=== PATIENT | female | born 1935 | race Caucasian/White ===

== ENCOUNTER 2017-02-17 08:33 | Inpatient (IN) ==
[2017-02-17] MEDS ORDERED: ALBUTEROL 2.5 MG/3 ML NEB RESP TX STA (08:55)
--- NOTE | 2017-02-17 09:01 | Emergency Department Note ---
Binu Roe Brooke, am scribing for, and in the presence of, Ashish Lynn MD 08:59 . Leah Roe James D, MD, personally performed the services described in this documentation, ascribed by Geetha Schmid in my presence, and it is both accurate and complete . Arrival - Arrival Chief Complaint: Shortness of Breath Stated Complaint: Shortness of Breath ED Nursing Triage Note: Pt woke up this am with severe shortness of breath. Upon ems arrival pt had O2 sat of 84% with rebound to 96% with 4L NC. Pt fractured back in the early part of January, with fracture of ribs . Mode of Arrival: Stretcher Limitations: No Limitations Source: Patient, Family, RN Notes Reviewed Time Seen by Provider: 02/17/17 08:49 - History of Present Illness HPI Narrative: Patient is a 81 year old female, brought into the ED by EMS, with c/o shortness of breath that has been ongoing for the past two weeks. She has been to five different appointments and has been told her lungs were clear. Patient says her last appointment was yesterday, at [facility], and they also said her lungs were clear. Patient says she also has a productive cough but is only able to get a "tad bit" up when she coughs. Patient says she has had a TIA, in the past, and does have problems with swallowing. Patient says she has been having a hard time eating. She has bilateral leg edema and has been constipated. Patient denies having any fever. She also has PMHx of afib, HTN and back/neck problems. Patient says she bent over to pick something up, in January, and fractured some ribs. Patient's Primary Care Provider is Dr. Graham and her Claims Adjuster Supervisor is Dr. Johnston. Patient is not currently a smoker but says she did when she was younger. Onset (ago): week(s) (2) Date of Last Menstrual Period: Hysterectomy Allergies/Adverse Reactions: Allergies Allergy/AdvReac Type Severity Reaction Status Date / Time sulfamethoxazole Allergy RASH Verified 11/02/15 10:04 [From Bactrim] trimethoprim [From Bactrim] Allergy RASH Verified 11/02/15 10:04 Home Medications: Home Medications Medication Instructions Recorded Confirmed Type Amiodarone Tab [Cordarone Tab] 200 mg PO DAILY 10/31/15 10/31/15 History Ascorbic Acid [Vitamin C] 1,000 mg PO DAILY 10/31/15 10/31/15 History Calcium Carbonate/Vitamin D2 2 each PO DAILY 10/31/15 10/31/15 History [Oyster Shell Calcium-Vit D Tab] Gabapentin Cap/Tab [Neurontin 300 mg PO DAILY 10/31/15 10/31/15 History Cap/Tab] HYDROcodone/ACETAMIN 5-325 [Ava 1 tablet PO DAILY 10/31/15 10/31/15 History 5-325] Lisinopril [Zestril] 20 mg PO DAILY 10/31/15 10/31/15 History Magnesium 250 mg PO DAILY 10/31/15 10/31/15 History Metoprolol Succinate 25 mg PO DAILY 10/31/15 10/31/15 History Multivitamin [Multivitamins] 1 each PO DAILY 10/31/15 10/31/15 History Potassium Chloride 8 meq PO DAILY 10/31/15 10/31/15 History Warfarin [Coumadin] 2.5 mg PO DAILY@1800 10/31/15 10/31/15 History Review of System - Review of System 12 point system: reviewed and no additional remarkable complaints except as stated - Review of System Constitutional: Absent: fever Respiratory: Present: cough (productive), respiratory distress (Shortness of breath) Cardiovascular: Present: edema (bilateral leg edema) Skin: Absent: rash Medical,Surgical,& Family Hx - Medical History Cardio: History of: Hypertension Endocrine: No history of: Diabetes Mellitus (NIDDM), Thyroid Disorder Respiratory: No history of: Pulmonary Embolism Musculoskeletal: History of: Back/Neck Problems - Surgical History Reproductive Surgeries: Surgical HX of;: Hysterectomy - Social History Smoking Status: Never smoker Frequency of Alcohol Use: None Type of Drug Use: None Exam Vital Signs: Vital Signs Temperature 96.8 F L 02/17/17 08:40 Pulse Rate 88 02/17/17 09:33 Respiratory Rate 24 02/17/17 09:33 Blood Pressure 193/89 02/17/17 08:57 O2 Sat by Pulse Oximetry 96 02/17/17 08:57 GENERAL: This is a chronically ill-appearing white female in no apparent distress. VITAL SIGNS: Reviewed HEENT: Head is atraumatic and normocephalic. Pupils are equal round react to light. Extraocular movements are intact. Oropharynx is benign with moist mucous membranes. NECK: Neck is soft and supple without tenderness. There are no masses. There is no lymphadenopathy. LUNGS: Lungs are clear to auscultation. There are coarse upper airway sounds. Patient has more difficulty in clearing her upper airway. Chest rises symmetrically. There is no chest wall tenderness. CV: Heart is regular rate and rhythm without murmurs rubs or gallops. ABDOMEN: Abdomen is soft, nontender to palpation. There are no abdominal abnormal masses palpated. There is no organomegaly. Bowel sounds are present and active. SKIN: Skin is warm and dry. No rash. EXTREMITIES: Patient has full range of motion without tenderness. There is 1+ pitting pedal edema. NEUROLOGIC: Awake alert and oriented 4. Cranial nerves II through XII are grossly intact. Motor is 3-4 over 5 in all extremities bilaterally. Course Course Narrative: Speech therapy evaluation is complete. Bedside swallowing evaluation shows normal swallowing. - Consultations Consultation #1: Discussed with hospitalist. Patient will be admitted to their service. Time: 10:03 Results - Labs CBC & BMP: 02/17/17 08:47 02/17/17 08:47 Lab Results: I have reviewed the patients labs Labs: Laboratory Tests 02/17/17 02/17/17 08:47 09:23 ABG pH 7.396 ABG pCO2 47.2 ABG pO2 89.1 ABG HCO3 27.2 H ABG Total CO2 25.1 ABG O2 Saturation 96.6 ABG Base Excess 3.2 H B-Natriuretic Peptide 755 H - EKG EKG results: interpreted by ERMD - Impressions EKG: Normal sinus rhythm with a rate of 71, nonspecific ST-T wave changes, normal axis, old lateral and inferior NV. - Diagnostic Findings Procedure: Chest x-ray: image reviewed by me (Left pleural effusion, increased pulmonary markings bilaterally, elevated left hemidiaphragm.) Disposition Clinical Impression: Dyspnea, Congestive heart failure, Debility, Chronic back pain Case discussed with: patient Disposition: Still a Patient Condition: Stable Time of Disposition: 10:03
[2017-02-17 09:03] LABS: Basophils # 0.1 10*3/uL (0.0-0.2); Basophils % 0.4 % (0.0-0.8); Eosinophils # 0.2 10*3/uL (0.0-0.87); Hematocrit 41.7 VOL% (35.7-47.0); Hemoglobin 13.9 GM/DL (12.0-16.0); Immature Granulocytes % 1.7 %; Immature Granulocytes Absolute 0.19 #; Lymphocytes % 8.6 % (21.3-54.2); Mean Corpuscular HGB Conc 33.3 GM/DL (32-36); Mean Corpuscular Hemoglobin 31 PG (27-34); Mean Corpuscular Volume 93.1 FL (87-102); Monocytes # 0.6 10*3/uL (0.11-0.8); Monocytes % 5.5 % (1.7-12.7); Neutrophils # 9.3 10*3/uL (1.4-7.4); Neutrophils % 81.8 % (38.7-73.9); Platelet Count 317 T/CUMM (130-400); Red Blood Count 4.48 MC/CUMM (3.8-5.5); Red Cell Distribution Width 14.7 % (9.3-17.3); White Blood Count 11.4 T/CUMM (4-12)
--- NOTE | 2017-02-17 09:29 | XRay Report ---
XR chest 2V Indication: Cough Comparison: Chest x-ray dated October 31, 2015 Technique: Frontal and lateral views of the chest. Findings: Continued cardiomegaly. Continued elevation of left hemidiaphragm. Scattered small pulmonary opacities as well as left basilar atelectasis/consolidation suspicious for infection. Recommend follow-up imaging to document resolution. There is probable small left pleural fluid. Visualized osseous and surrounding soft tissue structures appear grossly unchanged. Diffuse osteopenia as well as significant dextroconvex curvature of the spine. IMPRESSION: As above. PROCEDURE INTERPRETED AT [facility] DEPARTMENT OF RADIOLOGY Final Report Signed by: Dr Michele Zarate
[2017-02-17 09:30] LABS: ABG Base Excess 3.2 MMOL/L (-2.5-2.5); ABG HCO3 27.2 MMOL/L (20-26); ABG Oxygen Saturation 96.6 % (95-100); ABG PCO2 47.2 MM HG (35-48); ABG PH 7.396 (7.35-7.45); ABG PO2 89.1 MM HG (80-95); ABG TCO2 25.1 MMOL/L (23-27)
[2017-02-17 09:37] LABS: Albumin 3.7 G/DL (3.4-5.0); Calcium 9.3 MG/DL (8.5-10.1); Osmolality,Calculated 280.5 MOS/KG (273-304); Total Protein 6.8 G/DL (6.4-8.3)
--- NOTE | 2017-02-17 09:48 | EKG Report ---
Stationary ECG Study [facility] ER Test Date: 02/17/2017 8:50:55 AM Pat Name: MARÍA LEMUS Department: Room: Gender: F Car Wash Attendant: : 1935 Requested by: Ashish Evans Order Number: [id number] Reading MD: PAULA BOYD Intervals [place] Rate: 71 P: 39 HI: 157 QRS: 61 QRSD: 124 T: 154 QT: 492 QTc: 514 Interpretive Statements SINUS RHYTHM PROBABLE LATERAL MYOCARDIAL INFARCTION, OF INDETERMINATE AGE PROBABLE INFERIOR MYOCARDIAL INFARCTION, PROBABLY OLD Electronically Signed On 02-19-17 15:14:14 CDT by PAULA BOYD [email or web address]
[2017-02-17] MEDS ORDERED: FUROSEMIDE 40 MG/4 ML VIAL IV STA (10:04)
[2017-02-17] MEDS ORDERED: FUROSEMIDE 100 MG/10 ML VIAL ONE (10:26)
[2017-02-17 10:36] LABS: Apearance,Urine Slightly Hazy (Clear); Bacteria,Urine Occasional /HPF (Few); Bilirubin,Urine Negative (Negative); Blood, Urine Negative (Negative); Glucose,Urine (UA) Negative (Negative); Ketones,Urine Negative (Negative); Mucus,Urine Occasional /LPF (Occasional); Nitrite,Urine Negative (Negative); Protein,Urine Negative; RBC,Urine 3 /HPF (0-4); Squamous Epithelial Cell,Urine Occasional /HPF (0-10); Urine Color Yellow (Yellow); Urine Specific Gravity 1.009 (1.001-1.035); Urine Urobilinogen < 2.0 EU/DL (0.2-1.0); WBC,Urine 11 /HPF (0-6)
--- NOTE | 2017-02-17 12:07 | Hospitalist History & Physical ---
<Doc Marte - Last Filed: 02/17/17 13:33> Assessment and Plan - Time spent with patient Time spent with patient: Greater than 30 minutes (1) Pneumonia Status: Acute Assessment and plan: Admit to telemetry for further evaluation. IV antibiotics. Breathing treatments. Facilitate secretion movement with Mucinex or Mucomyst. Consult pulmonology as needed. Current Visit: Yes (2) Congestive heart failure Status: Acute Assessment and plan: Patient was given IV Lasix 80 mg injection in the ED. Will continue diuresis. BNP 755 Current Visit: Yes (3) Chronic back pain Status: Acute Assessment and plan: Per patient, she has vertebral fractures. She is currently being followed by physicians and nurse practitioners at [facility]. Current Visit: Yes (4) Hypertension Status: Acute Assessment and plan: Continue home meds Current Visit: No (5) Debility Status: Acute Current Visit: Yes (6) Headache Status: Acute Current Visit: No (7) History of atrial fibrillation Status: Chronic Assessment and plan: Rate and rhythm control. Patient is currently in sinus rhythm. Current Visit: No History of Present Illness Chief complaint: Shortness of breath History of present illness: Ms. Ernandez is a 81 year old ill-appearing white female with a past medical history significant for hypertension, atrial fibrillation, chronic back pain, total knee replacement who presents to the ED with complaints of shortness of breath 1 month. Patient reports that she has been experiencing shortness of breath for the last month with worsening symptoms within the last week. Patient states that she was at her baseline, very active social life until approximately 1 month ago when, while at her brother and drzwdd-ot-fac's house, she experienced chest pain and weakness. Patient states that she has been progressively getting worse since with cough sometimes productive of sputum. She notes that this has been keeping her up at night lately and she has been unable to eat but notes that she does have an appetite. She does have chronic back pain and is being followed by Dr. Crook and his nurse practitioners at [facility]. On exam today, the patient is short of breath and speaks in fragmented sentences as well she is unable to fully catch her breath. She is satting 96-97% on 2 L of oxygen per nasal cannula. Patient has a weak cough and is seemingly unable to move secretions adequately. She admits to headache, nausea without vomiting, shortness of breath, weakness, lower extremity pitting edema bilaterally. She denies blurry vision, change in bowel habits, known palpitations, numbness or tingling. Lab work on admission is remarkable for: WBC is 11.4, pH 7.396, PCO2 47.2, PO2 89.1, HCO3 27.2, sodium 139, potassium 4.0 , chloride 101, BUN 15, creatinine 0.80, glucose 148, BNP 755. Urinalysis shows large leukocytes 11 WBCs, occasional squamous epithelial cells, bacteria, mucus. Case has been discussed with Dr. Lynn, ER physician, and Dr. Gracia, admitting physician, the patient will be admitted to the hospital medicine service for further evaluation and treatment. Patient is this is a full code. Medications have been reviewed. Home Medications Medication Instructions Recorded Confirmed Type Amiodarone Tab [Cordarone Tab] 200 mg PO QAM 10/31/15 02/17/17 History Gabapentin Cap/Tab [Neurontin 300 mg PO 1200 10/31/15 02/17/17 History Cap/Tab] Magnesium 250 mg PO BEDTIME 10/31/15 02/17/17 History Metoprolol Succinate 12.5 mg PO 1200 10/31/15 02/17/17 History Multivitamin [Multivitamins] 1 each PO QAM 10/31/15 02/17/17 History Ascorbic Acid [Vitamin C] 500 mg PO BEDTIME 02/17/17 02/17/17 History Calcium Carbonate/Vitamin D3 1 each PO 1700 02/17/17 02/17/17 History [Calcium 600 + Vit D Tablet] Ferrous Sulfate 325 mg PO QAM 02/17/17 02/17/17 History Furosemide Inj [Lasix Inj] 20 mg IM BID DIURETIC vial 02/17/17 Rx Hydrocodone/Acetaminophen 1 tablet PO Q4-6H PRN 02/17/17 02/17/17 History [Hydrocodon-Acetaminoph 7.5-325] Potassium Chloride 8 meq PO 1200 02/17/17 02/17/17 History Warfarin [Coumadin] 2.5 mg PO DAILY 02/17/17 02/17/17 History Allergies Allergy/AdvReac Type Severity Reaction Status Date / Time sulfamethoxazole Allergy RASH Verified 11/02/15 10:04 [From Bactrim] trimethoprim [From Bactrim] Allergy RASH Verified 11/02/15 10:04 Medical,Surgical,& Family Hx - Medical History Cardio: History of: CHF, Hypertension Neurology: History of: TIA Endocrine: No history of: Diabetes Mellitus (NIDDM), Thyroid Disorder Respiratory: No history of: Pulmonary Embolism Gastrointestinal: History of: GERD Musculoskeletal: History of: Back/Neck Problems - Surgical History Reproductive Surgeries: Surgical HX of;: Hysterectomy - Family History Family History: Reports;: Family Diabetes, Family Heart Disease, Family Hypertension - Social History Smoking Status: Never smoker Frequency of Alcohol Use: None Type of Drug Use: None Marital Status: Lives With:: Alone Functional capacity: independent ambulation - Constitutional Constitutional: Present: fatigue, headache(s), weakness - EENT Eyes: Absent: blurry vision, loss of vision Ears: Absent: decreased hearing, ear pain Nose, mouth and throat: Absent: epistaxis, neck mass, neck pain, vertigo - Cardiovascular Cardiovascular: Present: dyspnea, dyspnea on exertion, edema. Absent: chest pain at rest, lightheadedness, palpitations - Respiratory Respiratory: Present: cough - Genitourinary Genitourinary: Present: urinary frequency. Absent: dysuria, flank pain - Musculoskeletal Musculoskeletal: Present: back pain - Neurological Neurological: Absent: abnormal gait, numbness, syncope - Psychiatric Psychiatric: Absent: anxiety, depression - Endocrine Endocrine: Absent: fatigue - Hematologic/Lymphatic Hematologic/Lymphatic: Present: easy bleeding, easy bruising Exam - Constitutional Vitals: Period Temp Pulse Resp BP Sys/Cox Pulse Ox Last 24 Hr 96.8 F-97.9 F 68-88 18-24 167-209/69-91 94-97 Exam: General appearance: Overweight, ill-appearing, mild distress - Head Head exam: Present: normocephalic, atraumatic - Eye Eye exam: Present: EOMI. Absent: conjunctival injection, nystagmus Pupils: Present: CHERELLE, normal accommodation - ENT ENT exam: Present: normal exam, normal external ear exam - Neck Neck exam: Present: normal inspection. Absent: lymphadenopathy, tenderness, thyromegaly - Respiratory Respiratory exam: Present: clear to auscultation bilaterally. Absent: rales, rhonchi, wheezes - Cardiovascular Cardiovascular exam: Present: regular rate and rhythm. Absent: carotid bruit, gallop, rubs - GI/Abdominal GI/Abdominal exam: Present: normal bowel sounds. Absent: ascites, distended, mass - Extremities Exam Extremities exam: Present: normal inspection, normal capillary refill, bilateral lower extremity pitting edema 1+-2+ - Back Exam Back exam: Kyphosis absent: CVA tenderness (L), CVA tenderness (R) - Neurological Exam Neurological exam: Present: alert, oriented X3 - Psychiatric Psychiatric exam: Present: normal affect, normal mood - Skin Skin exam: Present: normal color, warm, dry Results - Labs CBC & BMP: 02/17/17 08:47 02/17/17 08:47 Lab Results: I have reviewed the past 24 hour labs - EKG EKG results: interpreted by ERMD - Diagnostic Findings Procedure: Chest x-ray: image reviewed by me, report reviewed by me (Left basilar atelectasis/consolidation) <Keren Gracia - Last Filed: 02/17/17 15:53> History of Present Illness History of present illness: Ms. Ernandez is a 81 year old female who reports she fell and fractured her spine at T4 approximately 2-3 weeks ago. She was pulling up to get off the commode and pulled a muscle in her upper chest. She reports the a sharp constant pain on upper chest and around her shoulder blade. She reports movement makes the pain worse. Over the past 2 weeks, pt has had a productive cough of clear sputum but denies any any fever. Due to the pain medications she has been constipated and with nausea. She finally had a bowel movement 4 days ago after taking multiple laxatives and one small one the am of admission. She noticed lower extremity swelling that has worsened over the last 4 days. She used to take Lasix but has been off of it for months. When she was unable to breath this am, she panicked and came to the ER for further evaluation and treatment. A 10-point review of systems was reviewed and was otherwise unremarkable. PMH: TIA, chronic diastolic CHF, afib s/p electrical cardioversion, osteoporosis , T4 fracture, PNA, urinary incontinence PSH: left hip repair s/p fracture and right TKA, cataract extraction MEDS: reviewed ALL: bactrim- rash FH: Father lung cancer; Mother colon cancer; Brother DEMARCO, neuropathy and spinal stenosis; DM SH: remote former tobacco user quit 20-30 years ago. No alcohol or illicit drug use. . Lives alone though family involved in her care. Active. Full code Vitals: reviewed A and O x 3, weak appearing but nontoxic NAD HEENT: PERRL, EOMI, sclera clear, nares patent no discharge or epistaxis noted. O/P clear without oral lesions or thrush. Neck : supple, no LAD or thyromegaly noted. No JVD CV: RRR no M/R/G LUNGS: CTAB diminished at the bases left more right, nonlabored ABD: Soft, NT, ND, +BS EXT: Warm. No clubbing or cyanosis or edema BACK: No ecchymoses, erythema +kyphosis Neuro: nonfocal Labs/Investigative Studies:Reviewed A/P: 1. Acute dyspnea- possibly due to pneumonia and mild CHF exacerbation 2. Mild acute on chronic diastolic heart failure exacerbation- s/p Lasix 80mg IV x 1 in ER. Will continue Lasix 20mg IV q12h x 1 day. Resume ACEi pending RFP in am. Recheck BNP in am. 3. History of paroxysmal afib - Cont on amiodarone and Cont metoprolol. Check INR and resume coumadin if INR <3. Check TSH. 4. Acute pneumonia possibly aspiration- oxygen, bronchodilators, IV Rocephin, and mucolytics. F/U Clinically. 5. Chronic back pain due to T4 compression fracture- Pain medication. Will try fentanyl patch 12mcg q72h and start bowel regimen 6. Suspected Acute cystitis/UTI- F/U UCx and start Rocephin. 7. Chronic opioid induced constipation- start Miralax scheduled. If no improvement, may consider Linzess 8. Debility- PT/OT consult DVT prophylaxis- on Coumadin D/W pt and family and PA. All questions answered. Exam - Constitutional Vitals: Period Temp Pulse Resp BP Sys/Cox Pulse Ox Last 24 Hr 96.8 F-97.9 F 68-88 18-24 167-209/69-91 94-97 Results - Labs CBC & BMP: 02/17/17 08:47 02/17/17 08:47
[2017-02-17 12:31] LABS: Bilirubin,Total 0.4 MG/DL (0.2-1.0)
[2017-02-17] MEDS ORDERED: LEVALBUTEROL 1.25 MG/3 ML NEB RESP TX PRN (15:39)
[2017-02-17] MEDS ORDERED: cefTRIAXone 1,000 MG VIAL IM SCH (16:00)
[2017-02-17] MEDS ORDERED: SODIUM CHLORIDE 0.9% 100 ML IV ONE (16:07)
[2017-02-17] MEDS: fentaNYL 12 MCG/HR PATCH TRANSDERM SCH (16:31)
[2017-02-17] MEDS: CALCIUM (CARBONATE)/VITAMIN D 600 MG-400 UNIT TABLET PO SCH (16:31)
[2017-02-17] MEDS: FUROSEMIDE 20 MG/2 ML VIAL IM SCH (16:32)
[2017-02-17 17:28] LABS: Partial Thromboplastin Time 38.3 SECS (0-40)
[2017-02-17 17:34] LABS: INR 1.9
[2017-02-17 17:50] LABS: PT Patient Result 21.4 SECS
[2017-02-17] MEDS: MAGNESIUM GLUCONATE 500 MG TABLET PO SCH (20:40)
[2017-02-17] MEDS: ASCORBIC ACID 500 MG TABLET PO SCH (20:41)
[2017-02-17] MEDS: POLYETHYLENE GLYCOL POWDER 17 GM PACK PO SCH (20:44)
[2017-02-18] MEDS: LEVALBUTEROL 1.25 MG/3 ML NEB RESP TX SCH ×3 (01:47→15:12)
[2017-02-18 05:48] LABS: Basophils % 0.3 % (0.0-0.8); Eosinophils # 0.2 10*3/uL (0.0-0.87); Eosinophils % 2.3 % (0.00-10.9); Hematocrit 39.9 VOL% (35.7-47.0); Hemoglobin 13.2 GM/DL (12.0-16.0); Immature Granulocytes % 1.1 %; Immature Granulocytes Absolute 0.11 #; Lymphocytes # 1.3 10*3/uL (1.4-4.0); Lymphocytes % 12.7 % (21.3-54.2); Mean Corpuscular HGB Conc 33.1 GM/DL (32-36); Mean Corpuscular Hemoglobin 31 PG (27-34); Mean Corpuscular Volume 92.8 FL (87-102); Mean Platelet Volume 10.2 FL (9.6-12.0); Monocytes # 0.9 10*3/uL (0.11-0.8); Neutrophils # 7.3 10*3/uL (1.4-7.4); Neutrophils % 74.6 % (38.7-73.9); Platelet Count 273 T/CUMM (130-400); Red Cell Distribution Width 14.9 % (9.3-17.3); White Blood Count 9.8 T/CUMM (4-12)
[2017-02-18 06:00] LABS: INR 1.8; PT Patient Result 19.7 SECS; Partial Thromboplastin Time 39.8 SECS (0-40)
[2017-02-18 06:24] LABS: Albumin 2.8 G/DL (3.4-5.0); Calcium 8.8 MG/DL (8.5-10.1); Free T4 (Free Thyroxine) 1.33 NG/DL (0.76-1.46); Osmolality,Calculated 278.5 MOS/KG (273-304); Potassium 3.8 MMOL/L (3.5-5.1); Thyroid Stimulating Hormone 1.69 uIU/ml (0.358-3.74)
[2017-02-18 06:38] LABS: 25 Hydroxy Vitamin D Total 33.7 NG/ML
[2017-02-18] MEDS: FERROUS SULFATE 325 MG TABLET PO SCH (08:37)
[2017-02-18] MEDS: MULTIVITAMIN (CENTRUM) TABLET PO SCH (08:38)
[2017-02-18] MEDS: AMIODARONE 200 MG TABLET PO SCH (08:38)
[2017-02-18] MEDS: FUROSEMIDE 20 MG/2 ML VIAL IM SCH (08:38)
[2017-02-18] MEDS: POLYETHYLENE GLYCOL POWDER 17 GM PACK PO SCH ×3 (08:40→21:04)
[2017-02-18] MEDS ORDERED: WARFARIN 2.5 MG TABLET PO SCH (09:00)
[2017-02-18] MEDS ORDERED: AMIODARONE 200 MG TABLET PO SCH (09:00)
[2017-02-18] MEDS ORDERED: FUROSEMIDE 20 MG/2 ML VIAL IV SCH (09:39)
[2017-02-18] MEDS ORDERED: cefTRIAXone 1,000 MG VIAL IV SCH (09:41)
[2017-02-18] MEDS: GABAPENTIN 300 MG CAPSULE PO SCH (11:56)
[2017-02-18] MEDS: METOPROLOL SUCCINATE XL 25 MG TABLET PO SCH (11:57)
[2017-02-18] MEDS ORDERED: POTASSIUM CHLORIDE 8 MEQ CAPSULE PO SCH (12:00)
--- NOTE | 2017-02-18 13:22 | Hospitalist Progress Note ---
Hospitalist: Subjective Interval history: SOB better. Had a coughing spell this am after eating grits. No fever. Good UOP. +BM overnight. Back pain persists and requests [place] with Fentanyl patch. Exam - Constitutional Vitals: Period Temp Pulse Resp BP Sys/Cox Pulse Ox Last 24 Hr 96 F-99.2 F 66-77 16-22 115-171/58-77 93-99 Exam: A and O x 3, NAD HEENT: sclera clear, O/P clear without oral lesions or thrush. Neck : No JVD CV: RRR no M/R/G LUNGS: CTAB diminished at the bases left more right, nonlabored ABD: Soft, NT, ND, +BS EXT: Warm. No clubbing or cyanosis or edema BACK: No ecchymoses, erythema +kyphosis Neuro: nonfocal Results - Labs CBC & BMP: 02/18/17 05:11 02/18/17 05:11 - Impressions Labs/Investigative Studies:Reviewed A/P: 1. Acute dyspnea- possibly due to pneumonia and mild CHF exacerbation- improving 2. Mild acute on chronic diastolic heart failure exacerbation- s/p Lasix 80mg IV x 1 in ER. Lasix 20mg IV q12h x 1 day then start oral lasix. Would consider resuming ACEi but BP shows SBP 115 at this time. Will cont to hold for now. Recheck BNP/ RFP in am. 3. History of paroxysmal afib - Cont on amiodarone and Cont metoprolol. Daily INR. Cont coumadin. TSH normal. 4. Acute pneumonia possibly aspiration- oxygen, bronchodilators, IV Rocephin, and mucolytics. F/U Clinically. 5. Chronic back pain due to T4 compression fracture- Cont norco. On Neurontin as well. Cont fentanyl patch 12mcg q72h and cont bowel regimen 6. Suspected Acute cystitis/UTI- F/U UCx and start Rocephin. 7. Chronic opioid induced constipation-improved. Cont Miralax scheduled. 8. Debility- PT/OT consult DVT prophylaxis- on Coumadin D/W pt and family and nurse. All questions answered.
[2017-02-18] MEDS ORDERED: cefTRIAXone 1,000 MG in SODIUM CHLORIDE 0.9% 100 ML IV SCH (16:00)
[2017-02-18] MEDS: CALCIUM (CARBONATE)/VITAMIN D 600 MG-400 UNIT TABLET PO SCH (16:08)
[2017-02-18] MEDS: WARFARIN 2.5 MG TABLET PO SCH (17:19)
[2017-02-18] MEDS: MAGNESIUM GLUCONATE 500 MG TABLET PO SCH (21:06)
[2017-02-18] MEDS: ASCORBIC ACID 500 MG TABLET PO SCH (21:10)
[2017-02-19] MEDS: LEVALBUTEROL 1.25 MG/3 ML NEB RESP TX SCH ×4 (00:14→23:39)
[2017-02-19 05:04] LABS: Albumin 2.9 G/DL (3.4-5.0); Calcium 9.2 MG/DL (8.5-10.1); Osmolality,Calculated 280.7 MOS/KG (273-304); Phosphorous 5.2 MG/DL (2.5-4.9); Potassium 4.3 MMOL/L (3.5-5.1)
[2017-02-19] MEDS ORDERED: SUCCINYLCHOLINE 200 MG/10 ML VIAL ONE ×2 (08:41→19:05)
[2017-02-19] MEDS ORDERED: ETOMIDATE 20 MG/10 ML VIAL IV ONE ×3 (08:41→19:05)
[2017-02-19] MEDS ORDERED: FUROSEMIDE 20 MG TABLET PO SCH (09:00)
--- NOTE | 2017-02-19 09:03 | XRay Report ---
Portable chest. Indication: Respiratory distress. Aspiration. The heart is within normal limits for size. There is persistent elevation of the left hemidiaphragm, with gas in stomach and colon just beneath the left hemidiaphragm. There is uncoiling of the thoracic aorta. The pulmonary vasculature has increased in prominence. There are scattered parenchymal opacities, worse at the right lung base. Small pleural effusions are suspected. Severe scoliosis of the spinal column. Degenerative changes of the spinal column and shoulders. Diffuse demineralization. Impression: Development of bilateral interstitial infiltrates, more focal at the right lung base. Interval worsening. PROCEDURE INTERPRETED AT [facility] DEPARTMENT OF RADIOLOGY Final Report Signed by: Dr. Yun Bergman
[2017-02-19 09:17] LABS: ABG HCO3 26.1 MMOL/L (20-26); ABG Oxygen Saturation 96.7 % (95-100); ABG PCO2 61.5 MM HG (35-48); ABG PH 7.301 (7.35-7.45); ABG PO2 95.7 MM HG (80-95); ABG TCO2 26.8 MMOL/L (23-27); Allen Test Positive
--- NOTE | 2017-02-19 09:40 | Hospitalist Progress Note ---
Hospitalist: Subjective Interval history: Lui breaux called on patient this am. Per nurse while eating pancakes, she called out and said she could not breathe. She turned blue and code blue was called. Pt had PEA on monitor with heart rate around 48. No pulse was appreciated so ACLS protocol was started and pt received Epi 1 mg IV x 1 along with CPR. With bagging and suctioning pt sats improved and sinus tach at 103 was noted. She did not require intubation. She was placed on NRB and transferred to ICU. Exam - Constitutional Vitals: Period Temp Pulse Resp BP Sys/Cox Pulse Ox Last 24 Hr 97.0 F-99.1 F 61-81 16-20 107-145/52-65 91-99 Exam: A and O x 3 HEENT: sclera clear, O/P clear without oral lesions or thrush. Neck : No JVD CV: RRR no M/R/G LUNGS: coarse bilaterally worse on left, mild-moderate abdominal retractions ABD: Soft, NT, ND, hypoactive bowel sounds EXT: Warm. No clubbing or cyanosis or edema BACK: No ecchymoses, erythema +kyphosis Neuro: nonfocal Results - Labs CBC & BMP: 02/18/17 05:11 02/19/17 03:10 - Impressions 1. Acute hypoxic and hypercarbic respiratory failure due to recurrent aspiration - ICU. Pulm consult for possible bronch. NPO. Speech therapy consult. Cont IV antibiotics. Blood cultures. Bronchodilators. Bipap as needed. 2. Mild acute on chronic diastolic heart failure exacerbation- resolved s/p Lasix 80mg IV x 1 in ER. Lasix 20mg IV q12h x 1 day. Hold Lasix for now Would consider resuming ACEi but BP was on the lower end of normal. Will cont to hold for now. Recheck labs in am 3. History of paroxysmal afib - Amiodarone when able to tolerate po. Cont metoprolol but change to IV. Daily INR. Cont coumadin. TSH normal. 4. Acute pneumonia due to recurrent aspiration- oxygen, bronchodilators, Change IV Rocephin to Merrem, and Cont mucolytics. 5. Chronic back pain due to T4 compression fracture- Hold norco and Neurontin while NPO. Cont fentanyl patch 12mcg q72h and resume bowel regimen when taking po 6. Suspected Acute cystitis/UTI- F/U UCx and Cont Merrem now. I called micro but results still not in. 7. Chronic opioid induced constipation-improved. Cont Miralax scheduled. 8. Debility- PT/OT consult DVT prophylaxis- on Coumadin D/W pt and family and nurse. All questions answered. I will be away several days. One of my associates will follow in my absence. 56 minutes spent with this patient.
[2017-02-19] MEDS ORDERED: MIDAZOLAM 2 MG/2 ML VIAL ONE (09:44)
--- NOTE | 2017-02-19 09:45 | Pulmonology Consult Note ---
History of Present Illness Chief complaint: Shortness of breath History of present illness: Ms. Ernandez is a 81 year old female who was admitted 2 days ago with cough and congestion felt to have pneumonia. Chest x-ray showed relatively small lungs. She has been treated with respiratory therapy. Pending this morning a rapid response was called on her and she had just been eating pancakes and there was concern that she may have aspirated the pancake. She was choking trying to eat it. She had a TIA about 3 years ago but does not know of any neurologic problems however the last month or so she has been increasingly weak. She has chronic pain and takes a good bit of pain medications. She is also on Coumadin. She has had atrial fibrillation. I discussed the case with her daughter. I am concerned about a neurologic process causing her difficulty swallowing. At the present time we will bronchoscope her it is a possibility we may need to intubate if her oxygen drops with that. Unable to get in assist plan section so will list diagnosis here: 1. Bronchopneumonia suspicious for aspiration. Will plan bronchoscopy and clear her out. This is somewhat difficult with hypoxemia. Have advised patient 's daughter that we may need to intubate her to do this. #2 she is having difficulty with swallowing. I would be concerned about some formal neurologic process such as cerebrovascular disease or myasthenia. We need neurologic consultation. May need GI to see her 3. History of congestive heart failure. Her weight is up and she has edema. She had a BNP that was 755 but it has come down with diuresis since admission. 4. History of atrial fibrillation on Coumadin. She is in a sinus rhythm at present. Home Medications Medication Instructions Recorded Confirmed Type Amiodarone Tab [Cordarone Tab] 200 mg PO QAM 10/31/15 02/17/17 History Gabapentin Cap/Tab [Neurontin 300 mg PO 1200 10/31/15 02/17/17 History Cap/Tab] Magnesium 250 mg PO BEDTIME 10/31/15 02/17/17 History Metoprolol Succinate 12.5 mg PO 1200 10/31/15 02/17/17 History Multivitamin [Multivitamins] 1 each PO QAM 10/31/15 02/17/17 History Ascorbic Acid [Vitamin C] 500 mg PO BEDTIME 02/17/17 02/17/17 History Calcium Carbonate/Vitamin D3 1 each PO 1700 02/17/17 02/17/17 History [Calcium 600 + Vit D Tablet] Ferrous Sulfate 325 mg PO QAM 02/17/17 02/17/17 History Furosemide Inj [Lasix Inj] 20 mg IM BID DIURETIC vial 02/17/17 Rx Hydrocodone/Acetaminophen 1 tablet PO Q4-6H PRN 02/17/17 02/17/17 History [Hydrocodon-Acetaminoph 7.5-325] Potassium Chloride 8 meq PO 1200 02/17/17 02/17/17 History Warfarin [Coumadin] 2.5 mg PO DAILY 02/17/17 02/17/17 History Allergies Allergy/AdvReac Type Severity Reaction Status Date / Time sulfamethoxazole Allergy RASH Verified 11/02/15 10:04 [From Bactrim] trimethoprim [From Bactrim] Allergy RASH Verified 11/02/15 10:04 12 point system: reviewed and no additional remarkable complaints except as stated - EENT Nose, mouth and throat: Present: other (Difficulty swallowing) - Respiratory Respiratory: Present: cough, dyspnea, dyspnea on exertion - Gastrointestinal Gastrointestinal: Present: dysphagia - Genitourinary Genitourinary: Present: urinary frequency - Musculoskeletal Musculoskeletal: Present: back pain - Hematologic/Lymphatic Hematologic/Lymphatic: Present: easy bleeding (Patient on Coumadin) Exam (Pulmonay) H&P - Constitutional Vitals: Period Temp Pulse Resp BP Sys/Cox Pulse Ox Last 24 Hr 97.0 F-99.1 F 61-81 16-20 107-145/52-65 91-99 Exam: She is alert somewhat anxious. Vital signs normal. Pupils react to light. Throat clear. Neck is supple. Chest she has coarse rhonchi bilaterally. Heart normal rate rhythm no murmurs. Abdomen soft nontender. Bowel sounds present. Extremities no clubbing cyanosis. She has 2+ edema. Medical,Surgical,& Family Hx - Medical History Cardio: History of: CHF, Hypertension Neurology: History of: TIA Endocrine: No history of: Diabetes Mellitus (NIDDM), Thyroid Disorder Respiratory: No history of: Pulmonary Embolism Gastrointestinal: History of: GERD Musculoskeletal: History of: Back/Neck Problems - Surgical History Reproductive Surgeries: Surgical HX of;: Hysterectomy - Family History Family History: Reports;: Family Diabetes, Family Heart Disease, Family Hypertension - Social History Smoking Status: Never smoker Frequency of Alcohol Use: None Type of Drug Use: None Results - Labs CBC & BMP: 02/18/17 05:11 02/19/17 03:10 Lab Results: I have reviewed the past 24 hour labs - Diagnostic Findings Procedure: Chest x-ray: image reviewed by me (Coarse bilateral infiltrates. Relatively small lungs.)
[2017-02-19] MEDS ORDERED: DEXTROSE 5% NACL 0.45% 1,000 ML IV SCH (10:00)
--- NOTE | 2017-02-19 10:09 | Operative Note ---
Date of procedure: 02/19/17 (Fiberoptic bronchoscopy with removal of retained secretions) Pre-op diagnosis: Aspiration pneumonia, retained secretions Post-op diagnosis: same Procedure: After an appropriate timeout to be sure we were dealing with Yesy Ernandez, her left naris was topically anesthetized with Xylocaine and Cetacaine. Facemask oxygen with 100% was in place. We went through the hole in the left side of the mask with a bronchoscope in via her left naris. Vocal cords were identified and noted to function normally with phonation. Topical anesthesia was applied with Xylocaine via the bronchoscope. Trachea was entered and was free of lesions. However there were retained secretions in the lower trachea both mainstem bronchi in both lower lobes. I did not see any foreign bodies or food. Retained secretions were removed primarily from both lower lobes. Cultures were obtained. Upper lobes were cleaned out as well. The bronchoscope was removed. The patient remained in intensive care on nonrebreathing mask in stable condition. Oxygen saturation dropped from 94% down to about 87% by the end of the procedure. Patient did not have any respiratory distress. We were prepared for intubation but she did not require that. Anesthesia: conscious sedation Surgeon / Physician: Don Hernandez Estimated blood loss: none Specimens: other (Bronchial washings for cultures) Condition: stable Disposition: ICU Results - Labs CBC & BMP: 02/18/17 05:11 02/19/17 03:10 Discharge Plan - Discharge Medications New Furosemide Inj [Lasix Inj] 20 mg IM BID DIURETIC vial Continue Magnesium 250 mg PO BEDTIME Gabapentin Cap/Tab [Neurontin Cap/Tab] 300 mg PO 1200 Metoprolol Succinate 12.5 mg PO 1200 Amiodarone Tab [Cordarone Tab] 200 mg PO QAM Multivitamin [Multivitamins] 1 each PO QAM Warfarin [Coumadin] 2.5 mg PO DAILY Potassium Chloride 8 meq PO 1200 Ferrous Sulfate 325 mg PO QAM Calcium Carbonate/Vitamin D3 [Calcium 600 + Vit D Tablet] 1 each PO 1700 Ascorbic Acid [Vitamin C] 500 mg PO BEDTIME Hydrocodone/Acetaminophen [Hydrocodon-Acetaminoph 7.5-325] 1 tablet PO Q4-6H PRN PRN Reason: Pain Discontinued Lisinopril [Zestril] 20 mg PO QAM Meloxicam [Meloxicam] 7.5 mg PO QAM - Follow Up or Referral - Forms/Instructions
--- NOTE | 2017-02-19 10:14 | EKG Report ---
Stationary ECG Study [facility] Test Date: 02/19/2017 10:15:03 AM Pat Name: MARÍA LEMUS Department: Room: 109 Gender: F Photographic Machine Operator: : [id number] Requested by: Keren Gracia Order Number: [id number] Reading MD: PAULA BOYD Intervals [place] Rate: 76 P: 162 AK: 164 QRS: 62 QRSD: 110 T: 201 QT: 491 QTc: 521 Interpretive Statements ECTOPIC ATRIAL RHYTHM MARKED ST DEPRESSION, CONSIDER SUBENDOCARDIAL INJURY Electronically Signed On 02-20-17 10:36:48 CDT by PAULA BOYD [email or web address]
[2017-02-19] MEDS: POLYETHYLENE GLYCOL POWDER 17 GM PACK PO SCH (10:56)
[2017-02-19] MEDS: FERROUS SULFATE 325 MG TABLET PO SCH (10:56)
[2017-02-19] MEDS: AMIODARONE 200 MG TABLET PO SCH (10:56)
[2017-02-19] MEDS: MULTIVITAMIN (CENTRUM) TABLET PO SCH (10:56)
[2017-02-19 11:00] LABS: Troponin I Only 0.206 NG/ML (0.00-0.045)
[2017-02-19] MEDS: DORNASE ALFA 2.5 MG/2.5 ML VIAL RESP TX SCH ×2 (11:00→23:39)
[2017-02-19] MEDS: MEROPENEM 1,000 MG in SODIUM CHLORIDE 0.9% 100 ML IV SCH ×2 (11:02→22:24)
[2017-02-19] MEDS ORDERED: LIDOCAINE 2% VISCOUS 100 ML BOTTLE SWISH/SPIT ONE (13:35)
[2017-02-19] MEDS: METOPROLOL TARTRATE 5 MG/5 ML VIAL IV SCH ×2 (14:40→17:09)
[2017-02-19] MEDS ORDERED: FUROSEMIDE 40 MG/4 ML VIAL IV ONE (18:43)
[2017-02-19] MEDS ORDERED: methylPREDNISolone SOD SUC 125 MG/2 ML VIAL IV ONE (18:43)
[2017-02-19] MEDS ORDERED: methylPREDNISolone SOD SUC 125 MG/2 ML VIAL ONE (18:43)
[2017-02-19] MEDS ORDERED: FUROSEMIDE 40 MG/4 ML VIAL ONE (18:44)
[2017-02-19] MEDS ORDERED: RACEPINEPHRINE 0.5 ML NEB RESP TX ONE (18:44)
[2017-02-19] MEDS ORDERED: SUCCINYLCHOLINE 200 MG/10 ML VIAL IV ONE (19:04)
[2017-02-19] MEDS ORDERED: PROPOFOL 1,000 MG/100 ML BOTTLE IV ONE (19:05)
[2017-02-19] MEDS ORDERED: PROPOFOL 200 MG/20 ML VIAL IV ONE (19:07)
[2017-02-19] MEDS: PROPOFOL 1,000 MG/100 ML BOTTLE IV SCH ×2 (19:18→22:24)
--- NOTE | 2017-02-19 19:44 | XRay Report ---
History is ETT placement Comparison an earlier same day Chest one view 02/19/2017 at 7:20 PM The heart is enlarged. ET tube has been placed with tip at T3-4 slightly angled to the left of midline Diffuse bilateral interstitial and hazy pulmonary opacities remain. A chronic elevation of the left diaphragm again seen. Impression: 1. Interval intubation 2. Pulmonary edema PROCEDURE INTERPRETED AT [facility] DEPARTMENT OF RADIOLOGY Final Report Signed by: Dr. Nuria Bergman
--- NOTE | 2017-02-19 19:46 | Event Note ---
Responded to an PHYSICIAN COMPENSATION ANALYST called on patient in room 109 patient identified his Yesy little at the time patient's was noted to be struggling to breathe with stridor present on exam. Sats were in the upper 80s at the time. There was concern that patient's was not able to protect her airway and patient looked exhausted. Dr. Hernandez was notified of the patient's pulmonary status and requested for patient to be intubated. It was decided at that time to proceed with rapid sequence for this patient and intubate. After bag ventilation sats were up to 90% proceeded to look at the vocal cords with a kaleidoscope and noticed that was increase amounts of secretion deep suctioning was started. Sats went up to again 90%. Attempted to intubate patient however secretions were noted sats started to drop at that time we continued to do suction for the patient and maintain saturations. Once sats were stable blood pressure remained stable use the curved blade and a 7.5 diameter ET tube was used. The vocal cords were identified cricoid pressure was applied and the tube was placed without difficulty. Colorimeter was used to verify placement moreover breath sounds were auscultated on both lung carlson no breath sounds in the abdominal field. X -ray was done tube was noted to be at 18 cm and advanced approximately 2 cm and a repeat chest x-ray was done and verified the tube to be in a more stable positioning in the trachea. Sats have been 100%. Patient blood pressure is noted to be 133/50. Heart rate is 66. The family has been notified of this patient's change condition and her further support with ventilation. Pending ABG.
[2017-02-19] MEDS ORDERED: IPRATROPIUM 500 MCG/2.5 ML NEB RESP TX ONE (19:49)
[2017-02-19 20:05] LABS: ABG HCO3 28.8 MMOL/L (20-26); ABG Oxygen Saturation 99.5 % (95-100); ABG PCO2 54.3 MM HG (35-48); ABG PH 7.343 (7.35-7.45); ABG PO2 315.3 MM HG (80-95); ABG TCO2 30.5 MMOL/L (23-27); Allen Test Positive; Pt O2 Delivery Device Ventilator
[2017-02-19 21:06] LABS: ABG Base Excess 3.4 MMOL/L (-2.5-2.5); ABG HCO3 27.5 MMOL/L (20-26); ABG Oxygen Saturation 98.3 % (95-100); ABG PCO2 43.5 MM HG (35-48); ABG PH 7.422 (7.35-7.45); ABG TCO2 24.9 MMOL/L (23-27); Allen Test Positive; Pt O2 Delivery Device Ventilator
[2017-02-20] MEDS: methylPREDNISolone SOD SUC 40 MG/1 ML VIAL IV SCH ×5 (00:19→23:44)
[2017-02-20] MEDS: METOPROLOL TARTRATE 5 MG/5 ML VIAL IV SCH ×3 (00:21→14:54)
[2017-02-20] MEDS: PROPOFOL 1,000 MG/100 ML BOTTLE IV SCH ×5 (02:21→21:32)
[2017-02-20 05:06] LABS: Basophils % 0.1 % (0.0-0.8); Hematocrit 38.4 VOL% (35.7-47.0); Hemoglobin 12.9 GM/DL (12.0-16.0); Immature Granulocytes % 1.8 %; Immature Granulocytes Absolute 0.27 #; Lymphocytes # 0.6 10*3/uL (1.4-4.0); Lymphocytes % 3.7 % (21.3-54.2); Mean Corpuscular HGB Conc 33.6 GM/DL (32-36); Mean Corpuscular Hemoglobin 31 PG (27-34); Mean Corpuscular Volume 92.8 FL (87-102); Mean Platelet Volume 10.5 FL (9.6-12.0); Monocytes # 0.2 10*3/uL (0.11-0.8); Monocytes % 1.3 % (1.7-12.7); Neutrophils # 13.8 10*3/uL (1.4-7.4); Neutrophils % 93.1 % (38.7-73.9); Platelet Count 240 T/CUMM (130-400); Red Blood Count 4.14 MC/CUMM (3.8-5.5); Red Cell Distribution Width 14.8 % (9.3-17.3); White Blood Count 14.8 T/CUMM (4-12)
[2017-02-20 05:14] LABS: INR 1.3; PT Patient Result 13.9 SECS
[2017-02-20 05:48] LABS: Albumin 2.7 G/DL (3.4-5.0); Bilirubin,Total 0.8 MG/DL (0.2-1.0); Calcium 9.2 MG/DL (8.5-10.1); Magnesium 2.4 MG/DL (1.8-2.4); Osmolality,Calculated 288.4 MOS/KG (273-304); Phosphorous 2.9 MG/DL (2.5-4.9); Potassium 3.8 MMOL/L (3.5-5.1); Total Protein 5.6 G/DL (6.4-8.3)
[2017-02-20 05:58] LABS: Hypochromasia 1+; Lymphocytes 6 % (20-55); Nucleated Red Blood Cells 1 (0-5); Platelet Estimate Adequate; Segmented Neutrophils 92 % (50-85); Total Cells Counted 100
--- NOTE | 2017-02-20 06:55 | Pulmonology Progress Note ---
Pulmonary - PN: Subj Interval history: Patient had worsening respiratory distress last night and was intubated by Dr. Contreras. At present she is sedated and on the ventilator but her mental status is good when sedation is held. We had wanted to evaluate swallowing but we will have to wait until we wean her off the ventilator. Concerned that she has a neurologic process. ABGs look good this morning. Will reduce settings. She has bilateral infiltrates on x-ray. Will take several days of antibiotics before we would be able to wean. Exam (Progress Note) - Constitutional Vitals: Period Temp Pulse Resp BP Sys/Cox Pulse Ox Last 24 Hr 97.0 F-98.2 F 51-91 1-38 89-197/40-125 89-100 Exam: Patient sedated. Vital signs normal. Pupils react to light. Orotracheal tube in place. Neck is supple no bruits. Chest reveals some scattered rhonchi equal breath sounds. Heart irregular without murmurs. Abdomen soft nontender no masses. Extremities no clubbing cyanosis or edema. Results - Labs CBC & BMP: 02/20/17 03:46 02/20/17 03:46 Lab Results: I have reviewed the past 24 hour labs - Diagnostic Findings Procedure: Chest x-ray: image reviewed by me (ET tube good position. Diffuse bilateral infiltrates.) Assessment and Plan (1) History of atrial fibrillation Status: Chronic Assessment and plan: Patient on chronic anticoagulants. Watch protimes. Rate is controlled Current Visit: No (2) Congestive heart failure Status: Acute Assessment and plan: BNP has come down since admission. Watch fluid status. Current Visit: Yes (3) Pneumonia Status: Acute Assessment and plan: On broad-spectrum empiric antibiotics. Check cultures from bronchial washings. That should be out tomorrow. She is E. coli from her urine and it is covered with Merrem. Current Visit: Yes (4) Acute respiratory failure Status: Acute Assessment and plan: Patient was struggling especially with upper airway symptoms and required intubation last night. At bronchoscopy earlier in the day yesterday there were no abnormalities in the upper airway. Likely she had some thick secretions that caused this. We will keep these suctioned out. Pneumonia is the primary cause of the respiratory failure. Current Visit: Yes
--- NOTE | 2017-02-20 07:15 | EKG Report ---
Stationary ECG Study [facility] Test Date: 02/20/2017 7:16:27 AM Pat Name: MARÍA LEMUS Department: Room: 109 Gender: F Dental Laboratory Technician: RALPH : [id number] Requested by: Keren Gracia Order Number: [id number] Reading MD: PAULA BOYD Intervals [place] Rate: 54 P: 91 ID: [id number] QRS: 79 QRSD: 108 T: 247 QT: 454 QTc: 440 Interpretive Statements SINUS BRADYCARDIA INCOMPLETE RIGHT BUNDLE BRANCH BLOCK LEFT VENTRICULAR HYPERTROPHY AND ST-T CHANGE Electronically Signed On 02-20-17 10:47:58 CDT by PAULA BOYD [email or web address]
[2017-02-20] MEDS: LEVALBUTEROL 1.25 MG/3 ML NEB RESP TX SCH ×3 (07:34→23:38)
[2017-02-20] MEDS: DORNASE ALFA 2.5 MG/2.5 ML VIAL RESP TX SCH ×2 (07:45→20:35)
--- NOTE | 2017-02-20 08:07 | XRay Report ---
Referring Physician: Don Hernandez MD Exam: XR chest 1V portable Date: February 20, 2017 at 2:56 AM Reason: Post bronchoscopy Comparison: Chest one view portable February 19, 2017 Findings: An endotracheal tube is again in place. A feeding tube is also seen extending into the stomach. A catheter projects at the left lung base. This could represent the distal aspect of the feeding tube within the gastric fundus, but a chest tube at the left lung base is difficult to exclude. The cardiac silhouette is again enlarged. There are opacities within both lower lung zones and diffuse interstitial prominence. This is concerning for pulmonary edema and atelectasis, but pneumonia is not excluded. No pneumothorax is identified, but there is mild left pleural fluid and possible minimal right pleural fluid. The osseous structures appear stable. Impression: A feeding tube is now in place. A catheter projects at the left lung base and may represent the distal aspect of the feeding tube within the gastric fundus. However, a chest tube at the left lung base is difficult to exclude. The study is otherwise similar to before when considering differences in patient positioning. PROCEDURE INTERPRETED AT [facility] DEPARTMENT OF RADIOLOGY Final Report Signed by: Dr. Dejon Hatch
[2017-02-20] MEDS: FERROUS SULFATE 325 MG TABLET PO SCH (08:19)
[2017-02-20] MEDS: MULTIVITAMIN (CENTRUM) TABLET PO SCH (08:19)
[2017-02-20] MEDS: AMIODARONE 200 MG TABLET PO SCH (08:19)
[2017-02-20] MEDS: POLYETHYLENE GLYCOL POWDER 17 GM PACK PO SCH ×2 (08:20→20:52)
--- NOTE | 2017-02-20 10:12 | Hospitalist Progress Note ---
Hospitalist: Subjective Interval history: The patient required mechanical ventilation yesterday and had to be intubated. The patient is stable on the ventilator and this appears to be due to acute aspiration. Dr. Hernandez recommend several days of IV antibiotics before weaning process start. Exam - Constitutional Vitals: Period Temp Pulse Resp BP Sys/Cox Pulse Ox Last 24 Hr 96.9 F-98.0 F 51-91 12-38 89-197/40-125 89-100 Exam: Constitutional System: Mild distress. No tremulousness. The patient is orally intubated, mechanically ventilated, and sedated with Diprivan Head: Normocephalic, atraumatic. Ears, Nose and Throat System: No evidence of Otitis or Mastoiditis. No epistaxis or discharge Eyes System: Pupils equal, round, and reactive. Extraocular muscles intact. Neck: Supple, without adenopathy, No jugular venous distention. No thyromegaly , neck mass, or prior surgery apparent. Respiratory System: Chest upper airway congestion to auscultation. Cardiovascular System: Heart with regular rate and rhythm. No murmur. GI System: Abdomen soft, nontender. Normo active bowel sounds present. Musculoskeletal System: limbs with no pedal edema. Full distal pulses. Neurological System: No discernable sensory deficit. No aphasia Psychiatric System: Conversation is rational Results - Labs CBC & BMP: 02/20/17 03:46 02/20/17 03:46
[2017-02-20] MEDS: MEROPENEM 1,000 MG in SODIUM CHLORIDE 0.9% 100 ML IV SCH ×2 (10:22→21:59)
[2017-02-20] MEDS: fentaNYL 12 MCG/HR PATCH TRANSDERM SCH (10:22)
[2017-02-20] MEDS: GABAPENTIN 300 MG CAPSULE PO SCH (12:48)
[2017-02-20] MEDS: METOPROLOL SUCCINATE XL 25 MG TABLET PO SCH (14:54)
[2017-02-20] MEDS: METOPROLOL TARTRATE 50 MG TABLET PER TUBE SCH ×2 (16:10→20:52)
[2017-02-20] MEDS: CALCIUM (CARBONATE)/VITAMIN D 600 MG-400 UNIT TABLET PO SCH (16:11)
[2017-02-20] MEDS: WARFARIN 2.5 MG TABLET PO SCH (18:30)
[2017-02-20] MEDS: ASCORBIC ACID 500 MG TABLET PO SCH (20:52)
[2017-02-21] MEDS: PROPOFOL 1,000 MG/100 ML BOTTLE IV SCH ×5 (02:11→23:58)
[2017-02-21 04:41] LABS: ABG Base Excess 7.5 MMOL/L (-2.5-2.5); ABG HCO3 31.3 MMOL/L (20-26); ABG Oxygen Saturation 98.6 % (95-100); ABG PCO2 40.9 MM HG (35-48); ABG PH 7.502 (7.35-7.45); ABG PO2 122.3 MM HG (80-95); ABG TCO2 32.6 MMOL/L (23-27); Pt O2 Delivery Device Ventilator
[2017-02-21 06:06] LABS: INR 1.3; PT Patient Result 13.7 SECS
[2017-02-21] MEDS: methylPREDNISolone SOD SUC 40 MG/1 ML VIAL IV SCH ×4 (06:19→23:58)
--- NOTE | 2017-02-21 06:44 | Pulmonology Progress Note ---
Pulmonary - PN: Subj Interval history: Patient had worsening respiratory distress last night and was intubated by Dr. Contreras. At present she is sedated and on the ventilator but her mental status is good when sedation is held. We had wanted to evaluate swallowing but we will have to wait until we wean her off the ventilator. Concerned that she has a neurologic process. ABGs look good this morning. Will reduce settings. She has bilateral infiltrates on x-ray. Will take several days of antibiotics before we would be able to wean. 02/21/2017 ABGs are improved. Chest x-ray is pending. Will start weaning today. Patient with pneumonia and that is likely aspiration. Continuing broad- spectrum antibiotics. Cultures negative thus far from bronchial washings. Exam (Progress Note) - Constitutional Vitals: Period Temp Pulse Resp BP Sys/Cox Pulse Ox Last 24 Hr 96.9 F-98.5 F 49-64 12-18 90-170/42-90 97-100 Exam: Patient sedated. Vital signs normal. Pupils react to light. Orotracheal tube in place. Neck is supple no bruits. Chest reveals some scattered rhonchi equal breath sounds. Heart irregular without murmurs. Abdomen soft nontender no masses. Extremities no clubbing cyanosis or edema. Little change from yesterday. Results - Labs CBC & BMP: 02/20/17 03:46 02/20/17 03:46 Lab Results: I have reviewed the past 24 hour labs - Diagnostic Findings Procedure: Chest x-ray: pending Assessment and Plan (1) History of atrial fibrillation Status: Chronic Assessment and plan: Patient on chronic anticoagulants. Watch protimes. Rate is controlled 02/21/2017 rate is controlled. Current Visit: No (2) Congestive heart failure Status: Acute Assessment and plan: BNP has come down since admission. Watch fluid status. 02/21/2017 clinically congestive heart failure is better. Current Visit: Yes (3) Pneumonia Status: Acute Assessment and plan: On broad-spectrum empiric antibiotics. Check cultures from bronchial washings. That should be out tomorrow. She is E. coli from her urine and it is covered with Merrem. 02/21/2017 chest x-ray is pending. Bronchial wash cultures thus far are showing normal scott. Continuing empiric antibiotics. Current Visit: Yes (4) Acute respiratory failure Status: Acute Assessment and plan: Patient was struggling especially with upper airway symptoms and required intubation last night. At bronchoscopy earlier in the day yesterday there were no abnormalities in the upper airway. Likely she had some thick secretions that caused this. We will keep these suctioned out. Pneumonia is the primary cause of the respiratory failure. 02/21/17 ABGs look much better. She has a metabolic alkalosis. Will add Diamox for 3 days. Current Visit: Yes
[2017-02-21] MEDS: LEVALBUTEROL 1.25 MG/3 ML NEB RESP TX SCH ×3 (07:12→22:58)
[2017-02-21] MEDS: DORNASE ALFA 2.5 MG/2.5 ML VIAL RESP TX SCH ×2 (07:19→22:58)
--- NOTE | 2017-02-21 07:42 | XRay Report ---
Referring Physician: Don Hernandez MD Exam: XR chest 1V portable Date: February 21, 2017 at 6:37 AM Reason: Ventilation Comparison: Chest one view portable February 20, 2017 Findings: An endotracheal tube and feeding tube are again in place. A catheter also projects at the left lung base and may represent a portion of the feeding tube or possibly a chest tube. The cardiac silhouette is again enlarged. There are opacities within both lower lung zones and diffuse prominence of the interstitial markings. This is concerning for pulmonary edema and atelectasis, but superimposed pneumonia is not excluded. No pneumothorax is identified, but there is mild bilateral pleural fluid. The osseous structures appear stable. Impression: There has been no significant change. PROCEDURE INTERPRETED AT [facility] DEPARTMENT OF RADIOLOGY Final Report Signed by: Dr. Dejon Hatch
[2017-02-21] MEDS: POLYETHYLENE GLYCOL POWDER 17 GM PACK PO SCH ×2 (10:12→21:38)
[2017-02-21] MEDS: AMIODARONE 200 MG TABLET PO SCH (10:13)
[2017-02-21] MEDS: MULTIVITAMIN (CENTRUM) TABLET PO SCH (10:13)
[2017-02-21] MEDS: METOPROLOL TARTRATE 50 MG TABLET PER TUBE SCH ×2 (10:14→21:19)
[2017-02-21] MEDS: FERROUS SULFATE 325 MG TABLET PO SCH (10:15)
[2017-02-21] MEDS: MEROPENEM 1,000 MG in SODIUM CHLORIDE 0.9% 100 ML IV SCH ×2 (10:59→18:00)
[2017-02-21] MEDS: GABAPENTIN 300 MG CAPSULE PO SCH (12:35)
--- NOTE | 2017-02-21 12:40 | Hospitalist Progress Note ---
Assessment and Plan (1) Pneumonia Status: Acute Assessment and plan: The patient continues on meropenem for treatment of pneumonia. The atrial fibrillation is anticoagulated with Coumadin and amiodarone to maintain controlled response. The patient will have chest x-ray and lab work tomorrow and weaning will continue. Current Visit: Yes Qualifiers: Pneumonia type: aspiration pneumonia (2) History of atrial fibrillation Status: Chronic Current Visit: No (3) Anticoagulated on Coumadin Problem details: Hematocrit has dropped several points. Status: Chronic Current Visit: No (4) Acute respiratory failure Status: Acute Current Visit: Yes Hospitalist: Subjective Interval history: This patient was admitted to intensive care unit due to episode of aspiration with pneumonia. She has started weaning from the ventilator today. Dr. Hernandez feel she will need a couple more days of antibiotics before extubation will be possible. The patient also has UTI with E. coli sensitive to the meropenem which she is receiving now. Exam - Constitutional Vitals: Period Temp Pulse Resp BP Sys/Cox Pulse Ox Last 24 Hr 97.2 F-98.5 F 49-64 12-20 90-170/42-74 97-100 Exam: Constitutional System: Mild distress. No tremulousness. The patient is orally intubated, mechanically ventilated, and sedated with Diprivan Head: Normocephalic, atraumatic. Ears, Nose and Throat System: No evidence of Otitis or Mastoiditis. No epistaxis or discharge Eyes System: Pupils equal, round, and reactive. Extraocular muscles intact. Neck: Supple, without adenopathy, No jugular venous distention. No thyromegaly , neck mass, or prior surgery apparent. Respiratory System: Chest upper airway congestion to auscultation. Cardiovascular System: Heart with regular rate and rhythm. No murmur. GI System: Abdomen soft, nontender. Normo active bowel sounds present. Musculoskeletal System: limbs with no pedal edema. Full distal pulses. Results - Labs CBC & BMP: 02/20/17 03:46 02/20/17 03:46 Lab Results: I have reviewed the past 24 hour labs
[2017-02-21] MEDS: WARFARIN 2.5 MG TABLET PO SCH (18:00)
[2017-02-21] MEDS: CALCIUM (CARBONATE)/VITAMIN D 600 MG-400 UNIT TABLET PO SCH (18:00)
[2017-02-21] MEDS: ASCORBIC ACID 500 MG TABLET PO SCH (21:38)
[2017-02-22] MEDS: MEROPENEM 1,000 MG in SODIUM CHLORIDE 0.9% 100 ML IV SCH ×3 (02:10→18:41)
[2017-02-22 03:45] LABS: ABG Base Excess 5.9 MMOL/L (-2.5-2.5); ABG HCO3 30.2 MMOL/L (20-26); ABG Oxygen Saturation 98.4 % (95-100); ABG PCO2 42.4 MM HG (35-48); ABG PO2 122.8 MM HG (80-95); ABG TCO2 31.5 MMOL/L (23-27); Pt O2 Delivery Device Ventilator
[2017-02-22 05:43] LABS: Basophils % 0.1 % (0.0-0.8); Hematocrit 39.5 VOL% (35.7-47.0); Hemoglobin 13.1 GM/DL (12.0-16.0); Immature Granulocytes Absolute 0.14 #; Lymphocytes # 0.7 10*3/uL (1.4-4.0); Mean Corpuscular HGB Conc 33.2 GM/DL (32-36); Mean Corpuscular Hemoglobin 31 PG (27-34); Mean Corpuscular Volume 91.9 FL (87-102); Mean Platelet Volume 10.3 FL (9.6-12.0); Monocytes # 0.5 10*3/uL (0.11-0.8); Monocytes % 3.7 % (1.7-12.7); Neutrophils # 12.7 10*3/uL (1.4-7.4); Neutrophils % 90.2 % (38.7-73.9); Platelet Count 285 T/CUMM (130-400)
[2017-02-22 05:53] LABS: INR 1.3
[2017-02-22] MEDS: methylPREDNISolone SOD SUC 40 MG/1 ML VIAL IV SCH ×3 (06:20→18:27)
[2017-02-22 06:25] LABS: Calcium 9.3 MG/DL (8.5-10.1); Magnesium 2.8 MG/DL (1.8-2.4); Potassium 3.3 MMOL/L (3.5-5.1)
--- NOTE | 2017-02-22 06:29 | XRay Report ---
Portable chest Date: 02/22/2017 Clinical history: Hypoxia Comparison: 02/21/2017 Technique: Portable AP sitting chest Findings: Stable cardiomegaly and supportive devices. Reduced parenchymal findings with smaller pleural effusions. Stable mediastinum and osseous structures. Impression: Improved pulmonary edema/infiltration with reduced atelectasis and smaller pleural effusions. Supportive devices are stable in position. PROCEDURE INTERPRETED AT [facility] DEPARTMENT OF RADIOLOGY Final Report Signed by: Dr. Lucita Le
[2017-02-22] MEDS: PROPOFOL 1,000 MG/100 ML BOTTLE IV SCH ×3 (06:57→22:26)
--- NOTE | 2017-02-22 06:57 | Pulmonology Progress Note ---
Pulmonary - PN: Subj Interval history: Patient had worsening respiratory distress last night and was intubated by Dr. Contreras. At present she is sedated and on the ventilator but her mental status is good when sedation is held. We had wanted to evaluate swallowing but we will have to wait until we wean her off the ventilator. Concerned that she has a neurologic process. ABGs look good this morning. Will reduce settings. She has bilateral infiltrates on x-ray. Will take several days of antibiotics before we would be able to wean. 02/21/2017 ABGs are improved. Chest x-ray is pending. Will start weaning today. Patient with pneumonia and that is likely aspiration. Continuing broad- spectrum antibiotics. Cultures negative thus far from bronchial washings. 02/22/2017 again ABGs look better. Patient starting to do CPAP's. Seems to be responsive during those times when sedation is held. She does have some dementia and apparent aspiration. Bronchial washing cultures have been negative. Continuing empiric antibiotics. Will check mechanics and ABGs on CPAP today to see if we could possibly extubate. Exam (Progress Note) - Constitutional Vitals: Period Temp Pulse Resp BP Sys/Cox Pulse Ox Last 24 Hr 96.9 F-99.4 F 47-64 12-24 78-158/44-74 97-100 Exam: Patient sedated. Vital signs normal. Pupils react to light. Orotracheal tube in place. Neck is supple no bruits. Chest reveals few scattered rhonchi equal breath sounds. Heart irregular without murmurs. Abdomen soft nontender no masses. Extremities no clubbing cyanosis or edema. Little improvement from yesterday. Results - Labs CBC & BMP: 02/22/17 04:51 02/22/17 04:51 Lab Results: I have reviewed the past 24 hour labs - Diagnostic Findings Procedure: Chest x-ray: image reviewed by me (Lungs a little better aerated. ET tube good position.) Assessment and Plan (1) History of atrial fibrillation Status: Chronic Assessment and plan: Patient on chronic anticoagulants. Watch protimes. Rate is controlled 02/21/2017 rate is controlled. 02/22/2017 again rate is controlled. Current Visit: No (2) Congestive heart failure Status: Acute Assessment and plan: BNP has come down since admission. Watch fluid status. 02/21/2017 clinically congestive heart failure is better. 02/22/2017 heart failure seems to be better Current Visit: Yes (3) Pneumonia Status: Acute Assessment and plan: On broad-spectrum empiric antibiotics. Check cultures from bronchial washings. That should be out tomorrow. She is E. coli from her urine and it is covered with Merrem. 02/21/2017 chest x-ray is pending. Bronchial wash cultures thus far are showing normal scott. Continuing empiric antibiotics. 02/22/2017 bronchial wash cultures were negative. Continuing empiric antibiotics. X-ray showing improvement Current Visit: Yes Qualifiers: Pneumonia type: aspiration pneumonia (4) Acute respiratory failure Status: Acute Assessment and plan: Patient was struggling especially with upper airway symptoms and required intubation last night. At bronchoscopy earlier in the day yesterday there were no abnormalities in the upper airway. Likely she had some thick secretions that caused this. We will keep these suctioned out. Pneumonia is the primary cause of the respiratory failure. 02/21/17 ABGs look much better. She has a metabolic alkalosis. Will add Diamox for 3 days. 02/22/2017 ABGs improved. Still has a mild metabolic alkalosis. Will check mechanics today to see if extubation is a possibility. Current Visit: Yes
[2017-02-22] MEDS: LEVALBUTEROL 1.25 MG/3 ML NEB RESP TX SCH ×2 (07:01→14:17)
--- NOTE | 2017-02-22 08:54 | Hospitalist Progress Note ---
Assessment and Plan (1) History of atrial fibrillation Status: Chronic Current Visit: No (2) Anticoagulated on Coumadin Problem details: Hematocrit has dropped several points. Status: Chronic Current Visit: No (3) Pneumonia Status: Acute Current Visit: Yes Qualifiers: Pneumonia type: aspiration pneumonia (4) Acute respiratory failure Status: Acute Assessment and plan: Patient seems to be doing well on the ventilator. She is on antibiotics for her pneumonia. Reviewing her chart I do note that her INR is only 1.3 she has history of A. fib. We will increase her Coumadin dose. She is on her home medication of 2.5 mg p.o. daily will increase it to 5. Monitor INR daily. Patient should be extirpated in the near future. Patient has a UTI pansensitive. Bronch cultures were negative. Blood cultures are negative on day 1. Current Visit: Yes Hospitalist: Subjective Interval history: She seems to be doing good with her CPAP trials. According to nursing staff she will wake up and follow commands. Exam - Constitutional Vitals: Period Temp Pulse Resp BP Sys/Cox Pulse Ox Last 24 Hr 96.9 F-99.4 F 47-64 12-24 78-158/44-79 97-100 General appearance: normal weight - Head Head exam: Present: normal inspection - ENT ENT exam: Present: normal exam (ET tube in place) - Neck Neck exam: Present: normal inspection - Respiratory Respiratory exam: Present: rhonchi (Scattered) - Cardiovascular Cardiovascular exam: Present: regular rate and rhythm - GI/Abdominal GI/Abdominal exam: Present: normal bowel sounds - Extremities Exam Extremities exam: Present: normal inspection - Back Exam Back exam: Present: normal inspection - Skin Skin exam: Present: normal color Results - Labs CBC & BMP: 02/22/17 04:51 02/22/17 04:51
[2017-02-22] MEDS: MULTIVITAMIN (CENTRUM) TABLET PO SCH (09:34)
[2017-02-22] MEDS: FERROUS SULFATE 325 MG TABLET PO SCH (09:34)
[2017-02-22] MEDS: AMIODARONE 200 MG TABLET PO SCH (09:34)
[2017-02-22] MEDS: METOPROLOL TARTRATE 50 MG TABLET PER TUBE SCH ×2 (09:36→22:07)
[2017-02-22] MEDS: POLYETHYLENE GLYCOL POWDER 17 GM PACK PO SCH ×2 (09:36→22:07)
[2017-02-22] MEDS: POTASSIUM CHLORIDE RIDER 10 MEQ in PREMIX 1 EACH IV PRN ×4 (09:48→13:12)
[2017-02-22] MEDS: GABAPENTIN 300 MG CAPSULE PO SCH (13:09)
[2017-02-22] MEDS: WARFARIN 5 MG TABLET PO SCH (18:27)
[2017-02-22] MEDS: CALCIUM (CARBONATE)/VITAMIN D 600 MG-400 UNIT TABLET PO SCH (18:27)
[2017-02-22] MEDS: ASCORBIC ACID 500 MG TABLET PO SCH (22:07)
[2017-02-23] MEDS: LEVALBUTEROL 1.25 MG/3 ML NEB RESP TX SCH ×4 (00:12→23:37)
[2017-02-23] MEDS: MEROPENEM 1,000 MG in SODIUM CHLORIDE 0.9% 100 ML IV SCH ×3 (01:09→18:32)
[2017-02-23] MEDS: methylPREDNISolone SOD SUC 40 MG/1 ML VIAL IV SCH ×2 (01:09→05:55)
[2017-02-23 03:36] LABS: ABG Base Excess 4.1 MMOL/L (-2.5-2.5); ABG HCO3 28.4 MMOL/L (20-26); ABG Oxygen Saturation 98.5 % (95-100); ABG PCO2 41.3 MM HG (35-48); ABG PH 7.455 (7.35-7.45); ABG PO2 129.3 MM HG (80-95); ABG TCO2 29.7 MMOL/L (23-27); Allen Test Positive; Pt O2 Delivery Device Ventilator
[2017-02-23 04:43] LABS: Basophils % 0.2 % (0.0-0.8); Hematocrit 38.7 VOL% (35.7-47.0); Hemoglobin 12.7 GM/DL (12.0-16.0); Immature Granulocytes % 1.7 %; Immature Granulocytes Absolute 0.16 #; Lymphocytes # 0.6 10*3/uL (1.4-4.0); Lymphocytes % 5.9 % (21.3-54.2); Mean Corpuscular HGB Conc 32.8 GM/DL (32-36); Mean Corpuscular Hemoglobin 30 PG (27-34); Mean Corpuscular Volume 91.5 FL (87-102); Mean Platelet Volume 10.6 FL (9.6-12.0); Monocytes # 0.5 10*3/uL (0.11-0.8); Monocytes % 5.3 % (1.7-12.7); Neutrophils % 86.9 % (38.7-73.9); Platelet Count 284 T/CUMM (130-400); Red Blood Count 4.23 MC/CUMM (3.8-5.5); Red Cell Distribution Width 14.6 % (9.3-17.3); White Blood Count 9.3 T/CUMM (4-12)
[2017-02-23 04:52] LABS: INR 1.4; PT Patient Result 15.2 SECS
[2017-02-23 05:13] LABS: Calcium 9.3 MG/DL (8.5-10.1); Magnesium 2.7 MG/DL (1.8-2.4); Osmolality,Calculated 299.8 MOS/KG (273-304); Potassium 3.3 MMOL/L (3.5-5.1)
[2017-02-23] MEDS: methylPREDNISolone SOD SUC 125 MG/2 ML VIAL IV SCH ×3 (06:02→18:32)
[2017-02-23] MEDS ORDERED: LIDOCAINE 1% 20 ML VIAL MISC INJ ONE (06:49)
--- NOTE | 2017-02-23 06:49 | Pulmonology Progress Note ---
Pulmonary - PN: Subj Interval history: Patient had worsening respiratory distress last night and was intubated by Dr. Contreras. At present she is sedated and on the ventilator but her mental status is good when sedation is held. We had wanted to evaluate swallowing but we will have to wait until we wean her off the ventilator. Concerned that she has a neurologic process. ABGs look good this morning. Will reduce settings. She has bilateral infiltrates on x-ray. Will take several days of antibiotics before we would be able to wean. 02/21/2017 ABGs are improved. Chest x-ray is pending. Will start weaning today. Patient with pneumonia and that is likely aspiration. Continuing broad- spectrum antibiotics. Cultures negative thus far from bronchial washings. 02/22/2017 again ABGs look better. Patient starting to do CPAP's. Seems to be responsive during those times when sedation is held. She does have some dementia and apparent aspiration. Bronchial washing cultures have been negative. Continuing empiric antibiotics. Will check mechanics and ABGs on CPAP today to see if we could possibly extubate. 02/23/2017 patient doing well with CPAP. ABGs look good. Chest x-ray still shows some lower lobe infiltrates. Worse on the right than left. Patient is alert calm and nodding to questions. Will check mechanics and ABGs on CPAP. If she does okay which should be able to get her extubated. Exam (Progress Note) - Constitutional Vitals: Period Temp Pulse Resp BP Sys/Cox Pulse Ox Last 24 Hr 97.2 F-98.2 F 47-61 12-24 100-162/40-79 97-100 General appearance: no severe distress Exam: Patient alert and calm. Vital signs normal. Pupils react to light. Orotracheal tube in place. Neck is supple no bruits. Chest reveals few scattered rhonchi equal breath sounds. Heart irregular without murmurs. Abdomen soft nontender no masses. Extremities no clubbing cyanosis or edema. Little improvement from yesterday. NG tube is clamped, not tolerating feedings. Results - Labs CBC & BMP: 02/23/17 03:48 02/23/17 03:48 Lab Results: I have reviewed the past 24 hour labs - Diagnostic Findings Procedure: Chest x-ray: image reviewed by me (Bibasilar infiltrates. ET tube good position.) Assessment and Plan (1) History of atrial fibrillation Status: Chronic Assessment and plan: Patient on chronic anticoagulants. Watch protimes. Rate is controlled 02/21/2017 rate is controlled. 02/22/2017 again rate is controlled. 02/23/2017 rate controlled. Current Visit: No (2) Congestive heart failure Status: Acute Assessment and plan: BNP has come down since admission. Watch fluid status. 02/21/2017 clinically congestive heart failure is better. 02/22/2017 heart failure seems to be better 02/23/2017 chest x-ray may be a little wet. Will diurese further. Current Visit: Yes (3) Pneumonia Status: Acute Assessment and plan: On broad-spectrum empiric antibiotics. Check cultures from bronchial washings. That should be out tomorrow. She is E. coli from her urine and it is covered with Merrem. 02/21/2017 chest x-ray is pending. Bronchial wash cultures thus far are showing normal scott. Continuing empiric antibiotics. 02/22/2017 bronchial wash cultures were negative. Continuing empiric antibiotics. X-ray showing improvement 02/23/2017 bibasilar pneumonia. Bronchial wash cultures negative. Continuing antibiotics. Current Visit: Yes Qualifiers: Pneumonia type: aspiration pneumonia (4) Acute respiratory failure Status: Acute Assessment and plan: Patient was struggling especially with upper airway symptoms and required intubation last night. At bronchoscopy earlier in the day yesterday there were no abnormalities in the upper airway. Likely she had some thick secretions that caused this. We will keep these suctioned out. Pneumonia is the primary cause of the respiratory failure. 02/21/17 ABGs look much better. She has a metabolic alkalosis. Will add Diamox for 3 days. 02/22/2017 ABGs improved. Still has a mild metabolic alkalosis. Will check mechanics today to see if extubation is a possibility. 02/23/2017 ABGs look good. Tolerating CPAP. Only concern is far as getting her extubated is that her right lower lobe looks a little worse on x-ray today. Will bronchoscope and clean her out before we do CPAP Current Visit: Yes
[2017-02-23] MEDS ORDERED: FUROSEMIDE 40 MG/4 ML VIAL IV ONE (06:50)
--- NOTE | 2017-02-23 07:07 | XRay Report ---
Portable chest Date: 02/23/2017 Clinical history: Ventilator Comparison: 02/22/2017 Technique: Portable AP sitting chest Findings: The heart is minimally enlarged with uncoiling of the aorta. Stable supportive devices. Progressive diffuse parenchymal findings especially in the lower lobes with enlarging pleural effusions. Stable scoliosis with degenerative changes. Impression: Progressive bilateral pneumonia/CHF with increased atelectasis and enlarging moderate pleural effusions. Supportive devices remain in satisfactory position. PROCEDURE INTERPRETED AT [facility] DEPARTMENT OF RADIOLOGY Final Report Signed by: Dr. Lucita Le
--- NOTE | 2017-02-23 07:23 | Operative Note ---
Date of procedure: 02/23/17 (Fiberoptic bronchoscopy with removal of retained secretions) Pre-op diagnosis: Right lower lobe infiltrate suspect mucous plugging Post-op diagnosis: same (Mucous plugging right lower lobe) Procedure: After appropriate timeout to be sure we were dealing with Yesy Ernandez, her propofol sedation was increased. Oxygen was turned to 100% on the ventilator. Fiberoptic bronchoscope introduced via the side arm of the endotracheal tube. Lower trachea was clean. There were retained secretions primarily in the bronchus intermedius and right lower lobe. There was mild erythema. There were mucous plugs in the lower lobe. Using saline irrigation these were removed and sent for cultures. There were only slightly increased secretions on the left side and these were irrigated and removed as well. There were no endobronchial lesions. The bronchoscope was removed and the patient remained on the ventilator in the ICU in stable condition. Anesthesia: conscious sedation Surgeon / Physician: Don Hernandez Estimated blood loss: none Specimens: other (Bronchial washings for culture) Condition: stable Disposition: ICU Results - Labs CBC & BMP: 02/23/17 03:48 02/23/17 03:48 Discharge Plan - Discharge Medications New Furosemide Inj [Lasix Inj] 20 mg IM BID DIURETIC vial Continue Magnesium 250 mg PO BEDTIME Gabapentin Cap/Tab [Neurontin Cap/Tab] 300 mg PO 1200 Metoprolol Succinate 12.5 mg PO 1200 Amiodarone Tab [Cordarone Tab] 200 mg PO QAM Multivitamin [Multivitamins] 1 each PO QAM Warfarin [Coumadin] 2.5 mg PO DAILY Potassium Chloride 8 meq PO 1200 Ferrous Sulfate 325 mg PO QAM Calcium Carbonate/Vitamin D3 [Calcium 600 + Vit D Tablet] 1 each PO 1700 Ascorbic Acid [Vitamin C] 500 mg PO BEDTIME Hydrocodone/Acetaminophen [Hydrocodon-Acetaminoph 7.5-325] 1 tablet PO Q4-6H PRN PRN Reason: Pain Discontinued Lisinopril [Zestril] 20 mg PO QAM Meloxicam [Meloxicam] 7.5 mg PO QAM - Follow Up or Referral - Forms/Instructions
[2017-02-23] MEDS: POTASSIUM CHLORIDE RIDER 10 MEQ in PREMIX 1 EACH IV PRN ×6 (07:27→21:43)
[2017-02-23] MEDS: MULTIVITAMIN (CENTRUM) TABLET PO SCH (08:59)
[2017-02-23] MEDS: AMIODARONE 200 MG TABLET PO SCH (08:59)
[2017-02-23] MEDS: POLYETHYLENE GLYCOL POWDER 17 GM PACK PO SCH ×2 (08:59→21:42)
[2017-02-23] MEDS: FERROUS SULFATE 325 MG TABLET PO SCH (09:02)
[2017-02-23] MEDS: fentaNYL 12 MCG/HR PATCH TRANSDERM SCH (09:05)
[2017-02-23 09:53] LABS: Allen Test Positive; Pt O2 Delivery Device Ventilator
[2017-02-23 09:54] LABS: ABG Base Excess 2.8 MMOL/L (-2.5-2.5); ABG HCO3 26.9 MMOL/L (20-26); ABG Oxygen Saturation 96.9 % (95-100); ABG PCO2 43.1 MM HG (35-48); ABG PH 7.417 (7.35-7.45); ABG PO2 90.7 MM HG (80-95); ABG TCO2 24.2 MMOL/L (23-27)
[2017-02-23] MEDS: GABAPENTIN 50 MG/ML 30 ML/BOTTLE NG SCH (11:33)
[2017-02-23] MEDS: PROPOFOL 1,000 MG/100 ML BOTTLE IV SCH ×2 (14:43→21:44)
[2017-02-23] MEDS ORDERED: DEXTROSE 50% 25 GM/50 ML VIAL IV PRN (15:34)
[2017-02-23] MEDS ORDERED: GLUCAGON 1 MG VIAL IM PRN (15:34)
[2017-02-23] MEDS: METOPROLOL TARTRATE 50 MG TABLET PER TUBE SCH ×2 (16:00→20:39)
--- NOTE | 2017-02-23 17:19 | Hospitalist Progress Note ---
Assessment and Plan - Time spent with patient Time spent with patient: Greater than 30 minutes (35 minutes with this patient.) (1) Hypertension Status: Chronic Current Visit: No Qualifiers: Hypertension type: essential hypertension Qualified Code(s): I10 - Essential (primary) hypertension (2) Debility Status: Chronic Current Visit: Yes (3) Pneumonia Status: Acute Assessment and plan: Broad-spectrum antibiotics. Status post brought this morning. Daily x-ray. Continue with ventilation. Current Visit: Yes Qualifiers: Pneumonia type: aspiration pneumonia (4) Acute respiratory failure Status: Acute Assessment and plan: Continue with ventilation. Current Visit: Yes Hospitalist: Subjective Interval history: The patient remains ventilated. Follow-up chest x-ray this morning showed evidence of increase pulmonary markings with bilateral pneumonia. She underwent a bronchoscope this morning that showed evidence of increased secretions. No fevers or chills. Has not been able to tolerate tube feedings. Exam - Constitutional Vitals: Period Temp Pulse Resp BP Sys/Cox Pulse Ox Last 24 Hr 97.2 F-98.4 F 47-70 12-23 100-197/43-74 96-100 General appearance: no acute distress, other (Ventilated) - Head Head exam: Present: normal inspection - Neck Neck exam: Present: normal inspection - Respiratory Respiratory exam: Present: decreased breath sounds, rales, wheezes - Cardiovascular Cardiovascular exam: Present: regular rate and rhythm - GI/Abdominal GI/Abdominal exam: Present: normal bowel sounds Results - Labs CBC & BMP: 02/23/17 03:48 02/23/17 16:48
[2017-02-23] MEDS: CALCIUM (CARBONATE)/VITAMIN D 600 MG-400 UNIT TABLET PO SCH (18:27)
[2017-02-23] MEDS: WARFARIN 5 MG TABLET PO SCH (18:27)
[2017-02-23] MEDS: INSULIN REGULAR 100 UNIT/ML SUBCUT SCH (18:27)
[2017-02-23] MEDS: ASCORBIC ACID 500 MG TABLET PO SCH (21:42)
[2017-02-24] MEDS: INSULIN REGULAR 100 UNIT/ML SUBCUT SCH ×4 (01:53→18:20)
[2017-02-24] MEDS: methylPREDNISolone SOD SUC 125 MG/2 ML VIAL IV SCH ×4 (01:54→18:08)
[2017-02-24] MEDS: MEROPENEM 1,000 MG in SODIUM CHLORIDE 0.9% 100 ML IV SCH ×3 (01:54→18:12)
[2017-02-24 05:05] LABS: Basophils % 0.1 % (0.0-0.8); Hematocrit 38.7 VOL% (35.7-47.0); Hemoglobin 12.7 GM/DL (12.0-16.0); Immature Granulocytes % 1.3 %; Immature Granulocytes Absolute 0.13 #; Lymphocytes # 0.6 10*3/uL (1.4-4.0); Lymphocytes % 5.8 % (21.3-54.2); Mean Corpuscular HGB Conc 32.8 GM/DL (32-36); Mean Corpuscular Hemoglobin 30 PG (27-34); Mean Corpuscular Volume 91.7 FL (87-102); Mean Platelet Volume 10.5 FL (9.6-12.0); Monocytes # 0.5 10*3/uL (0.11-0.8); Monocytes % 4.8 % (1.7-12.7); Platelet Count 293 T/CUMM (130-400); Red Blood Count 4.22 MC/CUMM (3.8-5.5); Red Cell Distribution Width 14.7 % (9.3-17.3); White Blood Count 10.3 T/CUMM (4-12)
[2017-02-24 05:34] LABS: Calcium 9.1 MG/DL (8.5-10.1); Osmolality,Calculated 304.8 MOS/KG (273-304); Potassium 3.8 MMOL/L (3.5-5.1)
[2017-02-24 05:38] LABS: Magnesium 2.7 MG/DL (1.8-2.4); Phosphorous 2.6 MG/DL (2.5-4.9); Prealbumin 28.2 MG/DL (20-40)
--- NOTE | 2017-02-24 06:59 | XRay Report ---
Exam: XR chest 1V portable Date: 02/24/2017 4:00 AM Indication: Respiratory failure follow-up ventilator Comparison: 02/23/2017 Technical: AP portable Findings: Nasogastric tube and endotracheal tube are unchanged. Dextroscoliotic curve with bony demineralization present. Bilateral effusions and underlying atelectatic changes are present right greater than left. No pneumothorax. Bony demineralization is present. External cardiac leads are noted. ASVD is present Impression: 1. Stable appearance of life support tubing 2. Persistent effusions and atelectatic change with underlying dextroscoliosis and demineralization bony structures PROCEDURE INTERPRETED AT [facility] DEPARTMENT OF RADIOLOGY Final Report Signed by: Dr. Marcelino Young
[2017-02-24 07:31] LABS: ABG Base Excess 2.5 MMOL/L (-2.5-2.5); ABG HCO3 26.5 MMOL/L (20-26); ABG Oxygen Saturation 94.1 % (95-100); ABG PCO2 49.2 MM HG (35-48); ABG PH 7.374 (7.35-7.45); ABG PO2 72.9 MM HG (80-95); ABG TCO2 25.1 MMOL/L (23-27); Allen Test Positive
[2017-02-24] MEDS: LEVALBUTEROL 1.25 MG/3 ML NEB RESP TX SCH ×3 (07:52→23:38)
--- NOTE | 2017-02-24 08:15 | Pulmonology Progress Note ---
Pulmonary - PN: Subj Interval history: Patient had worsening respiratory distress last night and was intubated by Dr. Contreras. At present she is sedated and on the ventilator but her mental status is good when sedation is held. We had wanted to evaluate swallowing but we will have to wait until we wean her off the ventilator. Concerned that she has a neurologic process. ABGs look good this morning. Will reduce settings. She has bilateral infiltrates on x-ray. Will take several days of antibiotics before we would be able to wean. 02/21/2017 ABGs are improved. Chest x-ray is pending. Will start weaning today. Patient with pneumonia and that is likely aspiration. Continuing broad- spectrum antibiotics. Cultures negative thus far from bronchial washings. 02/22/2017 again ABGs look better. Patient starting to do CPAP's. Seems to be responsive during those times when sedation is held. She does have some dementia and apparent aspiration. Bronchial washing cultures have been negative. Continuing empiric antibiotics. Will check mechanics and ABGs on CPAP today to see if we could possibly extubate. 02/23/2017 patient doing well with CPAP. ABGs look good. Chest x-ray still shows some lower lobe infiltrates. Worse on the right than left. Patient is alert calm and nodding to questions. Will check mechanics and ABGs on CPAP. If she does okay which should be able to get her extubated. 02/24/2017 she has done well with T-tube trial this morning. ABGs acceptable. Still has some right lower lobe infiltrate. Will extubate this morning. Mental status seems pretty good hopefully can defend her airway. She does have some dementia. Exam (Progress Note) - Constitutional Vitals: Period Temp Pulse Resp BP Sys/Cox Pulse Ox Last 24 Hr 97.5 F-98.4 F 49-70 12-25 100-155/43-69 95-100 Exam: Patient alert and calm. Vital signs normal. Pupils react to light. Orotracheal tube in place, respiratory rate about 18 on T-tube. Neck is supple no bruits. Chest reveals few scattered rhonchi equal breath sounds. Heart irregular without murmurs. Abdomen soft nontender no masses. Extremities no clubbing cyanosis or edema. Results - Labs CBC & BMP: 02/24/17 04:01 02/24/17 04:01 Lab Results: I have reviewed the past 24 hour labs - Diagnostic Findings Procedure: Chest x-ray: image reviewed by me (Right lower lobe infiltrate about the same.) Assessment and Plan (1) History of atrial fibrillation Status: Chronic Assessment and plan: Patient on chronic anticoagulants. Watch protimes. Rate is controlled 02/21/2017 rate is controlled. 02/22/2017 again rate is controlled. 02/23/2017 rate controlled. Current Visit: No (2) Congestive heart failure Status: Acute Assessment and plan: BNP has come down since admission. Watch fluid status. 02/21/2017 clinically congestive heart failure is better. 02/22/2017 heart failure seems to be better 02/23/2017 chest x-ray may be a little wet. Will diurese further. 02/24/2017 chest x-ray still a little wet. Continue with diuresis. Current Visit: Yes (3) Pneumonia Status: Acute Assessment and plan: On broad-spectrum empiric antibiotics. Check cultures from bronchial washings. That should be out tomorrow. She is E. coli from her urine and it is covered with Merrem. 02/21/2017 chest x-ray is pending. Bronchial wash cultures thus far are showing normal scott. Continuing empiric antibiotics. 02/22/2017 bronchial wash cultures were negative. Continuing empiric antibiotics. X-ray showing improvement 02/23/2017 bibasilar pneumonia. Bronchial wash cultures negative. Continuing antibiotics. 02/24/2017 pneumonia about the same, primarily at the right base. Continuing antibiotics. Current Visit: Yes Qualifiers: Pneumonia type: aspiration pneumonia (4) Acute respiratory failure Status: Acute Assessment and plan: Patient was struggling especially with upper airway symptoms and required intubation last night. At bronchoscopy earlier in the day yesterday there were no abnormalities in the upper airway. Likely she had some thick secretions that caused this. We will keep these suctioned out. Pneumonia is the primary cause of the respiratory failure. 02/21/17 ABGs look much better. She has a metabolic alkalosis. Will add Diamox for 3 days. 02/22/2017 ABGs improved. Still has a mild metabolic alkalosis. Will check mechanics today to see if extubation is a possibility. 02/23/2017 ABGs look good. Tolerating CPAP. Only concern is far as getting her extubated is that her right lower lobe looks a little worse on x-ray today. Will bronchoscope and clean her out before we do CPAP 02/24/2017 patient extubated this morning. Hopefully she can defend her airway. She has some dementia but is able to respond to questions fairly well. Current Visit: Yes
[2017-02-24 08:35] LABS: ABG Base Excess 2.9 MMOL/L (-2.5-2.5); ABG HCO3 28.6 MMOL/L (20-26); ABG Oxygen Saturation 94.6 % (95-100); ABG PCO2 47.9 MM HG (35-48); ABG PH 7.394 (7.35-7.45); ABG PO2 71.8 MM HG (80-95); ABG TCO2 30.1 MMOL/L (23-27)
[2017-02-24] MEDS: POLYETHYLENE GLYCOL POWDER 17 GM PACK PO SCH (10:48)
[2017-02-24] MEDS: MULTIVITAMIN (CENTRUM) TABLET PO SCH (13:06)
[2017-02-24] MEDS: METOPROLOL TARTRATE 50 MG TABLET PER TUBE SCH (13:07)
[2017-02-24] MEDS: AMIODARONE 200 MG TABLET PO SCH (13:08)
[2017-02-24] MEDS: LORazepam 2 MG/1 ML VIAL IV PRN (13:08)
[2017-02-24] MEDS: GABAPENTIN 50 MG/ML 30 ML/BOTTLE NG SCH (13:16)
--- NOTE | 2017-02-24 13:30 | Hospitalist Progress Note ---
Assessment and Plan - Time spent with patient Time spent with patient: Greater than 30 minutes (32 minutes) (1) Hypertension Status: Chronic Current Visit: No Qualifiers: Hypertension type: essential hypertension Qualified Code(s): I10 - Essential (primary) hypertension (2) Debility Status: Chronic Current Visit: Yes (3) Pneumonia Status: Acute Assessment and plan: Broad-spectrum antibiotics. Current Visit: Yes Qualifiers: Pneumonia type: aspiration pneumonia (4) Acute respiratory failure Status: Resolved Assessment and plan: Continue with ventilation. Current Visit: Yes Hospitalist: Subjective Interval history: The patient has been extubated and now on facemask oxygen. She is also had a swallowing evaluation and is cleared for liquid diet. She complains of chronic back pain. This is being addressed with [place] as needed pain. Hemodynamics are stable. Exam - Constitutional Vitals: Period Temp Pulse Resp BP Sys/Cox Pulse Ox Last 24 Hr 97.5 F-98.4 F 49-73 12-27 100-155/43-69 94-100 General appearance: normal weight, other (Facemask oxygen) - Head Head exam: Present: normal inspection - ENT ENT exam: Present: normal exam - Respiratory Respiratory exam: Present: clear to auscultation bilaterally - Cardiovascular Cardiovascular exam: Present: regular rate and rhythm - GI/Abdominal GI/Abdominal exam: Present: normal bowel sounds - Extremities Exam Extremities exam: Present: normal inspection - Neurological Exam Neurological exam: Present: alert, oriented X3 - Psychiatric Psychiatric exam: Present: normal affect - Skin Skin exam: Present: dry Results - Labs CBC & BMP: 02/24/17 04:01 02/24/17 04:01
[2017-02-24] MEDS ORDERED: RACEPINEPHRINE 0.5 ML NEB RESP TX ONE (16:22)
[2017-02-24] MEDS: CALCIUM (CARBONATE)/VITAMIN D 600 MG-400 UNIT TABLET PO SCH (17:32)
[2017-02-24] MEDS: WARFARIN 5 MG TABLET PO SCH (18:20)
[2017-02-25] MEDS: POLYETHYLENE GLYCOL POWDER 17 GM PACK PO SCH ×3 (01:16→20:02)
[2017-02-25] MEDS: METOPROLOL TARTRATE 50 MG TABLET PER TUBE SCH ×3 (01:16→21:22)
[2017-02-25] MEDS: INSULIN REGULAR 100 UNIT/ML SUBCUT SCH ×4 (01:17→18:08)
[2017-02-25] MEDS: ASCORBIC ACID 500 MG TABLET PO SCH ×2 (01:17→21:22)
[2017-02-25] MEDS: methylPREDNISolone SOD SUC 125 MG/2 ML VIAL IV SCH ×4 (01:50→18:02)
[2017-02-25] MEDS: MEROPENEM 1,000 MG in SODIUM CHLORIDE 0.9% 100 ML IV SCH ×3 (01:50→18:10)
[2017-02-25] MEDS ORDERED: KETOROLAC 15 MG/1 ML VIAL IM ONE (02:03)
[2017-02-25 05:09] LABS: Basophils % 0.2 % (0.0-0.8); Hematocrit 39.9 VOL% (35.7-47.0); Hemoglobin 13.1 GM/DL (12.0-16.0); Immature Granulocytes % 1.6 %; Immature Granulocytes Absolute 0.29 #; Lymphocytes # 0.8 10*3/uL (1.4-4.0); Lymphocytes % 4.5 % (21.3-54.2); Mean Corpuscular HGB Conc 32.8 GM/DL (32-36); Mean Corpuscular Hemoglobin 31 PG (27-34); Mean Corpuscular Volume 93.7 FL (87-102); Mean Platelet Volume 10.4 FL (9.6-12.0); Monocytes # 0.8 10*3/uL (0.11-0.8); Monocytes % 4.5 % (1.7-12.7); Neutrophils % 89.2 % (38.7-73.9); Platelet Count 256 T/CUMM (130-400); Red Blood Count 4.26 MC/CUMM (3.8-5.5); Red Cell Distribution Width 14.7 % (9.3-17.3)
[2017-02-25 05:46] LABS: Calcium 9.1 MG/DL (8.5-10.1); Osmolality,Calculated 310.4 MOS/KG (273-304); Potassium 3.8 MMOL/L (3.5-5.1)
[2017-02-25] MEDS: LORazepam 2 MG/1 ML VIAL IV PRN (06:05)
[2017-02-25 06:12] LABS: Hypochromasia 1+; Lymphocytes 4 % (20-55); Platelet Estimate Normal; Segmented Neutrophils 93 % (50-85); Total Cells Counted 100
[2017-02-25] MEDS: LEVALBUTEROL 1.25 MG/3 ML NEB RESP TX SCH ×3 (06:35→23:18)
[2017-02-25] MEDS ORDERED: SUCCINYLCHOLINE 200 MG/10 ML VIAL ONE (06:36)
[2017-02-25] MEDS ORDERED: ETOMIDATE 20 MG/10 ML VIAL IV ONE (06:36)
[2017-02-25] MEDS ORDERED: PROPOFOL 1,000 MG/100 ML BOTTLE IV ONE (06:54)
[2017-02-25] MEDS: PROPOFOL 1,000 MG/100 ML BOTTLE IV SCH ×2 (07:00→17:02)
--- NOTE | 2017-02-25 07:04 | XRay Report ---
XR chest 1V portable Indication: Worsening shortness of breath. Chest one view: Since yesterday, patient has been extubated. NG tube has been removed. Cardiomegaly, calcified atheromatous disease of the aorta, severe coarsening of interstitial both lungs and hazy obscuration of both lung bases appears stable. No new infiltrates are shown. Impression: Aside from extubation, no change. PROCEDURE INTERPRETED AT [facility] DEPARTMENT OF RADIOLOGY Final Report Signed by: Arnulfo Rico M.D.
--- NOTE | 2017-02-25 07:20 | XRay Report ---
XR chest 1V portable Indication: Intubated. Chest one view: Patient is now intubated with endotracheal tube just above the radha. Severe scoliosis and marked pulmonary hypoinflation again noted. Significantly coarsened interstitial markings of the lungs are again noted. Overall, lung volumes are decreased when compared to previous. Cannot exclude progressive pneumonia. Stomach is distended with gas. Heart is enlarged. Impression: Intubation. Worsening pulmonary hypoinflation with progressive atelectasis and/or infiltrates. PROCEDURE INTERPRETED AT [facility] DEPARTMENT OF RADIOLOGY Final Report Signed by: Arnulfo Rico M.D.
--- NOTE | 2017-02-25 08:22 | Event Note ---
Notified by nursing of patient developing respiratory distress with hypoxia despite nonrebreather. On examination patient noted to be in respiratory distress with use of accessory muscles of respiration and saturations in the 80s. Decision was then made to pursue endotracheal intubation. Patient was preoxygenated with Ambu bag to a peak saturation of 94%. Medications were then given for induction (etomidate 20 mg, succinylcholine 200 mg). After apnea was achieved, an attempt at intubation was performed with a glide scope and 7.5 ET tube. I was unable to advance the 7.5 ET tube through the vocal cords, so the attempt was aborted and bagging was resumed. After saturations were improved to 94% again, another attempt at intubation was made with a 7.0 ET tube. With the smaller ET tube, I was able to advance the ET tube through the vocal cords without difficulty and the tube was advanced to 24 cm at the gums. Color change was noted as well as fogging of the ET tube and breath sounds bilaterally , confirming endotracheal placement. Patient tolerated the procedure well with lowest saturation noted to be 84%. Patient remained hemodynamically stable throughout the procedure. Ventilator settings will start with AC/VC tidal volume 450, respiratory rate 16, FiO2 100%, PEEP 5 and titrate down FiO2 as allowed for goal saturation greater than 90%. Will obtain ABG in 1 hour. Chest x-ray post intubation shows ET tube at the level of the radha, will retract 1-2 cm. OG tube will also be placed for stomach decompression. Family will be updated on status change.
--- NOTE | 2017-02-25 08:30 | Pulmonology Progress Note ---
Pulmonary - PN: Subj Interval history: 81-year-old female admitted for aspiration pneumonia requiring mechanical ventilation. Patient was extubated yesterday and over the course of the last 24 hours as had worsening respiratory distress. Upon my arrival this morning, patient was in acute respiratory distress with use of accessory muscles and saturations in the 80s. The decision was then made to pursue endotracheal intubation, which was performed without significant issues (see separate event note). Exam (Progress Note) - Constitutional Vitals: Period Temp Pulse Resp BP Sys/Cox Pulse Ox Last 24 Hr 97.3 F-98.0 F 54-90 16-31 117-164/48-104 85-100 General appearance: normal weight Exam: Acute respiratory distress at the time of my evaluation with use of accessory muscles of respiration and altered mental status - Head Head exam: Present: normal inspection - Eye Eye exam: Present: EOMI - Neck Neck exam: Present: normal inspection - Respiratory Respiratory exam: Present: decreased breath sounds, rales, rhonchi - Cardiovascular Cardiovascular exam: Present: regular rate and rhythm - GI/Abdominal GI/Abdominal exam: Present: normal bowel sounds, distended - Extremities Exam Extremities exam: Present: normal inspection - Neurological Exam Neurological exam: Present: altered - Skin Skin exam: Present: warm, dry Results - Labs CBC & BMP: 02/25/17 04:53 02/25/17 04:53 - Diagnostic Findings Procedure: Chest x-ray: image reviewed by me, report reviewed by me (After intubation: ET tube at the level of the radha, significant gastric distention.) Assessment and Plan (1) Acute respiratory failure Status: Resolved Assessment and plan: Hypoxic respiratory failure this morning requiring intubation and initiation of mechanical ventilation. Given patient's secretions and overall weakness, she will likely have a prolonged course of mechanical ventilation. - Vent settings: AC/VC tidal volume 450, respiratory rate 16, PEEP 5, FiO2 100% with titration as allowed to maintain sats greater than 90%. -Propofol for sedation - ABG 1 hour after intubation and every morning. - Chest x-ray every morning -Place NG for stomach decompression after intubation -Start tube feeds -GI prophylaxis and chlorhexidine mouth rinse per protocol Current Visit: Yes Qualifiers: Respiratory failure complication: hypoxia Qualified Code(s): J96.01 - Acute respiratory failure with hypoxia (2) Pneumonia Status: Acute Assessment and plan: Continued respiratory distress due to inability to manage secretions from right lower lobe pneumonia. Patient reintubated this morning and doing well on current vent settings. Continue antibiotics and will consider repeat bronchoscopy based on vent titration, chest x-ray appearance, and secretions. Current Visit: Yes Qualifiers: Pneumonia type: due to unspecified organism Laterality: right Lung location: lower lobe of lung Qualified Code(s): J18.1 - Lobar pneumonia, unspecified organism (3) Congestive heart failure Status: Acute Assessment and plan: Chest x-ray continues to have evidence of pulmonary edema. Continue as needed diuresis. Current Visit: Yes (4) History of atrial fibrillation Status: Chronic Assessment and plan: Rate controlled, anticoagulated Current Visit: No
[2017-02-25 08:33] LABS: ABG Base Excess 3.9 MMOL/L (-2.5-2.5); ABG HCO3 27.8 MMOL/L (20-26); ABG Oxygen Saturation 95.7 % (95-100); ABG PCO2 42.1 MM HG (35-48); ABG PH 7.438 (7.35-7.45); ABG PO2 73.7 MM HG (80-95); ABG TCO2 24.9 MMOL/L (23-27); Pt O2 Delivery Device Ventilator
--- NOTE | 2017-02-25 09:30 | XRay Report ---
XR chest 1V portable Indication: Endotracheal tube positioning. Chest one view: Since 0650 hours, ET tube has been withdrawn slightly now 1 cm above the radha. NG tube is now present well into the stomach. Lungs are slightly better inflated than previous although there is persistent significant opacification of the mid lungs and lung bases. Cardiomegaly persists as well. Impression: Adequate NG tube position. Satisfactory adjustment of endotracheal tube. PROCEDURE INTERPRETED AT [facility], [place] DEPARTMENT OF RADIOLOGY Final Report Signed by: Arnulfo Rico M.D.
--- NOTE | 2017-02-25 09:37 | Hospitalist Progress Note ---
Assessment and Plan (1) Pneumonia Status: Acute Assessment and plan: Continue Merrem. Continue mechanical ventilation. Pulmonary following. Current Visit: Yes Qualifiers: Pneumonia type: due to unspecified organism Laterality: right Lung location: lower lobe of lung Qualified Code(s): J18.1 - Lobar pneumonia, unspecified organism (2) Acute respiratory failure Status: Acute Assessment and plan: Requiring reintubation this morning. Secondary to pneumonia. Continue Merrem. Current Visit: Yes Qualifiers: Respiratory failure complication: hypoxia Qualified Code(s): J96.01 - Acute respiratory failure with hypoxia (3) History of atrial fibrillation Status: Chronic Current Visit: No (4) Anticoagulated on Coumadin Status: Chronic Current Visit: No (5) Hypertension Status: Chronic Current Visit: No Qualifiers: Hypertension type: essential hypertension Qualified Code(s): I10 - Essential (primary) hypertension (6) Congestive heart failure Status: Chronic Assessment and plan: Previous echo from 2016 shows an EF of 55%. A repeat echocardiogram has been ordered. Current Visit: Yes Qualifiers: Congestive heart failure chronicity: acute on chronic (7) Debility Status: Chronic Current Visit: Yes Hospitalist: Subjective Interval history: Patient seen and examined. Case discussed with nursing staff. Labs reviewed. Ms. Ernandez decompensated overnight requiring intubation and mechanical ventilation early this morning. I arrived at the bedside at [address] Mullins to find that the patient was struggling to breathe and had a low O2 sat. the decision was made to intubate patient to protect her airway as she was in acute respiratory failure. She was intubated by Dr. Mullins using the glide scope without any complications using a 7.0 endotracheal tube. Exam - Constitutional Vitals: Period Temp Pulse Resp BP Sys/Cox Pulse Ox Last 24 Hr 97.3 F-98.0 F 54-90 16-31 117-164/53-104 85-100 Exam: Constitutional System: Severe distress. No tremulousness. Head: Normocephalic, atraumatic. Ears, Nose and Throat System: No pain or tenderness. No epistaxis or discharge. ET tube in place Eyes System: Pupils equal, round, and reactive. Extraocular muscles intact. Neck: Supple, without adenopathy, No jugular venous distention. No thyromegaly, neck mass, or prior surgery apparent. Respiratory System: Chest coarse bilaterally to auscultation. Improved after intubation Cardiovascular System: Heart with regular rate and rhythm. No murmur. GI System: Abdomen soft, nontender. Normo active bowel sounds present. Musculoskeletal System: limbs without pedal edema. Full distal pulses. Neurological System: Sedated Results - Labs CBC & BMP: 02/25/17 04:53 02/25/17 04:53 Lab Results: I have reviewed the past 24 hour labs - Diagnostic Findings Procedure: Chest x-ray: image reviewed by me, report reviewed by me
[2017-02-25] MEDS: AMIODARONE 200 MG TABLET PO SCH (09:41)
[2017-02-25] MEDS: MULTIVITAMIN (CENTRUM) TABLET PO SCH (09:41)
[2017-02-25] MEDS: DESITIN 4OZ/NYSTATIN 15 GRAM MIXTURE PASTE TOP SCH ×2 (12:33→21:23)
[2017-02-25] MEDS: GABAPENTIN 50 MG/ML 30 ML/BOTTLE NG SCH (12:36)
[2017-02-25] MEDS ORDERED: DILTIAZEM 50 MG/10 ML VIAL IV ONE (14:25)
--- NOTE | 2017-02-25 15:37 | ECHO Report ---
Yesy Ernandez Exam Date: 02/25/2017 13:24 Referring Physician: Technologist: Latasha Perry RDCS Age: 81 Ht (in): 64 Wt (lb): 164 Gender: F Exam Location: [facility] Echo Indications: Pneumonia, Acute respiratory failure, unspecified whether with hypoxia or hypercapnia, Essential (primary) hypertension, Heart failure, unspecified BP: 100 / 43 HR: 57 Rhythm: Sinus Technical Quality: Fair IMPRESSIONS 1. Left ventricle is normal size with moderate concentric left ventricular hypertrophy but normal systolic function at 60% ejection fraction. 2. Right and left atrium are mild to moderately dilated. 3. Right ventricle normal size and function. 4. Aortic valve sclerotic with mild stenosis and insufficiency. 5. Mitral valve is thickened with some mild annular calcification and mild to moderate regurgitation. 6. Mild to moderate tricuspid regurgitation and mild pulmonic insufficiency. 7. Severely elevated right-sided pressures and an estimated PA P of 67 mmHg. MEASUREMENTS (Male / Female) Normal Values 2D ECHO LV Diastolic Diameter PLAX 4.1 cm 4.2 - 5.9 / 3.9 - 5.3 cm LV Systolic Diameter PLAX 2.6 cm LV Fractional Shortening PLAX 36.4 % IVS Diastolic Thickness 1.4 cm 0.6 - 1.0 / 0.6 - 0.9 cm LVPW Diastolic Thickness 1.4 cm 0.6 - 1.0 / 0.6 - 0.9 cm RV Internal Dim ED PLAX 2.9 cm Aortic Root Diameter 2.8 cm LA Systolic Diameter LX 3.3 cm 3.0 - 4.0 / 2.7 - 3.8 cm DOPPLER TR Peak Velocity 379.0 cm/s TR Peak Gradient 57.5 mmHg FINDINGS Left Ventricle Normal left ventricular cavity size. Moderate left ventricular hypertrophy. Left ventricular ejection fraction is estimated at 60 %. Right Ventricle The right ventricle is normal in size and function. Right Atrium Mild to moderately increased right atrial size Left Atrium Mild to moderately increased left atrial size. Mitral Valve Morphologically normal mitral valve. Mild mitral annular calcification. Mild-moderate mitral valve regurgitation. Aortic Valve Aortic valve sclerosis with mild stenosis at worse. Mild aortic valve regurgitation. Tricuspid Valve Morphologically normal tricuspid valve. [id number] tricuspid valve regurgitation. Tricuspid regurgitation velocities suggest a PAP of 67 mmHg. Pulmonic Valve Morphologically normal pulmonic valve. Mild pulmonary valve regurgitation. Pericardium Normal pericardium without effusion. Aorta Normal ascending aorta dimension. Arnulfo Magana MD (Electronically Signed) Final Date: 25 February 2017 15:36
[2017-02-25] MEDS: WARFARIN 5 MG TABLET PO SCH (18:12)
[2017-02-25] MEDS: CALCIUM (CARBONATE)/VITAMIN D 600 MG-400 UNIT TABLET PO SCH (18:12)
[2017-02-26] MEDS: INSULIN REGULAR 100 UNIT/ML SUBCUT SCH ×4 (00:08→17:56)
[2017-02-26] MEDS: methylPREDNISolone SOD SUC 125 MG/2 ML VIAL IV SCH ×4 (00:08→21:43)
[2017-02-26] MEDS: MEROPENEM 1,000 MG in SODIUM CHLORIDE 0.9% 100 ML IV SCH ×3 (01:43→17:48)
[2017-02-26 03:40] LABS: ABG HCO3 30.3 MMOL/L (20-26); ABG Oxygen Saturation 97.6 % (95-100); ABG PCO2 42.6 MM HG (35-48); ABG PO2 95.9 MM HG (80-95); ABG TCO2 31.6 MMOL/L (23-27); Pt O2 Delivery Device Ventilator
[2017-02-26 06:01] LABS: Basophils % 0.1 % (0.0-0.8); Hematocrit 37.6 VOL% (35.7-47.0); Hemoglobin 12.2 GM/DL (12.0-16.0); Immature Granulocytes % 1.9 %; Immature Granulocytes Absolute 0.26 #; Lymphocytes # 0.9 10*3/uL (1.4-4.0); Lymphocytes % 6.4 % (21.3-54.2); Mean Corpuscular HGB Conc 32.4 GM/DL (32-36); Mean Corpuscular Hemoglobin 30 PG (27-34); Mean Corpuscular Volume 93.3 FL (87-102); Mean Platelet Volume 10.7 FL (9.6-12.0); Monocytes # 0.6 10*3/uL (0.11-0.8); Monocytes % 4.4 % (1.7-12.7); Neutrophils % 87.2 % (38.7-73.9); Platelet Count 238 T/CUMM (130-400); Red Blood Count 4.03 MC/CUMM (3.8-5.5); Red Cell Distribution Width 14.8 % (9.3-17.3); White Blood Count 13.8 T/CUMM (4-12)
[2017-02-26 06:25] LABS: INR 3.3
[2017-02-26 06:31] LABS: PT Patient Result 37.3 SECS
[2017-02-26 06:35] LABS: Calcium 8.6 MG/DL (8.5-10.1); Magnesium 2.7 MG/DL (1.8-2.4)
--- NOTE | 2017-02-26 07:03 | Pulmonology Progress Note ---
Pulmonary - PN: Subj Interval history: 81-year-old female admitted for aspiration pneumonia requiring mechanical ventilation. Patient was extubated 02/24 and then subsequently required reintubation yesterday for difficulty handling secretions and altered mental status. Overnight patient had no acute events and did well on the ventilator. This morning she is awake alert and appears oriented and in no acute distress. Exam (Progress Note) - Constitutional Vitals: Period Temp Pulse Resp BP Sys/Cox Pulse Ox Last 24 Hr 97.5 F-98.0 F 49-66 14-24 94-132/40-61 94-100 General appearance: normal weight, no acute distress - Head Head exam: Present: normal inspection - Eye Eye exam: Present: EOMI Pupils: Present: CHERELLE - Neck Neck exam: Present: normal inspection - Respiratory Respiratory exam: Present: rhonchi (Bilaterally) - Cardiovascular Cardiovascular exam: Present: regular rate and rhythm - GI/Abdominal GI/Abdominal exam: Present: normal bowel sounds, soft - Extremities Exam Extremities exam: Present: normal inspection - Neurological Exam Neurological exam: Present: alert - Skin Skin exam: Present: normal color, warm, dry Results - Labs CBC & BMP: 02/26/17 05:52 02/26/17 05:52 - Diagnostic Findings Procedure: Chest x-ray: image reviewed by me (Evidence of volume overload bilaterally, ET and NG tubes in satisfactory position.) Assessment and Plan (1) Acute respiratory failure Status: Acute Assessment and plan: Hypoxic respiratory failure requiring re-intubation yesterday due to secretions , weakness/deconditioning and likely an element of volume overload. Recommend Lasix today for gentle diuresis and continue mechanical ventilation. She will likely have a prolonged course of mechanical ventilation. -Lasix for gentle diuresis - Vent: titration as allowed to maintain sats greater than 90%. -Propofol for sedation - ABG every morning. - Chest x-ray every morning -Start tube feeds -GI prophylaxis and chlorhexidine mouth rinse per protocol Current Visit: Yes Qualifiers: Respiratory failure complication: hypoxia Qualified Code(s): J96.01 - Acute respiratory failure with hypoxia (2) Pneumonia Status: Acute Assessment and plan: Continued respiratory distress requiring reintubation yesterday due to inability to manage secretions from right lower lobe pneumonia as well as slight volume overload. Continue antibiotics. Current Visit: Yes Qualifiers: Pneumonia type: due to unspecified organism Laterality: right Lung location: lower lobe of lung Qualified Code(s): J18.1 - Lobar pneumonia, unspecified organism (3) Congestive heart failure Status: Chronic Assessment and plan: Chest x-ray continues to have evidence of pulmonary edema and small bilateral pleural effusions. Recommend gentle diuresis today. Current Visit: Yes Qualifiers: Congestive heart failure chronicity: acute on chronic (4) History of atrial fibrillation Status: Chronic Assessment and plan: Rate controlled, anticoagulated Current Visit: No
--- NOTE | 2017-02-26 07:28 | XRay Report ---
XR chest 1V portable Indication: Intubated. Chest one view: Since yesterday, endotracheal tube and NG tube positions are stable. Cardiomegaly, coarsened interstitial markings of the lungs and hazy obscuration of both lung bases with scoliosis and obesity again shown. Impression: No change. PROCEDURE INTERPRETED AT [facility] DEPARTMENT OF RADIOLOGY Final Report Signed by: Arnulfo Rico M.D.
[2017-02-26] MEDS: LEVALBUTEROL 1.25 MG/3 ML NEB RESP TX SCH ×3 (07:39→23:55)
[2017-02-26] MEDS: PROPOFOL 1,000 MG/100 ML BOTTLE IV SCH (09:06)
[2017-02-26] MEDS: METOPROLOL TARTRATE 50 MG TABLET PER TUBE SCH (09:25)
[2017-02-26] MEDS: MULTIVITAMIN (CENTRUM) TABLET PO SCH (09:25)
[2017-02-26] MEDS: POLYETHYLENE GLYCOL POWDER 17 GM PACK PO SCH ×2 (09:25→21:31)
[2017-02-26] MEDS: AMIODARONE 200 MG TABLET PO SCH (09:25)
[2017-02-26] MEDS: DESITIN 4OZ/NYSTATIN 15 GRAM MIXTURE PASTE TOP SCH ×2 (09:26→21:44)
[2017-02-26] MEDS: PANTOPRAZOLE 40 MG VIAL IV SCH (09:26)
[2017-02-26] MEDS: GABAPENTIN 50 MG/ML 30 ML/BOTTLE NG SCH (11:48)
[2017-02-26] MEDS ORDERED: methylPREDNISolone SOD SUC 125 MG/2 ML VIAL IV SCH (12:30)
[2017-02-26] MEDS ORDERED: WARFARIN 2.5 MG TABLET PO ONE ×2 (12:31→18:00)
--- NOTE | 2017-02-26 12:36 | Hospitalist Progress Note ---
Assessment and Plan (1) Pneumonia Status: Acute Assessment and plan: Continue Merrem. Continue mechanical ventilation. Pulmonary following. Sputum with Qi. Add Diflucan. Current Visit: Yes Qualifiers: Pneumonia type: due to unspecified organism Laterality: right Lung location: lower lobe of lung Qualified Code(s): J18.1 - Lobar pneumonia, unspecified organism (2) Acute respiratory failure Status: Acute Assessment and plan: Requiring reintubation. Secondary to pneumonia. Continue Merrem. Current Visit: Yes Qualifiers: Respiratory failure complication: hypoxia Qualified Code(s): J96.01 - Acute respiratory failure with hypoxia (3) History of atrial fibrillation Status: Chronic Current Visit: No (4) Anticoagulated on Coumadin Status: Chronic Assessment and plan: Reduce Coumadin dose for elevated INR. Monitor for interaction with other medications. Current Visit: No (5) Hypertension Status: Chronic Assessment and plan: Hold Lopressor For bradycardia. Current Visit: No Qualifiers: Hypertension type: essential hypertension Qualified Code(s): I10 - Essential (primary) hypertension (6) Congestive heart failure Status: Chronic Assessment and plan: Previous echo from 2016 shows an EF of 55%. A repeat echocardiogram has been ordered. Current Visit: Yes Qualifiers: Congestive heart failure chronicity: acute on chronic (7) Debility Status: Chronic Current Visit: Yes (8) Dehydration Status: Acute Assessment and plan: Related to diuresis. Increase free water with tube feedings. Diuretics stopped Current Visit: Yes Hospitalist: Subjective Interval history: Patient seen and examined. No acute events overnight. Case discussed with nursing staff. Labs reviewed. Patient with elevated sodium and serum osmolality. We will increase free water flush. Has some bradycardic episodes and will hold Lopressor. Sputum culture with yeast, will add Diflucan. Exam - Constitutional Vitals: Period Temp Pulse Resp BP Sys/Cox Pulse Ox Last 24 Hr 97.4 F-98.2 F 49-66 14-24 94-148/40-61 94-100 Exam: Constitutional System: No distress. No tremulousness. Intubated, ventilated, sedated Head: Normocephalic, atraumatic. Ears, Nose and Throat System: No pain or tenderness. No epistaxis or discharge. ET tube in place Eyes System: Pupils equal, round, and reactive. Extraocular muscles intact. Neck: Supple, without adenopathy, No jugular venous distention. Respiratory System: Chest clear bilaterally to auscultation. Cardiovascular System: Heart with regular rate and rhythm. No murmur. GI System: Abdomen soft, nontender. Normo active bowel sounds present. Musculoskeletal System: limbs without pedal edema. Full distal pulses. Neurological System: Sedated Results - Labs CBC & BMP: 02/26/17 05:52 02/26/17 05:52 Lab Results: I have reviewed the past 24 hour labs - Diagnostic Findings Procedure: Chest x-ray: image reviewed by me, report reviewed by me
[2017-02-26] MEDS: FLUCONAZOLE 200 MG TABLET PO SCH (14:16)
[2017-02-26] MEDS: SODIUM CHLORIDE 0.45% 500 ML IV SCH (17:48)
[2017-02-26] MEDS: CALCIUM (CARBONATE)/VITAMIN D 600 MG-400 UNIT TABLET PO SCH (17:50)
[2017-02-26] MEDS: ASCORBIC ACID 500 MG TABLET PO SCH (21:43)
[2017-02-27] MEDS: INSULIN REGULAR 100 UNIT/ML SUBCUT SCH ×4 (00:48→18:42)
[2017-02-27] MEDS: methylPREDNISolone SOD SUC 125 MG/2 ML VIAL IV SCH ×3 (03:15→20:46)
[2017-02-27] MEDS: MEROPENEM 1,000 MG in SODIUM CHLORIDE 0.9% 100 ML IV SCH ×3 (03:28→17:57)
[2017-02-27 04:05] LABS: Basophils % 0.2 % (0.0-0.8); Hematocrit 35.6 VOL% (35.7-47.0); Hemoglobin 11.7 GM/DL (12.0-16.0); Immature Granulocytes % 2.8 %; Immature Granulocytes Absolute 0.31 #; Lymphocytes # 0.8 10*3/uL (1.4-4.0); Lymphocytes % 7.3 % (21.3-54.2); Mean Corpuscular HGB Conc 32.9 GM/DL (32-36); Mean Corpuscular Hemoglobin 31 PG (27-34); Mean Corpuscular Volume 93.2 FL (87-102); Monocytes # 0.6 10*3/uL (0.11-0.8); Monocytes % 5.1 % (1.7-12.7); Neutrophils # 9.3 10*3/uL (1.4-7.4); Neutrophils % 84.6 % (38.7-73.9); Platelet Count 223 T/CUMM (130-400); Red Blood Count 3.82 MC/CUMM (3.8-5.5); Red Cell Distribution Width 14.6 % (9.3-17.3)
[2017-02-27 04:18] LABS: INR 4.6
[2017-02-27 04:23] LABS: PT Patient Result 54.1 SECS
[2017-02-27 04:36] LABS: ABG Base Excess 6.1 MMOL/L (-2.5-2.5); ABG HCO3 29.8 MMOL/L (20-26); ABG Oxygen Saturation 98.1 % (95-100); ABG PCO2 39.4 MM HG (35-48); ABG PH 7.496 (7.35-7.45); ABG PO2 105.4 MM HG (80-95)
[2017-02-27 04:37] LABS: Magnesium 2.5 MG/DL (1.8-2.4); Phosphorous 1.6 MG/DL (2.5-4.9); Prealbumin 25.4 MG/DL (20-40)
[2017-02-27 04:39] LABS: Albumin 2.2 G/DL (3.4-5.0); Bilirubin,Total 0.5 MG/DL (0.2-1.0); Calcium 8.6 MG/DL (8.5-10.1); Osmolality,Calculated 314.4 MOS/KG (273-304); Potassium 4.3 MMOL/L (3.5-5.1); Total Protein 4.3 G/DL (6.4-8.3)
[2017-02-27] MEDS: PROPOFOL 1,000 MG/100 ML BOTTLE IV SCH ×2 (06:18→23:32)
[2017-02-27] MEDS: LEVALBUTEROL 1.25 MG/3 ML NEB RESP TX SCH ×3 (06:51→23:37)
--- NOTE | 2017-02-27 06:52 | Pulmonology Progress Note ---
Pulmonary - PN: Subj Interval history: Patient had worsening respiratory distress last night and was intubated by Dr. Contreras. At present she is sedated and on the ventilator but her mental status is good when sedation is held. We had wanted to evaluate swallowing but we will have to wait until we wean her off the ventilator. Concerned that she has a neurologic process. ABGs look good this morning. Will reduce settings. She has bilateral infiltrates on x-ray. Will take several days of antibiotics before we would be able to wean. 02/21/2017 ABGs are improved. Chest x-ray is pending. Will start weaning today. Patient with pneumonia and that is likely aspiration. Continuing broad- spectrum antibiotics. Cultures negative thus far from bronchial washings. 02/22/2017 again ABGs look better. Patient starting to do CPAP's. Seems to be responsive during those times when sedation is held. She does have some dementia and apparent aspiration. Bronchial washing cultures have been negative. Continuing empiric antibiotics. Will check mechanics and ABGs on CPAP today to see if we could possibly extubate. 02/23/2017 patient doing well with CPAP. ABGs look good. Chest x-ray still shows some lower lobe infiltrates. Worse on the right than left. Patient is alert calm and nodding to questions. Will check mechanics and ABGs on CPAP. If she does okay which should be able to get her extubated. 02/24/2017 she has done well with T-tube trial this morning. ABGs acceptable. Still has some right lower lobe infiltrate. Will extubate this morning. Mental status seems pretty good hopefully can defend her airway. She does have some dementia. 02/27/2017 patient was off the ventilator for a day but had to be reintubated 2 days ago because she was unable to clear her secretions. She is done well with CPAP since then. Will continue with weaning trial for now. May need to consider tracheostomy. PT/INR is hyperinflated. Holding Coumadin Exam (Progress Note) - Constitutional Vitals: Period Temp Pulse Resp BP Sys/Cox Pulse Ox Last 24 Hr 97.4 F-98.2 F 49-60 14-28 106-150/47-60 96-100 Exam: Patient alert and calm. Vital signs normal. Pupils react to light. Orotracheal tube in place. Neck is supple no bruits. Chest reveals few scattered rhonchi equal breath sounds. Heart irregular without murmurs. Abdomen soft nontender no masses. Extremities no clubbing cyanosis or edema. Results - Labs CBC & BMP: 02/27/17 03:45 02/27/17 03:45 Lab Results: I have reviewed the past 24 hour labs - Diagnostic Findings Procedure: Chest x-ray: image reviewed by me (Lower lobe infiltrates a little less dense than yesterday.) Assessment and Plan (1) History of atrial fibrillation Status: Chronic Assessment and plan: Patient on chronic anticoagulants. Watch protimes. Rate is controlled 02/21/2017 rate is controlled. 02/22/2017 again rate is controlled. 02/23/2017 rate controlled. 02/27/2017 holding Coumadin. INR 4.6. Current Visit: No (2) Congestive heart failure Status: Chronic Assessment and plan: BNP has come down since admission. Watch fluid status. 02/21/2017 clinically congestive heart failure is better. 02/22/2017 heart failure seems to be better 02/23/2017 chest x-ray may be a little wet. Will diurese further. 02/24/2017 chest x-ray still a little wet. Continue with diuresis. 02/27/2017 congestive heart failure improved. Current Visit: Yes Qualifiers: Congestive heart failure chronicity: acute on chronic (3) Pneumonia Status: Acute Assessment and plan: On broad-spectrum empiric antibiotics. Check cultures from bronchial washings. That should be out tomorrow. She is E. coli from her urine and it is covered with Merrem. 02/21/2017 chest x-ray is pending. Bronchial wash cultures thus far are showing normal scott. Continuing empiric antibiotics. 02/22/2017 bronchial wash cultures were negative. Continuing empiric antibiotics. X-ray showing improvement 02/23/2017 bibasilar pneumonia. Bronchial wash cultures negative. Continuing antibiotics. 02/24/2017 pneumonia about the same, primarily at the right base. Continuing antibiotics. 02/27/2017 continuing empiric antibiotics. Current Visit: Yes Qualifiers: Pneumonia type: due to unspecified organism Laterality: right Lung location: lower lobe of lung Qualified Code(s): J18.1 - Lobar pneumonia, unspecified organism (4) Acute respiratory failure Status: Acute Assessment and plan: Patient was struggling especially with upper airway symptoms and required intubation last night. At bronchoscopy earlier in the day yesterday there were no abnormalities in the upper airway. Likely she had some thick secretions that caused this. We will keep these suctioned out. Pneumonia is the primary cause of the respiratory failure. 02/21/17 ABGs look much better. She has a metabolic alkalosis. Will add Diamox for 3 days. 02/22/2017 ABGs improved. Still has a mild metabolic alkalosis. Will check mechanics today to see if extubation is a possibility. 02/23/2017 ABGs look good. Tolerating CPAP. Only concern is far as getting her extubated is that her right lower lobe looks a little worse on x-ray today. Will bronchoscope and clean her out before we do CPAP 02/24/2017 patient extubated this morning. Hopefully she can defend her airway. She has some dementia but is able to respond to questions fairly well. 02/27/2017 patient had to be reintubated. Not able to defend her airway. Current Visit: Yes Qualifiers: Respiratory failure complication: hypoxia Qualified Code(s): J96.01 - Acute respiratory failure with hypoxia
--- NOTE | 2017-02-27 07:26 | XRay Report ---
History: Patient on ventilator Date: 02/27/2017 Study: Chest x-ray AP portable Comparison exam: February 26, 2017 The endotracheal and nasogastric tubes are unchanged. There is continued cardiomegaly. The mediastinal contours are similar. There is some patchy and hazy edema/infiltrate throughout the left lung and also in the right mid to lower lung, grossly similar. There is continued mild pleural disease without change. There is osteopenia. There is moderate dextroscoliosis of the spine. Impression: No gross overall change from the previous study PROCEDURE INTERPRETED AT [facility] DEPARTMENT OF RADIOLOGY Final Report Signed by: Dr. Reyna Martins
[2017-02-27] MEDS: FLUCONAZOLE 200 MG TABLET PO SCH (08:11)
[2017-02-27] MEDS: MULTIVITAMIN (CENTRUM) TABLET PO SCH (08:11)
[2017-02-27] MEDS: POLYETHYLENE GLYCOL POWDER 17 GM PACK PO SCH ×2 (08:11→20:47)
[2017-02-27] MEDS: AMIODARONE 200 MG TABLET PO SCH (08:12)
[2017-02-27] MEDS: DESITIN 4OZ/NYSTATIN 15 GRAM MIXTURE PASTE TOP SCH ×2 (08:13→20:47)
[2017-02-27] MEDS: PANTOPRAZOLE 40 MG VIAL IV SCH (08:13)
--- NOTE | 2017-02-27 09:33 | Hospitalist Progress Note ---
Assessment and Plan (1) Pneumonia Status: Acute Assessment and plan: Continue Merrem. Continue mechanical ventilation. Pulmonary following. Sputum with Qi. Add Diflucan. Current Visit: Yes Qualifiers: Pneumonia type: due to unspecified organism Laterality: right Lung location: lower lobe of lung Qualified Code(s): J18.1 - Lobar pneumonia, unspecified organism (2) Acute respiratory failure Status: Acute Assessment and plan: Requiring reintubation. Secondary to pneumonia. Continue Merrem. Current Visit: Yes Qualifiers: Respiratory failure complication: hypoxia Qualified Code(s): J96.01 - Acute respiratory failure with hypoxia (3) History of atrial fibrillation Status: Chronic Assessment and plan: INR elevated. Hold Coumadin. Current Visit: No (4) Anticoagulated on Coumadin Status: Chronic Assessment and plan: Reduce Coumadin dose for elevated INR. Monitor for interaction with other medications. Current Visit: No (5) Hypertension Status: Chronic Assessment and plan: Hold Lopressor For bradycardia. Current Visit: No Qualifiers: Hypertension type: essential hypertension Qualified Code(s): I10 - Essential (primary) hypertension (6) Congestive heart failure Status: Chronic Assessment and plan: Previous echo from 2016 shows an EF of 55%. A repeat echocardiogram has been ordered. Current Visit: Yes Qualifiers: Congestive heart failure chronicity: acute on chronic (7) Debility Status: Chronic Current Visit: Yes (8) Dehydration Status: Acute Assessment and plan: Related to diuresis. Increase free water with tube feedings. Diuretics stopped Current Visit: Yes Hospitalist: Subjective Interval history: Patient seen and examined. No acute events overnight. Case discussed with nursing staff. Labs reviewed. INR elevated, hold Coumadin. Alert and responsive on the ventilator. Doing well with CPAP trials. Pulmonary notes reviewed. Exam - Constitutional Vitals: Period Temp Pulse Resp BP Sys/Cox Pulse Ox Last 24 Hr 97.6 F-98.2 F 49-58 16-28 106-150/47-80 96-99 Exam: Constitutional System: No distress. No tremulousness. Intubated, ventilated, sedated Head: Normocephalic, atraumatic. Ears, Nose and Throat System: No pain or tenderness. No epistaxis or discharge. ET tube in place Eyes System: Pupils equal, round, and reactive. Extraocular muscles intact. Neck: Supple, without adenopathy, No jugular venous distention. Respiratory System: Chest clear bilaterally to auscultation with decreased breath sounds at the bases. Cardiovascular System: Heart with regular rate and rhythm. No murmur. GI System: Abdomen soft, nontender. Normo active bowel sounds present. Musculoskeletal System: limbs without pedal edema. Full distal pulses. Neurological System: Responds to verbal stimuli. Follows commands. Results - Labs CBC & BMP: 02/27/17 03:45 02/27/17 03:45 Lab Results: I have reviewed the past 24 hour labs
[2017-02-27] MEDS ORDERED: POTASSIUM PHOSPHATE 15 MMOL in SODIUM CHLORIDE 0.9% 250 ML IV ONE (09:56)
[2017-02-27] MEDS: GABAPENTIN 50 MG/ML 30 ML/BOTTLE NG SCH (12:12)
[2017-02-27] MEDS: SODIUM CHLORIDE 0.45% 500 ML IV SCH (15:08)
[2017-02-27] MEDS: CALCIUM (CARBONATE)/VITAMIN D 600 MG-400 UNIT TABLET PO SCH (17:56)
[2017-02-27] MEDS: ASCORBIC ACID 500 MG TABLET PO SCH (20:47)
[2017-02-28] MEDS: INSULIN REGULAR 100 UNIT/ML SUBCUT SCH ×4 (02:06→18:31)
[2017-02-28] MEDS: MEROPENEM 1,000 MG in SODIUM CHLORIDE 0.9% 100 ML IV SCH ×3 (02:08→18:31)
[2017-02-28 03:08] LABS: ABG HCO3 30.5 MMOL/L (20-26); ABG Oxygen Saturation 96.9 % (95-100); ABG PCO2 43.5 MM HG (35-48); ABG PH 7.463 (7.35-7.45); ABG PO2 85.5 MM HG (80-95); ABG TCO2 31.8 MMOL/L (23-27); Allen Test Positive; Pt O2 Delivery Device Ventilator
[2017-02-28] MEDS: methylPREDNISolone SOD SUC 125 MG/2 ML VIAL IV SCH (04:15)
[2017-02-28 04:51] LABS: Basophils % 0.3 % (0.0-0.8); Hematocrit 37.2 VOL% (35.7-47.0); Immature Granulocytes % 5.8 %; Immature Granulocytes Absolute 0.73 #; Lymphocytes # 0.8 10*3/uL (1.4-4.0); Lymphocytes % 6.2 % (21.3-54.2); Mean Corpuscular HGB Conc 32.3 GM/DL (32-36); Mean Corpuscular Hemoglobin 30 PG (27-34); Mean Corpuscular Volume 93.5 FL (87-102); Mean Platelet Volume 11.6 FL (9.6-12.0); Monocytes # 0.6 10*3/uL (0.11-0.8); Monocytes % 4.7 % (1.7-12.7); Neutrophils # 10.4 10*3/uL (1.4-7.4); Platelet Count 222 T/CUMM (130-400); Red Blood Count 3.98 MC/CUMM (3.8-5.5); Red Cell Distribution Width 14.5 % (9.3-17.3); White Blood Count 12.5 T/CUMM (4-12)
[2017-02-28 05:17] LABS: Calcium 8.1 MG/DL (8.5-10.1); Magnesium 2.5 MG/DL (1.8-2.4); Potassium 5.3 MMOL/L (3.5-5.1)
[2017-02-28 05:26] LABS: Anisocytosis 1+; Band Neutrophils 3 % (0-10); Hypochromasia 2+; Lymphocytes 5 % (20-55); Macrocytosis 1+; Metamyelocytes 1 %; Ovalocytes Few; Platelet Estimate Normal; Segmented Neutrophils 84 % (50-85); Total Cells Counted 100
[2017-02-28 05:27] LABS: INR 5.2
[2017-02-28] MEDS: LEVALBUTEROL 1.25 MG/3 ML NEB RESP TX SCH ×3 (06:56→23:34)
--- NOTE | 2017-02-28 07:02 | Pulmonology Progress Note ---
Pulmonary - PN: Subj Interval history: Patient had worsening respiratory distress last night and was intubated by Dr. Contreras. At present she is sedated and on the ventilator but her mental status is good when sedation is held. We had wanted to evaluate swallowing but we will have to wait until we wean her off the ventilator. Concerned that she has a neurologic process. ABGs look good this morning. Will reduce settings. She has bilateral infiltrates on x-ray. Will take several days of antibiotics before we would be able to wean. 02/21/2017 ABGs are improved. Chest x-ray is pending. Will start weaning today. Patient with pneumonia and that is likely aspiration. Continuing broad- spectrum antibiotics. Cultures negative thus far from bronchial washings. 02/22/2017 again ABGs look better. Patient starting to do CPAP's. Seems to be responsive during those times when sedation is held. She does have some dementia and apparent aspiration. Bronchial washing cultures have been negative. Continuing empiric antibiotics. Will check mechanics and ABGs on CPAP today to see if we could possibly extubate. 02/23/2017 patient doing well with CPAP. ABGs look good. Chest x-ray still shows some lower lobe infiltrates. Worse on the right than left. Patient is alert calm and nodding to questions. Will check mechanics and ABGs on CPAP. If she does okay which should be able to get her extubated. 02/24/2017 she has done well with T-tube trial this morning. ABGs acceptable. Still has some right lower lobe infiltrate. Will extubate this morning. Mental status seems pretty good hopefully can defend her airway. She does have some dementia. 02/27/2017 patient was off the ventilator for a day but had to be reintubated 2 days ago because she was unable to clear her secretions. She is done well with CPAP since then. Will continue with weaning trial for now. May need to consider tracheostomy. PT/INR is hyperinflated. Holding Coumadin 02/28/2017 patient did prolonged CPAP trials. She is alert and answering questions squeezing fingers on command. Should be able to manage her airway extubated. Will check mechanics and ABGs on CPAP this morning. If she clearly is above excepted levels then we will extubate her. If she does not tolerate that then we would need to go ahead and plan tracheostomy. Her PT/INR is 5.2. Coumadin has been held. She is on medication that potentiated sections however. I will give her a low-dose of vitamin K. She is on that for paroxysmal atrial fibrillation. Normal sinus rhythm at present. Exam (Progress Note) - Constitutional Vitals: Period Temp Pulse Resp BP Sys/Cox Pulse Ox Last 24 Hr 97.7 F-98.9 F 52-67 16-30 112-159/47-85 95-100 Exam: Patient alert and calm. Vital signs normal. Pupils react to light. Orotracheal tube in place. Thick coating of monilia on tongue. Neck is supple no bruits. Chest reveals few scattered rhonchi equal breath sounds. Heart irregular without murmurs. Abdomen soft nontender no masses. Extremities no clubbing cyanosis or edema. Results - Labs CBC & BMP: 02/28/17 03:26 02/28/17 03:26 Lab Results: I have reviewed the past 24 hour labs - Diagnostic Findings Procedure: Chest x-ray: image reviewed by me (Better aeration at right base. ET tube good position.) Assessment and Plan (1) History of atrial fibrillation Status: Chronic Assessment and plan: Patient on chronic anticoagulants. Watch protimes. Rate is controlled 02/21/2017 rate is controlled. 02/22/2017 again rate is controlled. 02/23/2017 rate controlled. 02/27/2017 holding Coumadin. INR 4.6. 02/28/2017 sinus rhythm. INR 5.2. Holding Coumadin. Will give AquaMEPHYTON 5 mg. Current Visit: No (2) Congestive heart failure Status: Chronic Assessment and plan: BNP has come down since admission. Watch fluid status. 02/21/2017 clinically congestive heart failure is better. 02/22/2017 heart failure seems to be better 02/23/2017 chest x-ray may be a little wet. Will diurese further. 02/24/2017 chest x-ray still a little wet. Continue with diuresis. 02/27/2017 congestive heart failure improved. 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 Current Visit: Yes Qualifiers: Congestive heart failure chronicity: acute on chronic (3) Pneumonia Status: Acute Assessment and plan: On broad-spectrum empiric antibiotics. Check cultures from bronchial washings. That should be out tomorrow. She is E. coli from her urine and it is covered with Merrem. 02/21/2017 chest x-ray is pending. Bronchial wash cultures thus far are showing normal scott. Continuing empiric antibiotics. 02/22/2017 bronchial wash cultures were negative. Continuing empiric antibiotics. X-ray showing improvement 02/23/2017 bibasilar pneumonia. Bronchial wash cultures negative. Continuing antibiotics. 02/24/2017 pneumonia about the same, primarily at the right base. Continuing antibiotics. 02/27/2017 continuing empiric antibiotics. 02/28/2017 continuing empiric antibiotics. Adding Diflucan for oral monilia. Do not think she has monilia as the cause of her pneumonia. Current Visit: Yes Qualifiers: Pneumonia type: due to unspecified organism Laterality: right Lung location: lower lobe of lung Qualified Code(s): J18.1 - Lobar pneumonia, unspecified organism (4) Acute respiratory failure Status: Acute Assessment and plan: Patient was struggling especially with upper airway symptoms and required intubation last night. At bronchoscopy earlier in the day yesterday there were no abnormalities in the upper airway. Likely she had some thick secretions that caused this. We will keep these suctioned out. Pneumonia is the primary cause of the respiratory failure. 02/21/17 ABGs look much better. She has a metabolic alkalosis. Will add Diamox for 3 days. 02/22/2017 ABGs improved. Still has a mild metabolic alkalosis. Will check mechanics today to see if extubation is a possibility. 02/23/2017 ABGs look good. Tolerating CPAP. Only concern is far as getting her extubated is that her right lower lobe looks a little worse on x-ray today. Will bronchoscope and clean her out before we do CPAP 02/24/2017 patient extubated this morning. Hopefully she can defend her airway. She has some dementia but is able to respond to questions fairly well. 02/27/2017 patient had to be reintubated. Not able to defend her airway. 02/28/2017 ABGs look good. Her mental status is such that I would expect her to be able to control her airway. Will try again to get her extubated today Current Visit: Yes Qualifiers: Respiratory failure complication: hypoxia Qualified Code(s): J96.01 - Acute respiratory failure with hypoxia
--- NOTE | 2017-02-28 07:56 | XRay Report ---
History: On ventilator Date: 02/28/2017 Study: Chest x-ray AP portable Comparison exam: 02/27/2017 The endotracheal and nasogastric tubes are stable in position. There is stable cardiomegaly. The mediastinal contours are unchanged. There is patchy and hazy edema/infiltrate throughout the left lung and also in the right lower lung, as before. There is slightly improved aeration in the right perihilar region. There is probable mild bilateral pleural effusion. There is no interval worsening. Osseous structures are similar. Impression: Slightly improved aeration in the right perihilar region compared to the previous study. Otherwise unchanged PROCEDURE INTERPRETED AT [facility] DEPARTMENT OF RADIOLOGY Final Report Signed by: Dr. Reyna Martins
[2017-02-28] MEDS ORDERED: PHYTONADIONE 10 MG/1 ML AMP SUBCUT ONE (08:00)
[2017-02-28 08:05] LABS: ABG Base Excess 5.7 MMOL/L (-2.5-2.5); ABG HCO3 29.6 MMOL/L (20-26); ABG Oxygen Saturation 98.2 % (95-100); ABG PCO2 47.5 MM HG (35-48); ABG PH 7.425 (7.35-7.45); ABG TCO2 27.4 MMOL/L (23-27); Allen Test Positive; Pt O2 Delivery Device Ventilator
[2017-02-28] MEDS: PANTOPRAZOLE 40 MG VIAL IV SCH (08:37)
[2017-02-28] MEDS: FLUCONAZOLE 200 MG TABLET PO SCH (08:38)
[2017-02-28] MEDS: MULTIVITAMIN (CENTRUM) TABLET PO SCH (08:38)
[2017-02-28] MEDS: AMIODARONE 200 MG TABLET PO SCH (08:40)
[2017-02-28] MEDS: POLYETHYLENE GLYCOL POWDER 17 GM PACK PO SCH ×2 (08:41→20:22)
[2017-02-28] MEDS: methylPREDNISolone SOD SUC 40 MG/1 ML VIAL IV SCH ×2 (08:41→18:32)
[2017-02-28] MEDS: DESITIN 4OZ/NYSTATIN 15 GRAM MIXTURE PASTE TOP SCH ×2 (08:41→20:22)
[2017-02-28] MEDS: PROPOFOL 1,000 MG/100 ML BOTTLE IV SCH ×2 (08:59→18:32)
[2017-02-28] MEDS ORDERED: SODIUM PHOSPHATE INJ 30 MMOL in SODIUM CHLORIDE 0.9% 250 ML IV ONE (09:00)
[2017-02-28] MEDS ORDERED: FLUCONAZOLE 40 MG/ML 35 ML/BOTTLE PO SCH (09:00)
--- NOTE | 2017-02-28 09:36 | Hospitalist Progress Note ---
Assessment and Plan (1) Pneumonia Status: Acute Assessment and plan: Continue Merrem. Continue mechanical ventilation. Pulmonary following. Sputum with Qi. Add Diflucan. Current Visit: Yes Qualifiers: Pneumonia type: due to unspecified organism Laterality: right Lung location: lower lobe of lung Qualified Code(s): J18.1 - Lobar pneumonia, unspecified organism (2) Acute respiratory failure Status: Acute Assessment and plan: Requiring reintubation. Secondary to pneumonia. Continue Merrem. Current Visit: Yes Qualifiers: Respiratory failure complication: hypoxia Qualified Code(s): J96.01 - Acute respiratory failure with hypoxia (3) History of atrial fibrillation Status: Chronic Assessment and plan: INR elevated. Hold Coumadin. Vitamin K ordered for INR greater than 5. Current Visit: No (4) Anticoagulated on Coumadin Status: Chronic Assessment and plan: Coumadin held. Vitamin K given. Current Visit: No (5) Hypertension Status: Chronic Assessment and plan: Hold Lopressor For bradycardia. Current Visit: No Qualifiers: Hypertension type: essential hypertension Qualified Code(s): I10 - Essential (primary) hypertension (6) Congestive heart failure Status: Chronic Assessment and plan: Previous echo from 2016 shows an EF of 55%. A repeat echocardiogram has been ordered. Current Visit: Yes Qualifiers: Congestive heart failure chronicity: acute on chronic (7) Debility Status: Chronic Current Visit: Yes (8) Dehydration Status: Acute Assessment and plan: Related to diuresis. Increase free water with tube feedings. Diuretics stopped Current Visit: Yes Hospitalist: Subjective Interval history: Patient seen and examined. No acute events overnight. Case discussed with nursing staff. Labs reviewed. Patient is awake on the ventilator. She is much improved. LTAC referral placed yesterday. Exam - Constitutional Vitals: Period Temp Pulse Resp BP Sys/Cox Pulse Ox Last 24 Hr 98 F-98.9 F 55-67 12-30 112-159/47-85 95-100 Exam: Constitutional System: No distress. No tremulousness. Intubated, ventilated, sedated Head: Normocephalic, atraumatic. Ears, Nose and Throat System: No pain or tenderness. No epistaxis or discharge. ET tube in place Eyes System: Pupils equal, round, and reactive. Extraocular muscles intact. Neck: Supple, without adenopathy, No jugular venous distention. Respiratory System: Chest clear bilaterally to auscultation with decreased breath sounds at the bases. Cardiovascular System: Heart with regular rate and rhythm. No murmur. GI System: Abdomen soft, nontender. Normo active bowel sounds present. Musculoskeletal System: limbs without pedal edema. Full distal pulses. Neurological System: Responds to verbal stimuli. Follows commands. Results - Labs CBC & BMP: 02/28/17 03:26 02/28/17 03:26 Lab Results: I have reviewed the past 24 hour labs
[2017-02-28] MEDS: GABAPENTIN 50 MG/ML 30 ML/BOTTLE NG SCH (11:56)
[2017-02-28] MEDS: CALCIUM (CARBONATE)/VITAMIN D 600 MG-400 UNIT TABLET PO SCH (16:30)
[2017-02-28] MEDS: SODIUM CHLORIDE 0.45% 500 ML IV SCH (16:55)
[2017-02-28] MEDS: ASCORBIC ACID 500 MG TABLET PO SCH (20:22)
[2017-03-01] MEDS: INSULIN REGULAR 100 UNIT/ML SUBCUT SCH ×4 (00:46→18:33)
[2017-03-01] MEDS: LORazepam 2 MG/1 ML VIAL IV PRN (02:26)
[2017-03-01] MEDS: METOPROLOL TARTRATE 50 MG TABLET PER TUBE SCH ×3 (02:51→21:39)
[2017-03-01] MEDS: MEROPENEM 1,000 MG in SODIUM CHLORIDE 0.9% 100 ML IV SCH ×3 (02:54→18:34)
[2017-03-01 02:59] LABS: ABG Base Excess 6.1 MMOL/L (-2.5-2.5); ABG HCO3 29.9 MMOL/L (20-26); ABG Oxygen Saturation 96.7 % (95-100); ABG PCO2 43.4 MM HG (35-48); ABG PH 7.458 (7.35-7.45); ABG PO2 81.1 MM HG (80-95); ABG TCO2 26.4 MMOL/L (23-27); Allen Test Positive; Pt O2 Delivery Device Ventilator
[2017-03-01 04:19] LABS: Basophils # 0.1 10*3/uL (0.0-0.2); Basophils % 0.3 % (0.0-0.8); Hematocrit 40.5 VOL% (35.7-47.0); Hemoglobin 13.2 GM/DL (12.0-16.0); Immature Granulocytes % 6.7 %; Immature Granulocytes Absolute 1.15 #; Lymphocytes % 5.7 % (21.3-54.2); Mean Corpuscular HGB Conc 32.6 GM/DL (32-36); Mean Corpuscular Hemoglobin 30 PG (27-34); Mean Corpuscular Volume 93.1 FL (87-102); Mean Platelet Volume 11.1 FL (9.6-12.0); Monocytes # 1.4 10*3/uL (0.11-0.8); Monocytes % 8.4 % (1.7-12.7); Neutrophils # 13.5 10*3/uL (1.4-7.4); Neutrophils % 78.9 % (38.7-73.9); Platelet Count 233 T/CUMM (130-400); Red Blood Count 4.35 MC/CUMM (3.8-5.5); Red Cell Distribution Width 14.4 % (9.3-17.3); White Blood Count 17.2 T/CUMM (4-12)
[2017-03-01 04:33] LABS: INR 4.2
[2017-03-01 04:41] LABS: PT Patient Result 48.9 SECS
[2017-03-01 04:47] LABS: Calcium 8.5 MG/DL (8.5-10.1); Magnesium 2.4 MG/DL (1.8-2.4); Potassium 5.1 MMOL/L (3.5-5.1)
[2017-03-01 05:08] LABS: Band Neutrophils 1 % (0-10); Hypochromasia 1+; Lymphocytes 6 % (20-55); Microcytosis 1+; Myelocytes 1 %; Segmented Neutrophils 89 % (50-85); Total Cells Counted 100
[2017-03-01 05:09] LABS: Anisocytosis 1+; Ovalocytes 1+
[2017-03-01 05:10] LABS: Platelet Estimate Normal
[2017-03-01] MEDS: methylPREDNISolone SOD SUC 40 MG/1 ML VIAL IV SCH ×2 (06:11→18:34)
[2017-03-01] MEDS: PROPOFOL 1,000 MG/100 ML BOTTLE IV SCH ×2 (06:19→21:46)
[2017-03-01] MEDS: SODIUM CHLORIDE 0.45% 500 ML IV SCH ×2 (06:20→15:06)
--- NOTE | 2017-03-01 06:34 | Pulmonology Progress Note ---
Pulmonary - PN: Subj Interval history: Patient had worsening respiratory distress last night and was intubated by Dr. Contreras. At present she is sedated and on the ventilator but her mental status is good when sedation is held. We had wanted to evaluate swallowing but we will have to wait until we wean her off the ventilator. Concerned that she has a neurologic process. ABGs look good this morning. Will reduce settings. She has bilateral infiltrates on x-ray. Will take several days of antibiotics before we would be able to wean. 02/21/2017 ABGs are improved. Chest x-ray is pending. Will start weaning today. Patient with pneumonia and that is likely aspiration. Continuing broad- spectrum antibiotics. Cultures negative thus far from bronchial washings. 02/22/2017 again ABGs look better. Patient starting to do CPAP's. Seems to be responsive during those times when sedation is held. She does have some dementia and apparent aspiration. Bronchial washing cultures have been negative. Continuing empiric antibiotics. Will check mechanics and ABGs on CPAP today to see if we could possibly extubate. 02/23/2017 patient doing well with CPAP. ABGs look good. Chest x-ray still shows some lower lobe infiltrates. Worse on the right than left. Patient is alert calm and nodding to questions. Will check mechanics and ABGs on CPAP. If she does okay which should be able to get her extubated. 02/24/2017 she has done well with T-tube trial this morning. ABGs acceptable. Still has some right lower lobe infiltrate. Will extubate this morning. Mental status seems pretty good hopefully can defend her airway. She does have some dementia. 02/27/2017 patient was off the ventilator for a day but had to be reintubated 2 days ago because she was unable to clear her secretions. She is done well with CPAP since then. Will continue with weaning trial for now. May need to consider tracheostomy. PT/INR is hyperinflated. Holding Coumadin 02/28/2017 patient did prolonged CPAP trials. She is alert and answering questions squeezing fingers on command. Should be able to manage her airway extubated. Will check mechanics and ABGs on CPAP this morning. If she clearly is above excepted levels then we will extubate her. If she does not tolerate that then we would need to go ahead and plan tracheostomy. Her PT/INR is 5.2. Coumadin has been held. She is on medication that potentiated sections however. I will give her a low-dose of vitamin K. She is on that for paroxysmal atrial fibrillation. Normal sinus rhythm at present. 03/01/2017 patient again is doing well with prolonged CPAP trials. However her mechanics are quite poor. For now we will continue with CPAP trials. Will very likely need a tracheostomy if we do not see significant improvement in the next couple of days. Her PT INR remains hyper prolonged. Will repeat AquaMEPHYTON. Agree with evaluation for LTAC placement. Exam (Progress Note) - Constitutional Vitals: Period Temp Pulse Resp BP Sys/Cox Pulse Ox Last 24 Hr 97.3 F-98.3 F 53-152 12-33 97-166/46-104 96-100 Exam: Patient alert and calm. Vital signs normal. Pupils react to light. Orotracheal tube in place. Thick coating of monilia on tongue. Neck is supple no bruits. Chest reveals few scattered rhonchi equal breath sounds. Heart irregular without murmurs. Abdomen soft nontender no masses. Extremities no clubbing cyanosis or edema. Little change from yesterday. Results - Labs CBC & BMP: 03/01/17 03:48 03/01/17 03:48 Lab Results: I have reviewed the past 24 hour labs - Diagnostic Findings Procedure: Chest x-ray: pending Assessment and Plan (1) History of atrial fibrillation Status: Chronic Assessment and plan: Patient on chronic anticoagulants. Watch protimes. Rate is controlled 02/21/2017 rate is controlled. 02/22/2017 again rate is controlled. 02/23/2017 rate controlled. 02/27/2017 holding Coumadin. INR 4.6. 02/28/2017 sinus rhythm. INR 5.2. Holding Coumadin. Will give AquaMEPHYTON 5 mg. 03/01/2017 sinus rhythm. Trying to totally reverse Coumadin. This is in anticipation of tracheostomy. Likely will need one by Monday. Current Visit: No (2) Congestive heart failure Status: Chronic Assessment and plan: BNP has come down since admission. Watch fluid status. 02/21/2017 clinically congestive heart failure is better. 02/22/2017 heart failure seems to be better 02/23/2017 chest x-ray may be a little wet. Will diurese further. 02/24/2017 chest x-ray still a little wet. Continue with diuresis. 02/27/2017 congestive heart failure improved. 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 03/01/2017 congestive heart failure little better. Current Visit: Yes Qualifiers: Congestive heart failure chronicity: acute on chronic (3) Pneumonia Status: Acute Assessment and plan: On broad-spectrum empiric antibiotics. Check cultures from bronchial washings. That should be out tomorrow. She is E. coli from her urine and it is covered with Merrem. 02/21/2017 chest x-ray is pending. Bronchial wash cultures thus far are showing normal scott. Continuing empiric antibiotics. 02/22/2017 bronchial wash cultures were negative. Continuing empiric antibiotics. X-ray showing improvement 02/23/2017 bibasilar pneumonia. Bronchial wash cultures negative. Continuing antibiotics. 02/24/2017 pneumonia about the same, primarily at the right base. Continuing antibiotics. 02/27/2017 continuing empiric antibiotics. 02/28/2017 continuing empiric antibiotics. Adding Diflucan for oral monilia. Do not think she has monilia as the cause of her pneumonia. 03/01/2017 patient on antibiotics and on Diflucan. Likely these are keeping her pro time from correcting. Current Visit: Yes Qualifiers: Pneumonia type: due to unspecified organism Laterality: right Lung location: lower lobe of lung Qualified Code(s): J18.1 - Lobar pneumonia, unspecified organism (4) Acute respiratory failure Status: Acute Assessment and plan: Patient was struggling especially with upper airway symptoms and required intubation last night. At bronchoscopy earlier in the day yesterday there were no abnormalities in the upper airway. Likely she had some thick secretions that caused this. We will keep these suctioned out. Pneumonia is the primary cause of the respiratory failure. 02/21/17 ABGs look much better. She has a metabolic alkalosis. Will add Diamox for 3 days. 02/22/2017 ABGs improved. Still has a mild metabolic alkalosis. Will check mechanics today to see if extubation is a possibility. 02/23/2017 ABGs look good. Tolerating CPAP. Only concern is far as getting her extubated is that her right lower lobe looks a little worse on x-ray today. Will bronchoscope and clean her out before we do CPAP 02/24/2017 patient extubated this morning. Hopefully she can defend her airway. She has some dementia but is able to respond to questions fairly well. 02/27/2017 patient had to be reintubated. Not able to defend her airway. 02/28/2017 ABGs look good. Her mental status is such that I would expect her to be able to control her airway. Will try again to get her extubated today 03/01/2017 again ABGs look good but mechanics not up to par for extubation yet. She would not be able to defend her airway, just as we saw Monday. Current Visit: Yes Qualifiers: Respiratory failure complication: hypoxia Qualified Code(s): J96.01 - Acute respiratory failure with hypoxia
[2017-03-01] MEDS ORDERED: PHYTONADIONE 10 MG/1 ML AMP SUBCUT ONE (06:35)
[2017-03-01] MEDS: LEVALBUTEROL 1.25 MG/3 ML NEB RESP TX SCH ×2 (07:04→14:39)
--- NOTE | 2017-03-01 07:07 | XRay Report ---
History: Patient on ventilator Date: 03/01/2017 Study: Chest x-ray AP portable Comparison exam: 02/28/2017 The endotracheal and nasogastric tubes are in satisfactory position. There is stable cardiomegaly. The mediastinal contour is unchanged. The pulmonary vasculature is slightly prominent and ill-defined. There is some continued patchy and hazy edema/infiltrate in the left mid to lower lung and right lower lung, grossly similar when allowing for differences in inspiration. There is probable mild bilateral pleural effusion as before. Osseous structures are unchanged. Impression: No gross overall change PROCEDURE INTERPRETED AT [facility] DEPARTMENT OF RADIOLOGY Final Report Signed by: Dr. Reyna Martins
[2017-03-01] MEDS: AMIODARONE 200 MG TABLET PO SCH (08:22)
[2017-03-01] MEDS: FLUCONAZOLE 200 MG TABLET PO SCH (08:22)
[2017-03-01] MEDS: MULTIVITAMIN (CENTRUM) TABLET PO SCH (08:22)
[2017-03-01] MEDS: PANTOPRAZOLE 40 MG VIAL IV SCH (08:22)
[2017-03-01] MEDS: POLYETHYLENE GLYCOL POWDER 17 GM PACK PO SCH ×2 (08:22→21:39)
[2017-03-01] MEDS: DESITIN 4OZ/NYSTATIN 15 GRAM MIXTURE PASTE TOP SCH ×2 (08:32→21:40)
[2017-03-01] MEDS: GABAPENTIN 50 MG/ML 30 ML/BOTTLE NG SCH (11:40)
[2017-03-01] MEDS ORDERED: DILTIAZEM 50 MG/10 ML VIAL IV ONE (12:41)
--- NOTE | 2017-03-01 12:51 | Hospitalist Progress Note ---
Assessment and Plan (1) Pneumonia Status: Acute Assessment and plan: Continue Merrem. Continue mechanical ventilation. Pulmonary following. Sputum with Qi. Add Diflucan. Consult ENT for possible tracheostomy Current Visit: Yes Qualifiers: Pneumonia type: due to unspecified organism Laterality: right Lung location: lower lobe of lung Qualified Code(s): J18.1 - Lobar pneumonia, unspecified organism (2) Acute respiratory failure Status: Acute Assessment and plan: Requiring reintubation. Secondary to pneumonia. Continue Merrem. LTAC eval pending. ENT consult pending for tracheostomy placement. Pulmonary following. Current Visit: Yes Qualifiers: Respiratory failure complication: hypoxia Qualified Code(s): J96.01 - Acute respiratory failure with hypoxia (3) History of atrial fibrillation Status: Chronic Assessment and plan: INR elevated. Hold Coumadin. Vitamin K ordered for INR greater than 5. A. fib with RVR today. Cardizem ordered. Patient also on metoprolol and amiodarone for rate control. INR remains elevated. Current Visit: No (4) Anticoagulated on Coumadin Status: Chronic Assessment and plan: Coumadin held. Vitamin K given. Current Visit: No (5) Hypertension Status: Chronic Assessment and plan: Hold Lopressor For bradycardia. Current Visit: No Qualifiers: Hypertension type: essential hypertension Qualified Code(s): I10 - Essential (primary) hypertension (6) Congestive heart failure Status: Chronic Assessment and plan: Previous echo from 2016 shows an EF of 55%. Repeat echocardiogram from this admission shows: IMPRESSIONS 1. Left ventricle is normal size with moderate concentric left ventricular hypertrophy but normal systolic function at 60% ejection fraction. 2. Right and left atrium are mild to moderately dilated. 3. Right ventricle normal size and function. 4. Aortic valve sclerotic with mild stenosis and insufficiency. 5. Mitral valve is thickened with some mild annular calcification and mild to moderate regurgitation. 6. Mild to moderate tricuspid regurgitation and mild pulmonic insufficiency. 7. Severely elevated right-sided pressures and an estimated PA P of 67 mmHg. Current Visit: Yes Qualifiers: Congestive heart failure chronicity: acute on chronic (7) Debility Status: Chronic Current Visit: Yes (8) Dehydration Status: Acute Assessment and plan: Related to diuresis. Increase free water with tube feedings. Diuretics stopped Current Visit: Yes Hospitalist: Subjective Interval history: Patient seen and examined. No acute events overnight. Case discussed with nursing staff. Labs reviewed. Consults reviewed. Agree with the need for tracheostomy given her poor mechanics. She went into atrial fibrillation with rapid ventricular response overnight. I have ordered a dose of IV Cardizem to improve her rate. Exam - Constitutional Vitals: Period Temp Pulse Resp BP Sys/Cox Pulse Ox Last 24 Hr 97.3 F-98.3 F 53-152 12-33 97-166/46-104 96-100 Exam: Constitutional System: No distress. No tremulousness. Intubated, ventilated, sedated but arousable and responsive Head: Normocephalic, atraumatic. Ears, Nose and Throat System: No pain or tenderness. No epistaxis or discharge. ET tube in place Eyes System: Pupils equal, round, and reactive. Extraocular muscles intact. Neck: Supple, without adenopathy, No jugular venous distention. Respiratory System: Chest clear bilaterally to auscultation with decreased breath sounds at the bases. Cardiovascular System: Heart with irregular rate and rhythm. No murmur. GI System: Abdomen soft, nontender. Normo active bowel sounds present. Musculoskeletal System: limbs without pedal edema. Full distal pulses. Neurological System: Responds to verbal stimuli. Follows commands. Results - Labs CBC & BMP: 03/01/17 03:48 03/01/17 03:48 Lab Results: I have reviewed the past 24 hour labs
[2017-03-01] MEDS ORDERED: SODIUM CHLORIDE 0.9% 250 ML IV PRN (13:55)
[2017-03-01] MEDS: CALCIUM (CARBONATE)/VITAMIN D 600 MG-400 UNIT TABLET PO SCH (16:59)
[2017-03-01] MEDS: ASCORBIC ACID 500 MG TABLET PO SCH (21:39)
[2017-03-02] MEDS: INSULIN REGULAR 100 UNIT/ML SUBCUT SCH ×5 (00:07→23:44)
[2017-03-02] MEDS: MEROPENEM 1,000 MG in SODIUM CHLORIDE 0.9% 100 ML IV SCH ×3 (02:44→18:41)
[2017-03-02 04:07] LABS: Pt O2 Delivery Device Ventilator
[2017-03-02 04:08] LABS: ABG Base Excess 6.9 MMOL/L (-2.5-2.5); ABG HCO3 30.5 MMOL/L (20-26); ABG Oxygen Saturation 98.2 % (95-100); ABG PCO2 39.7 MM HG (35-48); ABG PH 7.504 (7.35-7.45); ABG PO2 105.8 MM HG (80-95); ABG TCO2 31.8 MMOL/L (23-27)
[2017-03-02 04:29] LABS: Basophils % 0.2 % (0.0-0.8); Hematocrit 37.1 VOL% (35.7-47.0); Hemoglobin 12.3 GM/DL (12.0-16.0); Immature Granulocytes % 6.8 %; Immature Granulocytes Absolute 1.24 #; Lymphocytes # 1.2 10*3/uL (1.4-4.0); Lymphocytes % 6.5 % (21.3-54.2); Mean Corpuscular HGB Conc 33.2 GM/DL (32-36); Mean Corpuscular Hemoglobin 31 PG (27-34); Mean Corpuscular Volume 92.8 FL (87-102); Mean Platelet Volume 10.9 FL (9.6-12.0); Monocytes % 5.3 % (1.7-12.7); Neutrophils # 14.8 10*3/uL (1.4-7.4); Neutrophils % 81.2 % (38.7-73.9); Platelet Count 207 T/CUMM (130-400); Red Cell Distribution Width 14.3 % (9.3-17.3); White Blood Count 18.2 T/CUMM (4-12)
[2017-03-02 04:37] LABS: INR 1.9; PT Patient Result 20.7 SECS
[2017-03-02] MEDS: PROPOFOL 1,000 MG/100 ML BOTTLE IV SCH ×2 (04:40→11:10)
[2017-03-02 05:03] LABS: Calcium 8.5 MG/DL (8.5-10.1); Magnesium 2.4 MG/DL (1.8-2.4)
[2017-03-02 05:32] LABS: Band Neutrophils 2 % (0-10); Giant Platelets Few; Lymphocytes 3 % (20-55); Myelocytes 1 %; Platelet Estimate Normal; Segmented Neutrophils 86 % (50-85); Total Cells Counted 100
[2017-03-02 05:33] LABS: Hypochromasia 1+; Microcytosis 1+
[2017-03-02] MEDS: methylPREDNISolone SOD SUC 40 MG/1 ML VIAL IV SCH ×2 (06:31→18:42)
[2017-03-02] MEDS: LEVALBUTEROL 1.25 MG/3 ML NEB RESP TX SCH ×4 (07:00→23:08)
--- NOTE | 2017-03-02 07:02 | Pulmonology Progress Note ---
Pulmonary - PN: Subj Interval history: Patient had worsening respiratory distress last night and was intubated by Dr. Contreras. At present she is sedated and on the ventilator but her mental status is good when sedation is held. We had wanted to evaluate swallowing but we will have to wait until we wean her off the ventilator. Concerned that she has a neurologic process. ABGs look good this morning. Will reduce settings. She has bilateral infiltrates on x-ray. Will take several days of antibiotics before we would be able to wean. 02/21/2017 ABGs are improved. Chest x-ray is pending. Will start weaning today. Patient with pneumonia and that is likely aspiration. Continuing broad- spectrum antibiotics. Cultures negative thus far from bronchial washings. 02/22/2017 again ABGs look better. Patient starting to do CPAP's. Seems to be responsive during those times when sedation is held. She does have some dementia and apparent aspiration. Bronchial washing cultures have been negative. Continuing empiric antibiotics. Will check mechanics and ABGs on CPAP today to see if we could possibly extubate. 02/23/2017 patient doing well with CPAP. ABGs look good. Chest x-ray still shows some lower lobe infiltrates. Worse on the right than left. Patient is alert calm and nodding to questions. Will check mechanics and ABGs on CPAP. If she does okay which should be able to get her extubated. 02/24/2017 she has done well with T-tube trial this morning. ABGs acceptable. Still has some right lower lobe infiltrate. Will extubate this morning. Mental status seems pretty good hopefully can defend her airway. She does have some dementia. 02/27/2017 patient was off the ventilator for a day but had to be reintubated 2 days ago because she was unable to clear her secretions. She is done well with CPAP since then. Will continue with weaning trial for now. May need to consider tracheostomy. PT/INR is hyperinflated. Holding Coumadin 02/28/2017 patient did prolonged CPAP trials. She is alert and answering questions squeezing fingers on command. Should be able to manage her airway extubated. Will check mechanics and ABGs on CPAP this morning. If she clearly is above excepted levels then we will extubate her. If she does not tolerate that then we would need to go ahead and plan tracheostomy. Her PT/INR is 5.2. Coumadin has been held. She is on medication that potentiated sections however. I will give her a low-dose of vitamin K. She is on that for paroxysmal atrial fibrillation. Normal sinus rhythm at present. 03/01/2017 patient again is doing well with prolonged CPAP trials. However her mechanics are quite poor. For now we will continue with CPAP trials. Will very likely need a tracheostomy if we do not see significant improvement in the next couple of days. Her PT INR remains hyper prolonged. Will repeat AquaMEPHYTON. Agree with evaluation for LTAC placement. 03/02/2017 PT/INR is down to 1.9 today. Will still need a little more fresh frozen plasma and/or vitamin K to prepare for tracheostomy. It appears likely that it will be next week that she gets the tracheostomy. We will continue weaning trials in the meantime. She is tolerating them well but her mechanics indicate that she does not have a strong enough cough to clear her airway if extubated now. Definitely think it would be safer for tracheostomy in order to get her weaned. Exam (Progress Note) - Constitutional Vitals: Period Temp Pulse Resp BP Sys/Cox Pulse Ox Last 24 Hr 98.1 F-99.1 F 85-121 13-34 90-159/62-100 93-100 Exam: Patient alert and calm. Vital signs normal. Pupils react to light. Orotracheal tube in place. Thick coating of monilia on tongue. Neck is supple no bruits. Chest reveals few scattered rhonchi equal breath sounds. Heart irregular without murmurs. Abdomen soft nontender no masses. Extremities no clubbing cyanosis or edema. Results - Labs CBC & BMP: 03/02/17 04:15 03/02/17 04:15 Lab Results: I have reviewed the past 24 hour labs - Diagnostic Findings Procedure: Chest x-ray: image reviewed by me (Bibasilar infiltrates a little worse on the left side today.) Assessment and Plan (1) History of atrial fibrillation Status: Chronic Assessment and plan: Patient on chronic anticoagulants. Watch protimes. Rate is controlled 02/21/2017 rate is controlled. 02/22/2017 again rate is controlled. 02/23/2017 rate controlled. 02/27/2017 holding Coumadin. INR 4.6. 02/28/2017 sinus rhythm. INR 5.2. Holding Coumadin. Will give AquaMEPHYTON 5 mg. 03/01/2017 sinus rhythm. Trying to totally reverse Coumadin. This is in anticipation of tracheostomy. Likely will need one by Monday. 03/02/2017 remains in sinus rhythm. She has had 2 doses of vitamin K and had fresh frozen plasma yesterday. If tracheostomy is to be done she would need another round of fresh frozen plasma the day before. Current Visit: No (2) Congestive heart failure Status: Chronic Assessment and plan: BNP has come down since admission. Watch fluid status. 02/21/2017 clinically congestive heart failure is better. 02/22/2017 heart failure seems to be better 02/23/2017 chest x-ray may be a little wet. Will diurese further. 02/24/2017 chest x-ray still a little wet. Continue with diuresis. 02/27/2017 congestive heart failure improved. 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 03/01/2017 congestive heart failure little better. 03/02/2017 congestive heart failure stable at present. Current Visit: Yes Qualifiers: Congestive heart failure chronicity: acute on chronic (3) Pneumonia Status: Acute Assessment and plan: On broad-spectrum empiric antibiotics. Check cultures from bronchial washings. That should be out tomorrow. She is E. coli from her urine and it is covered with Merrem. 02/21/2017 chest x-ray is pending. Bronchial wash cultures thus far are showing normal scott. Continuing empiric antibiotics. 02/22/2017 bronchial wash cultures were negative. Continuing empiric antibiotics. X-ray showing improvement 02/23/2017 bibasilar pneumonia. Bronchial wash cultures negative. Continuing antibiotics. 02/24/2017 pneumonia about the same, primarily at the right base. Continuing antibiotics. 02/27/2017 continuing empiric antibiotics. 02/28/2017 continuing empiric antibiotics. Adding Diflucan for oral monilia. Do not think she has monilia as the cause of her pneumonia. 03/01/2017 patient on antibiotics and on Diflucan. Likely these are keeping her pro time from correcting. 03/02/2017 continuing broad-spectrum antibiotics. Patient has very poor cough and would not be able to clear her airways if off the ventilator at present Current Visit: Yes Qualifiers: Pneumonia type: due to unspecified organism Laterality: right Lung location: lower lobe of lung Qualified Code(s): J18.1 - Lobar pneumonia, unspecified organism (4) Acute respiratory failure Status: Acute Assessment and plan: Patient was struggling especially with upper airway symptoms and required intubation last night. At bronchoscopy earlier in the day yesterday there were no abnormalities in the upper airway. Likely she had some thick secretions that caused this. We will keep these suctioned out. Pneumonia is the primary cause of the respiratory failure. 02/21/17 ABGs look much better. She has a metabolic alkalosis. Will add Diamox for 3 days. 02/22/2017 ABGs improved. Still has a mild metabolic alkalosis. Will check mechanics today to see if extubation is a possibility. 02/23/2017 ABGs look good. Tolerating CPAP. Only concern is far as getting her extubated is that her right lower lobe looks a little worse on x-ray today. Will bronchoscope and clean her out before we do CPAP 02/24/2017 patient extubated this morning. Hopefully she can defend her airway. She has some dementia but is able to respond to questions fairly well. 02/27/2017 patient had to be reintubated. Not able to defend her airway. 02/28/2017 ABGs look good. Her mental status is such that I would expect her to be able to control her airway. Will try again to get her extubated today 03/01/2017 again ABGs look good but mechanics not up to par for extubation yet. She would not be able to defend her airway, just as we saw Monday. 03/02/2017 ABGs look good. She does have a metabolic alkalosis. Will give Diamox for 3 days again. Current Visit: Yes Qualifiers: Respiratory failure complication: hypoxia Qualified Code(s): J96.01 - Acute respiratory failure with hypoxia
[2017-03-02 07:23] LABS: Magnesium 2.5 MG/DL (1.8-2.4); Prealbumin 27.7 MG/DL (20-40)
--- NOTE | 2017-03-02 08:11 | XRay Report ---
History: Shortness of breath Date: 03/02/2017 Study: Chest x-ray AP portable Comparison exam: 03/01/2017 There is continued cardiomegaly. The mediastinal contours are unchanged. The pulmonary vasculature is slightly prominent and ill-defined. There is continued patchy and hazy and strandy density over the left mid to lower lung more than the right related to bilateral pulmonary edema/infiltrate and superimposed layering pleural effusion. There is increased opacity over the left midlung compared to the previous day. There is no pneumothorax. Osseous structures are unchanged. Impression: Continued left greater than right bilateral pulmonary edema/infiltrate and pleural effusion with mildly increased opacity over the left mid lung compared to the previous study. PROCEDURE INTERPRETED AT [facility] DEPARTMENT OF RADIOLOGY Final Report Signed by: Dr. Reyna Martins
[2017-03-02] MEDS: FLUCONAZOLE 200 MG TABLET PO SCH (08:48)
[2017-03-02] MEDS: MULTIVITAMIN (CENTRUM) TABLET PO SCH (08:48)
[2017-03-02] MEDS: POLYETHYLENE GLYCOL POWDER 17 GM PACK PO SCH ×2 (08:49→21:45)
[2017-03-02] MEDS: AMIODARONE 200 MG TABLET PO SCH ×2 (08:49→21:44)
[2017-03-02] MEDS: METOPROLOL TARTRATE 50 MG TABLET PER TUBE SCH ×2 (08:49→21:44)
[2017-03-02] MEDS: PANTOPRAZOLE 40 MG VIAL IV SCH (08:49)
[2017-03-02] MEDS: DESITIN 4OZ/NYSTATIN 15 GRAM MIXTURE PASTE TOP SCH ×2 (08:55→21:45)
--- NOTE | 2017-03-02 11:12 | Hospitalist Progress Note ---
Assessment and Plan (1) Pneumonia Status: Acute Assessment and plan: Continue Merrem. Continue mechanical ventilation. Pulmonary following. Sputum with Qi. Add Diflucan. Consult ENT for possible tracheostomy Current Visit: Yes Qualifiers: Pneumonia type: due to unspecified organism Laterality: right Lung location: lower lobe of lung Qualified Code(s): J18.1 - Lobar pneumonia, unspecified organism (2) Acute respiratory failure Status: Acute Assessment and plan: Requiring reintubation. Secondary to pneumonia. Continue Merrem. LTAC eval pending. ENT consult pending for tracheostomy placement. Pulmonary following. Current Visit: Yes Qualifiers: Respiratory failure complication: hypoxia Qualified Code(s): J96.01 - Acute respiratory failure with hypoxia (3) History of atrial fibrillation Status: Chronic Assessment and plan: INR elevated. Hold Coumadin. Vitamin K ordered for INR greater than 5. A. fib with RVR today. Cardizem ordered. Patient also on metoprolol and amiodarone for rate control. INR remains elevated. Current Visit: No (4) Anticoagulated on Coumadin Status: Chronic Assessment and plan: Coumadin held. Vitamin K given. Current Visit: No (5) Hypertension Status: Chronic Assessment and plan: Hold Lopressor For bradycardia. Current Visit: No Qualifiers: Hypertension type: essential hypertension Qualified Code(s): I10 - Essential (primary) hypertension (6) Congestive heart failure Status: Chronic Assessment and plan: Previous echo from 2016 shows an EF of 55%. Repeat echocardiogram from this admission shows: IMPRESSIONS 1. Left ventricle is normal size with moderate concentric left ventricular hypertrophy but normal systolic function at 60% ejection fraction. 2. Right and left atrium are mild to moderately dilated. 3. Right ventricle normal size and function. 4. Aortic valve sclerotic with mild stenosis and insufficiency. 5. Mitral valve is thickened with some mild annular calcification and mild to moderate regurgitation. 6. Mild to moderate tricuspid regurgitation and mild pulmonic insufficiency. 7. Severely elevated right-sided pressures and an estimated PA P of 67 mmHg. Current Visit: Yes Qualifiers: Congestive heart failure chronicity: acute on chronic (7) Debility Status: Chronic Current Visit: Yes (8) Dehydration Status: Acute Assessment and plan: Related to diuresis. Increase free water with tube feedings. Diuretics stopped Current Visit: Yes Hospitalist: Subjective Interval history: Patient seen and examined. No acute events overnight. Case discussed with nursing staff. Labs reviewed. Patient continues to have periods of tachycardia. Planning for tracheostomy. Exam - Constitutional Vitals: Period Temp Pulse Resp BP Sys/Cox Pulse Ox Last 24 Hr 98.1 F-99.1 F 85-125 12-34 90-159/62-100 93-100 Exam: Constitutional System: No distress. No tremulousness. Intubated, ventilated, sedated but arousable and responsive Head: Normocephalic, atraumatic. Ears, Nose and Throat System: No pain or tenderness. No epistaxis or discharge. ET tube in place Eyes System: Pupils equal, round, and reactive. Extraocular muscles intact. Neck: Supple, without adenopathy, No jugular venous distention. Respiratory System: Chest clear bilaterally to auscultation with decreased breath sounds at the bases. Cardiovascular System: Heart with irregular rate and rhythm. No murmur. GI System: Abdomen soft, nontender. Normo active bowel sounds present. Musculoskeletal System: limbs without pedal edema. Full distal pulses. Neurological System: Responds to verbal stimuli. Follows commands. Results - Labs CBC & BMP: 03/02/17 04:15 03/02/17 04:15 Lab Results: I have reviewed the past 24 hour labs
--- NOTE | 2017-03-02 12:52 | Consultation ---
Assessment and Plan - Time spent with patient Time spent with patient: Less than 30 minutes (1) Respirator dependence Status: Acute Assessment and plan: discussed situation with family. patient would benefit from tracheotomy. They will discuss, let me know if they wish to proceed with tracheotomy. Can be performed tomorrow afternoon or Monday. Current Visit: Yes History of Present Illness - Data of Consult Consult date: 03/02/17 Requesting Physician: Don Hernandez - Consult Narrative Reason for consult: respiratory failure History of present illness: Ms. Ernandez is a 81 year old female admitted for CHF respiratory failure, intubated, reintubated during this hospitalization. Discussed findings with daughter, she will discuss with other family members, decide on whether to proceed with trachetomy tomorrow or the next day. CC: Irene Bassett MD - Home Medications and Allergies Home Medications: Home Medications Medication Instructions Recorded Confirmed Type Amiodarone Tab [Cordarone Tab] 200 mg PO QAM 10/31/15 02/17/17 History Gabapentin Cap/Tab [Neurontin 300 mg PO 1200 10/31/15 02/17/17 History Cap/Tab] Magnesium 250 mg PO BEDTIME 10/31/15 02/17/17 History Metoprolol Succinate 12.5 mg PO 1200 10/31/15 02/17/17 History Multivitamin [Multivitamins] 1 each PO QAM 10/31/15 02/17/17 History Ascorbic Acid [Vitamin C] 500 mg PO BEDTIME 02/17/17 02/17/17 History Calcium Carbonate/Vitamin D3 1 each PO 1700 02/17/17 02/17/17 History [Calcium 600 + Vit D Tablet] Ferrous Sulfate 325 mg PO QAM 02/17/17 02/17/17 History Furosemide Inj [Lasix Inj] 20 mg IM BID DIURETIC vial 02/17/17 Rx Hydrocodone/Acetaminophen 1 tablet PO Q4-6H PRN 02/17/17 02/17/17 History [Hydrocodon-Acetaminoph 7.5-325] Potassium Chloride 8 meq PO 1200 02/17/17 02/17/17 History Warfarin [Coumadin] 2.5 mg PO DAILY 02/17/17 02/17/17 History Allergies/Adverse Reactions: Allergies Allergy/AdvReac Type Severity Reaction Status Date / Time sulfamethoxazole Allergy RASH Verified 11/02/15 10:04 [From Bactrim] trimethoprim [From Bactrim] Allergy RASH Verified 11/02/15 10:04 Medical,Surgical,& Family Hx - Medical History Cardio: History of: CHF, Hypertension Neurology: History of: TIA Endocrine: No history of: Diabetes Mellitus (NIDDM), Thyroid Disorder Respiratory: No history of: Pulmonary Embolism Gastrointestinal: History of: GERD Musculoskeletal: History of: Back/Neck Problems - Surgical History Reproductive Surgeries: Surgical HX of;: Hysterectomy - Family History Family History: Reports;: Family Diabetes, Family Heart Disease, Family Hypertension - Social History Smoking Status: Never smoker Frequency of Alcohol Use: None Type of Drug Use: None Exam - Constitutional Vitals: Period Temp Pulse Resp BP Sys/Ocx Pulse Ox Last 24 Hr 97.4 F-98.8 F 85-125 12-34 90-159/58-100 92-100 General appearance: normal weight - Head Head exam: Present: normal inspection - Neck Neck exam: Present: normal inspection Results - Labs CBC & BMP: 03/02/17 04:15 03/02/17 04:15
[2017-03-02] MEDS: GABAPENTIN 50 MG/ML 30 ML/BOTTLE NG SCH (13:25)
[2017-03-02] MEDS ORDERED: MAGNESIUM HYDROXIDE SUSP 30 ML UDCUP PO ONE (14:00)
--- NOTE | 2017-03-02 15:26 | XRay Report ---
XR chest post procedure Indication: "IV access". No additional relevant history provided. Chest one view: Comparison 0304 hours. Endotracheal tube, NG tube, cardiomegaly, pulmonary vascular congestion and hazy obscuration of the mid lungs and lung bases appears relatively stable. No new infiltrates are shown. No new lines or tubes are identified. Impression: No change. PROCEDURE INTERPRETED AT [facility] DEPARTMENT OF RADIOLOGY Final Report Signed by: Arnulfo Rico M.D.
[2017-03-02] MEDS: CALCIUM (CARBONATE)/VITAMIN D 600 MG-400 UNIT TABLET PO SCH (16:03)
[2017-03-02] MEDS ORDERED: METOPROLOL TARTRATE 5 MG/5 ML VIAL IV PRN (16:17)
[2017-03-02] MEDS ORDERED: METOPROLOL TARTRATE 5 MG/5 ML VIAL IV ONE (16:17)
--- NOTE | 2017-03-02 16:20 | Cardiology Consult Note ---
Assessment and Plan - Time spent with patient Time spent with patient: Greater than 30 minutes (due to assessment, plan, and documentation) (1) Paroxysmal atrial fibrillation Status: Acute Assessment and plan: See plan of care listed below. Current Visit: Yes (2) Pneumonia Status: Acute Assessment and plan: See plan of care listed below. Current Visit: Yes Qualifiers: Pneumonia type: due to unspecified organism Laterality: right Lung location: lower lobe of lung Qualified Code(s): J18.1 - Lobar pneumonia, unspecified organism (3) Acute respiratory failure Status: Acute Assessment and plan: See plan of care listed below. Current Visit: Yes Qualifiers: Respiratory failure complication: hypoxia Qualified Code(s): J96.01 - Acute respiratory failure with hypoxia (4) Anticoagulated on Coumadin Status: Chronic Assessment and plan: See plan of care listed below. Current Visit: No (5) Hypertension Status: Chronic Assessment and plan: See plan of care listed below. Current Visit: No Qualifiers: Hypertension type: essential hypertension Qualified Code(s): I10 - Essential (primary) hypertension (6) Mitral regurgitation Status: Acute Assessment and plan: See plan of care listed below. Current Visit: Yes (7) Aortic insufficiency Status: Acute Assessment and plan: See plan of care listed below. Current Visit: Yes (8) Congestive heart failure Status: Chronic Assessment and plan: See plan of care listed below. Current Visit: Yes Qualifiers: Congestive heart failure chronicity: acute on chronic History of Present Illness - Data of Consult Patient: known to practice within the last 3 years Consult date: 03/02/17 Requesting Physician: Irene Bassett - Consult Narrative Reason for consult: AFib w/ increased ventricular response History of present illness: Shearing Shed Worker: Dr. Johnston PCP: Dr. Jesús Graham The patient is sedated and intubated in ICU #109. There is currently no family present; therefore, much of the history is taken from the medical records. Ms. Ernandez is a 81 year old female with a history of paroxysmal atrial fibrillation treated with amiodarone. She also has a history of hypertension, mitral stenosis, chronic anticoagulation. Risk factors are significant for: age, hypertension, sedentary lifestyle. She underwent LHC on 06/07 due to abnormal stress test and it revealed angiographically no evidence of significant fixed coronary obstruction. Echocardiogram on 02/25/17 revealed EF 60%, mild aortic insufficiency, mild to moderate mitral regurgitation, mild to moderate tricuspid regurgitation, and mild pulmonic insufficiency. She was also found to have severely elevated right-sided pressures with an estimated PAP of 67mmHg. Ms. Ernandez was admitted to the hospital on 02/17/17 with pneumonia and CHF. An BUSINESS ACCOUNT EXECUTIVE was called on 02/19/17 due to respiratory distress and she subsequently required intubation. She has been housed in the ICU since that time and has been difficult to wean from the ventilator. She has been in normal sinus rhythm throughout admission but went into atrial fibrillation on 03/01/17 and has had rates in the 100s-120s. We were consulted to see her and aid in management of her atrial fibrillation. This has been managed by Dr. Johnston in the past. She was last seen in clinic on 01/30/17 and complained of exertional dyspnea, fatigue , and chest discomfort. Her resting heart rate was found to be 39 per EKG and some of her beat-blockades were decreased. She has been on amiodarone 200mg PO daily and Lopressor 50mg PO BID since admission. We'll give her a one time dose of IV Lopressor 5mg and increase her amiodarone to BID. Assessment/Plan: 1. Paroxysmal atrial fibrillation - She has been on amiodarone 200mg PO daily and Lopressor 50mg PO BID since admission. We'll give her a one time dose of IV Lopressor 5mg and increase her amiodarone to BID. 2. Pneumonia - Pulmonology is following. Treatment is continued with broad- spectrum antibiotics. 3. Acute respiratory failure - Patient is able to tolerate long CPAP trials, up to 16 hours at a time but apparently doesn't have a strong enough cough to clear her airway if extubated now. 4. Chronic anticoagulation - Anticoagulated with Coumadin which is on hold pending tracheostomy placement. INR 1.9 today. 5. Hypertension - Currently well controlled. Will continue to monitor and adjust accordingly. 6. Mitral Regurgitation - Echocardiogram on 02/25/17 revealed EF 60%, mild aortic insufficiency, mild to moderate mitral regurgitation, mild to moderate tricuspid regurgitation, and mild pulmonic insufficiency. 7. Aortic Insufficiency 8. Congestive Heart Failure - BNP was mildly elevated earlier in hospitalization but she appears well compensated at this time. Dr. Sarkar to follow with further plan and addendum. CC: Irene Bassett MD - Home Medications and Allergies Home Medications: Home Medications Medication Instructions Recorded Confirmed Type Amiodarone Tab [Cordarone Tab] 200 mg PO QAM 10/31/15 02/17/17 History Gabapentin Cap/Tab [Neurontin 300 mg PO 1200 10/31/15 02/17/17 History Cap/Tab] Magnesium 250 mg PO BEDTIME 10/31/15 02/17/17 History Metoprolol Succinate 12.5 mg PO 1200 10/31/15 02/17/17 History Multivitamin [Multivitamins] 1 each PO QAM 10/31/15 02/17/17 History Ascorbic Acid [Vitamin C] 500 mg PO BEDTIME 02/17/17 02/17/17 History Calcium Carbonate/Vitamin D3 1 each PO 1700 02/17/17 02/17/17 History [Calcium 600 + Vit D Tablet] Ferrous Sulfate 325 mg PO QAM 02/17/17 02/17/17 History Furosemide Inj [Lasix Inj] 20 mg IM BID DIURETIC vial 02/17/17 Rx Hydrocodone/Acetaminophen 1 tablet PO Q4-6H PRN 02/17/17 02/17/17 History [Hydrocodon-Acetaminoph 7.5-325] Potassium Chloride 8 meq PO 1200 02/17/17 02/17/17 History Warfarin [Coumadin] 2.5 mg PO DAILY 02/17/17 02/17/17 History Allergies/Adverse Reactions: Allergies Allergy/AdvReac Type Severity Reaction Status Date / Time sulfamethoxazole Allergy RASH Verified 11/02/15 10:04 [From Bactrim] trimethoprim [From Bactrim] Allergy RASH Verified 11/02/15 10:04 ROS unobtainable: due to endotracheal tube Medical,Surgical,& Family Hx - Medical History Cardio: History of: CHF, Hypertension Neurology: History of: TIA Endocrine: No history of: Diabetes Mellitus (NIDDM), Thyroid Disorder Respiratory: No history of: Pulmonary Embolism Gastrointestinal: History of: GERD Musculoskeletal: History of: Back/Neck Problems - Surgical History Reproductive Surgeries: Surgical HX of;: Hysterectomy - Family History Family History: Reports;: Family Diabetes, Family Heart Disease, Family Hypertension - Social History Smoking Status: Never smoker Frequency of Alcohol Use: None Type of Drug Use: None Physical Examination Vital Signs Temp Pulse Resp BP Pulse Ox 96.8 F L 77 20 206/90 96 02/17/17 08:40 02/17/17 08:40 02/17/17 08:40 02/17/17 08:40 02/17/17 08:40 Other: General appearance: Orally intubated and sedated on ventilator. Normal weight, no acute distress. - Head Head exam: Present: normal inspection, normocephalic, atraumatic. Absent: hematoma, laceration - Eye Eye exam: Present: EOMI. Absent: conjunctival injection, nystagmus, periorbital swelling, scleral icterus, laceration to eyelids Pupils: Present: PERRL. Absent: constricted, dilated, fixed, irregular, unequal - ENT ENT exam: Present: Orally intubated, normal external ear exam - Neck Neck exam: Present: normal inspection. Absent: lymphadenopathy, meningismus, tenderness, thyromegaly - Respiratory Respiratory exam: Present: Mechanically ventilated breath sounds. Absent: accessory muscle use - Cardiovascular Cardiovascular exam: Present: Irregular rate and rhythm, tachycardia. Absent: carotid bruit, gallop, JVD, rubs, murmur - GI/Abdominal GI/Abdominal exam: Present: normal bowel sounds, soft. Absent: distended, firm , guarding, hernia, mass, tenderness, rebound. - Extremities Exam Extremities exam: Present: normal inspection, normal capillary refill. Upper extremity pulses 2+. Lower extremity pulses 2+. Absent: calf tenderness, edema - Back Exam Back exam: Present: Unable to examine due to habitus. Sedated on mechanical ventilator. - Neurological Exam Neurological exam: Present: Limited due to habitus (on ventilator). Arousable to verbal stimuli. Follows commands appropriately. No resting or essential tremor. - Psychiatric Psychiatric exam: Present: Unable to adequately assess due to patient being sedated and on mechanical ventilation. - Skin Skin exam: Present: normal color, warm, dry, intact. Absent: cyanosis, diaphoretic, rash, urticaria Result/EKG - Labs CBC & BMP: 03/02/17 04:15 03/02/17 04:15 Lab Results: I have reviewed the past 24 hour labs Labs: Laboratory Results - last 24 hr 03/01/17 03/01/17 03/02/17 03:46 17:42 00:05 WBC RBC Hgb Hct MCV MCH MCHC RDW Plt Count MPV Neut % (Auto) Lymph % (Auto) Rankin % (Auto) Eos % (Auto) Baso % (Auto) Neut # (Auto) Lymph # (Auto) Rankin # (Auto) Eos # (Auto) Baso # (Auto) Total Counted Immature Gran % Nucleated RBC % Immature Gran # Segmented Neutrophils Band Neutrophils Lymphocytes Monocytes Myelocytes Nucleated RBCs # Platelet Estimate Giant Platelets Hypochromasia Microcytosis INR PT Patient/Control Mix ABG pH ABG pCO2 ABG pO2 ABG HCO3 ABG Total CO2 ABG O2 Saturation ABG Base Excess FiO2 Sodium Potassium Chloride Carbon Dioxide Anion Gap BUN Creatinine GFR Calculation BUN/Creatinine Ratio Glucose POC Glucose 209 H 151 H Calculated Osmolality Calcium Phosphorus Magnesium Prealbumin Blood Type O POSITIVE 03/02/17 03/02/17 03/02/17 03:55 04:15 04:15 WBC RBC Hgb Hct MCV MCH MCHC RDW Plt Count MPV Neut % (Auto) Lymph % (Auto) Rankin % (Auto) Eos % (Auto) Baso % (Auto) Neut # (Auto) Lymph # (Auto) Rankin # (Auto) Eos # (Auto) Baso # (Auto) Total Counted Immature Gran % Nucleated RBC % Immature Gran # Segmented Neutrophils Band Neutrophils Lymphocytes Monocytes Myelocytes Nucleated RBCs # Platelet Estimate Giant Platelets Hypochromasia Microcytosis INR PT Patient/Control Mix ABG pH 7.504 H ABG pCO2 39.7 ABG pO2 105.8 H ABG HCO3 30.5 H ABG Total CO2 31.8 H ABG O2 Saturation 98.2 ABG Base Excess 6.9 H FiO2 35.00 Sodium 143 Potassium 5.0 Chloride 106 Carbon Dioxide 33 H Anion Gap 9.0 BUN 37 H Creatinine 0.40 L GFR Calculation 103 BUN/Creatinine Ratio 92.00 H Glucose 178 H POC Glucose Calculated Osmolality 297.0 Calcium 8.5 Phosphorus 2.0 L Magnesium 2.5 H 2.4 Prealbumin 27.7 Blood Type 03/02/17 03/02/17 03/02/17 04:15 04:15 06:20 WBC 18.2 H RBC 4.00 Hgb 12.3 Hct 37.1 MCV 92.8 MCH 31 MCHC 33.2 RDW 14.3 Plt Count 207 MPV 10.9 Neut % (Auto) 81.2 H Lymph % (Auto) 6.5 L Rankin % (Auto) 5.3 Eos % (Auto) 0.0 Baso % (Auto) 0.2 Neut # (Auto) 14.8 H Lymph # (Auto) 1.2 L Rankin # (Auto) 1.0 H Eos # (Auto) 0.0 Baso # (Auto) 0.0 Total Counted 100 Immature Gran % 6.8 Nucleated RBC % 0.0 Immature Gran # 1.24 Segmented Neutrophils 86 H Band Neutrophils 2 Lymphocytes 3 L Monocytes 8 Myelocytes 1 Nucleated RBCs # 0.00 Platelet Estimate Normal Giant Platelets Few Hypochromasia 1+ Microcytosis 1+ INR 1.9 PT Patient/Control Mix 20.7 ABG pH ABG pCO2 ABG pO2 ABG HCO3 ABG Total CO2 ABG O2 Saturation ABG Base Excess FiO2 Sodium Potassium Chloride Carbon Dioxide Anion Gap BUN Creatinine GFR Calculation BUN/Creatinine Ratio Glucose POC Glucose 207 H Calculated Osmolality Calcium Phosphorus Magnesium Prealbumin Blood Type 03/02/17 11:12 WBC RBC Hgb Hct MCV MCH MCHC RDW Plt Count MPV Neut % (Auto) Lymph % (Auto) Rankin % (Auto) Eos % (Auto) Baso % (Auto) Neut # (Auto) Lymph # (Auto) Rankin # (Auto) Eos # (Auto) Baso # (Auto) Total Counted Immature Gran % Nucleated RBC % Immature Gran # Segmented Neutrophils Band Neutrophils Lymphocytes Monocytes Myelocytes Nucleated RBCs # Platelet Estimate Giant Platelets Hypochromasia Microcytosis INR PT Patient/Control Mix ABG pH ABG pCO2 ABG pO2 ABG HCO3 ABG Total CO2 ABG O2 Saturation ABG Base Excess FiO2 Sodium Potassium Chloride Carbon Dioxide Anion Gap BUN Creatinine GFR Calculation BUN/Creatinine Ratio Glucose POC Glucose 89 Calculated Osmolality Calcium Phosphorus Magnesium Prealbumin Blood Type - EKG EKG results: interpreted by me EKG shows: tachycardia, atrial fibrillation (with increased ventricular response ) Specialty Discharge - Follow Up or Referrals
--- NOTE | 2017-03-02 16:51 | Post Interventional Procedure ---
Pre-op diagnosis: CHF, pneumonia, afib Post-op diagnosis: same Procedure: central venous catheter placement Contrast: none Flouroscopy: none Radiologist: Ciro Rivera Anesthesia: local Specimens: none sent Estimated blood loss: none Complications: none Condition: stable Description/Findings: right IJ triple lumen central venous catheter placement completed and ready to use Assessment and Plan - Time spent with patient Time spent with patient: Less than 30 minutes
[2017-03-02] MEDS ORDERED: DILTIAZEM 50 MG/10 ML VIAL IV ONE (18:56)
[2017-03-02] MEDS: DILTIAZEM INJ 100 MG in SODIUM CHLORIDE 0.9% 100 ML IV SCH (19:20)
[2017-03-02] MEDS: ASCORBIC ACID 500 MG TABLET PO SCH (21:44)
[2017-03-03] MEDS: PROPOFOL 1,000 MG/100 ML BOTTLE IV SCH ×2 (00:08→09:47)
[2017-03-03] MEDS: MEROPENEM 1,000 MG in SODIUM CHLORIDE 0.9% 100 ML IV SCH ×3 (02:29→17:27)
[2017-03-03 03:20] LABS: ABG Base Excess 4.6 MMOL/L (-2.5-2.5); ABG HCO3 28.5 MMOL/L (20-26); ABG Oxygen Saturation 97.3 % (95-100); ABG PCO2 43.8 MM HG (35-48); ABG PH 7.436 (7.35-7.45); ABG PO2 90.3 MM HG (80-95); ABG TCO2 25.8 MMOL/L (23-27); Allen Test Positive; Pt O2 Delivery Device Ventilator
[2017-03-03 05:03] LABS: Basophils # 0.1 10*3/uL (0.0-0.2); Basophils % 0.3 % (0.0-0.8); Hemoglobin 12.3 GM/DL (12.0-16.0); Immature Granulocytes % 7.4 %; Immature Granulocytes Absolute 1.44 #; Lymphocytes # 1.2 10*3/uL (1.4-4.0); Lymphocytes % 6.2 % (21.3-54.2); Mean Corpuscular HGB Conc 32.4 GM/DL (32-36); Mean Corpuscular Hemoglobin 31 PG (27-34); Mean Corpuscular Volume 94.5 FL (87-102); Mean Platelet Volume 11.6 FL (9.6-12.0); Monocytes # 1.2 10*3/uL (0.11-0.8); Monocytes % 6.4 % (1.7-12.7); Neutrophils # 15.5 10*3/uL (1.4-7.4); Neutrophils % 79.7 % (38.7-73.9); Platelet Count 205 T/CUMM (130-400); Red Blood Count 4.02 MC/CUMM (3.8-5.5); Red Cell Distribution Width 14.2 % (9.3-17.3); White Blood Count 19.4 T/CUMM (4-12)
[2017-03-03 05:25] LABS: INR 1.7; PT Patient Result 18.2 SECS
[2017-03-03 05:42] LABS: Band Neutrophils 1 % (0-10); Lymphocytes 8 % (20-55); Segmented Neutrophils 87 % (50-85); Total Cells Counted 100
[2017-03-03 05:43] LABS: Hypochromasia 1+; Platelet Estimate Normal
[2017-03-03] MEDS ORDERED: SODIUM CHLORIDE 0.9% 250 ML IV PRN (06:00)
[2017-03-03 06:02] LABS: Albumin 1.9 G/DL (3.4-5.0); Bilirubin,Total 0.4 MG/DL (0.2-1.0); Calcium 8.1 MG/DL (8.5-10.1); Magnesium 2.6 MG/DL (1.8-2.4); Osmolality,Calculated 300.7 MOS/KG (273-304); Potassium 4.5 MMOL/L (3.5-5.1)
--- NOTE | 2017-03-03 06:03 | Pulmonology Progress Note ---
Pulmonary - PN: Subj Interval history: Patient had worsening respiratory distress last night and was intubated by Dr. Contreras. At present she is sedated and on the ventilator but her mental status is good when sedation is held. We had wanted to evaluate swallowing but we will have to wait until we wean her off the ventilator. Concerned that she has a neurologic process. ABGs look good this morning. Will reduce settings. She has bilateral infiltrates on x-ray. Will take several days of antibiotics before we would be able to wean. 02/21/2017 ABGs are improved. Chest x-ray is pending. Will start weaning today. Patient with pneumonia and that is likely aspiration. Continuing broad- spectrum antibiotics. Cultures negative thus far from bronchial washings. 02/22/2017 again ABGs look better. Patient starting to do CPAP's. Seems to be responsive during those times when sedation is held. She does have some dementia and apparent aspiration. Bronchial washing cultures have been negative. Continuing empiric antibiotics. Will check mechanics and ABGs on CPAP today to see if we could possibly extubate. 02/23/2017 patient doing well with CPAP. ABGs look good. Chest x-ray still shows some lower lobe infiltrates. Worse on the right than left. Patient is alert calm and nodding to questions. Will check mechanics and ABGs on CPAP. If she does okay which should be able to get her extubated. 02/24/2017 she has done well with T-tube trial this morning. ABGs acceptable. Still has some right lower lobe infiltrate. Will extubate this morning. Mental status seems pretty good hopefully can defend her airway. She does have some dementia. 02/27/2017 patient was off the ventilator for a day but had to be reintubated 2 days ago because she was unable to clear her secretions. She is done well with CPAP since then. Will continue with weaning trial for now. May need to consider tracheostomy. PT/INR is hyperinflated. Holding Coumadin 02/28/2017 patient did prolonged CPAP trials. She is alert and answering questions squeezing fingers on command. Should be able to manage her airway extubated. Will check mechanics and ABGs on CPAP this morning. If she clearly is above excepted levels then we will extubate her. If she does not tolerate that then we would need to go ahead and plan tracheostomy. Her PT/INR is 5.2. Coumadin has been held. She is on medication that potentiated sections however. I will give her a low-dose of vitamin K. She is on that for paroxysmal atrial fibrillation. Normal sinus rhythm at present. 03/01/2017 patient again is doing well with prolonged CPAP trials. However her mechanics are quite poor. For now we will continue with CPAP trials. Will very likely need a tracheostomy if we do not see significant improvement in the next couple of days. Her PT INR remains hyper prolonged. Will repeat AquaMEPHYTON. Agree with evaluation for LTAC placement. 03/02/2017 PT/INR is down to 1.9 today. Will still need a little more fresh frozen plasma and/or vitamin K to prepare for tracheostomy. It appears likely that it will be next week that she gets the tracheostomy. We will continue weaning trials in the meantime. She is tolerating them well but her mechanics indicate that she does not have a strong enough cough to clear her airway if extubated now. Definitely think it would be safer for tracheostomy in order to get her weaned. 03/03/2017 INR is 1.7. Patient is scheduled for tracheostomy either later today or in the morning. We will give 2 more units of fresh frozen plasma. Would like to get INR down to 1.3 or less. She has been given a good bit of vitamin K as well. She is tolerating CPAP. However she has proven that she is not able to defend her airway and her mechanics have not been adequate for extubation. Hopefully tracheostomy will facilitate weaning. She has had problems with aspiration Exam (Progress Note) - Constitutional Vitals: Period Temp Pulse Resp BP Sys/Cox Pulse Ox Last 24 Hr 97.4 F-98.4 F 74-125 12-33 83-135/41-105 92-100 Exam: Patient sedated at present. Vital signs normal. Pupils react to light. Orotracheal tube in place. Thick coating of monilia on tongue. Neck is supple no bruits. Chest reveals few scattered rhonchi equal breath sounds. Heart irregular without murmurs. Abdomen soft nontender no masses. Extremities no clubbing cyanosis or edema. Results - Labs CBC & BMP: 03/03/17 04:57 03/02/17 04:15 Lab Results: I have reviewed the past 24 hour labs - Diagnostic Findings Procedure: Chest x-ray: image reviewed by me (Bibasilar infiltrates look a little better. ET tube good position.) Assessment and Plan (1) History of atrial fibrillation Status: Chronic Assessment and plan: Patient on chronic anticoagulants. Watch protimes. Rate is controlled 02/21/2017 rate is controlled. 02/22/2017 again rate is controlled. 02/23/2017 rate controlled. 02/27/2017 holding Coumadin. INR 4.6. 02/28/2017 sinus rhythm. INR 5.2. Holding Coumadin. Will give AquaMEPHYTON 5 mg. 03/01/2017 sinus rhythm. Trying to totally reverse Coumadin. This is in anticipation of tracheostomy. Likely will need one by Monday. 03/02/2017 remains in sinus rhythm. She has had 2 doses of vitamin K and had fresh frozen plasma yesterday. If tracheostomy is to be done she would need another round of fresh frozen plasma the day before. 03/03/2017 rate is controlled. 1.7. Getting more fresh frozen plasma today in anticipation of the tracheostomy. Current Visit: No (2) Congestive heart failure Status: Chronic Assessment and plan: BNP has come down since admission. Watch fluid status. 02/21/2017 clinically congestive heart failure is better. 02/22/2017 heart failure seems to be better 02/23/2017 chest x-ray may be a little wet. Will diurese further. 02/24/2017 chest x-ray still a little wet. Continue with diuresis. 02/27/2017 congestive heart failure improved. 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 03/01/2017 congestive heart failure little better. 03/02/2017 congestive heart failure stable at present. 03/03/2017 heart failure controlled. Current Visit: Yes Qualifiers: Congestive heart failure chronicity: acute on chronic (3) Pneumonia Status: Acute Assessment and plan: On broad-spectrum empiric antibiotics. Check cultures from bronchial washings. That should be out tomorrow. She is E. coli from her urine and it is covered with Merrem. 02/21/2017 chest x-ray is pending. Bronchial wash cultures thus far are showing normal scott. Continuing empiric antibiotics. 02/22/2017 bronchial wash cultures were negative. Continuing empiric antibiotics. X-ray showing improvement 02/23/2017 bibasilar pneumonia. Bronchial wash cultures negative. Continuing antibiotics. 02/24/2017 pneumonia about the same, primarily at the right base. Continuing antibiotics. 02/27/2017 continuing empiric antibiotics. 02/28/2017 continuing empiric antibiotics. Adding Diflucan for oral monilia. Do not think she has monilia as the cause of her pneumonia. 03/01/2017 patient on antibiotics and on Diflucan. Likely these are keeping her pro time from correcting. 03/02/2017 continuing broad-spectrum antibiotics. Patient has very poor cough and would not be able to clear her airways if off the ventilator at present 03/03/2017 has bibasilar pneumonia due to aspiration. Poor cough. Requires tracheostomy to wean. Current Visit: Yes Qualifiers: Pneumonia type: due to unspecified organism Laterality: right Lung location: lower lobe of lung Qualified Code(s): J18.1 - Lobar pneumonia, unspecified organism (4) Acute respiratory failure Status: Acute Assessment and plan: Patient was struggling especially with upper airway symptoms and required intubation last night. At bronchoscopy earlier in the day yesterday there were no abnormalities in the upper airway. Likely she had some thick secretions that caused this. We will keep these suctioned out. Pneumonia is the primary cause of the respiratory failure. 02/21/17 ABGs look much better. She has a metabolic alkalosis. Will add Diamox for 3 days. 02/22/2017 ABGs improved. Still has a mild metabolic alkalosis. Will check mechanics today to see if extubation is a possibility. 02/23/2017 ABGs look good. Tolerating CPAP. Only concern is far as getting her extubated is that her right lower lobe looks a little worse on x-ray today. Will bronchoscope and clean her out before we do CPAP 02/24/2017 patient extubated this morning. Hopefully she can defend her airway. She has some dementia but is able to respond to questions fairly well. 02/27/2017 patient had to be reintubated. Not able to defend her airway. 02/28/2017 ABGs look good. Her mental status is such that I would expect her to be able to control her airway. Will try again to get her extubated today 03/01/2017 again ABGs look good but mechanics not up to par for extubation yet. She would not be able to defend her airway, just as we saw Monday. 03/02/2017 ABGs look good. She does have a metabolic alkalosis. Will give Diamox for 3 days again. 03/03/2017 ABGs good. Tolerating CPAP. Report cough and inadequate negative inspiratory force. Tracheostomy is planned. Will be long-term weaning, and plans are to go to LTAC next week. Current Visit: Yes Qualifiers: Respiratory failure complication: hypoxia Qualified Code(s): J96.01 - Acute respiratory failure with hypoxia Specialty Discharge - Follow Up or Referrals
[2017-03-03] MEDS: INSULIN REGULAR 100 UNIT/ML SUBCUT SCH ×3 (06:32→18:09)
[2017-03-03] MEDS: methylPREDNISolone SOD SUC 40 MG/1 ML VIAL IV SCH ×2 (06:32→20:02)
--- NOTE | 2017-03-03 07:01 | XRay Report ---
XR chest 1V portable Indication: Shortness of breath Comparison: 02 March 2017 Findings: The heart and mediastinum are stable in size and configuration. Lines and tubes are unchanged in position. The pulmonary vascularity is decreased with decreasing lung density. No other lung infiltrates, effusions, pneumothorax or other abnormality is demonstrated. Impression: Findings suggest improving cardiac decompensation. PROCEDURE INTERPRETED AT [facility] DEPARTMENT OF RADIOLOGY Final Report Signed by: Dr. Frank Gould
[2017-03-03] MEDS: LEVALBUTEROL 1.25 MG/3 ML NEB RESP TX SCH ×2 (07:30→15:39)
--- NOTE | 2017-03-03 08:55 | Hospitalist Progress Note ---
Assessment and Plan (1) History of atrial fibrillation Status: Chronic Assessment and plan: This apparently has been paroxysmal in nature. Her echocardiogram (see below) does show left ventricular hypertrophy with EKG on this admission showing abnormal P-wave configuration with augmented QRS voltage and substantial repolarization abnormality particularly noted in the right precordial leads. She has been holding sinus rhythm with atrial premature depolarization subsequent to admission Current Visit: No (2) Acute respiratory failure Status: Acute Assessment and plan: Apparent recurrent mucous plugging associated with potential aspiration syndrome. Echocardiogram in October 2015 shows normal left ventricular ejection fraction and normal right ventricular systolic pressure. By report had negative cardiac catheterization performed in 2009 Current Visit: Yes Qualifiers: Respiratory failure complication: hypoxia Qualified Code(s): J96.01 - Acute respiratory failure with hypoxia Hospitalist: Subjective Interval history: 81-year-old female with chronic obstructive pulmonary disease and atrial fibrillation who presented with increasing shortness of breath. The patient had an initial bronchoscopy performed for clearing of secretions for possible aspiration. Initial chest x-ray showed marked elevation left hemidiaphragm with consolidative changes on the left side. She subsequently required intubation. She was re-bronched for deterioration in her chest x-ray appearance and recurrent hypoxemia with clearing of mucous plugs however has continued to be difficult to extubate. She is anticipated for tracheostomy today. There is some history of possible swallowing dysfunction recurrent aspiration it is a possible mechanism for her respiratory condition. Her vital signs overnight have been stable. She is awake responding. Exam - Constitutional Vitals: Period Temp Pulse Resp BP Sys/Cox Pulse Ox Last 24 Hr 97.8 F-98.5 F 69-123 12-33 81-135/41-105 94-99 General appearance: normal weight - Respiratory Respiratory exam: Absent: rales, rhonchi, wheezes - Cardiovascular Cardiovascular exam: Present: irregular rhythm (Chronic atrial fibrillation) - GI/Abdominal GI/Abdominal exam: Present: normal bowel sounds. Absent: organomegaly - Extremities Exam Extremities exam: Absent: edema - Neurological Exam Neurological exam: Present: alert Results - Labs CBC & BMP: 03/03/17 04:57 03/03/17 04:57 Labs: Albumin 1.7 INR 1.7 PH 7.43 PCO2 44 PO2 90 PO2/FiO2 253 - Diagnostic Findings Procedure: Chest x-ray: image reviewed by me (Small effusions with associated atelectasis bilaterally.) Specialty Discharge - Follow Up or Referrals
--- NOTE | 2017-03-03 09:38 | Ultrasound Report ---
US guide vascular access, IR cvc insert nt >5 Central Line placement using ultrasound guidance Ultrasound of the right neck Clinical Information: 81-year-old female with congestive heart failure. Central venous access is requested. Physician[s]: Dr. Rivera Procedure: The patient was advised of the benefits, risks, and alternatives of the procedure and informed consent was obtained. A time out was performed with verification of the patient's name, MRN, site of procedure, and type of procedure to be performed. The patient was positioned in the supine position on the angiographic table. The site was prepped and draped in the usual sterile fashion. Local anesthesia only was used for the procedure. A project landscape architect radiograph reveals no relevant abnormality. The neck and anterior chest wall were anesthetized with lidocaine. The right internal jugular vein was accessed using a microintroducer needle via a lateral approach with ultrasound guidance. Ultrasound image capture of vascular access was obtained for the patient's permanent record. A 0.018" cope wire was advanced into the superior vena cava, the needle was removed and a microintroducer sheath was placed. An Amplatz wire was then passed into the inferior vena cava. An incision was made at the puncture site using a scalpel. The tract was serially dilated over the wire. A 7 Ivorian triple lumen 20 cm Arrow central venous catheter was placed with its tip at the cavoatrial junction. Catheter tip position was confirmed with postprocedural chest radiograph. The ports aspirate and flush freely. The catheter was sutured in place using 3-0 silk and covered with a sterile dressing. The patient tolerated the procedure well and was returned to the PRU in stable condition. EBL: < 5 mL. Complications: None. Total Fluoroscopy Time: 0 minutes. Total number of images for the procedure: 1 Conclusion: Successful placement of a triple lumen central venous catheter via the right internal jugular vein. The catheter is ready for immediate use. PROCEDURE INTERPRETED AT [facility] DEPARTMENT OF RADIOLOGY Final Report Signed by: Ciro Rivera
[2017-03-03] MEDS: SODIUM CHLORIDE 0.45% 500 ML IV SCH (09:43)
[2017-03-03] MEDS: MULTIVITAMIN (CENTRUM) TABLET PO SCH (09:44)
[2017-03-03] MEDS: POLYETHYLENE GLYCOL POWDER 17 GM PACK PO SCH ×2 (09:44→20:02)
[2017-03-03] MEDS: FLUCONAZOLE 200 MG TABLET PO SCH (09:44)
[2017-03-03] MEDS: PANTOPRAZOLE 40 MG VIAL IV SCH (09:44)
[2017-03-03] MEDS: AMIODARONE 200 MG TABLET PO SCH ×2 (09:46→20:02)
[2017-03-03] MEDS: METOPROLOL TARTRATE 50 MG TABLET PER TUBE SCH ×2 (09:46→20:02)
[2017-03-03] MEDS: ASCORBIC ACID 500 MG TABLET PO SCH ×2 (09:46→20:02)
[2017-03-03] MEDS: DESITIN 4OZ/NYSTATIN 15 GRAM MIXTURE PASTE TOP SCH ×2 (09:47→20:02)
--- NOTE | 2017-03-03 10:53 | Cardiology Progress Note ---
Assessment and Plan - Time spent with patient Time spent with patient: Less than 30 minutes (1) Paroxysmal atrial fibrillation Status: Acute Assessment and plan: See plan of care listed below. Current Visit: Yes (2) Pneumonia Status: Acute Assessment and plan: See plan of care listed below. Current Visit: Yes Qualifiers: Pneumonia type: due to unspecified organism Laterality: right Lung location: lower lobe of lung Qualified Code(s): J18.1 - Lobar pneumonia, unspecified organism (3) Acute respiratory failure Status: Acute Assessment and plan: See plan of care listed below. Current Visit: Yes Qualifiers: Respiratory failure complication: hypoxia Qualified Code(s): J96.01 - Acute respiratory failure with hypoxia (4) Anticoagulated on Coumadin Status: Chronic Assessment and plan: See plan of care listed below. Current Visit: No (5) Hypertension Status: Chronic Assessment and plan: See plan of care listed below. Current Visit: No Qualifiers: Hypertension type: essential hypertension Qualified Code(s): I10 - Essential (primary) hypertension (6) Mitral regurgitation Status: Acute Assessment and plan: See plan of care listed below. Current Visit: Yes (7) Aortic insufficiency Status: Acute Assessment and plan: See plan of care listed below. Current Visit: Yes (8) Congestive heart failure Status: Chronic Assessment and plan: See plan of care listed below. Current Visit: Yes Qualifiers: Congestive heart failure chronicity: acute on chronic Cardiology - PN: Subj Interval history: Nursery Hand: Dr. Johnston PCP: Dr. Jesús Graham Summary: Ms. Ernandez is a 81 year old female with a history of paroxysmal atrial fibrillation treated with amiodarone. She also has a history of hypertension, mitral stenosis, chronic anticoagulation. Ms. Ernandez was admitted to the hospital on 02/17/17 with pneumonia and CHF. An MEDART OPERATOR was called on 02/19/17 due to respiratory distress and she subsequently required intubation. She has been in normal sinus rhythm throughout admission but went into atrial fibrillation on 03/01/17 and has had rates in the 100s-120s. We were consulted to see her and aid in management of her atrial fibrillation. She has been on amiodarone 200mg PO daily and Lopressor 50mg PO BID since admission. MARCH 03, 2017 UPDATE: We have started her on IV cardizem infusion, increased her amiodarone to 200mg PO BID, and starte her on vitamin C. She remains in atrial fibrillation, but now with controlled rates in the 80s-90s. She is currently NPO pending possible tracheostomy. Assessment/Plan: 1. Paroxysmal atrial fibrillation - We've adjusted her medications and her heart rates are better controlled, although she remains in sinus rhythm. Will continue with IV Cardizem and await further recommendations from Dr. Sarkar. 2. Pneumonia - Pulmonology is following. Treatment is continued with broad- spectrum antibiotics. 3. Acute respiratory failure - Patient is able to tolerate long CPAP trials, up to 16 hours at a time but apparently doesn't have a strong enough cough to clear her airway if extubated now. She is NPO pending possible tracheostomy today. 4. Chronic anticoagulation - Anticoagulated with Coumadin which is on hold pending tracheostomy placement. INR 1.7 today. 5. Hypertension - Currently well controlled. Will continue to monitor and adjust accordingly. 6. Mitral Regurgitation - Echocardiogram on 02/25/17 revealed EF 60%, mild aortic insufficiency, mild to moderate mitral regurgitation, mild to moderate tricuspid regurgitation, and mild pulmonic insufficiency. 7. Aortic Insufficiency 8. Congestive Heart Failure - BNP was mildly elevated earlier in hospitalization but she appears well compensated at this time. Dr. Sarkar to follow with further plan and addendum. Exam (Progress Note) - Constitutional Vitals: Period Temp Pulse Resp BP Sys/Cox Pulse Ox Last 24 Hr 97 F-98.5 F 69-123 12-33 81-135/41-105 93-99 Exam: General appearance: Orally intubated and sedated on ventilator. Normal weight, no acute distress. - Head Head exam: Present: normal inspection, normocephalic, atraumatic. Absent: hematoma, laceration - Eye Eye exam: Present: EOMI. Absent: conjunctival injection, nystagmus, periorbital swelling, scleral icterus, laceration to eyelids Pupils: Present: PERRL. Absent: constricted, dilated, fixed, irregular, unequal - ENT ENT exam: Present: Orally intubated, normal external ear exam - Neck Neck exam: Present: normal inspection. Absent: lymphadenopathy, meningismus, tenderness, thyromegaly - Respiratory Respiratory exam: Present: Mechanically ventilated breath sounds. Absent: accessory muscle use - Cardiovascular Cardiovascular exam: Present: Irregular rate and rhythm. Absent: carotid bruit , gallop, JVD, rubs, murmur - GI/Abdominal GI/Abdominal exam: Present: normal bowel sounds, soft. Absent: distended, firm , guarding, hernia, mass, tenderness, rebound. - Extremities Exam Extremities exam: Present: normal inspection, normal capillary refill. Upper extremity pulses 2+. Lower extremity pulses 2+. Absent: calf tenderness, edema - Back Exam Back exam: Present: Unable to examine due to habitus. Sedated on mechanical ventilator. - Neurological Exam Neurological exam: Present: Limited due to habitus (on ventilator). Arousable to verbal stimuli. Follows commands appropriately. No resting or essential tremor. - Psychiatric Psychiatric exam: Present: Unable to adequately assess due to patient being sedated and on mechanical ventilation. - Skin Skin exam: Present: normal color, warm, dry, intact. Absent: cyanosis, diaphoretic, rash, urticaria Result/EKG - Labs CBC & BMP: 03/03/17 04:57 03/03/17 04:57 Lab Results: I have reviewed the past 24 hour labs Labs: Laboratory Results - last 24 hr 03/02/17 03/02/17 03/02/17 11:12 17:43 23:32 WBC RBC Hgb Hct MCV MCH MCHC RDW Plt Count MPV Neut % (Auto) Lymph % (Auto) [place] % (Auto) Eos % (Auto) Baso % (Auto) Neut # (Auto) Lymph # (Auto) [place] # (Auto) Eos # (Auto) Baso # (Auto) Total Counted Immature Gran % Nucleated RBC % Immature Gran # Segmented Neutrophils Band Neutrophils Lymphocytes Monocytes Nucleated RBCs # Platelet Estimate Hypochromasia INR PT Patient/Control Mix ABG pH ABG pCO2 ABG pO2 ABG HCO3 ABG Total CO2 ABG O2 Saturation ABG Base Excess FiO2 Sodium Potassium Chloride Carbon Dioxide Anion Gap BUN Creatinine GFR Calculation BUN/Creatinine Ratio Glucose POC Glucose 89 153 H 180 H Calculated Osmolality Calcium Magnesium Total Bilirubin AST ALT Alkaline Phosphatase Total Protein Albumin Globulin Albumin/Globulin Ratio 03/03/17 03/03/17 03/03/17 02:56 04:57 04:57 WBC 19.4 H RBC 4.02 Hgb 12.3 Hct 38.0 MCV 94.5 MCH 31 MCHC 32.4 RDW 14.2 Plt Count 205 MPV 11.6 Neut % (Auto) 79.7 H Lymph % (Auto) 6.2 L [place] % (Auto) 6.4 Eos % (Auto) 0.0 Baso % (Auto) 0.3 Neut # (Auto) 15.5 H Lymph # (Auto) 1.2 L [place] # (Auto) 1.2 H Eos # (Auto) 0.0 Baso # (Auto) 0.1 Total Counted 100 Immature Gran % 7.4 Nucleated RBC % 0.0 Immature Gran # 1.44 Segmented Neutrophils 87 H Band Neutrophils 1 Lymphocytes 8 L Monocytes 4 Nucleated RBCs # 0.00 Platelet Estimate Normal Hypochromasia 1+ INR PT Patient/Control Mix ABG pH 7.436 ABG pCO2 43.8 ABG pO2 90.3 ABG HCO3 28.5 H ABG Total CO2 25.8 ABG O2 Saturation 97.3 ABG Base Excess 4.6 H FiO2 35.00 Sodium 145 Potassium 4.5 Chloride 107 Carbon Dioxide 32 Anion Gap 10.5 BUN 41 H Creatinine 0.40 L GFR Calculation 106 BUN/Creatinine Ratio 102.00 H Glucose 161 H POC Glucose Calculated Osmolality 300.7 Calcium 8.1 L Magnesium 2.6 H Total Bilirubin 0.40 AST 19 ALT 44 Alkaline Phosphatase 85 Total Protein 4.0 L Albumin 1.9 L Globulin 2.1 L Albumin/Globulin Ratio 0.9 L 03/03/17 03/03/17 04:57 05:36 WBC RBC Hgb Hct MCV MCH MCHC RDW Plt Count MPV Neut % (Auto) Lymph % (Auto) [place] % (Auto) Eos % (Auto) Baso % (Auto) Neut # (Auto) Lymph # (Auto) [place] # (Auto) Eos # (Auto) Baso # (Auto) Total Counted Immature Gran % Nucleated RBC % Immature Gran # Segmented Neutrophils Band Neutrophils Lymphocytes Monocytes Nucleated RBCs # Platelet Estimate Hypochromasia INR 1.7 PT Patient/Control Mix 18.2 ABG pH ABG pCO2 ABG pO2 ABG HCO3 ABG Total CO2 ABG O2 Saturation ABG Base Excess FiO2 Sodium Potassium Chloride Carbon Dioxide Anion Gap BUN Creatinine GFR Calculation BUN/Creatinine Ratio Glucose POC Glucose 165 H Calculated Osmolality Calcium Magnesium Total Bilirubin AST ALT Alkaline Phosphatase Total Protein Albumin Globulin Albumin/Globulin Ratio - EKG EKG results: interpreted by me EKG shows: atrial fibrillation Specialty Discharge - Follow Up or Referrals
[2017-03-03] MEDS: GABAPENTIN 50 MG/ML 30 ML/BOTTLE NG SCH (13:18)
[2017-03-03 13:40] LABS: INR 1.4; PT Patient Result 15.1 SECS
[2017-03-03] MEDS ORDERED: LIDOCAINE 1%/EPI INJ 20 ML VIAL ONE (14:04)
[2017-03-03] MEDS ORDERED: PHENYLEPHRINE 1 MG/10 ML SYRINGE IV ONE (14:35)
[2017-03-03] MEDS ORDERED: ONDANSETRON 4 MG/2 ML VIAL ONE (14:35)
[2017-03-03] MEDS ORDERED: PROPOFOL 200 MG/20 ML VIAL IV ONE (14:35)
[2017-03-03] MEDS ORDERED: ROCURONIUM 100 MG/10 ML VIAL IV ONE (14:35)
--- NOTE | 2017-03-03 15:42 | Operative Note ---
Date of procedure: 03/03/17 Pre-op diagnosis: respiratory failure Post-op diagnosis: same Procedure: tracheotomy Implants: After appropriate written consent was obtained, the patient was taken to the operating room and general anesthesia was admiinstered via previously placed endotracheal tube. The proposed incision was injected with several cc's of lidocaine with epinephrine. A surgical timeout was performed. A transverse incision, about 4 cm in length, was made slightly below the cricoid prominence. Sharp dissection and electrosurgical cautery were used to dissect down to the strap muscles. The strap muscles were divided along the median raphe. The thyroid isthmus was identified and divided with electrocautery. A cricoid hook was placed and anterior tracheal was visualized from the cricoid to the 3rd tracheal ring. About 3 cc's of 2% plain lidocaine was placed in the trachea, and an incision was made between the 1st and 2nd tracheal rings with an #11 blade, followed by down cuts through the 2nd tracheal ring, creating an inferiorly based tracheal window. A 2-0 silk suture was placed through the 2nd tracheal ring, the endotracheal tube withdrawn superiorly, and a #6 Shiley INSTALLER MET[employer]LOORING tube placed without difficulty. The tracheal suture was tied into a loop, secured to the anterior chest wall. Pieces of cut up Surgicel were packed in the wound along the cut edges of the trachea. The tracheotomy flange was secured to the skin with 4 2-0 silk sutures and the umbilical tape around the neck. A 4"x4" sponge was damped with Betadine and placed under the tracheotomy tube flange. Blood loss was minimal. She was returned to the ICU in stable condition. Anesthesia: GETA Surgeon / Physician: Arie Garcia Estimated blood loss: minimal Specimens: none sent Condition: stable Disposition: ICU Results - Labs CBC & BMP: 03/03/17 04:57 03/03/17 04:57 Discharge Plan - Discharge Medications New Furosemide Inj [Lasix Inj] 20 mg IM BID DIURETIC vial Continue Magnesium 250 mg PO BEDTIME Gabapentin Cap/Tab [Neurontin Cap/Tab] 300 mg PO 1200 Metoprolol Succinate 12.5 mg PO 1200 Amiodarone Tab [Cordarone Tab] 200 mg PO QAM Multivitamin [Multivitamins] 1 each PO QAM Warfarin [Coumadin] 2.5 mg PO DAILY Potassium Chloride 8 meq PO 1200 Ferrous Sulfate 325 mg PO QAM Calcium Carbonate/Vitamin D3 [Calcium 600 + Vit D Tablet] 1 each PO 1700 Ascorbic Acid [Vitamin C] 500 mg PO BEDTIME Hydrocodone/Acetaminophen [Hydrocodon-Acetaminoph 7.5-325] 1 tablet PO Q4-6H PRN PRN Reason: Pain Discontinued Lisinopril [Zestril] 20 mg PO QAM Meloxicam [Meloxicam] 7.5 mg PO QAM - Follow Up or Referral - Forms/Instructions Instructions: Tracheostomy Care (DC), Tracheotomy (DC)
--- NOTE | 2017-03-03 15:45 | Anesthesia Post-Op ---
Anesthesia Post OP - Post Ansesthetic Evaluation Patient seen in post op: Yes Resp: within normal limits CV: within normal limits Mental: within normal limits Temp: within normal limits [id number]-[id number]: within normal limits Nausea and Vomiting: within normal limits Pain: within normal limits
[2017-03-03] MEDS ORDERED: fentaNYL 100 MCG/2 ML VIAL ONE (15:54)
[2017-03-03] MEDS ORDERED: MIDAZOLAM 2 MG/2 ML VIAL ONE (15:54)
[2017-03-03] MEDS ORDERED: SEVOFLURANE 1 UNIT/15 MINUTE INH ONE (15:54)
[2017-03-03] MEDS: CALCIUM (CARBONATE)/VITAMIN D 600 MG-400 UNIT TABLET PO SCH (16:38)
[2017-03-03] MEDS: DILTIAZEM INJ 100 MG in SODIUM CHLORIDE 0.9% 100 ML IV SCH (23:18)
[2017-03-04] MEDS: LEVALBUTEROL 1.25 MG/3 ML NEB RESP TX SCH ×3 (00:12→14:40)
[2017-03-04] MEDS: INSULIN REGULAR 100 UNIT/ML SUBCUT SCH ×4 (01:18→18:05)
[2017-03-04] MEDS: MEROPENEM 1,000 MG in SODIUM CHLORIDE 0.9% 100 ML IV SCH ×3 (03:32→18:05)
[2017-03-04] MEDS: LORazepam 2 MG/1 ML VIAL IV PRN (03:39)
[2017-03-04 04:11] LABS: ABG Base Excess 4.2 MMOL/L (-2.5-2.5); ABG HCO3 28.4 MMOL/L (20-26); ABG Oxygen Saturation 96.3 % (95-100); ABG PCO2 40.7 MM HG (35-48); ABG PH 7.461 (7.35-7.45); ABG PO2 80.4 MM HG (80-95); ABG TCO2 29.6 MMOL/L (23-27); Allen Test Positive; Pt O2 Delivery Device Ventilator
[2017-03-04 04:48] LABS: INR 1.3; PT Patient Result 13.8 SECS
[2017-03-04 05:03] LABS: Calcium 8.9 MG/DL (8.5-10.1); Magnesium 2.5 MG/DL (1.8-2.4); Osmolality,Calculated 300.6 MOS/KG (273-304); Potassium 3.9 MMOL/L (3.5-5.1)
[2017-03-04] MEDS: methylPREDNISolone SOD SUC 40 MG/1 ML VIAL IV SCH ×2 (06:34→18:05)
--- NOTE | 2017-03-04 06:56 | Pulmonology Progress Note ---
Pulmonary - PN: Subj Interval history: Patient is a 81-year-old white lady that has a history of dementia and came in with aspiration pneumonia has been on the ventilator for quite a while. She does have chronic atrial fibrillation. She is felt to have some heart failure also. Yesterday she had a tracheostomy tube placed. She is comfortable on the ventilator but still has extensive x-ray changes. She was not able to do much CPAP after the trach. She is stable at present on the ventilator. Exam (Progress Note) - Constitutional Vitals: Period Temp Pulse Resp BP Sys/Cox Pulse Ox Last 24 Hr 97 F-98.1 F 64-106 12-29 81-139/48-119 93-100 General appearance: normal weight, no acute distress (She is sedated on the ventilator.) - Head Head exam: Present: normal inspection, normocephalic - Eye Eye exam: Present: EOMI. Absent: scleral icterus Pupils: Present: CHERELLE - ENT ENT exam: Present: other (She has had yeast in her mouth) - Neck Neck exam: Present: other (She has a tracheostomy tube in place now for). Absent: thyromegaly - Respiratory Respiratory exam: Present: rales, rhonchi (She does have coarse breath sounds bilaterally.) - Cardiovascular Cardiovascular exam: Present: irregular rhythm. Absent: gallop, systolic murmur - GI/Abdominal GI/Abdominal exam: Present: normal bowel sounds, soft. Absent: organomegaly, tenderness - Extremities Exam Extremities exam: Absent: calf tenderness, edema - Neurological Exam Neurological exam: Present: other (Patient is sedated on the ventilator at present. She does move her extremities.) - Skin Skin exam: Present: warm, dry Results - Labs CBC & BMP: 03/03/17 04:57 03/04/17 04:25 Labs: Her PO2 is 80 with a PCO2 of 40 and a pH of 7.46 - Diagnostic Findings Procedure: Chest x-ray: image reviewed by me, report reviewed by me (Chest x- ray still shows bilateral infiltrates consistent with CHF.) Assessment and Plan (1) Hypertension Status: Chronic Assessment and plan: The patient's blood pressure has been reasonably stable at present. Current Visit: No Qualifiers: Hypertension type: essential hypertension Qualified Code(s): I10 - Essential (primary) hypertension (2) Congestive heart failure Status: Chronic Assessment and plan: The patient's x-ray does look like congestive heart failure. We will try to continue with diuresis. Current Visit: Yes Qualifiers: Congestive heart failure chronicity: acute on chronic (3) Pneumonia Status: Acute Assessment and plan: The patient is getting treatment for pneumonia and has yeast on bronchial washings. Current Visit: Yes Qualifiers: Pneumonia type: due to unspecified organism Laterality: right Lung location: lower lobe of lung Qualified Code(s): J18.1 - Lobar pneumonia, unspecified organism (4) Acute respiratory failure Status: Acute Assessment and plan: The patient continues to have respiratory insufficiency and now has a tracheostomy tube. Current Visit: Yes Qualifiers: Respiratory failure complication: hypoxia Qualified Code(s): J96.01 - Acute respiratory failure with hypoxia (5) Respirator dependence Status: Acute Assessment and plan: The patient has been able to wean so far and got a tracheostomy tube yesterday. Current Visit: Yes (6) Paroxysmal atrial fibrillation Status: Acute Assessment and plan: Patient is in atrial fibrillation and is on amiodarone therapy. Current Visit: Yes Specialty Discharge - Follow Up or Referrals
--- NOTE | 2017-03-04 07:23 | Hospitalist Progress Note ---
Assessment and Plan - Time spent with patient Time spent discussing smoking cessation with patient: 3 to 10 minutes (1) Acute respiratory failure Status: Acute Assessment and plan: Patient has acute respiratory failure and has had prolonged mechanical ventilation now requiring tracheostomy yesterday. Pulmonary continues to follow with will assist with weaning. Current Visit: Yes Qualifiers: Respiratory failure complication: hypoxia Qualified Code(s): J96.01 - Acute respiratory failure with hypoxia (2) Pneumonia Status: Acute Assessment and plan: Patient is being treated for pneumonia felt possibly secondary to aspiration. Current Visit: Yes Qualifiers: Pneumonia type: due to unspecified organism Laterality: right Lung location: lower lobe of lung Qualified Code(s): J18.1 - Lobar pneumonia, unspecified organism (3) Respirator dependence Status: Acute Assessment and plan: She has required prolonged vent support and is now status post tracheostomy tube. Current Visit: Yes (4) Congestive heart failure Status: Chronic Assessment and plan: She has been treated for some congestive heart failure. Record reveals an echocardiogram in October 2015 revealed normal left ventricular ejection fraction. Cardiology continues to follow. Current Visit: Yes Qualifiers: Congestive heart failure chronicity: acute on chronic (5) Paroxysmal atrial fibrillation Status: Acute Assessment and plan: Patient has a history of paroxysmal atrial fibrillation and has been placed on IV Cardizem for rate control. Cardiology continues to follow and assist. Current Visit: Yes (6) Hypertension Status: Chronic Assessment and plan: Blood pressures well controlled at this time. Continue current medical regimen. Current Visit: No Qualifiers: Hypertension type: essential hypertension Qualified Code(s): I10 - Essential (primary) hypertension Hospitalist: Subjective Interval history: Chart reviewed and patient examined. 81-year-old female with a history of COPD , dementia, paroxysmal atrial fibrillation who presented with increasing shortness of breath. She has been on the ventilator and had tracheostomy tube placed yesterday. She has not been tolerating CPAP since that time. She is awake and responsive and will obey simple commands at this time. She denies any pain. Exam - Constitutional Vitals: Period Temp Pulse Resp BP Sys/Cox Pulse Ox Last 24 Hr 97 F-98.1 F 64-106 12-29 81-139/48-119 93-100 General appearance: no acute distress - Head Head exam: Present: normocephalic, atraumatic - Eye Eye exam: Present: EOMI Pupils: Present: CHERELLE - ENT ENT exam: Present: other (Tracheostomy in place) - Neck Neck exam: Absent: meningismus, thyromegaly - Respiratory Respiratory exam: Present: other (Coarse breath sounds bilaterally) - Cardiovascular Cardiovascular exam: Present: irregular rhythm - GI/Abdominal GI/Abdominal exam: Present: soft. Absent: mass, tenderness, rebound - Extremities Exam Extremities exam: Absent: calf tenderness, edema - Neurological Exam Neurological exam: Present: alert, CN II-XII intact. Absent: motor sensory deficit - Psychiatric Psychiatric exam: Absent: agitated, anxious - Skin Skin exam: Present: warm, dry. Absent: rash Results - Labs CBC & BMP: 03/03/17 04:57 03/04/17 04:25 Lab Results: I have reviewed the past 24 hour labs - Diagnostic Findings Procedure: Chest x-ray: image reviewed by me Specialty Discharge - Follow Up or Referrals
[2017-03-04] MEDS: POLYETHYLENE GLYCOL POWDER 17 GM PACK PO SCH ×2 (08:45→21:26)
[2017-03-04] MEDS: FUROSEMIDE 40 MG/4 ML VIAL IV SCH (08:45)
[2017-03-04] MEDS: MULTIVITAMIN (CENTRUM) TABLET PO SCH (08:46)
[2017-03-04] MEDS: FLUCONAZOLE 200 MG TABLET PO SCH (08:46)
[2017-03-04] MEDS: METOPROLOL TARTRATE 50 MG TABLET PER TUBE SCH ×2 (08:46→21:22)
[2017-03-04] MEDS: ASCORBIC ACID 500 MG TABLET PO SCH ×2 (08:46→21:26)
[2017-03-04] MEDS: AMIODARONE 200 MG TABLET PO SCH ×2 (08:46→21:21)
[2017-03-04] MEDS: PANTOPRAZOLE 40 MG VIAL IV SCH (08:46)
[2017-03-04] MEDS: PROPOFOL 1,000 MG/100 ML BOTTLE IV SCH (08:56)
[2017-03-04] MEDS: DESITIN 4OZ/NYSTATIN 15 GRAM MIXTURE PASTE TOP SCH ×2 (09:11→21:21)
--- NOTE | 2017-03-04 10:09 | XRay Report ---
Portable chest Date: 03/04/2017 Clinical history: Ventilator management Comparison: 03/03/2017 Technique: Portable AP sitting chest Findings: The heart is larger in size with progressive diffuse parenchymal findings and enlarging pleural effusions. Tracheostomy tube in satisfactory position. Stable right venous catheter and nasogastric tube. Osteopenia with degenerative changes and stable scoliosis. Impression: Tracheostomy tube in satisfactory position. Progressive significant pulmonary edema/bilateral pneumonia with moderate right and small left pleural effusions. Follow-up chest x-ray recommended. PROCEDURE INTERPRETED AT [facility] DEPARTMENT OF RADIOLOGY Final Report Signed by: Dr. Lucita Le
--- NOTE | 2017-03-04 10:12 | Progress Note ---
Assessment and Plan - Time spent with patient Time spent with patient: Less than 30 minutes (1) Respirator dependence Status: Acute Assessment and plan: discussed situation with family. patient would benefit from tracheotomy. They will discuss, let me know if they wish to proceed with tracheotomy. Can be performed tomorrow afternoon or Monday. Current Visit: Yes (2) Acute respiratory failure Status: Acute Assessment and plan: s/p tracheotomy doing well. will follow tomorrow. continue routine trach care. Current Visit: Yes Qualifiers: Respiratory failure complication: hypoxia Qualified Code(s): J96.01 - Acute respiratory failure with hypoxia Family Medicine PN Sub Interval history: POD#1 s/p tracheotomy no reported problems overnight. mild pain. no active bleeding. Exam (Progress Note) - Constitutional Vitals: Period Temp Pulse Resp BP Sys/Cox Pulse Ox Last 24 Hr 97 F-98.0 F 64-106 12-30 81-145/48-119 93-100 - Neck Neck exam: Present: other (trach site clean, dry, intact. no bleeding.) Results - Labs CBC & BMP: 03/03/17 04:57 03/04/17 04:25 Specialty Discharge - Follow Up or Referrals
[2017-03-04] MEDS: GABAPENTIN 50 MG/ML 30 ML/BOTTLE NG SCH (11:01)
[2017-03-04] MEDS: DILTIAZEM INJ 100 MG in SODIUM CHLORIDE 0.9% 100 ML IV SCH (11:39)
--- NOTE | 2017-03-04 12:20 | Cardiology Progress Note ---
Assessment and Plan (1) Respiratory failure Status: Acute Assessment and plan: Status post trach. Weaning per pulmonary. Current Visit: Yes (2) Paroxysmal atrial fibrillation Status: Acute Assessment and plan: She remains in atrial fibrillation with controlled rate. Continue current management for now. Current Visit: Yes (3) Pneumonia Status: Acute Assessment and plan: Management per hospitalist and pulmonary medicine Current Visit: Yes Qualifiers: Pneumonia type: due to unspecified organism Laterality: right Lung location: lower lobe of lung Qualified Code(s): J18.1 - Lobar pneumonia, unspecified organism (4) Respirator dependence Status: Acute Current Visit: Yes (5) Debility Status: Chronic Current Visit: Yes (6) Hypertension Status: Chronic Current Visit: No Qualifiers: Hypertension type: essential hypertension Qualified Code(s): I10 - Essential (primary) hypertension Cardiology - PN: Subj Interval history: The patient is status post trach placement yesterday. She is intubated and sedated on the ventilator. She remains in atrial fibrillation but her rate is well controlled on the IV diltiazem at 5 mg/h. There have been no new cardiac issues overnight. Current Medications Amiodarone HCl (Cordarone Tab) 200 mg PO BID [facility] Last Admin: 03/04/17 08:46 Dose: 200 mg Ascorbic Acid (Vitamin C Tab) 1,000 mg PO BID [facility] Last Admin: 03/04/17 08:46 Dose: 1,000 mg Calcium/Vitamin D (Caltrate 600 + D) 1 tablet PO 1700 [facility] Last Admin: 03/03/17 16:38 Dose: Not Given Dextrose/Water (D50) 25 gm IV PRN PRN PRN Reason: Hypoglycemia with IV access Fluconazole (Diflucan Tab) 200 mg PO DAILY [facility] Last Admin: 03/04/17 08:46 Dose: 200 mg Furosemide (Lasix Inj) 40 mg IV DAILY [facility] Last Admin: 03/04/17 08:45 Dose: 40 mg Gabapentin (Neurontin Liquid) 300 mg NG 1200 [facility] Last Admin: 03/04/17 11:01 Dose: 300 mg Glucagon () 1 mg IM PRN PRN PRN Reason: Hypoglycemia w/o IV access Guaifenesin (Mucinex) 600 mg PO BID [facility] Last Admin: 03/04/17 08:46 Dose: 600 mg Heparin Sodium (Porcine) () 50 units IV PRN PRN PRN Reason: central line lock Meropenem 1,000 mg/ Sodium (Chloride) 100 mls @ 200 mls/hr IV Q8H [facility] Last Infusion: 03/04/17 10:32 Dose: Infused Potassium Chloride 10 meq/ (Premix) 100 mls @ 100 mls/hr IV .PER PROTOCOL PRN; Protocol PRN Reason: Per Protocol Last Infusion: 02/24/17 01:55 Dose: Infused Propofol (Diprivan) 1,000 mg in 100 mls @ 2.238 mls/hr IV TITRATE DEIDRE; 5 MCG/KG /MIN PRN Reason: Protocol Last Admin: 03/04/17 08:56 Dose: Not Given Sodium Chloride (1/2ns) 500 mls @ 20 mls/hr IV .Q24H [facility] Last Admin: 03/03/17 09:43 Dose: Not Given Diltiazem HCl 100 mg/ Sodium (Chloride) 100 mls @ 5 mls/hr IV TITRATE DEIDRE; 5 MG /HR PRN Reason: Protocol Last Admin: 03/04/17 11:39 Dose: 5 mg/hr, 5 mls/hr Insulin Human Regular (Humulin R) 0 unit SUBCUT Q6HR DEIDRE PRN Reason: Protocol Last Admin: 03/04/17 11:38 Dose: 8 unit Iron/Multivitamins/Folic Acid (Centrum Tab) 1 tablet PO QAM [facility] Last Admin: 03/04/17 08:46 Dose: 1 tablet Levalbuterol HCl (Xopenex Neb) 1.25 mg RESP TX RT Q8H PRN PRN Reason: Shortness of Breath/Wheezing Last Admin: 02/19/17 18:30 Dose: 1.25 mg Levalbuterol HCl (Xopenex Neb) 1.25 mg RESP TX RT Q8H DEIDRE Last Admin: 03/04/17 07:05 Dose: 1.25 mg Lorazepam (Ativan Inj) 1 mg IV Q8H PRN PRN Reason: Anxiety Last Admin: 03/04/17 03:39 Dose: 1 mg Methylprednisolone Sodium Succinate (Solumedrol) 40 mg IV Q12H DEIDRE Last Admin: 03/04/17 06:34 Dose: 40 mg Metoprolol Tartrate (Lopressor Tab) 50 mg PER TUBE BID [facility] Last Admin: 03/04/17 08:46 Dose: 50 mg Metoprolol Tartrate (Lopressor Inj) 5 mg IV Q6HR PRN PRN Reason: tachycardia Morphine Sulfate () 2 mg IV Q2H PRN PRN Reason: Pain Severe (8-10) Nystatin/Zinc Oxide (Skin Protectant Mixture) 1 applic TOP BID [facility] Last Admin: 03/04/17 09:11 Dose: 1 applic Pantoprazole Sodium (Protonix Inj) 40 mg IV DAILY [facility] Last Admin: 03/04/17 08:46 Dose: 40 mg Polyethylene Glycol (Miralax) 17 gm PO BID [facility] Last Admin: 03/04/17 08:45 Dose: 17 gm Warfarin Sodium (Coumadin) 3 mg PO DAILY@1800 [facility] Exam (Progress Note) - Constitutional Vitals: Period Temp Pulse Resp BP Sys/Cox Pulse Ox Last 24 Hr 97 F-98.0 F 64-106 12-30 81-145/53-119 93-100 Exam: General: Frail, elderly, chronically in the appearing intubated and sedated on the ventilator HEENT: Normocephalic, atraumatic Neck: Status post trach Cardiac: Irregular Rhythm, 2/6 systolic murmur, no gallop, no rub Lungs: Coarse breath sounds per the ventilator Neuro: Difficult to assess secondary to sedation Abdomen: Soft, Active Bowel Sounds, No Masses, No Pulsations/Bruits Skin: Normal color, no rash Extremities: No Clubbing, No Cyanosis, No Edema, Normal Upper Extr. Pulses Musculoskeletal: No acute abnormality noted Result/EKG - Labs CBC & BMP: 03/03/17 04:57 03/04/17 04:25 Lab Results: I have reviewed the past 24 hour labs Labs: Laboratory Results - last 24 hr 03/03/17 03/03/17 03/03/17 13:29 18:05 23:19 INR 1.4 PT Patient/Control Mix 15.1 ABG pH ABG pCO2 ABG pO2 ABG HCO3 ABG Total CO2 ABG O2 Saturation ABG Base Excess FiO2 Sodium Potassium Chloride Carbon Dioxide Anion Gap BUN Creatinine GFR Calculation BUN/Creatinine Ratio Glucose POC Glucose 153 H 220 H Calculated Osmolality Calcium Magnesium 03/04/17 03/04/17 03/04/17 03:50 04:25 04:25 INR 1.3 PT Patient/Control Mix 13.8 ABG pH 7.461 H ABG pCO2 40.7 ABG pO2 80.4 ABG HCO3 28.4 H ABG Total CO2 29.6 H ABG O2 Saturation 96.3 ABG Base Excess 4.2 H FiO2 35.00 Sodium 146 H Potassium 3.9 Chloride 110 H Carbon Dioxide 32 Anion Gap 7.9 BUN 39 H Creatinine 0.40 L GFR Calculation 106 BUN/Creatinine Ratio 97.00 H Glucose 135 H POC Glucose Calculated Osmolality 300.6 Calcium 8.9 Magnesium 2.5 H 03/04/17 03/04/17 05:25 11:34 INR PT Patient/Control Mix ABG pH ABG pCO2 ABG pO2 ABG HCO3 ABG Total CO2 ABG O2 Saturation ABG Base Excess FiO2 Sodium Potassium Chloride Carbon Dioxide Anion Gap BUN Creatinine GFR Calculation BUN/Creatinine Ratio Glucose POC Glucose 176 H 227 H Calculated Osmolality Calcium Magnesium - EKG EKG results: interpreted by me Specialty Discharge - Follow Up or Referrals
[2017-03-04] MEDS: CALCIUM (CARBONATE)/VITAMIN D 600 MG-400 UNIT TABLET PO SCH (18:05)
[2017-03-05] MEDS: LEVALBUTEROL 1.25 MG/3 ML NEB RESP TX SCH ×4 (00:05→23:05)
[2017-03-05] MEDS: INSULIN REGULAR 100 UNIT/ML SUBCUT SCH ×4 (00:58→18:52)
[2017-03-05] MEDS: MEROPENEM 1,000 MG in SODIUM CHLORIDE 0.9% 100 ML IV SCH ×3 (03:20→18:32)
[2017-03-05 05:56] LABS: Basophils % 0.2 % (0.0-0.8); Hematocrit 36.8 VOL% (35.7-47.0); Hemoglobin 11.9 GM/DL (12.0-16.0); Immature Granulocytes % 6.1 %; Immature Granulocytes Absolute 1.33 #; Lymphocytes # 1.2 10*3/uL (1.4-4.0); Lymphocytes % 5.3 % (21.3-54.2); Mean Corpuscular HGB Conc 32.3 GM/DL (32-36); Mean Corpuscular Hemoglobin 30 PG (27-34); Mean Corpuscular Volume 93.9 FL (87-102); Mean Platelet Volume 11.4 FL (9.6-12.0); Monocytes # 1.2 10*3/uL (0.11-0.8); Monocytes % 5.3 % (1.7-12.7); Neutrophils # 18.3 10*3/uL (1.4-7.4); Neutrophils % 83.1 % (38.7-73.9); Platelet Count 167 T/CUMM (130-400); Red Blood Count 3.92 MC/CUMM (3.8-5.5); Red Cell Distribution Width 14.3 % (9.3-17.3)
[2017-03-05 06:02] LABS: INR 1.2; PT Patient Result 12.8 SECS
[2017-03-05 06:18] LABS: Lymphocytes 3 % (20-55); Segmented Neutrophils 90 % (50-85); Total Cells Counted 100
[2017-03-05 06:19] LABS: Hypochromasia 1+; Platelet Estimate Normal
[2017-03-05 06:22] LABS: Calcium 8.3 MG/DL (8.5-10.1); Magnesium 2.5 MG/DL (1.8-2.4); Osmolality,Calculated 298.7 MOS/KG (273-304); Potassium 4.3 MMOL/L (3.5-5.1)
--- NOTE | 2017-03-05 06:24 | Pulmonology Progress Note ---
Pulmonary - PN: Subj Interval history: Patient is a 81-year-old white lady that has a history of dementia and came in with aspiration pneumonia has been on the ventilator for quite a while. She does have chronic atrial fibrillation. She is felt to have some heart failure also. She had a tracheostomy tube placed. She is comfortable on the ventilator but still has extensive x-ray changes. She did diurese fairly well and is breathing a little better. She did CPAP well and actually did some trach collar trials. Her heart rate and blood pressure have been stable. Overall she is slowly improving. Exam (Progress Note) - Constitutional Vitals: Period Temp Pulse Resp BP Sys/Cox Pulse Ox Last 24 Hr 97.9 F-98.3 F 61-99 12-30 81-145/45-80 92-100 Exam: General appearance: normal weight, no acute distress (She is sedated on the ventilator. She does look comfortable.) - Head Head exam: Present: normal inspection, normocephalic - Eye Eye exam: Present: EOMI. Absent: scleral icterus Pupils: Present: CHERELLE - ENT ENT exam: Present: other (She has had yeast in her mouth) - Neck Neck exam: Present: other (She has a tracheostomy tube in place now). Absent: thyromegaly - Respiratory Respiratory exam: Present: Her lungs still have coarse breath sounds bilaterally with some bilateral crackles. - Cardiovascular Cardiovascular exam: Present: irregular rhythm. Her heart rate is been under control. She has required Cardizem infusion. Absent: gallop, systolic murmur - GI/Abdominal GI/Abdominal exam: Present: normal bowel sounds, soft. Absent: organomegaly, tenderness - Extremities Exam Extremities exam: Absent: calf tenderness, edema - Neurological Exam Neurological exam: Present: other (Patient is sedated on the ventilator at present. She does move her extremities.) - Skin Skin exam: Present: warm, dry Results - Labs CBC & BMP: 03/05/17 05:45 03/04/17 04:25 Assessment and Plan (1) Hypertension Status: Chronic Assessment and plan: The patient's blood pressure has been reasonably stable at present. She appears to be hemodynamically stable at present Current Visit: No Qualifiers: Hypertension type: essential hypertension Qualified Code(s): I10 - Essential (primary) hypertension (2) Congestive heart failure Status: Chronic Assessment and plan: The patient's x-ray does look like congestive heart failure. She does diurese fairly well and is doing a little better. Will continue with some diuretics. Current Visit: Yes Qualifiers: Congestive heart failure chronicity: acute on chronic (3) Pneumonia Status: Acute Assessment and plan: The patient is getting treatment for pneumonia and has yeast on bronchial washings. Clinically she does not appear toxic. Current Visit: Yes Qualifiers: Pneumonia type: due to unspecified organism Laterality: right Lung location: lower lobe of lung Qualified Code(s): J18.1 - Lobar pneumonia, unspecified organism (4) Acute respiratory failure Status: Acute Assessment and plan: The patient continues to have respiratory insufficiency and now has a tracheostomy tube. She will continue with weaning trials and is doing better. Current Visit: Yes Qualifiers: Respiratory failure complication: hypoxia Qualified Code(s): J96.01 - Acute respiratory failure with hypoxia (5) Respirator dependence Status: Acute Assessment and plan: The patient has been able to wean so far and got a tracheostomy tube on Monday. She will continue with weaning trials. Current Visit: Yes (6) Paroxysmal atrial fibrillation Status: Acute Assessment and plan: Patient is in atrial fibrillation and is on amiodarone therapy. Current Visit: Yes Specialty Discharge - Follow Up or Referrals
[2017-03-05] MEDS: methylPREDNISolone SOD SUC 40 MG/1 ML VIAL IV SCH ×2 (06:50→20:16)
[2017-03-05] MEDS: DILTIAZEM INJ 100 MG in SODIUM CHLORIDE 0.9% 100 ML IV SCH (07:43)
--- NOTE | 2017-03-05 08:34 | Hospitalist Progress Note ---
Assessment and Plan - Time spent with patient Time spent with patient: Less than 30 minutes (1) Acute respiratory failure Status: Acute Assessment and plan: 03/04/17: Patient has acute respiratory failure and has had prolonged mechanical ventilation now requiring tracheostomy yesterday. Pulmonary continues to follow with will assist with weaning. 03/05/17: Pulmonary continues to follow. She has tracheostomy in place and is otherwise stable. Current Visit: Yes Qualifiers: Respiratory failure complication: hypoxia Qualified Code(s): J96.01 - Acute respiratory failure with hypoxia (2) Pneumonia Status: Acute Assessment and plan: Patient is being treated for pneumonia felt possibly secondary to aspiration. Current Visit: Yes Qualifiers: Pneumonia type: due to unspecified organism Laterality: right Lung location: lower lobe of lung Qualified Code(s): J18.1 - Lobar pneumonia, unspecified organism (3) Respirator dependence Status: Acute Assessment and plan: She has required prolonged vent support and is now status post tracheostomy tube. Current Visit: Yes (4) Congestive heart failure Status: Chronic Assessment and plan: She has been treated for some congestive heart failure. Record reveals an echocardiogram in October 2015 revealed normal left ventricular ejection fraction. Cardiology continues to follow. Current Visit: Yes Qualifiers: Congestive heart failure chronicity: acute on chronic (5) Paroxysmal atrial fibrillation Status: Acute Assessment and plan: 03/04/17: Patient has a history of paroxysmal atrial fibrillation and has been placed on IV Cardizem for rate control. Cardiology continues to follow and assist. 03/05/17: Rate is controlled. Will defer any adjustments in her medications to cardiology, however we did reinitiate her warfarin therapy. Current Visit: Yes (6) Hypertension Status: Chronic Assessment and plan: Blood pressures well controlled at this time. Continue current medical regimen. Current Visit: No Qualifiers: Hypertension type: essential hypertension Qualified Code(s): I10 - Essential (primary) hypertension Hospitalist: Subjective Interval history: Ms. Ernandez remains in ICU on a ventilator and is now status post tracheostomy. She is awake alert and denies any specific complaints. She is receiving enteral feedings and has a Smith catheter in place. Exam - Constitutional Vitals: Period Temp Pulse Resp BP Sys/Cox Pulse Ox Last 24 Hr 98.1 F-98.3 F 61-91 12-27 81-131/45-80 92-100 General appearance: no acute distress - Head Head exam: Present: normocephalic, atraumatic - Eye Eye exam: Present: EOMI Pupils: Present: CHERELLE - ENT ENT exam: Present: other (Tracheostomy) - Neck Neck exam: Absent: lymphadenopathy, meningismus, tenderness, thyromegaly - Respiratory Respiratory exam: Present: clear to auscultation bilaterally. Absent: rales, rhonchi, wheezes - Cardiovascular Cardiovascular exam: Present: irregular rhythm. Absent: tachycardia - GI/Abdominal GI/Abdominal exam: Present: normal bowel sounds, soft. Absent: mass, tenderness , rebound - Extremities Exam Extremities exam: Absent: calf tenderness, edema - Back Exam Back exam: Present: normal inspection - Neurological Exam Neurological exam: Present: alert, oriented X3, CN II-XII intact. Absent: motor sensory deficit - Psychiatric Psychiatric exam: Present: normal affect, normal mood. Absent: agitated, anxious - Skin Skin exam: Present: warm, dry. Absent: rash Results - Labs CBC & BMP: 03/05/17 05:45 03/05/17 05:45 Lab Results: I have reviewed the past 24 hour labs Specialty Discharge - Follow Up or Referrals
[2017-03-05] MEDS: POLYETHYLENE GLYCOL POWDER 17 GM PACK PO SCH ×2 (09:10→20:15)
[2017-03-05] MEDS: ASCORBIC ACID 500 MG TABLET PO SCH ×2 (09:10→20:14)
[2017-03-05] MEDS: DESITIN 4OZ/NYSTATIN 15 GRAM MIXTURE PASTE TOP SCH ×2 (09:10→20:24)
[2017-03-05] MEDS: MULTIVITAMIN (CENTRUM) TABLET PO SCH (09:10)
[2017-03-05] MEDS: METOPROLOL TARTRATE 50 MG TABLET PER TUBE SCH ×2 (09:10→20:15)
[2017-03-05] MEDS: FLUCONAZOLE 200 MG TABLET PO SCH (09:11)
[2017-03-05] MEDS: PANTOPRAZOLE 40 MG VIAL IV SCH (09:11)
[2017-03-05] MEDS: FUROSEMIDE 40 MG/4 ML VIAL IV SCH (09:11)
[2017-03-05] MEDS: AMIODARONE 200 MG TABLET PO SCH ×2 (09:11→20:15)
[2017-03-05] MEDS: PROPOFOL 1,000 MG/100 ML BOTTLE IV SCH (10:20)
--- NOTE | 2017-03-05 10:42 | Progress Note ---
Assessment and Plan (1) Respirator dependence Status: Acute Assessment and plan: discussed situation with family. patient would benefit from tracheotomy. They will discuss, let me know if they wish to proceed with tracheotomy. Can be performed tomorrow afternoon or Monday. POD#2, doing well. continue routine trach care. Current Visit: Yes (2) Acute respiratory failure Status: Acute Assessment and plan: s/p tracheotomy doing well. will follow tomorrow. continue routine trach care. Current Visit: Yes Qualifiers: Respiratory failure complication: hypoxia Qualified Code(s): J96.01 - Acute respiratory failure with hypoxia Family Medicine PN Sub Interval history: no issues with tracheotomy per nursing staff Exam (Progress Note) - Constitutional Vitals: Period Temp Pulse Resp BP Sys/Cox Pulse Ox Last 24 Hr 97.6 F-98.3 F 61-91 12-27 81-137/45-80 92-100 - Neck Neck exam: Present: other (tracheotomy site clean, dry, intact. no bleeding) Results - Labs CBC & BMP: 03/05/17 05:45 03/05/17 05:45 Specialty Discharge - Follow Up or Referrals
--- NOTE | 2017-03-05 11:31 | Cardiology Progress Note ---
Assessment and Plan (1) Respiratory failure Status: Acute Assessment and plan: Status post trach. Weaning per pulmonary. Current Visit: Yes (2) Paroxysmal atrial fibrillation Status: Acute Assessment and plan: She remains in atrial fibrillation with controlled rate. Continue current management for now. When she is taking p.o. we can transition her to an oral dose of diltiazem to control her rate. Her warfarin has been restarted for anticoagulation. Current Visit: Yes (3) Pneumonia Status: Acute Assessment and plan: Management per hospitalist and pulmonary medicine Current Visit: Yes Qualifiers: Pneumonia type: due to unspecified organism Laterality: right Lung location: lower lobe of lung Qualified Code(s): J18.1 - Lobar pneumonia, unspecified organism (4) Respirator dependence Status: Acute Current Visit: Yes (5) Debility Status: Chronic Current Visit: Yes (6) Hypertension Status: Chronic Current Visit: No Qualifiers: Hypertension type: essential hypertension Qualified Code(s): I10 - Essential (primary) hypertension Cardiology - PN: Subj Interval history: Clinically there has been little change. The patient has a tracheostomy now. She remains intubated and sedated on the ventilator. She is in atrial fibrillation and her heart rate is adequately controlled on IV diltiazem. There have been no new cardiac issues overnight. Current Medications Amiodarone HCl (Cordarone Tab) 200 mg PO BID [facility] Last Admin: 03/05/17 09:11 Dose: 200 mg Ascorbic Acid (Vitamin C Tab) 1,000 mg PO BID [facility] Last Admin: 03/05/17 09:10 Dose: 1,000 mg Calcium/Vitamin D (Caltrate 600 + D) 1 tablet PO 1700 [facility] Last Admin: 03/04/17 18:05 Dose: 1 tablet Dextrose/Water (D50) 25 gm IV PRN PRN PRN Reason: Hypoglycemia with IV access Fluconazole (Diflucan Tab) 200 mg PO DAILY [facility] Last Admin: 03/05/17 09:11 Dose: 200 mg Furosemide (Lasix Inj) 40 mg IV DAILY [facility] Last Admin: 03/05/17 09:11 Dose: 40 mg Gabapentin (Neurontin Liquid) 300 mg NG 1200 [facility] Last Admin: 03/04/17 11:01 Dose: 300 mg Glucagon () 1 mg IM PRN PRN PRN Reason: Hypoglycemia w/o IV access Guaifenesin (Mucinex) 600 mg PO BID [facility] Last Admin: 03/05/17 09:10 Dose: 600 mg Heparin Sodium (Porcine) () 50 units IV PRN PRN PRN Reason: central line lock Meropenem 1,000 mg/ Sodium (Chloride) 100 mls @ 200 mls/hr IV Q8H [facility]ID[facility] Last Admin: 03/05/17 09:09 Dose: 50 mls/hr Potassium Chloride 10 meq/ (Premix) 100 mls @ 100 mls/hr IV .PER PROTOCOL PRN; Protocol PRN Reason: Per Protocol Last Infusion: 02/24/17 01:55 Dose: Infused Propofol (Diprivan) 1,000 mg in 100 mls @ 2.238 mls/hr IV TITRATE DEIDRE; 5 MCG/KG /MIN PRN Reason: Protocol Last Admin: 03/05/17 10:20 Dose: Not Given Sodium Chloride (1/2ns) 500 mls @ 20 mls/hr IV .Q24H [facility] Last Admin: 03/03/17 09:43 Dose: Not Given Diltiazem HCl 100 mg/ Sodium (Chloride) 100 mls @ 5 mls/hr IV TITRATE DEIDRE; 5 MG /HR PRN Reason: Protocol Last Admin: 03/05/17 07:43 Dose: 5 mg/hr, 5 mls/hr Insulin Human Regular (Humulin R) 0 unit SUBCUT Q6HR DEIDRE PRN Reason: Protocol Last Admin: 03/05/17 05:50 Dose: Not Given Iron/Multivitamins/Folic Acid (Centrum Tab) 1 tablet PO QAM [facility] Last Admin: 03/05/17 09:10 Dose: 1 tablet Levalbuterol HCl (Xopenex Neb) 1.25 mg RESP TX RT Q8H PRN PRN Reason: Shortness of Breath/Wheezing Last Admin: 02/19/17 18:30 Dose: 1.25 mg Levalbuterol HCl (Xopenex Neb) 1.25 mg RESP TX RT Q8H [facility]ID[facility] Last Admin: 03/05/17 07:23 Dose: 1.25 mg Lorazepam (Ativan Inj) 1 mg IV Q8H PRN PRN Reason: Anxiety Last Admin: 03/04/17 03:39 Dose: 1 mg Methylprednisolone Sodium Succinate (Solumedrol) 40 mg IV Q12H [facility] Last Admin: 06/25/17 06:50 Dose: 40 mg Metoprolol Tartrate (Lopressor Tab) 50 mg PER TUBE BID [facility] Last Admin: 03/05/17 09:10 Dose: 50 mg Metoprolol Tartrate (Lopressor Inj) 5 mg IV Q6HR PRN PRN Reason: tachycardia Morphine Sulfate () 2 mg IV Q2H PRN PRN Reason: Pain Severe (8-10) Nystatin/Zinc Oxide (Skin Protectant Mixture) 1 applic TOP BID [facility] Last Admin: 03/05/17 09:10 Dose: 1 applic Pantoprazole Sodium (Protonix Inj) 40 mg IV DAILY [facility] Last Admin: 03/05/17 09:11 Dose: 40 mg Polyethylene Glycol (Miralax) 17 gm PO BID [facility] Last Admin: 03/05/17 09:10 Dose: 17 gm Warfarin Sodium (Coumadin) 3 mg PO DAILY@1800 [facility] Exam (Progress Note) - Constitutional Vitals: Period Temp Pulse Resp BP Sys/Cox Pulse Ox Last 24 Hr 97.6 F-98.3 F 61-91 12-27 81-137/45-79 92-100 Exam: General: Frail, elderly, chronically in the appearing intubated and sedated on the ventilator HEENT: Normocephalic, atraumatic Neck: Status post trach Cardiac: Irregular Rhythm, 2/6 systolic murmur, no gallop, no rub Lungs: Coarse breath sounds per the ventilator Neuro: Difficult to assess secondary to sedation Abdomen: Soft, Active Bowel Sounds, No Masses, No Pulsations/Bruits Skin: Normal color, no rash Extremities: No Clubbing, No Cyanosis, No Edema, Normal Upper Extr. Pulses Musculoskeletal: No acute abnormality noted Result/EKG - Labs CBC & BMP: 03/05/17 05:45 03/05/17 05:45 Lab Results: I have reviewed the past 24 hour labs Labs: Laboratory Results - last 24 hr 03/04/17 03/04/17 03/04/17 11:34 17:44 23:18 WBC RBC Hgb Hct MCV MCH MCHC RDW Plt Count MPV Neut % (Auto) Lymph % (Auto) [place] % (Auto) Eos % (Auto) Baso % (Auto) Neut # (Auto) Lymph # (Auto) [place] # (Auto) Eos # (Auto) Baso # (Auto) Total Counted Immature Gran % Nucleated RBC % Immature Gran # Segmented Neutrophils Lymphocytes Monocytes Nucleated RBCs # Platelet Estimate Hypochromasia Morphology Comment INR PT Patient/Control Mix Circ Anticoag PTT Sodium Potassium Chloride Carbon Dioxide Anion Gap BUN Creatinine GFR Calculation BUN/Creatinine Ratio Glucose POC Glucose 227 H 222 H 209 H Calculated Osmolality Calcium Magnesium 03/05/17 03/05/17 03/05/17 05:10 05:45 05:45 WBC RBC Hgb Hct MCV MCH MCHC RDW Plt Count MPV Neut % (Auto) Lymph % (Auto) [place] % (Auto) Eos % (Auto) Baso % (Auto) Neut # (Auto) Lymph # (Auto) [place] # (Auto) Eos # (Auto) Baso # (Auto) Total Counted Immature Gran % Nucleated RBC % Immature Gran # Segmented Neutrophils Lymphocytes Monocytes Nucleated RBCs # Platelet Estimate Hypochromasia Morphology Comment INR 1.2 PT Patient/Control Mix 12.8 Circ Anticoag PTT 28.0 D Sodium 145 Potassium 4.3 Chloride 108 H Carbon Dioxide 33 H Anion Gap 8.3 BUN 40 H Creatinine 0.30 L GFR Calculation 117 BUN/Creatinine Ratio 133.00 H Glucose 119 H POC Glucose 156 H Calculated Osmolality 298.7 Calcium 8.3 L Magnesium 2.5 H 03/05/17 05:45 WBC 22.0 H RBC 3.92 Hgb 11.9 L Hct 36.8 MCV 93.9 MCH 30 MCHC 32.3 RDW 14.3 Plt Count 167 MPV 11.4 Neut % (Auto) 83.1 H Lymph % (Auto) 5.3 L [place] % (Auto) 5.3 Eos % (Auto) 0.0 Baso % (Auto) 0.2 Neut # (Auto) 18.3 H Lymph # (Auto) 1.2 L [place] # (Auto) 1.2 H Eos # (Auto) 0.0 Baso # (Auto) 0.0 Total Counted 100 Immature Gran % 6.1 Nucleated RBC % 0.0 Immature Gran # 1.33 Segmented Neutrophils 90 H Lymphocytes 3 L Monocytes 7 Nucleated RBCs # 0.00 Platelet Estimate Normal Hypochromasia 1+ Morphology Comment INR PT Patient/Control Mix Circ Anticoag PTT Sodium Potassium Chloride Carbon Dioxide Anion Gap BUN Creatinine GFR Calculation BUN/Creatinine Ratio Glucose POC Glucose Calculated Osmolality Calcium Magnesium - EKG EKG results: interpreted by me Specialty Discharge - Follow Up or Referrals
[2017-03-05] MEDS: MORPHINE 2 MG/1 ML SYRINGE IV PRN ×2 (12:28→18:02)
[2017-03-05] MEDS: GABAPENTIN 50 MG/ML 30 ML/BOTTLE NG SCH (12:32)
[2017-03-05] MEDS: CALCIUM (CARBONATE)/VITAMIN D 600 MG-400 UNIT TABLET PO SCH (18:27)
[2017-03-05] MEDS: WARFARIN 3 MG TABLET PO SCH (18:27)
[2017-03-06] MEDS: INSULIN REGULAR 100 UNIT/ML SUBCUT SCH ×4 (00:14→18:00)
[2017-03-06] MEDS: MEROPENEM 1,000 MG in SODIUM CHLORIDE 0.9% 100 ML IV SCH ×3 (02:32→18:30)
[2017-03-06 03:39] LABS: ABG Base Excess 6.7 MMOL/L (-2.5-2.5); ABG HCO3 30.4 MMOL/L (20-26); ABG Oxygen Saturation 95.5 % (95-100); ABG PH 7.453 (7.35-7.45); ABG PO2 73.8 MM HG (80-95); ABG TCO2 27.8 MMOL/L (23-27); Allen Test Positive; Pt O2 Delivery Device Ventilator
[2017-03-06 03:59] LABS: INR 1.2; PT Patient Result 12.9 SECS
[2017-03-06 04:03] LABS: Calcium 8.7 MG/DL (8.5-10.1); Osmolality,Calculated 301.8 MOS/KG (273-304); Potassium 4.5 MMOL/L (3.5-5.1)
[2017-03-06] MEDS: DILTIAZEM INJ 100 MG in SODIUM CHLORIDE 0.9% 100 ML IV SCH ×2 (04:07→04:10)
[2017-03-06 04:20] LABS: Magnesium 2.3 MG/DL (1.8-2.4); Phosphorous 2.3 MG/DL (2.5-4.9); Prealbumin 24.4 MG/DL (20-40)
[2017-03-06] MEDS: MORPHINE 2 MG/1 ML SYRINGE IV PRN ×3 (05:17→10:57)
--- NOTE | 2017-03-06 06:48 | Pulmonology Progress Note ---
Pulmonary - PN: Subj Interval history: Patient had worsening respiratory distress last night and was intubated by Dr. Contreras. At present she is sedated and on the ventilator but her mental status is good when sedation is held. We had wanted to evaluate swallowing but we will have to wait until we wean her off the ventilator. Concerned that she has a neurologic process. ABGs look good this morning. Will reduce settings. She has bilateral infiltrates on x-ray. Will take several days of antibiotics before we would be able to wean. 02/21/2017 ABGs are improved. Chest x-ray is pending. Will start weaning today. Patient with pneumonia and that is likely aspiration. Continuing broad- spectrum antibiotics. Cultures negative thus far from bronchial washings. 02/22/2017 again ABGs look better. Patient starting to do CPAP's. Seems to be responsive during those times when sedation is held. She does have some dementia and apparent aspiration. Bronchial washing cultures have been negative. Continuing empiric antibiotics. Will check mechanics and ABGs on CPAP today to see if we could possibly extubate. 02/23/2017 patient doing well with CPAP. ABGs look good. Chest x-ray still shows some lower lobe infiltrates. Worse on the right than left. Patient is alert calm and nodding to questions. Will check mechanics and ABGs on CPAP. If she does okay which should be able to get her extubated. 02/24/2017 she has done well with T-tube trial this morning. ABGs acceptable. Still has some right lower lobe infiltrate. Will extubate this morning. Mental status seems pretty good hopefully can defend her airway. She does have some dementia. 02/27/2017 patient was off the ventilator for a day but had to be reintubated 2 days ago because she was unable to clear her secretions. She is done well with CPAP since then. Will continue with weaning trial for now. May need to consider tracheostomy. PT/INR is hyperinflated. Holding Coumadin 02/28/2017 patient did prolonged CPAP trials. She is alert and answering questions squeezing fingers on command. Should be able to manage her airway extubated. Will check mechanics and ABGs on CPAP this morning. If she clearly is above excepted levels then we will extubate her. If she does not tolerate that then we would need to go ahead and plan tracheostomy. Her PT/INR is 5.2. Coumadin has been held. She is on medication that potentiated sections however. I will give her a low-dose of vitamin K. She is on that for paroxysmal atrial fibrillation. Normal sinus rhythm at present. 03/01/2017 patient again is doing well with prolonged CPAP trials. However her mechanics are quite poor. For now we will continue with CPAP trials. Will very likely need a tracheostomy if we do not see significant improvement in the next couple of days. Her PT INR remains hyper prolonged. Will repeat AquaMEPHYTON. Agree with evaluation for LTAC placement. 03/02/2017 PT/INR is down to 1.9 today. Will still need a little more fresh frozen plasma and/or vitamin K to prepare for tracheostomy. It appears likely that it will be next week that she gets the tracheostomy. We will continue weaning trials in the meantime. She is tolerating them well but her mechanics indicate that she does not have a strong enough cough to clear her airway if extubated now. Definitely think it would be safer for tracheostomy in order to get her weaned. 03/03/2017 INR is 1.7. Patient is scheduled for tracheostomy either later today or in the morning. We will give 2 more units of fresh frozen plasma. Would like to get INR down to 1.3 or less. She has been given a good bit of vitamin K as well. She is tolerating CPAP. However she has proven that she is not able to defend her airway and her mechanics have not been adequate for extubation. Hopefully tracheostomy will facilitate weaning. She has had problems with aspiration. 03/06/2017 patient had tracheostomy Monday. Making progress with CPAP. Doing brief trach collar. From pulmonary standpoint ready to move to LTAC soon as that can be done. Exam (Progress Note) - Constitutional Vitals: Period Temp Pulse Resp BP Sys/Cox Pulse Ox Last 24 Hr 97.6 F-98.7 F 62-93 14-26 96-137/49-94 93-100 Exam: Patient responsive at present. Vital signs normal. Pupils react to light. Tracheostomy in place. Neck is supple no bruits. Chest reveals few scattered rhonchi equal breath sounds. Heart irregular without murmurs. Abdomen soft nontender no masses. Extremities no clubbing cyanosis or edema. Calves are nontender. Results - Labs CBC & BMP: 03/05/17 05:45 03/06/17 03:45 Lab Results: I have reviewed the past 24 hour labs - Diagnostic Findings Procedure: Chest x-ray: image reviewed by me (Small bilateral pleural effusions. ) Assessment and Plan (1) History of atrial fibrillation Status: Chronic Assessment and plan: Patient on chronic anticoagulants. Watch protimes. Rate is controlled 02/21/2017 rate is controlled. 02/22/2017 again rate is controlled. 02/23/2017 rate controlled. 02/27/2017 holding Coumadin. INR 4.6. 02/28/2017 sinus rhythm. INR 5.2. Holding Coumadin. Will give AquaMEPHYTON 5 mg. 03/01/2017 sinus rhythm. Trying to totally reverse Coumadin. This is in anticipation of tracheostomy. Likely will need one by Monday. 03/02/2017 remains in sinus rhythm. She has had 2 doses of vitamin K and had fresh frozen plasma yesterday. If tracheostomy is to be done she would need another round of fresh frozen plasma the day before. 03/03/2017 rate is controlled. 1.7. Getting more fresh frozen plasma today in anticipation of the tracheostomy. 03/06/2017 rate is controlled. INR is 1.2. Current Visit: No (2) Congestive heart failure Status: Chronic Assessment and plan: BNP has come down since admission. Watch fluid status. 02/21/2017 clinically congestive heart failure is better. 02/22/2017 heart failure seems to be better 02/23/2017 chest x-ray may be a little wet. Will diurese further. 02/24/2017 chest x-ray still a little wet. Continue with diuresis. 02/27/2017 congestive heart failure improved. 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 03/01/2017 congestive heart failure little better. 03/02/2017 congestive heart failure stable at present. 03/03/2017 heart failure controlled. 03/06/2017 small pleural effusions. Probably needs diuresing a little. Current Visit: Yes Qualifiers: Congestive heart failure chronicity: acute on chronic (3) Pneumonia Status: Acute Assessment and plan: On broad-spectrum empiric antibiotics. Check cultures from bronchial washings. That should be out tomorrow. She is E. coli from her urine and it is covered with Merrem. 02/21/2017 chest x-ray is pending. Bronchial wash cultures thus far are showing normal scott. Continuing empiric antibiotics. 02/22/2017 bronchial wash cultures were negative. Continuing empiric antibiotics. X-ray showing improvement 02/23/2017 bibasilar pneumonia. Bronchial wash cultures negative. Continuing antibiotics. 02/24/2017 pneumonia about the same, primarily at the right base. Continuing antibiotics. 02/27/2017 continuing empiric antibiotics. 02/28/2017 continuing empiric antibiotics. Adding Diflucan for oral monilia. Do not think she has monilia as the cause of her pneumonia. 03/01/2017 patient on antibiotics and on Diflucan. Likely these are keeping her pro time from correcting. 03/02/2017 continuing broad-spectrum antibiotics. Patient has very poor cough and would not be able to clear her airways if off the ventilator at present 03/03/2017 has bibasilar pneumonia due to aspiration. Poor cough. Requires tracheostomy to wean. 03/06/2017 chest x-ray still showing infiltrates. Overall much improved. Current Visit: Yes Qualifiers: Pneumonia type: due to unspecified organism Laterality: right Lung location: lower lobe of lung Qualified Code(s): J18.1 - Lobar pneumonia, unspecified organism (4) Acute respiratory failure Status: Acute Assessment and plan: Patient was struggling especially with upper airway symptoms and required intubation last night. At bronchoscopy earlier in the day yesterday there were no abnormalities in the upper airway. Likely she had some thick secretions that caused this. We will keep these suctioned out. Pneumonia is the primary cause of the respiratory failure. 02/21/17 ABGs look much better. She has a metabolic alkalosis. Will add Diamox for 3 days. 02/22/2017 ABGs improved. Still has a mild metabolic alkalosis. Will check mechanics today to see if extubation is a possibility. 02/23/2017 ABGs look good. Tolerating CPAP. Only concern is far as getting her extubated is that her right lower lobe looks a little worse on x-ray today. Will bronchoscope and clean her out before we do CPAP 02/24/2017 patient extubated this morning. Hopefully she can defend her airway. She has some dementia but is able to respond to questions fairly well. 02/27/2017 patient had to be reintubated. Not able to defend her airway. 02/28/2017 ABGs look good. Her mental status is such that I would expect her to be able to control her airway. Will try again to get her extubated today 03/01/2017 again ABGs look good but mechanics not up to par for extubation yet. She would not be able to defend her airway, just as we saw Monday. 03/02/2017 ABGs look good. She does have a metabolic alkalosis. Will give Diamox for 3 days again. 03/03/2017 ABGs good. Tolerating CPAP. Report cough and inadequate negative inspiratory force. Tracheostomy is planned. Will be long-term weaning, and plans are to go to LTAC next week. 03/06/2017 PCO2 is a little low. Will reduce IMV rate. Continue weaning trial Current Visit: Yes Qualifiers: Respiratory failure complication: hypoxia Qualified Code(s): J96.01 - Acute respiratory failure with hypoxia Specialty Discharge - Follow Up or Referrals
[2017-03-06] MEDS: methylPREDNISolone SOD SUC 40 MG/1 ML VIAL IV SCH ×2 (06:52→18:30)
--- NOTE | 2017-03-06 06:53 | Cardiology Progress Note ---
Cardiology - PN: Subj Interval history: Cardiology note 81-year-old woman with respiratory failure and pneumonia and recurrent paroxysmal atrial fibrillation Status post tracheostomy March 03 Telemetry shows atrial fib ventricular rate in the 90s on IV diltiazem blood pressure 110 O2 sat 97 on 35% FiO2 Tolerating tube feedings Irregular rhythm soft systolic murmur Decreased breath sounds with basilar rhonchi Trace leg edema Lab data today INR 1.2 Sodium 144 potassium 4.5 chloride 105 CO2 36 BUN 46 creatinine 0.40 Glucose 107 magnesium 2.3 Impression Status post tracheostomy March 03, 2017 Pneumonia Paroxysmal atrial fibrillation Chronic hypertension Patent coronaries and normal ejection fraction by cardiac cath October 06, 2009 Echo Doppler February 25, 2017 ejection fraction 60% with mild to moderate MR, 1+ AI , severe TR, PA pressure 67 Chronic anticoagulation Debility Plan Continue amiodarone 200 mg twice daily and IV diltiazem Coumadin restarted IV antibiotics and steroids Exam (Progress Note) - Constitutional Vitals: Period Temp Pulse Resp BP Sys/Cox Pulse Ox Last 24 Hr 97.6 F-98.7 F 62-93 14-26 96-137/49-94 93-100 Result/EKG - Labs CBC & BMP: 03/05/17 05:45 03/06/17 03:45 Labs: Laboratory Results - last 24 hr 03/05/17 03/05/17 03/06/17 11:47 18:43 00:07 INR PT Patient/Control Mix ABG pH ABG pCO2 ABG pO2 ABG HCO3 ABG Total CO2 ABG O2 Saturation ABG Base Excess FiO2 Sodium Potassium Chloride Carbon Dioxide Anion Gap BUN Creatinine GFR Calculation BUN/Creatinine Ratio Glucose POC Glucose 148 H 191 H 186 H Calculated Osmolality Calcium Phosphorus Magnesium Prealbumin 03/06/17 03/06/17 03/06/17 03:25 03:45 03:45 INR PT Patient/Control Mix ABG pH 7.453 H ABG pCO2 45.0 ABG pO2 73.8 L ABG HCO3 30.4 H ABG Total CO2 27.8 H ABG O2 Saturation 95.5 ABG Base Excess 6.7 H FiO2 35.00 Sodium 144 Potassium 4.5 Chloride 105 Carbon Dioxide 36 H Anion Gap 7.5 BUN 46 H Creatinine 0.40 L GFR Calculation 107 BUN/Creatinine Ratio 115.00 H Glucose 174 H POC Glucose Calculated Osmolality 301.8 Calcium 8.7 Phosphorus 2.3 L Magnesium 2.3 Prealbumin 24.4 03/06/17 03/06/17 03:45 05:15 INR 1.2 PT Patient/Control Mix 12.9 ABG pH ABG pCO2 ABG pO2 ABG HCO3 ABG Total CO2 ABG O2 Saturation ABG Base Excess FiO2 Sodium Potassium Chloride Carbon Dioxide Anion Gap BUN Creatinine GFR Calculation BUN/Creatinine Ratio Glucose POC Glucose 189 H Calculated Osmolality Calcium Phosphorus Magnesium Prealbumin Specialty Discharge - Follow Up or Referrals
[2017-03-06] MEDS: LEVALBUTEROL 1.25 MG/3 ML NEB RESP TX SCH ×2 (07:26→14:10)
[2017-03-06] MEDS: FLUCONAZOLE 40 MG/ML 35 ML/BOTTLE PO SCH (09:00)
[2017-03-06] MEDS: PANTOPRAZOLE 40 MG VIAL IV SCH (09:00)
[2017-03-06] MEDS: ASCORBIC ACID 500 MG TABLET PO SCH ×2 (09:00→20:29)
[2017-03-06] MEDS: MULTIVITAMIN LIQUID (CENTRUM) 60 ML BOTTLE PO SCH (09:00)
[2017-03-06] MEDS: METOPROLOL TARTRATE 50 MG TABLET PER TUBE SCH ×2 (09:00→20:29)
[2017-03-06] MEDS: POLYETHYLENE GLYCOL POWDER 17 GM PACK PO SCH ×2 (09:00→20:29)
[2017-03-06] MEDS: guaiFENesin 200 MG/10 ML UDCUP PO SCH ×3 (09:00→20:28)
[2017-03-06] MEDS: AMIODARONE 200 MG TABLET PO SCH ×2 (09:00→20:29)
[2017-03-06] MEDS: FUROSEMIDE 40 MG/4 ML VIAL IV SCH (09:02)
--- NOTE | 2017-03-06 09:38 | XRay Report ---
Exam: XR chest 1V portable Date: 03/06/2017 4:00 AM Indication: Follow-up ventilator respiratory failure Comparison: 03/04/2017 Technical: AP portable Findings: Right subclavian catheter is present. A tracheostomy tube and nasogastric tube are demonstrated. Extracardiac leads are present. Low volume effusions atelectatic changes are present. Dextroscoliosis present. ASVD is present. Mediastinum is otherwise intact. Impression: 1. Stable appearance of the life support tubing 2. Cardiomegaly 3. Underlying low volume effusions atelectatic change similar to previous studies 4. No pneumothorax PROCEDURE INTERPRETED AT [facility] DEPARTMENT OF RADIOLOGY Final Report Signed by: Dr. Marcelino Young
--- NOTE | 2017-03-06 10:14 | Hospitalist Progress Note ---
Assessment and Plan (1) Pneumonia Status: Acute Assessment and plan: The patient continues on mechanical ventilation and antibiotics for treatment of pneumonia. The atrial fibrillation is anticoagulated with Coumadin and amiodarone to maintain controlled response. The patient's tracheostomy is postoperative day #3. Dr. Hernandez believe she could go to LTAC when arrangements are complete. Current Visit: Yes Qualifiers: Pneumonia type: due to unspecified organism Laterality: right Lung location: lower lobe of lung Qualified Code(s): J18.1 - Lobar pneumonia, unspecified organism (2) History of atrial fibrillation Status: Chronic Current Visit: No (3) Anticoagulated on Coumadin Status: Chronic Current Visit: No (4) Acute respiratory failure Status: Acute Current Visit: Yes Qualifiers: Respiratory failure complication: hypoxia Qualified Code(s): J96.01 - Acute respiratory failure with hypoxia Hospitalist: Subjective Interval history: Mrs. Ernandez was intubated for aspiration pneumonia. She has had episodes of paroxysmal atrial tachycardia treated with amiodarone and now anticoagulated. The patient is now stable and had tracheostomy placement on March 03. The patient's insurance company states that she will be eligible for transfer to long-term [facility] after 10 March. Exam - Constitutional Vitals: Period Temp Pulse Resp BP Sys/Cox Pulse Ox Last 24 Hr 98 F-98.7 F 68-93 12-26 96-133/49-94 93-100 Exam: Constitutional System: Mild distress. No tremulousness. The patient is intubated via tracheostomy. She is mechanically ventilated and tolerating some limited CPAP. Head: Normocephalic, atraumatic. Ears, Nose and Throat System: No evidence of Otitis or Mastoiditis. No epistaxis or discharge. The patient is tolerating tube feeding per NG tube at goal rate. Eyes System: Pupils equal, round, and reactive. Extraocular muscles intact. Neck: Supple, without adenopathy, No jugular venous distention. No thyromegaly , neck mass, or prior surgery apparent. Respiratory System: Chest upper airway congestion to auscultation. Cardiovascular System: Heart with regular rate and rhythm. No murmur. GI System: Abdomen soft, nontender. Normo active bowel sounds present. Musculoskeletal System: limbs with no pedal edema. Full distal pulses. Results - Labs CBC & BMP: 03/05/17 05:45 03/06/17 03:45 Lab Results: I have reviewed the past 24 hour labs Specialty Discharge - Follow Up or Referrals
[2017-03-06] MEDS: DESITIN 4OZ/NYSTATIN 15 GRAM MIXTURE PASTE TOP SCH ×2 (11:00→20:33)
[2017-03-06] MEDS: GABAPENTIN 50 MG/ML 30 ML/BOTTLE NG SCH (12:00)
--- NOTE | 2017-03-06 15:58 | XRay Report ---
Portable chest Date: 03/06/2017 Clinical history: Feeding tube placement Comparison: 03/06/2017 Technique: Portable AP sitting chest Findings: The tip of the feeding tube projects in the mid body of the stomach. Impression: The tip of the feeding tube projects in the mid body of the stomach. PROCEDURE INTERPRETED AT [facility] DEPARTMENT OF RADIOLOGY Final Report Signed by: Dr. Lucita Le
[2017-03-06] MEDS: CALCIUM (CARBONATE)/VITAMIN D 600 MG-400 UNIT TABLET PO SCH (16:00)
[2017-03-06] MEDS: HYDROcod/ACETAMIN 7.5-325 MG/15 ML UDCUP PO PRN ×3 (18:30→20:41)
[2017-03-06] MEDS: WARFARIN 3 MG TABLET PO SCH (18:30)
[2017-03-07] MEDS: LEVALBUTEROL 1.25 MG/3 ML NEB RESP TX SCH ×3 (00:02→15:50)
[2017-03-07] MEDS: INSULIN REGULAR 100 UNIT/ML SUBCUT SCH ×5 (00:19→23:56)
[2017-03-07] MEDS: DILTIAZEM INJ 100 MG in SODIUM CHLORIDE 0.9% 100 ML IV SCH (00:19)
[2017-03-07] MEDS: HYDROcod/ACETAMIN 7.5-325 MG/15 ML UDCUP PO PRN ×4 (03:30→22:42)
[2017-03-07] MEDS: MEROPENEM 1,000 MG in SODIUM CHLORIDE 0.9% 100 ML IV SCH ×3 (04:01→17:45)
[2017-03-07] MEDS: guaiFENesin 200 MG/10 ML UDCUP PO SCH ×4 (04:09→20:11)
[2017-03-07 04:13] LABS: ABG Base Excess 6.8 MMOL/L (-2.5-2.5); ABG HCO3 30.5 MMOL/L (20-26); ABG Oxygen Saturation 92.2 % (95-100); ABG PCO2 47.7 MM HG (35-48); ABG PH 7.438 (7.35-7.45); ABG PO2 62.6 MM HG (80-95); ABG TCO2 28.3 MMOL/L (23-27)
[2017-03-07 04:41] LABS: Basophils # 0.1 10*3/uL (0.0-0.2); Basophils % 0.2 % (0.0-0.8); Hematocrit 38.8 VOL% (35.7-47.0); Hemoglobin 12.7 GM/DL (12.0-16.0); Immature Granulocytes % 5.4 %; Immature Granulocytes Absolute 1.34 #; Lymphocytes # 1.5 10*3/uL (1.4-4.0); Mean Corpuscular HGB Conc 32.7 GM/DL (32-36); Mean Corpuscular Hemoglobin 30 PG (27-34); Mean Corpuscular Volume 92.6 FL (87-102); Mean Platelet Volume 11.1 FL (9.6-12.0); Monocytes # 1.2 10*3/uL (0.11-0.8); Monocytes % 4.7 % (1.7-12.7); Neutrophils # 20.8 10*3/uL (1.4-7.4); Neutrophils % 83.7 % (38.7-73.9); Platelet Count 197 T/CUMM (130-400); Red Blood Count 4.19 MC/CUMM (3.8-5.5); Red Cell Distribution Width 14.2 % (9.3-17.3); White Blood Count 24.9 T/CUMM (4-12)
[2017-03-07 05:03] LABS: Band Neutrophils 1 % (0-10); Lymphocytes 4 % (20-55); Myelocytes 5 %; Segmented Neutrophils 90 % (50-85)
[2017-03-07 05:04] LABS: Platelet Estimate Normal; Total Cells Counted 100
[2017-03-07 05:15] LABS: Calcium 8.3 MG/DL (8.5-10.1); Magnesium 2.4 MG/DL (1.8-2.4); Osmolality,Calculated 303.8 MOS/KG (273-304); Potassium 4.2 MMOL/L (3.5-5.1)
[2017-03-07] MEDS: methylPREDNISolone SOD SUC 40 MG/1 ML VIAL IV SCH ×2 (06:17→18:30)
--- NOTE | 2017-03-07 06:49 | Cardiology Progress Note ---
Cardiology - PN: Subj Interval history: Cardiology note 81-year-old woman admitted with respiratory failure and recurrent atrial fibrillation. Status post tracheostomy March 04, 2017. She completed 9 hours on trach collar yesterday. O2 sat 95 on 35% FiO2 Blood pressure 115/72 Telemetry shows atrial fib with ventricular rate in the 90s on IV diltiazem and amiodarone Alert Irregular rhythm no murmur Distant breath sounds few basilar rhonchi Abdomen soft No leg edema Lab data today White count 24.9 hemoglobin 12.7 hematocrit 38.8 Sodium 144 potassium 4.2 chloride 104 CO2 35 BUN 48 creatinine 0.50 Glucose 196 magnesium 2.4 Impression Status post tracheostomy 03/03/2017 Pneumonia Recurrent paroxysmal atrial fibrillation Hypertension Patent coronaries and normal EF by cath October 04, 2009 Echo Doppler February 25, 2017 ejection fraction 60% with mild to moderate MR, 1+ AI , severe TR PA pressure 67 Debility Plan Trach collar Tube feedings IV antibiotics Continue amiodarone 200 mg twice daily and metoprolol Coumadin restarted Exam (Progress Note) - Constitutional Vitals: Period Temp Pulse Resp BP Sys/Cox Pulse Ox Last 24 Hr 97.8 F-98.5 F 69-98 12-25 104-124/60-87 90-99 Result/EKG - Labs CBC & BMP: 03/07/17 04:35 03/07/17 04:35 Labs: Laboratory Results - last 24 hr 03/06/17 03/06/17 03/06/17 11:17 17:38 23:28 WBC RBC Hgb Hct MCV MCH MCHC RDW Plt Count MPV Neut % (Auto) Lymph % (Auto) [place] % (Auto) Eos % (Auto) Baso % (Auto) Neut # (Auto) Lymph # (Auto) [place] # (Auto) Eos # (Auto) Baso # (Auto) Total Counted Immature Gran % Nucleated RBC % Immature Gran # Segmented Neutrophils Band Neutrophils Lymphocytes Myelocytes Nucleated RBCs # Platelet Estimate ABG pH ABG pCO2 ABG pO2 ABG HCO3 ABG Total CO2 ABG O2 Saturation ABG Base Excess Sodium Potassium Chloride Carbon Dioxide Anion Gap BUN Creatinine GFR Calculation BUN/Creatinine Ratio Glucose POC Glucose 179 H 123 H 202 H Calculated Osmolality Calcium Magnesium 03/07/17 03/07/17 03/07/17 04:05 04:35 04:35 WBC 24.9 H RBC 4.19 Hgb 12.7 Hct 38.8 MCV 92.6 MCH 30 MCHC 32.7 RDW 14.2 Plt Count 197 MPV 11.1 Neut % (Auto) 83.7 H Lymph % (Auto) 6.0 L [place] % (Auto) 4.7 Eos % (Auto) 0.0 Baso % (Auto) 0.2 Neut # (Auto) 20.8 H Lymph # (Auto) 1.5 [place] # (Auto) 1.2 H Eos # (Auto) 0.0 Baso # (Auto) 0.1 Total Counted 100 Immature Gran % 5.4 Nucleated RBC % 0.0 Immature Gran # 1.34 Segmented Neutrophils 90 H Band Neutrophils 1 Lymphocytes 4 L Myelocytes 5 Nucleated RBCs # 0.00 Platelet Estimate Normal ABG pH 7.438 ABG pCO2 47.7 ABG pO2 62.6 L ABG HCO3 30.5 H ABG Total CO2 28.3 H ABG O2 Saturation 92.2 L ABG Base Excess 6.8 H Sodium 144 Potassium 4.2 Chloride 104 Carbon Dioxide 35 H Anion Gap 9.2 BUN 48 H Creatinine 0.50 L GFR Calculation 99 BUN/Creatinine Ratio 96.00 H Glucose 196 H POC Glucose Calculated Osmolality 303.8 Calcium 8.3 L Magnesium 2.4 03/07/17 05:12 WBC RBC Hgb Hct MCV MCH MCHC RDW Plt Count MPV Neut % (Auto) Lymph % (Auto) [place] % (Auto) Eos % (Auto) Baso % (Auto) Neut # (Auto) Lymph # (Auto) [place] # (Auto) Eos # (Auto) Baso # (Auto) Total Counted Immature Gran % Nucleated RBC % Immature Gran # Segmented Neutrophils Band Neutrophils Lymphocytes Myelocytes Nucleated RBCs # Platelet Estimate ABG pH ABG pCO2 ABG pO2 ABG HCO3 ABG Total CO2 ABG O2 Saturation ABG Base Excess Sodium Potassium Chloride Carbon Dioxide Anion Gap BUN Creatinine GFR Calculation BUN/Creatinine Ratio Glucose POC Glucose 195 H Calculated Osmolality Calcium Magnesium Specialty Discharge - Follow Up or Referrals
--- NOTE | 2017-03-07 06:54 | XRay Report ---
Exam: XR chest 1V portable Date: 03/07/2017 4:00 AM Indication: Follow-up ventilator respiratory failure Comparison: 03/06/2017 Technical:AP portable Findings: A right-sided subclavian catheter is present with distal tip superior vena cava. Feeding tube traverses esophagus into the stomach. Tracheostomy tube is present. Bilateral effusions alveolar edema are present. Dextroscoliosis present. No pneumothorax. External cardiac leads are present. ASVD is present. Impression: 1. Stable position of the life support tubing 2. Persistent alveolar edema and infiltrates or effusions present with little change PROCEDURE INTERPRETED AT [facility] DEPARTMENT OF RADIOLOGY Final Report Signed by: Dr. Marcelino Young
--- NOTE | 2017-03-07 07:15 | Pulmonology Progress Note ---
Pulmonary - PN: Subj Interval history: Patient had worsening respiratory distress last night and was intubated by Dr. Contreras. At present she is sedated and on the ventilator but her mental status is good when sedation is held. We had wanted to evaluate swallowing but we will have to wait until we wean her off the ventilator. Concerned that she has a neurologic process. ABGs look good this morning. Will reduce settings. She has bilateral infiltrates on x-ray. Will take several days of antibiotics before we would be able to wean. 02/21/2017 ABGs are improved. Chest x-ray is pending. Will start weaning today. Patient with pneumonia and that is likely aspiration. Continuing broad- spectrum antibiotics. Cultures negative thus far from bronchial washings. 02/22/2017 again ABGs look better. Patient starting to do CPAP's. Seems to be responsive during those times when sedation is held. She does have some dementia and apparent aspiration. Bronchial washing cultures have been negative. Continuing empiric antibiotics. Will check mechanics and ABGs on CPAP today to see if we could possibly extubate. 02/23/2017 patient doing well with CPAP. ABGs look good. Chest x-ray still shows some lower lobe infiltrates. Worse on the right than left. Patient is alert calm and nodding to questions. Will check mechanics and ABGs on CPAP. If she does okay which should be able to get her extubated. 02/24/2017 she has done well with T-tube trial this morning. ABGs acceptable. Still has some right lower lobe infiltrate. Will extubate this morning. Mental status seems pretty good hopefully can defend her airway. She does have some dementia. 02/27/2017 patient was off the ventilator for a day but had to be reintubated 2 days ago because she was unable to clear her secretions. She is done well with CPAP since then. Will continue with weaning trial for now. May need to consider tracheostomy. PT/INR is hyperinflated. Holding Coumadin 02/28/2017 patient did prolonged CPAP trials. She is alert and answering questions squeezing fingers on command. Should be able to manage her airway extubated. Will check mechanics and ABGs on CPAP this morning. If she clearly is above excepted levels then we will extubate her. If she does not tolerate that then we would need to go ahead and plan tracheostomy. Her PT/INR is 5.2. Coumadin has been held. She is on medication that potentiated sections however. I will give her a low-dose of vitamin K. She is on that for paroxysmal atrial fibrillation. Normal sinus rhythm at present. 03/01/2017 patient again is doing well with prolonged CPAP trials. However her mechanics are quite poor. For now we will continue with CPAP trials. Will very likely need a tracheostomy if we do not see significant improvement in the next couple of days. Her PT INR remains hyper prolonged. Will repeat AquaMEPHYTON. Agree with evaluation for LTAC placement. 03/02/2017 PT/INR is down to 1.9 today. Will still need a little more fresh frozen plasma and/or vitamin K to prepare for tracheostomy. It appears likely that it will be next week that she gets the tracheostomy. We will continue weaning trials in the meantime. She is tolerating them well but her mechanics indicate that she does not have a strong enough cough to clear her airway if extubated now. Definitely think it would be safer for tracheostomy in order to get her weaned. 03/03/2017 INR is 1.7. Patient is scheduled for tracheostomy either later today or in the morning. We will give 2 more units of fresh frozen plasma. Would like to get INR down to 1.3 or less. She has been given a good bit of vitamin K as well. She is tolerating CPAP. However she has proven that she is not able to defend her airway and her mechanics have not been adequate for extubation. Hopefully tracheostomy will facilitate weaning. She has had problems with aspiration. 03/06/2017 patient had tracheostomy Monday. Making progress with CPAP. Doing brief trach collar. From pulmonary standpoint ready to move to LTAC soon as that can be done. 03/07/2017 patient did trach collar overnight and fatigued. Will increase times on trach collar on a daily basis. Hopefully can get her off the ventilator altogether within a few days and then start working on the tracheostomy. Patient is responsive. There are no new complaints. Exam (Progress Note) - Constitutional Vitals: Period Temp Pulse Resp BP Sys/Cox Pulse Ox Last 24 Hr 97.8 F-98.5 F 69-98 12-25 104-128/60-87 90-99 Exam: Patient responsive at present. Vital signs normal. Pupils react to light. Tracheostomy in place. Neck is supple no bruits. Chest reveals few scattered rhonchi equal breath sounds. Heart irregular without murmurs. Abdomen soft nontender no masses. Extremities no clubbing cyanosis or edema. Calves are nontender. Results - Labs CBC & BMP: 03/07/17 04:35 03/07/17 04:35 Lab Results: I have reviewed the past 24 hour labs - Diagnostic Findings Procedure: Chest x-ray: image reviewed by me (Left diaphragm somewhat elevated. Consolidation in both lower lobes.) Assessment and Plan (1) History of atrial fibrillation Status: Chronic Assessment and plan: Patient on chronic anticoagulants. Watch protimes. Rate is controlled 02/21/2017 rate is controlled. 02/22/2017 again rate is controlled. 02/23/2017 rate controlled. 02/27/2017 holding Coumadin. INR 4.6. 02/28/2017 sinus rhythm. INR 5.2. Holding Coumadin. Will give AquaMEPHYTON 5 mg. 03/01/2017 sinus rhythm. Trying to totally reverse Coumadin. This is in anticipation of tracheostomy. Likely will need one by Monday. 03/02/2017 remains in sinus rhythm. She has had 2 doses of vitamin K and had fresh frozen plasma yesterday. If tracheostomy is to be done she would need another round of fresh frozen plasma the day before. 03/03/2017 rate is controlled. 1.7. Getting more fresh frozen plasma today in anticipation of the tracheostomy. 03/06/2017 rate is controlled. INR is 1.2. 03/07/2017 remains in atrial fib. Controlled rate. Cardiology following. Current Visit: No (2) Congestive heart failure Status: Chronic Assessment and plan: BNP has come down since admission. Watch fluid status. 02/21/2017 clinically congestive heart failure is better. 02/22/2017 heart failure seems to be better 02/23/2017 chest x-ray may be a little wet. Will diurese further. 02/24/2017 chest x-ray still a little wet. Continue with diuresis. 02/27/2017 congestive heart failure improved. 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 03/01/2017 congestive heart failure little better. 03/02/2017 congestive heart failure stable at present. 03/03/2017 heart failure controlled. 03/06/2017 small pleural effusions. Probably needs diuresing a little. She is [id number] small pleural effusions but probably not active congestive failure. Current Visit: Yes Qualifiers: Congestive heart failure chronicity: acute on chronic (3) Pneumonia Status: Acute Assessment and plan: On broad-spectrum empiric antibiotics. Check cultures from bronchial washings. That should be out tomorrow. She is E. coli from her urine and it is covered with Merrem. 02/21/2017 chest x-ray is pending. Bronchial wash cultures thus far are showing normal scott. Continuing empiric antibiotics. 02/22/2017 bronchial wash cultures were negative. Continuing empiric antibiotics. X-ray showing improvement 02/23/2017 bibasilar pneumonia. Bronchial wash cultures negative. Continuing antibiotics. 02/24/2017 pneumonia about the same, primarily at the right base. Continuing antibiotics. 02/27/2017 continuing empiric antibiotics. 02/28/2017 continuing empiric antibiotics. Adding Diflucan for oral monilia. Do not think she has monilia as the cause of her pneumonia. 03/01/2017 patient on antibiotics and on Diflucan. Likely these are keeping her pro time from correcting. 03/02/2017 continuing broad-spectrum antibiotics. Patient has very poor cough and would not be able to clear her airways if off the ventilator at present 03/03/2017 has bibasilar pneumonia due to aspiration. Poor cough. Requires tracheostomy to wean. 03/06/2017 chest x-ray still showing infiltrates. Overall much improved. 03/07/2017 continuing empiric antibiotics. Current Visit: Yes Qualifiers: Pneumonia type: due to unspecified organism Laterality: right Lung location: lower lobe of lung Qualified Code(s): J18.1 - Lobar pneumonia, unspecified organism (4) Acute respiratory failure Status: Acute Assessment and plan: Patient was struggling especially with upper airway symptoms and required intubation last night. At bronchoscopy earlier in the day yesterday there were no abnormalities in the upper airway. Likely she had some thick secretions that caused this. We will keep these suctioned out. Pneumonia is the primary cause of the respiratory failure. 02/21/17 ABGs look much better. She has a metabolic alkalosis. Will add Diamox for 3 days. 02/22/2017 ABGs improved. Still has a mild metabolic alkalosis. Will check mechanics today to see if extubation is a possibility. 02/23/2017 ABGs look good. Tolerating CPAP. Only concern is far as getting her extubated is that her right lower lobe looks a little worse on x-ray today. Will bronchoscope and clean her out before we do CPAP 02/24/2017 patient extubated this morning. Hopefully she can defend her airway. She has some dementia but is able to respond to questions fairly well. 02/27/2017 patient had to be reintubated. Not able to defend her airway. 02/28/2017 ABGs look good. Her mental status is such that I would expect her to be able to control her airway. Will try again to get her extubated today 03/01/2017 again ABGs look good but mechanics not up to par for extubation yet. She would not be able to defend her airway, just as we saw Monday. 03/02/2017 ABGs look good. She does have a metabolic alkalosis. Will give Diamox for 3 days again. 03/03/2017 ABGs good. Tolerating CPAP. Report cough and inadequate negative inspiratory force. Tracheostomy is planned. Will be long-term weaning, and plans are to go to LTAC next week. 03/06/2017 PCO2 is a little low. Will reduce IMV rate. Continue weaning trial 03/07/2017 making good progress with weaning. Tolerated fairly long trach collar overnight. Current Visit: Yes Qualifiers: Respiratory failure complication: hypoxia Qualified Code(s): J96.01 - Acute respiratory failure with hypoxia Specialty Discharge - Follow Up or Referrals
[2017-03-07] MEDS: FUROSEMIDE 40 MG/4 ML VIAL IV SCH (08:50)
[2017-03-07] MEDS: PANTOPRAZOLE 40 MG VIAL IV SCH (08:53)
[2017-03-07] MEDS: METOPROLOL TARTRATE 50 MG TABLET PER TUBE SCH ×2 (09:00→20:12)
[2017-03-07] MEDS: MULTIVITAMIN LIQUID (CENTRUM) 60 ML BOTTLE PO SCH (09:00)
[2017-03-07] MEDS: POLYETHYLENE GLYCOL POWDER 17 GM PACK PO SCH ×2 (09:00→20:12)
[2017-03-07] MEDS: FLUCONAZOLE 40 MG/ML 35 ML/BOTTLE PO SCH (09:00)
[2017-03-07] MEDS: ASCORBIC ACID 500 MG TABLET PO SCH (09:00)
[2017-03-07] MEDS: AMIODARONE 200 MG TABLET PO SCH ×2 (09:00→20:12)
--- NOTE | 2017-03-07 11:13 | Hospitalist Progress Note ---
Assessment and Plan (1) Pneumonia Status: Acute Assessment and plan: The patient continues on mechanical ventilation and antibiotics for treatment of pneumonia. The atrial fibrillation is anticoagulated with Coumadin and amiodarone to maintain controlled response. The patient's tracheostomy is postoperative day #4. Dr. Hernandez believe she could go to LTAC when arrangements are complete. Current Visit: Yes Qualifiers: Pneumonia type: due to unspecified organism Laterality: right Lung location: lower lobe of lung Qualified Code(s): J18.1 - Lobar pneumonia, unspecified organism (2) History of atrial fibrillation Status: Chronic Current Visit: No (3) Anticoagulated on Coumadin Status: Chronic Current Visit: No (4) Acute respiratory failure Status: Acute Current Visit: Yes Qualifiers: Respiratory failure complication: hypoxia Qualified Code(s): J96.01 - Acute respiratory failure with hypoxia Hospitalist: Subjective Interval history: Ms. Ernandez is awake and alert this morning. She was discussing with her nurse her wish to fix her hair, to be up in chair, and to try liquids. The patient has a relatively new tracheostomy and we are being careful that it not be dislodged while she still healing her tracheostomy tract. The patient is tolerating tube feedings per nasogastric feeding tube Exam - Constitutional Vitals: Period Temp Pulse Resp BP Sys/Cox Pulse Ox Last 24 Hr 97.8 F-98.5 F 69-98 13-25 104-128/60-88 90-98 Exam: Constitutional System: Mild distress. No tremulousness. The patient is intubated via tracheostomy. She is mechanically ventilated and tolerating some limited CPAP. Head: Normocephalic, atraumatic. Ears, Nose and Throat System: No evidence of Otitis or Mastoiditis. No epistaxis or discharge. The patient is tolerating tube feeding per NG tube at goal rate. Eyes System: Pupils equal, round, and reactive. Extraocular muscles intact. Neck: Supple, without adenopathy, No jugular venous distention. No thyromegaly , neck mass, or prior surgery apparent. Respiratory System: Chest upper airway congestion to auscultation. Cardiovascular System: Heart with regular rate and rhythm. No murmur. GI System: Abdomen soft, nontender. Normo active bowel sounds present. Musculoskeletal System: limbs with no pedal edema. Full distal pulses. Results - Labs CBC & BMP: 03/07/17 04:35 03/07/17 04:35 Lab Results: I have reviewed the past 24 hour labs Specialty Discharge - Follow Up or Referrals
[2017-03-07] MEDS: GABAPENTIN 50 MG/ML 30 ML/BOTTLE NG SCH (12:00)
[2017-03-07] MEDS: DESITIN 4OZ/NYSTATIN 15 GRAM MIXTURE PASTE TOP SCH ×2 (14:40→20:16)
[2017-03-07] MEDS: WARFARIN 3 MG TABLET PO SCH (17:45)
[2017-03-08] MEDS: LEVALBUTEROL 1.25 MG/3 ML NEB RESP TX SCH ×4 (02:33→23:34)
[2017-03-08] MEDS: guaiFENesin 200 MG/10 ML UDCUP PO SCH ×4 (02:35→21:21)
[2017-03-08 03:12] LABS: ABG Base Excess 9.4 MMOL/L (-2.5-2.5); ABG HCO3 33.1 MMOL/L (20-26); ABG Oxygen Saturation 96.9 % (95-100); ABG PCO2 50.6 MM HG (35-48); ABG PH 7.449 (7.35-7.45); ABG PO2 84.1 MM HG (80-95); ABG TCO2 30.9 MMOL/L (23-27); Pt O2 Delivery Device Ventilator
[2017-03-08] MEDS: MEROPENEM 1,000 MG in SODIUM CHLORIDE 0.9% 100 ML IV SCH ×3 (03:29→18:00)
[2017-03-08 04:27] LABS: Basophils % 0.2 % (0.0-0.8); Hematocrit 36.6 VOL% (35.7-47.0); Hemoglobin 12.1 GM/DL (12.0-16.0); Immature Granulocytes % 4.7 %; Lymphocytes # 1.2 10*3/uL (1.4-4.0); Lymphocytes % 6.1 % (21.3-54.2); Mean Corpuscular HGB Conc 33.1 GM/DL (32-36); Mean Corpuscular Hemoglobin 31 PG (27-34); Mean Corpuscular Volume 93.1 FL (87-102); Mean Platelet Volume 11.6 FL (9.6-12.0); Monocytes # 0.8 10*3/uL (0.11-0.8); Monocytes % 4.3 % (1.7-12.7); Neutrophils # 16.3 10*3/uL (1.4-7.4); Neutrophils % 84.7 % (38.7-73.9); Platelet Count 157 T/CUMM (130-400); Red Blood Count 3.93 MC/CUMM (3.8-5.5); White Blood Count 19.2 T/CUMM (4-12)
[2017-03-08 04:42] LABS: Calcium 8.6 MG/DL (8.5-10.1); Magnesium 2.4 MG/DL (1.8-2.4); Osmolality,Calculated 295.1 MOS/KG (273-304); Potassium 4.2 MMOL/L (3.5-5.1)
[2017-03-08 05:16] LABS: Lymphocytes 4 % (20-55); Platelet Estimate Adequate; Segmented Neutrophils 94 % (50-85); Total Cells Counted 100
[2017-03-08 05:17] LABS: Hypochromasia Slight
[2017-03-08] MEDS: INSULIN REGULAR 100 UNIT/ML SUBCUT SCH ×3 (06:39→17:56)
[2017-03-08] MEDS: methylPREDNISolone SOD SUC 40 MG/1 ML VIAL IV SCH ×2 (06:40→18:00)
--- NOTE | 2017-03-08 06:51 | XRay Report ---
Exam: XR chest 1V portable Date: 03/08/2017 4:00 AM Indication: Follow-up ventilator respiratory failure Comparison: 03/07/2017 Technical: AP portable Findings: Cardiomegaly is present. A right subclavian catheter is present distances appear vena cava. Tracheostomy tube is present feeding tube is present. Cardiomegaly is present with low volume effusions and underlying alveolar edema atelectatic change. Bony demineralization is noted. External cardiac leads are present. No pneumothorax. Dextroscoliotic curve thoracic spine Impression: 1. Stable life support tubing with low volume effusions and alveolar edema unchanged from previous exam PROCEDURE INTERPRETED AT [facility] DEPARTMENT OF RADIOLOGY Final Report Signed by: Dr. Marcelino Young
--- NOTE | 2017-03-08 06:57 | Cardiology Progress Note ---
Cardiology - PN: Subj Interval history: Cardiology note 81-year-old woman status post tracheostomy March 03 for pneumonia and recurrent atrial fibrillation. She completed 7 hours of trach collar yesterday. Awake and responsive Telemetry shows atrial fib ventricular rate in the 90s . O2 sat 96 on 35% FiO2 Irregular rhythm no murmur Decreased breath sounds few rhonchi in the bases but no wheezing Abdomen soft benign No leg edema Lab data today White count 19.2 hemoglobin 12.1 hematocrit 36.6 sodium 142 potassium 4.2 chloride 102 CO2 36 BUN 44 creatinine 0.3 136 glucose magnesium 2.4. Impression Status post tracheostomy March 03 Pneumonia Recurrent paroxysmal atrial fibrillation Hypertension Patent coronaries and normal EF by cath October 04, 2009 Echo February 25, 2017 ejection fraction 60% with mild to moderate MR, 1+ AI, severe TR PA pressure 67 Debility Plan Trach collar trials Amiodarone 200 mg twice daily Metoprolol 50 mg twice daily 40 mg IV Lasix daily IV antibiotics/nebs Exam (Progress Note) - Constitutional Vitals: Period Temp Pulse Resp BP Sys/Cox Pulse Ox Last 24 Hr 97.3 F-98.2 F 74-104 13-26 103-141/60-88 92-100 Result/EKG - Labs CBC & BMP: 03/08/17 03:35 03/08/17 04:00 Labs: Laboratory Results - last 24 hr 03/07/17 03/07/17 03/07/17 11:34 17:49 23:23 WBC RBC Hgb Hct MCV MCH MCHC RDW Plt Count MPV Neut % (Auto) Lymph % (Auto) [place] % (Auto) Eos % (Auto) Baso % (Auto) Neut # (Auto) Lymph # (Auto) [place] # (Auto) Eos # (Auto) Baso # (Auto) Total Counted Immature Gran % Nucleated RBC % Immature Gran # Segmented Neutrophils Lymphocytes Monocytes Nucleated RBCs # Platelet Estimate Hypochromasia ABG pH ABG pCO2 ABG pO2 ABG HCO3 ABG Total CO2 ABG O2 Saturation ABG Base Excess FiO2 Sodium Potassium Chloride Carbon Dioxide Anion Gap BUN Creatinine GFR Calculation BUN/Creatinine Ratio Glucose POC Glucose 116 H 202 H 156 H Calculated Osmolality Calcium Magnesium 03/08/17 03/08/17 03/08/17 03:00 03:35 04:00 WBC 19.2 H RBC 3.93 Hgb 12.1 Hct 36.6 MCV 93.1 MCH 31 MCHC 33.1 RDW 14.0 Plt Count 157 D MPV 11.6 Neut % (Auto) 84.7 H Lymph % (Auto) 6.1 L [place] % (Auto) 4.3 Eos % (Auto) 0.0 Baso % (Auto) 0.2 Neut # (Auto) 16.3 H Lymph # (Auto) 1.2 L [place] # (Auto) 0.8 Eos # (Auto) 0.0 Baso # (Auto) 0.0 Total Counted 100 Immature Gran % 4.7 Nucleated RBC % 0.0 Immature Gran # 0.90 Segmented Neutrophils 94 H Lymphocytes 4 L Monocytes 2 Nucleated RBCs # 0.00 Platelet Estimate Adequate Hypochromasia Slight ABG pH 7.449 ABG pCO2 50.6 H ABG pO2 84.1 ABG HCO3 33.1 H ABG Total CO2 30.9 H ABG O2 Saturation 96.9 ABG Base Excess 9.4 H FiO2 35.00 Sodium 142 Potassium 4.2 Chloride 102 Carbon Dioxide 36 H Anion Gap 8.2 BUN 44 H Creatinine 0.30 L GFR Calculation 117 BUN/Creatinine Ratio 146.00 H Glucose 136 H POC Glucose Calculated Osmolality 295.1 Calcium 8.6 Magnesium 2.4 03/08/17 05:21 WBC RBC Hgb Hct MCV MCH MCHC RDW Plt Count MPV Neut % (Auto) Lymph % (Auto) [place] % (Auto) Eos % (Auto) Baso % (Auto) Neut # (Auto) Lymph # (Auto) [place] # (Auto) Eos # (Auto) Baso # (Auto) Total Counted Immature Gran % Nucleated RBC % Immature Gran # Segmented Neutrophils Lymphocytes Monocytes Nucleated RBCs # Platelet Estimate Hypochromasia ABG pH ABG pCO2 ABG pO2 ABG HCO3 ABG Total CO2 ABG O2 Saturation ABG Base Excess FiO2 Sodium Potassium Chloride Carbon Dioxide Anion Gap BUN Creatinine GFR Calculation BUN/Creatinine Ratio Glucose POC Glucose 158 H Calculated Osmolality Calcium Magnesium Specialty Discharge - Follow Up or Referrals
--- NOTE | 2017-03-08 06:58 | Pulmonology Progress Note ---
Pulmonary - PN: Subj Interval history: Patient had worsening respiratory distress last night and was intubated by Dr. Contreras. At present she is sedated and on the ventilator but her mental status is good when sedation is held. We had wanted to evaluate swallowing but we will have to wait until we wean her off the ventilator. Concerned that she has a neurologic process. ABGs look good this morning. Will reduce settings. She has bilateral infiltrates on x-ray. Will take several days of antibiotics before we would be able to wean. 02/21/2017 ABGs are improved. Chest x-ray is pending. Will start weaning today. Patient with pneumonia and that is likely aspiration. Continuing broad- spectrum antibiotics. Cultures negative thus far from bronchial washings. 02/22/2017 again ABGs look better. Patient starting to do CPAP's. Seems to be responsive during those times when sedation is held. She does have some dementia and apparent aspiration. Bronchial washing cultures have been negative. Continuing empiric antibiotics. Will check mechanics and ABGs on CPAP today to see if we could possibly extubate. 02/23/2017 patient doing well with CPAP. ABGs look good. Chest x-ray still shows some lower lobe infiltrates. Worse on the right than left. Patient is alert calm and nodding to questions. Will check mechanics and ABGs on CPAP. If she does okay which should be able to get her extubated. 02/24/2017 she has done well with T-tube trial this morning. ABGs acceptable. Still has some right lower lobe infiltrate. Will extubate this morning. Mental status seems pretty good hopefully can defend her airway. She does have some dementia. 02/27/2017 patient was off the ventilator for a day but had to be reintubated 2 days ago because she was unable to clear her secretions. She is done well with CPAP since then. Will continue with weaning trial for now. May need to consider tracheostomy. PT/INR is hyperinflated. Holding Coumadin 02/28/2017 patient did prolonged CPAP trials. She is alert and answering questions squeezing fingers on command. Should be able to manage her airway extubated. Will check mechanics and ABGs on CPAP this morning. If she clearly is above excepted levels then we will extubate her. If she does not tolerate that then we would need to go ahead and plan tracheostomy. Her PT/INR is 5.2. Coumadin has been held. She is on medication that potentiated sections however. I will give her a low-dose of vitamin K. She is on that for paroxysmal atrial fibrillation. Normal sinus rhythm at present. 03/01/2017 patient again is doing well with prolonged CPAP trials. However her mechanics are quite poor. For now we will continue with CPAP trials. Will very likely need a tracheostomy if we do not see significant improvement in the next couple of days. Her PT INR remains hyper prolonged. Will repeat AquaMEPHYTON. Agree with evaluation for LTAC placement. 03/02/2017 PT/INR is down to 1.9 today. Will still need a little more fresh frozen plasma and/or vitamin K to prepare for tracheostomy. It appears likely that it will be next week that she gets the tracheostomy. We will continue weaning trials in the meantime. She is tolerating them well but her mechanics indicate that she does not have a strong enough cough to clear her airway if extubated now. Definitely think it would be safer for tracheostomy in order to get her weaned. 03/03/2017 INR is 1.7. Patient is scheduled for tracheostomy either later today or in the morning. We will give 2 more units of fresh frozen plasma. Would like to get INR down to 1.3 or less. She has been given a good bit of vitamin K as well. She is tolerating CPAP. However she has proven that she is not able to defend her airway and her mechanics have not been adequate for extubation. Hopefully tracheostomy will facilitate weaning. She has had problems with aspiration. 03/06/2017 patient had tracheostomy Monday. Making progress with CPAP. Doing brief trach collar. From pulmonary standpoint ready to move to LTAC soon as that can be done. 03/07/2017 patient did trach collar overnight and fatigued. Will increase times on trach collar on a daily basis. Hopefully can get her off the ventilator altogether within a few days and then start working on the tracheostomy. Patient is responsive. There are no new complaints. 03/08/2017 patient did trach collar for prolonged period yesterday and was put back on CPAP overnight. Did not fatigue. She is more alert and calm this morning. Will try to keep on trach collar full-time. If she fatigues we will rest with IMV. Exam (Progress Note) - Constitutional Vitals: Period Temp Pulse Resp BP Sys/Cox Pulse Ox Last 24 Hr 97.3 F-98.2 F 74-104 - 103-141/60-88 92-100 Exam: Patient responsive at present. Nods to questions and squeezes fingers on command. Vital signs normal. Pupils react to light. Tracheostomy in place. Neck is supple no bruits. Chest reveals few scattered rhonchi equal breath sounds. Heart irregular without murmurs. Abdomen soft nontender no masses. Extremities no clubbing cyanosis or edema. Calves are nontender. Results - Labs CBC & BMP: 03/08/17 03:35 03/08/17 04:00 Lab Results: I have reviewed the past 24 hour labs - Diagnostic Findings Procedure: Chest x-ray: image reviewed by me (Lungs look a little better aerated. Tracheostomy good position.) Assessment and Plan (1) History of atrial fibrillation Status: Chronic Assessment and plan: Patient on chronic anticoagulants. Watch protimes. Rate is controlled 02/21/2017 rate is controlled. 02/22/2017 again rate is controlled. 02/23/2017 rate controlled. 02/27/2017 holding Coumadin. INR 4.6. 02/28/2017 sinus rhythm. INR 5.2. Holding Coumadin. Will give AquaMEPHYTON 5 mg. 03/01/2017 sinus rhythm. Trying to totally reverse Coumadin. This is in anticipation of tracheostomy. Likely will need one by Monday. 03/02/2017 remains in sinus rhythm. She has had 2 doses of vitamin K and had fresh frozen plasma yesterday. If tracheostomy is to be done she would need another round of fresh frozen plasma the day before. 03/03/2017 rate is controlled. 1.7. Getting more fresh frozen plasma today in anticipation of the tracheostomy. 03/06/2017 rate is controlled. INR is 1.2. 03/07/2017 remains in atrial fib. Controlled rate. Cardiology following. 03/08/2017 atrial fibrillation with controlled rate. Current Visit: No (2) Congestive heart failure Status: Chronic Assessment and plan: BNP has come down since admission. Watch fluid status. 02/21/2017 clinically congestive heart failure is better. 02/22/2017 heart failure seems to be better 02/23/2017 chest x-ray may be a little wet. Will diurese further. 02/24/2017 chest x-ray still a little wet. Continue with diuresis. 02/27/2017 congestive heart failure improved. 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 03/01/2017 congestive heart failure little better. 03/02/2017 congestive heart failure stable at present. 03/03/2017 heart failure controlled. 03/06/2017 small pleural effusions. Probably needs diuresing a little. 03/07/17 small pleural effusions but probably not active congestive failure. 03/08/2017 responded to diuresis. She needs a little Diamox because of metabolic alkalosis. Current Visit: Yes (3) Pneumonia Status: Acute Assessment and plan: On broad-spectrum empiric antibiotics. Check cultures from bronchial washings. That should be out tomorrow. She is E. coli from her urine and it is covered with Merrem. 02/21/2017 chest x-ray is pending. Bronchial wash cultures thus far are showing normal scott. Continuing empiric antibiotics. 02/22/2017 bronchial wash cultures were negative. Continuing empiric antibiotics. X-ray showing improvement 02/23/2017 bibasilar pneumonia. Bronchial wash cultures negative. Continuing antibiotics. 02/24/2017 pneumonia about the same, primarily at the right base. Continuing antibiotics. 02/27/2017 continuing empiric antibiotics. 02/28/2017 continuing empiric antibiotics. Adding Diflucan for oral monilia. Do not think she has monilia as the cause of her pneumonia. 03/01/2017 patient on antibiotics and on Diflucan. Likely these are keeping her pro time from correcting. 03/02/2017 continuing broad-spectrum antibiotics. Patient has very poor cough and would not be able to clear her airways if off the ventilator at present 03/03/2017 has bibasilar pneumonia due to aspiration. Poor cough. Requires tracheostomy to wean. 03/06/2017 chest x-ray still showing infiltrates. Overall much improved. 03/07/2017 continuing empiric antibiotics. 03/08/2017 no fever. Could stop antibiotics at this point. She has been on them for 2 weeks Current Visit: Yes Qualifiers: Qualified Code(s): J18.1 - Lobar pneumonia, unspecified organism (4) Acute respiratory failure Status: Acute Assessment and plan: Patient was struggling especially with upper airway symptoms and required intubation last night. At bronchoscopy earlier in the day yesterday there were no abnormalities in the upper airway. Likely she had some thick secretions that caused this. We will keep these suctioned out. Pneumonia is the primary cause of the respiratory failure. 02/21/17 ABGs look much better. She has a metabolic alkalosis. Will add Diamox for 3 days. 02/22/2017 ABGs improved. Still has a mild metabolic alkalosis. Will check mechanics today to see if extubation is a possibility. 02/23/2017 ABGs look good. Tolerating CPAP. Only concern is far as getting her extubated is that her right lower lobe looks a little worse on x-ray today. Will bronchoscope and clean her out before we do CPAP 02/24/2017 patient extubated this morning. Hopefully she can defend her airway. She has some dementia but is able to respond to questions fairly well. 02/27/2017 patient had to be reintubated. Not able to defend her airway. 02/28/2017 ABGs look good. Her mental status is such that I would expect her to be able to control her airway. Will try again to get her extubated today 03/01/2017 again ABGs look good but mechanics not up to par for extubation yet. She would not be able to defend her airway, just as we saw Monday. 03/02/2017 ABGs look good. She does have a metabolic alkalosis. Will give Diamox for 3 days again. 03/03/2017 ABGs good. Tolerating CPAP. Report cough and inadequate negative inspiratory force. Tracheostomy is planned. Will be long-term weaning, and plans are to go to LTAC next week. 03/06/2017 PCO2 is a little low. Will reduce IMV rate. Continue weaning trial 03/07/2017 making good progress with weaning. Tolerated fairly long trach collar overnight. 03/08/2017 ABGs look good on trach collar. Hopefully we can keep her trach collar home full-time. Then began to downsize tracheostomy in a few days. Current Visit: Yes Qualifiers: Qualified Code(s): J96.01 - Acute respiratory failure with hypoxia Specialty Discharge - Follow Up or Referrals
[2017-03-08] MEDS: METOPROLOL TARTRATE 50 MG TABLET PER TUBE SCH ×2 (08:43→21:21)
[2017-03-08] MEDS: PANTOPRAZOLE 40 MG VIAL IV SCH (08:43)
[2017-03-08] MEDS: AMIODARONE 200 MG TABLET PO SCH ×2 (08:43→21:22)
[2017-03-08] MEDS: FUROSEMIDE 40 MG/4 ML VIAL IV SCH (08:44)
[2017-03-08] MEDS: FLUCONAZOLE 40 MG/ML 35 ML/BOTTLE PO SCH (08:46)
[2017-03-08] MEDS: POLYETHYLENE GLYCOL POWDER 17 GM PACK PO SCH ×2 (08:47→21:22)
[2017-03-08] MEDS: DESITIN 4OZ/NYSTATIN 15 GRAM MIXTURE PASTE TOP SCH (08:47)
[2017-03-08] MEDS: MULTIVITAMIN LIQUID (CENTRUM) 60 ML BOTTLE PO SCH (08:47)
--- NOTE | 2017-03-08 10:22 | Hospitalist Progress Note ---
Assessment and Plan (1) Pneumonia Status: Acute Assessment and plan: The patient continues on trach collar and antibiotics for treatment of pneumonia. The atrial fibrillation is anticoagulated with Coumadin and amiodarone to maintain controlled response. The patient's tracheostomy is postoperative day #5. Dr. Hernandez believes she could go to LTAC when arrangements are complete. Current Visit: Yes Qualifiers: Pneumonia type: due to unspecified organism Laterality: right Lung location: lower lobe of lung Qualified Code(s): J18.1 - Lobar pneumonia, unspecified organism (2) History of atrial fibrillation Status: Chronic Current Visit: No (3) Anticoagulated on Coumadin Status: Chronic Current Visit: No (4) Acute respiratory failure Status: Acute Current Visit: Yes Qualifiers: Respiratory failure complication: hypoxia Qualified Code(s): J96.01 - Acute respiratory failure with hypoxia Hospitalist: Subjective Interval history: The patient is resting quietly today. She is tolerating trach collar for prolonged intervals. The patient is tolerating tube feedings Exam - Constitutional Vitals: Period Temp Pulse Resp BP Sys/Cox Pulse Ox Last 24 Hr 97.3 F-98.2 F 79-107 13-26 103-141/60-88 91-100 Exam: Constitutional System: Mild distress. No tremulousness. The patient is intubated via tracheostomy. She is breathing comfortably with trach collar device Head: Normocephalic, atraumatic. Ears, Nose and Throat System: No evidence of Otitis or Mastoiditis. No epistaxis or discharge. The patient is tolerating tube feeding per NG tube at goal rate. Eyes System: Pupils equal, round, and reactive. Extraocular muscles intact. Neck: Supple, without adenopathy, No jugular venous distention. No thyromegaly , neck mass, or prior surgery apparent. Respiratory System: Chest upper airway congestion to auscultation. Cardiovascular System: Heart with regular rate and rhythm. No murmur. GI System: Abdomen soft, nontender. Normo active bowel sounds present. Musculoskeletal System: limbs with no pedal edema. Full distal pulses. Results - Labs CBC & BMP: 03/08/17 03:35 03/08/17 04:00 Lab Results: I have reviewed the past 24 hour labs Specialty Discharge - Follow Up or Referrals
[2017-03-08] MEDS: GABAPENTIN 50 MG/ML 30 ML/BOTTLE NG SCH (13:00)
[2017-03-08] MEDS: WARFARIN 3 MG TABLET PO SCH (17:56)
[2017-03-09] MEDS: INSULIN REGULAR 100 UNIT/ML SUBCUT SCH ×4 (01:17→18:45)
[2017-03-09] MEDS: MEROPENEM 1,000 MG in SODIUM CHLORIDE 0.9% 100 ML IV SCH (01:28)
[2017-03-09] MEDS: guaiFENesin 200 MG/10 ML UDCUP PO SCH ×4 (02:27→21:31)
[2017-03-09] MEDS: MORPHINE 2 MG/1 ML SYRINGE IV PRN (02:27)
[2017-03-09] MEDS: DESITIN 4OZ/NYSTATIN 15 GRAM MIXTURE PASTE TOP SCH ×3 (02:28→21:32)
[2017-03-09 03:46] LABS: ABG Base Excess 8.3 MMOL/L (-2.5-2.5); ABG Oxygen Saturation 94.4 % (95-100); ABG PCO2 48.2 MM HG (35-48); ABG PH 7.453 (7.35-7.45); ABG PO2 70.4 MM HG (80-95); ABG TCO2 29.2 MMOL/L (23-27); Allen Test Positive; Pt O2 Delivery Device Ventilator
[2017-03-09 04:59] LABS: Basophils % 0.2 % (0.0-0.8); Hematocrit 35.7 VOL% (35.7-47.0); Hemoglobin 11.9 GM/DL (12.0-16.0); Immature Granulocytes % 4.9 %; Immature Granulocytes Absolute 1.02 #; Lymphocytes # 1.3 10*3/uL (1.4-4.0); Lymphocytes % 6.3 % (21.3-54.2); Mean Corpuscular HGB Conc 33.3 GM/DL (32-36); Mean Corpuscular Hemoglobin 31 PG (27-34); Mean Corpuscular Volume 92.5 FL (87-102); Monocytes % 4.7 % (1.7-12.7); NRBC # 0.02 10*3/uL; Neutrophils # 17.5 10*3/uL (1.4-7.4); Neutrophils % 83.9 % (38.7-73.9); Platelet Count 147 T/CUMM (130-400); Red Blood Count 3.86 MC/CUMM (3.8-5.5); Red Cell Distribution Width 14.4 % (9.3-17.3); White Blood Count 20.8 T/CUMM (4-12)
[2017-03-09 05:29] LABS: Band Neutrophils 1 % (0-10); Hypochromasia 1+; Lymphocytes 3 % (20-55); Ovalocytes Slight; Platelet Estimate Normal; Segmented Neutrophils 91 % (50-85); Total Cells Counted 100
[2017-03-09 05:33] LABS: Calcium 7.5 MG/DL (8.5-10.1); Magnesium 2.3 MG/DL (1.8-2.4); Osmolality,Calculated 298.7 MOS/KG (273-304); Potassium 3.6 MMOL/L (3.5-5.1)
[2017-03-09 05:48] LABS: Phosphorous 2.1 MG/DL (2.5-4.9); Prealbumin 25.5 MG/DL (20-40)
--- NOTE | 2017-03-09 06:28 | Pulmonology Progress Note ---
Pulmonary - PN: Subj Interval history: Patient had worsening respiratory distress last night and was intubated by Dr. Contreras. At present she is sedated and on the ventilator but her mental status is good when sedation is held. We had wanted to evaluate swallowing but we will have to wait until we wean her off the ventilator. Concerned that she has a neurologic process. ABGs look good this morning. Will reduce settings. She has bilateral infiltrates on x-ray. Will take several days of antibiotics before we would be able to wean. 02/21/2017 ABGs are improved. Chest x-ray is pending. Will start weaning today. Patient with pneumonia and that is likely aspiration. Continuing broad- spectrum antibiotics. Cultures negative thus far from bronchial washings. 02/22/2017 again ABGs look better. Patient starting to do CPAP's. Seems to be responsive during those times when sedation is held. She does have some dementia and apparent aspiration. Bronchial washing cultures have been negative. Continuing empiric antibiotics. Will check mechanics and ABGs on CPAP today to see if we could possibly extubate. 02/23/2017 patient doing well with CPAP. ABGs look good. Chest x-ray still shows some lower lobe infiltrates. Worse on the right than left. Patient is alert calm and nodding to questions. Will check mechanics and ABGs on CPAP. If she does okay which should be able to get her extubated. 02/24/2017 she has done well with T-tube trial this morning. ABGs acceptable. Still has some right lower lobe infiltrate. Will extubate this morning. Mental status seems pretty good hopefully can defend her airway. She does have some dementia. 02/27/2017 patient was off the ventilator for a day but had to be reintubated 2 days ago because she was unable to clear her secretions. She is done well with CPAP since then. Will continue with weaning trial for now. May need to consider tracheostomy. PT/INR is hyperinflated. Holding Coumadin 02/28/2017 patient did prolonged CPAP trials. She is alert and answering questions squeezing fingers on command. Should be able to manage her airway extubated. Will check mechanics and ABGs on CPAP this morning. If she clearly is above excepted levels then we will extubate her. If she does not tolerate that then we would need to go ahead and plan tracheostomy. Her PT/INR is 5.2. Coumadin has been held. She is on medication that potentiated sections however. I will give her a low-dose of vitamin K. She is on that for paroxysmal atrial fibrillation. Normal sinus rhythm at present. 03/01/2017 patient again is doing well with prolonged CPAP trials. However her mechanics are quite poor. For now we will continue with CPAP trials. Will very likely need a tracheostomy if we do not see significant improvement in the next couple of days. Her PT INR remains hyper prolonged. Will repeat AquaMEPHYTON. Agree with evaluation for LTAC placement. 03/02/2017 PT/INR is down to 1.9 today. Will still need a little more fresh frozen plasma and/or vitamin K to prepare for tracheostomy. It appears likely that it will be next week that she gets the tracheostomy. We will continue weaning trials in the meantime. She is tolerating them well but her mechanics indicate that she does not have a strong enough cough to clear her airway if extubated now. Definitely think it would be safer for tracheostomy in order to get her weaned. 03/03/2017 INR is 1.7. Patient is scheduled for tracheostomy either later today or in the morning. We will give 2 more units of fresh frozen plasma. Would like to get INR down to 1.3 or less. She has been given a good bit of vitamin K as well. She is tolerating CPAP. However she has proven that she is not able to defend her airway and her mechanics have not been adequate for extubation. Hopefully tracheostomy will facilitate weaning. She has had problems with aspiration. 03/06/2017 patient had tracheostomy Monday. Making progress with CPAP. Doing brief trach collar. From pulmonary standpoint ready to move to LTAC soon as that can be done. 03/07/2017 patient did trach collar overnight and fatigued. Will increase times on trach collar on a daily basis. Hopefully can get her off the ventilator altogether within a few days and then start working on the tracheostomy. Patient is responsive. There are no new complaints. 03/08/2017 patient did trach collar for prolonged period yesterday and was put back on CPAP overnight. Did not fatigue. She is more alert and calm this morning. Will try to keep on trach collar full-time. If she fatigues we will rest with IMV. 03/09/2017 patient making progress with weaning with longer trach collar times. Still requiring some mechanical ventilation. She is responsive and afebrile. Exam (Progress Note) - Constitutional Vitals: Period Temp Pulse Resp BP Sys/Cox Pulse Ox Last 24 Hr 97.6 F-98.1 F 9-124 15- 95-157/62-94 90-99 Exam: Patient responsive at present. Nods to questions and squeezes fingers on command. Vital signs normal. Pupils react to light. Tracheostomy in place. Neck is supple no bruits. Chest reveals few scattered rhonchi equal breath sounds. Heart irregular without murmurs. Abdomen soft nontender no masses. Extremities no clubbing cyanosis or edema. Calves are nontender. Little change from yesterday. Results - Labs CBC & BMP: 03/09/17 04:27 03/09/17 04:27 Lab Results: I have reviewed the past 24 hour labs - Diagnostic Findings Procedure: Chest x-ray: image reviewed by me (Left basilar infiltrate. Elevated left diaphragm little change from before.) Assessment and Plan (1) History of atrial fibrillation Status: Chronic Assessment and plan: Patient on chronic anticoagulants. Watch protimes. Rate is controlled 02/21/2017 rate is controlled. 02/22/2017 again rate is controlled. 02/23/2017 rate controlled. 02/27/2017 holding Coumadin. INR 4.6. 02/28/2017 sinus rhythm. INR 5.2. Holding Coumadin. Will give AquaMEPHYTON 5 mg. 03/01/2017 sinus rhythm. Trying to totally reverse Coumadin. This is in anticipation of tracheostomy. Likely will need one by Monday. 03/02/2017 remains in sinus rhythm. She has had 2 doses of vitamin K and had fresh frozen plasma yesterday. If tracheostomy is to be done she would need another round of fresh frozen plasma the day before. 03/03/2017 rate is controlled. 1.7. Getting more fresh frozen plasma today in anticipation of the tracheostomy. 03/06/2017 rate is controlled. INR is 1.2. 03/07/2017 remains in atrial fib. Controlled rate. Cardiology following. 03/08/2017 atrial fibrillation with controlled rate. 03/09/2017 heart rate around 105-110. Current Visit: No (2) Congestive heart failure Status: Chronic Assessment and plan: BNP has come down since admission. Watch fluid status. 02/21/2017 clinically congestive heart failure is better. 02/22/2017 heart failure seems to be better 02/23/2017 chest x-ray may be a little wet. Will diurese further. 02/24/2017 chest x-ray still a little wet. Continue with diuresis. 02/27/2017 congestive heart failure improved. 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 03/01/2017 congestive heart failure little better. 03/02/2017 congestive heart failure stable at present. 03/03/2017 heart failure controlled. 03/06/2017 small pleural effusions. Probably needs diuresing a little. 03/07/17 small pleural effusions but probably not active congestive failure. 03/08/2017 responded to diuresis. She needs a little Diamox because of metabolic alkalosis. 03/09/2017 congestive heart failure controlled with medicines. Current Visit: Yes Qualifiers: Congestive heart failure chronicity: acute on chronic (3) Pneumonia Status: Acute Assessment and plan: On broad-spectrum empiric antibiotics. Check cultures from bronchial washings. That should be out tomorrow. She is E. coli from her urine and it is covered with Merrem. 02/21/2017 chest x-ray is pending. Bronchial wash cultures thus far are showing normal scott. Continuing empiric antibiotics. 02/22/2017 bronchial wash cultures were negative. Continuing empiric antibiotics. X-ray showing improvement 02/23/2017 bibasilar pneumonia. Bronchial wash cultures negative. Continuing antibiotics. 02/24/2017 pneumonia about the same, primarily at the right base. Continuing antibiotics. 02/27/2017 continuing empiric antibiotics. 02/28/2017 continuing empiric antibiotics. Adding Diflucan for oral monilia. Do not think she has monilia as the cause of her pneumonia. 03/01/2017 patient on antibiotics and on Diflucan. Likely these are keeping her pro time from correcting. 03/02/2017 continuing broad-spectrum antibiotics. Patient has very poor cough and would not be able to clear her airways if off the ventilator at present 03/03/2017 has bibasilar pneumonia due to aspiration. Poor cough. Requires tracheostomy to wean. 03/06/2017 chest x-ray still showing infiltrates. Overall much improved. 03/07/2017 continuing empiric antibiotics. 03/08/2017 no fever. Could stop antibiotics at this point. She has been on them for 2 weeks 03/09/2017 again no fever. Current Visit: Yes Qualifiers: Pneumonia type: due to unspecified organism Laterality: right Lung location: lower lobe of lung Qualified Code(s): J18.1 - Lobar pneumonia, unspecified organism (4) Acute respiratory failure Status: Acute Assessment and plan: Patient was struggling especially with upper airway symptoms and required intubation last night. At bronchoscopy earlier in the day yesterday there were no abnormalities in the upper airway. Likely she had some thick secretions that caused this. We will keep these suctioned out. Pneumonia is the primary cause of the respiratory failure. 02/21/17 ABGs look much better. She has a metabolic alkalosis. Will add Diamox for 3 days. 02/22/2017 ABGs improved. Still has a mild metabolic alkalosis. Will check mechanics today to see if extubation is a possibility. 02/23/2017 ABGs look good. Tolerating CPAP. Only concern is far as getting her extubated is that her right lower lobe looks a little worse on x-ray today. Will bronchoscope and clean her out before we do CPAP 02/24/2017 patient extubated this morning. Hopefully she can defend her airway. She has some dementia but is able to respond to questions fairly well. 02/27/2017 patient had to be reintubated. Not able to defend her airway. 02/28/2017 ABGs look good. Her mental status is such that I would expect her to be able to control her airway. Will try again to get her extubated today 03/01/2017 again ABGs look good but mechanics not up to par for extubation yet. She would not be able to defend her airway, just as we saw Monday. 03/02/2017 ABGs look good. She does have a metabolic alkalosis. Will give Diamox for 3 days again. 03/03/2017 ABGs good. Tolerating CPAP. Report cough and inadequate negative inspiratory force. Tracheostomy is planned. Will be long-term weaning, and plans are to go to LTAC next week. 03/06/2017 PCO2 is a little low. Will reduce IMV rate. Continue weaning trial 03/07/2017 making good progress with weaning. Tolerated fairly long trach collar overnight. 03/08/2017 ABGs look good on trach collar. Hopefully we can keep her trach collar home full-time. Then began to downsize tracheostomy in a few days. 03/09/2017 PCO2 down a little bit. Patient comfortable on trach collar. Continue to stretch out times on trach collar Current Visit: Yes Qualifiers: Respiratory failure complication: hypoxia Qualified Code(s): J96.01 - Acute respiratory failure with hypoxia Specialty Discharge - Follow Up or Referrals
--- NOTE | 2017-03-09 06:55 | Cardiology Progress Note ---
Cardiology - PN: Subj Interval history: Cardiology note 81-year-old woman status post tracheostomy March 03 for pneumonia and respiratory failure. Also has recurrent atrial fibrillation. She completed 11 hours of trach collar yesterday. Alert and responsive. Telemetry shows atrial paced ventricular rate around 100 O2 sat 96 on 35% FiO2 Blood pressure 113/84 Irregular rhythm no murmur decreased breath sounds Few basilar rhonchi Abdomen soft benign No leg edema Lab data today White count 20.8 hemoglobin 11.9 hematocrit 35.7 Sodium 145 potassium 3.6 chloride 106 CO2 34 BUN 39 creatinine 0.30 Glucose 126 magnesium 2.1 Impression Status post tracheostomy March 03 Pneumonia Recurrent paroxysmal atrial fibrillation Hypertension Patent coronaries and normal EF by cath October 04, 2009 Echo February 25, 2017 ejection fraction 60% with mild to moderate MR, 1+ AI, severe TR PA pressure 67 Debility Plan Tube feedings Trach collar trials Amiodarone 200 mg twice daily Metoprolol 50 mg twice daily 40 mg IV Lasix daily IV antibiotics Exam (Progress Note) - Constitutional Vitals: Period Temp Pulse Resp BP Sys/Cox Pulse Ox Last 24 Hr 97.6 F-98.1 F 9-124 15-28 95-157/62-94 90-99 Result/EKG - Labs CBC & BMP: 03/09/17 04:27 03/09/17 04:27 Labs: Laboratory Results - last 24 hr 03/09/17 03/09/17 03/09/17 03:40 04:27 04:27 WBC 20.8 H RBC 3.86 Hgb 11.9 L Hct 35.7 MCV 92.5 MCH 31 MCHC 33.3 RDW 14.4 Plt Count 147 MPV 12.0 Neut % (Auto) 83.9 H Lymph % (Auto) 6.3 L Gillespie % (Auto) 4.7 Eos % (Auto) 0.0 Baso % (Auto) 0.2 Neut # (Auto) 17.5 H Lymph # (Auto) 1.3 L Gillespie # (Auto) 1.0 H Eos # (Auto) 0.0 Baso # (Auto) 0.0 Total Counted 100 Immature Gran % 4.9 Nucleated RBC % 0.1 Immature Gran # 1.02 Segmented Neutrophils 91 H Band Neutrophils 1 Lymphocytes 3 L Monocytes 5 Nucleated RBCs # 0.02 Platelet Estimate Normal Hypochromasia 1+ Ovalocytes Slight ABG pH 7.453 H ABG pCO2 48.2 H ABG pO2 70.4 L ABG HCO3 32.0 H ABG Total CO2 29.2 H ABG O2 Saturation 94.4 L ABG Base Excess 8.3 H FiO2 35.00 Sodium 145 Potassium 3.6 Chloride 106 Carbon Dioxide 34 H Anion Gap 8.6 BUN 39 H Creatinine 0.30 L GFR Calculation 116 BUN/Creatinine Ratio 130.00 H Glucose 126 H Calculated Osmolality 298.7 Calcium 7.5 L Phosphorus Magnesium 2.3 Prealbumin 03/09/17 04:27 WBC RBC Hgb Hct MCV MCH MCHC RDW Plt Count MPV Neut % (Auto) Lymph % (Auto) Gillespie % (Auto) Eos % (Auto) Baso % (Auto) Neut # (Auto) Lymph # (Auto) Gillespie # (Auto) Eos # (Auto) Baso # (Auto) Total Counted Immature Gran % Nucleated RBC % Immature Gran # Segmented Neutrophils Band Neutrophils Lymphocytes Monocytes Nucleated RBCs # Platelet Estimate Hypochromasia Ovalocytes ABG pH ABG pCO2 ABG pO2 ABG HCO3 ABG Total CO2 ABG O2 Saturation ABG Base Excess FiO2 Sodium Potassium Chloride Carbon Dioxide Anion Gap BUN Creatinine GFR Calculation BUN/Creatinine Ratio Glucose Calculated Osmolality Calcium Phosphorus 2.1 L Magnesium Prealbumin 25.5 Specialty Discharge - Follow Up or Referrals
[2017-03-09] MEDS: methylPREDNISolone SOD SUC 40 MG/1 ML VIAL IV SCH ×2 (07:16→18:46)
--- NOTE | 2017-03-09 07:32 | XRay Report ---
Exam: XR chest 1V portable Date: 03/09/2017 4:00 AM Indication: Shortness of breath follow-up ventilator tracheostomy Comparison: 03/08/2017 Technical: AP portable Findings: Tracheostomy tube is present. A right subclavian catheter is present. A feeding tube traverses esophagus into the stomach. Low volume effusions and atelectatic change are present bilaterally with cardiomegaly. Component of hiatal hernia is present. Apical pleural thickening present. No pneumothorax. Dextroscoliotic curve present. External cardiac leads are present. Impression: 1. Stable appearance of life support tubing 2. Persistent bilateral infiltrates and effusions superimposed on chronic underlying scarring in the lung carlson. 3. Cardiomegaly 4. Component of hiatal hernia PROCEDURE INTERPRETED AT [facility] DEPARTMENT OF RADIOLOGY Final Report Signed by: Dr. Marcelino Young
[2017-03-09] MEDS: LEVALBUTEROL 1.25 MG/3 ML NEB RESP TX SCH ×3 (07:46→23:17)
[2017-03-09] MEDS ORDERED: methylPREDNISolone SOD SUC 40 MG/1 ML VIAL IV SCH (08:16)
[2017-03-09] MEDS: MULTIVITAMIN LIQUID (CENTRUM) 60 ML BOTTLE PO SCH (08:53)
[2017-03-09] MEDS: FLUCONAZOLE 40 MG/ML 35 ML/BOTTLE PO SCH (08:53)
[2017-03-09] MEDS: PANTOPRAZOLE 40 MG VIAL IV SCH (08:54)
[2017-03-09] MEDS: AMIODARONE 200 MG TABLET PO SCH ×2 (08:57→21:32)
[2017-03-09] MEDS: FUROSEMIDE 40 MG/4 ML VIAL IV SCH (08:57)
[2017-03-09] MEDS: METOPROLOL TARTRATE 50 MG TABLET PER TUBE SCH ×2 (08:57→21:31)
[2017-03-09] MEDS: POLYETHYLENE GLYCOL POWDER 17 GM PACK PO SCH (09:00)
[2017-03-09] MEDS: HYDROcod/ACETAMIN 7.5-325 MG/15 ML UDCUP PO PRN ×2 (09:02→15:16)
[2017-03-09 09:48] LABS: Partial Thromboplastin Time 35.2 SECS (0-40)
[2017-03-09 09:53] LABS: INR 3.6; PT Patient Result 41.7 SECS
[2017-03-09] MEDS ORDERED: PHYTONADIONE 10 MG/1 ML AMP SUBCUT ONE (10:49)
[2017-03-09] MEDS ORDERED: SODIUM CHLORIDE 0.9% 250 ML IV PRN (10:50)
[2017-03-09] MEDS ORDERED: POTASSIUM PHOSPHATE 30 MMOL in SODIUM CHLORIDE 0.9% 250 ML IV ONE (11:27)
--- NOTE | 2017-03-09 11:28 | Hospitalist Progress Note ---
Assessment and Plan (1) Pneumonia Status: Acute Assessment and plan: The patient continues on trach collar and antibiotics for treatment of pneumonia. The atrial fibrillation is anticoagulated with Coumadin and amiodarone to maintain controlled response. The patient's INR is supratherapeutic today and her Coumadin dose has been held for today and reduced to begin tomorrow. The patient's tracheostomy is postoperative day #6. Dr. Hernandez believes she could go to LTAC when arrangements are complete. Current Visit: Yes Qualifiers: Pneumonia type: due to unspecified organism Laterality: right Lung location: lower lobe of lung Qualified Code(s): J18.1 - Lobar pneumonia, unspecified organism (2) History of atrial fibrillation Status: Chronic Current Visit: No (3) Anticoagulated on Coumadin Status: Chronic Current Visit: No (4) Acute respiratory failure Status: Acute Current Visit: Yes Qualifiers: Respiratory failure complication: hypoxia Qualified Code(s): J96.01 - Acute respiratory failure with hypoxia Hospitalist: Subjective Interval history: The patient is resting quietly in her room today. She seems a little disappointed with the pace of improvement. She required some mechanical ventilation overnight but is back to spontaneous breathing today. Exam - Constitutional Vitals: Period Temp Pulse Resp BP Sys/Cox Pulse Ox Last 24 Hr 97.6 F-98.1 F 94-124 13-28 95-157/62-91 90-100 Exam: Constitutional System: Mild distress. No tremulousness. The patient is intubated via tracheostomy. She is breathing comfortably on CPAP using the ventilator connected to the tracheostomy Head: Normocephalic, atraumatic. Ears, Nose and Throat System: No evidence of Otitis or Mastoiditis. No epistaxis or discharge. The patient is tolerating tube feeding per NG tube at goal rate. Eyes System: Pupils equal, round, and reactive. Extraocular muscles intact. Neck: Supple, without adenopathy, No jugular venous distention. No thyromegaly , neck mass, or prior surgery apparent. Respiratory System: Chest upper airway congestion to auscultation. Cardiovascular System: Heart with regular rate and rhythm. No murmur. GI System: Abdomen soft, nontender. Normo active bowel sounds present. Musculoskeletal System: limbs with no pedal edema. Full distal pulses. Results - Labs CBC & BMP: 03/09/17 04:27 03/09/17 04:27 Lab Results: I have reviewed the past 24 hour labs Specialty Discharge - Follow Up or Referrals
[2017-03-09] MEDS: GABAPENTIN 50 MG/ML 30 ML/BOTTLE NG SCH (11:51)
[2017-03-10] MEDS: INSULIN REGULAR 100 UNIT/ML SUBCUT SCH ×4 (00:30→18:12)
[2017-03-10 03:43] LABS: ABG Base Excess 8.3 MMOL/L (-2.5-2.5); ABG Oxygen Saturation 96.4 % (95-100); ABG PO2 82.2 MM HG (80-95); ABG TCO2 29.8 MMOL/L (23-27); Allen Test Positive; Pt O2 Delivery Device Ventilator
[2017-03-10] MEDS: guaiFENesin 200 MG/10 ML UDCUP PO SCH ×4 (04:45→20:07)
[2017-03-10 05:35] LABS: Basophils % 0.1 % (0.0-0.8); Hemoglobin 11.9 GM/DL (12.0-16.0); Immature Granulocytes % 3.1 %; Immature Granulocytes Absolute 0.56 #; Lymphocytes # 0.9 10*3/uL (1.4-4.0); Lymphocytes % 5.1 % (21.3-54.2); Mean Corpuscular Hemoglobin 31 PG (27-34); Mean Corpuscular Volume 91.9 FL (87-102); Mean Platelet Volume 11.7 FL (9.6-12.0); Monocytes # 0.8 10*3/uL (0.11-0.8); Monocytes % 4.4 % (1.7-12.7); Neutrophils # 15.5 10*3/uL (1.4-7.4); Neutrophils % 87.3 % (38.7-73.9); Platelet Count 120 T/CUMM (130-400); Red Blood Count 3.81 MC/CUMM (3.8-5.5); Red Cell Distribution Width 14.5 % (9.3-17.3); White Blood Count 17.8 T/CUMM (4-12)
[2017-03-10 05:45] LABS: INR 2.7
[2017-03-10 05:51] LABS: PT Patient Result 30.9 SECS
[2017-03-10 06:01] LABS: Calcium 8.5 MG/DL (8.5-10.1); Magnesium 2.5 MG/DL (1.8-2.4)
[2017-03-10 06:02] LABS: Band Neutrophils 1 % (0-10); Hypochromasia 1+; Lymphocytes 4 % (20-55); Ovalocytes Slight; Platelet Estimate Normal; Segmented Neutrophils 91 % (50-85); Total Cells Counted 100
--- NOTE | 2017-03-10 06:18 | XRay Report ---
Exam: XR chest 1V portable Date: 03/10/2017 4:00 AM Indication: Follow-up ventilator tracheostomy tube Comparison: 03/09/2017 Technical: AP portable Findings: Right subclavian catheter is present. Tracheostomy tube is unchanged and the feeding tube is present. External cardiac leads are present. Alveolar infiltrates and effusions are present bilaterally. No pneumothorax. Dextroscoliosis present. Impression: 1. No significant interval change with stable appearance of the life support tubes and bilateral infiltrates and effusions with associated cardiomegaly PROCEDURE INTERPRETED AT [facility] DEPARTMENT OF RADIOLOGY Final Report Signed by: Dr. Marcelino Young
[2017-03-10] MEDS: methylPREDNISolone SOD SUC 40 MG/1 ML VIAL IV SCH ×2 (06:37→18:12)
--- NOTE | 2017-03-10 07:00 | Cardiology Progress Note ---
Cardiology - PN: Subj Interval history: Cardiology note 81-year-old woman status post tracheostomy March 03 for pneumonia and respiratory failure. Also has recurrent atrial fibrillation. She was to fatigue yesterday to do trach collar. She was on CPAP for about 18 hours. O2 sat 96 on 35% FiO2 Telemetry shows atrial fib ventricular rate around 110 Blood pressure 122/86 Alert and responsive Irregular rhythm soft murmur Decreased breath sounds few basilar rhonchi Abdomen benign No leg edema Lab data today White count 17.8 hemoglobin 11.9 hematocrit 35.0 platelet count 120,000 Sodium 143 potassium 4.0 chloride 101 CO2 36 BUN 40 creatinine 0.40 glucose 105 magnesium 2.5 Pro time 30.9 INR 2.7 Impression Status post tracheostomy March 03 Pneumonia Recurrent paroxysmal atrial fibrillation Hypertension Patent coronaries and normal EF by cath October 04, 2009 Echo February 25, 2017 ejection fraction 60% with mild to moderate MR, 1+ AI, severe TR PA pressure 67 Debility Anticoagulation Plan Tube feedings Trach collar trials Coumadin 3 mg daily 40 mg IV Lasix daily Amiodarone 200 mg twice daily Metoprolol 50 mg twice daily Exam (Progress Note) - Constitutional Vitals: Period Temp Pulse Resp BP Sys/Cox Pulse Ox Last 24 Hr 97.4 F-98.7 F 91-120 12-27 94-155/57-99 89-100 Result/EKG - Labs CBC & BMP: 03/10/17 05:28 03/10/17 05:28 Labs: Laboratory Results - last 24 hr 03/08/17 03/08/17 03/08/17 13:37 17:46 20:50 WBC RBC Hgb Hct MCV MCH MCHC RDW Plt Count MPV Neut % (Auto) Lymph % (Auto) Lucas % (Auto) Eos % (Auto) Baso % (Auto) Neut # (Auto) Lymph # (Auto) Lucas # (Auto) Eos # (Auto) Baso # (Auto) Total Counted Immature Gran % Nucleated RBC % Immature Gran # Segmented Neutrophils Band Neutrophils Lymphocytes Monocytes Nucleated RBCs # Platelet Estimate Hypochromasia Ovalocytes Morphology Comment INR PT Patient/Control Mix Circ Anticoag PTT ABG pH ABG pCO2 ABG pO2 ABG HCO3 ABG Total CO2 ABG O2 Saturation ABG Base Excess FiO2 Sodium Potassium Chloride Carbon Dioxide Anion Gap BUN Creatinine GFR Calculation BUN/Creatinine Ratio Glucose POC Glucose 195 H 171 H 129 H Calculated Osmolality Calcium Magnesium 03/09/17 03/09/17 03/09/17 01:09 05:47 09:30 WBC RBC Hgb Hct MCV MCH MCHC RDW Plt Count MPV Neut % (Auto) Lymph % (Auto) Lucas % (Auto) Eos % (Auto) Baso % (Auto) Neut # (Auto) Lymph # (Auto) Lucas # (Auto) Eos # (Auto) Baso # (Auto) Total Counted Immature Gran % Nucleated RBC % Immature Gran # Segmented Neutrophils Band Neutrophils Lymphocytes Monocytes Nucleated RBCs # Platelet Estimate Hypochromasia Ovalocytes Morphology Comment INR 3.6 PT Patient/Control Mix 41.7 D Circ Anticoag PTT 35.2 D ABG pH ABG pCO2 ABG pO2 ABG HCO3 ABG Total CO2 ABG O2 Saturation ABG Base Excess FiO2 Sodium Potassium Chloride Carbon Dioxide Anion Gap BUN Creatinine GFR Calculation BUN/Creatinine Ratio Glucose POC Glucose 186 H 141 H Calculated Osmolality Calcium Magnesium 03/09/17 03/09/17 03/10/17 11:11 17:41 00:07 WBC RBC Hgb Hct MCV MCH MCHC RDW Plt Count MPV Neut % (Auto) Lymph % (Auto) Lucas % (Auto) Eos % (Auto) Baso % (Auto) Neut # (Auto) Lymph # (Auto) Lucas # (Auto) Eos # (Auto) Baso # (Auto) Total Counted Immature Gran % Nucleated RBC % Immature Gran # Segmented Neutrophils Band Neutrophils Lymphocytes Monocytes Nucleated RBCs # Platelet Estimate Hypochromasia Ovalocytes Morphology Comment INR PT Patient/Control Mix Circ Anticoag PTT ABG pH ABG pCO2 ABG pO2 ABG HCO3 ABG Total CO2 ABG O2 Saturation ABG Base Excess FiO2 Sodium Potassium Chloride Carbon Dioxide Anion Gap BUN Creatinine GFR Calculation BUN/Creatinine Ratio Glucose POC Glucose 231 H 185 H 186 H Calculated Osmolality Calcium Magnesium 03/10/17 03/10/17 03/10/17 03:30 05:28 05:28 WBC 17.8 H RBC 3.81 Hgb 11.9 L Hct 35.0 L MCV 91.9 MCH 31 MCHC 34.0 RDW 14.5 Plt Count 120 L MPV 11.7 Neut % (Auto) 87.3 H Lymph % (Auto) 5.1 L Lucas % (Auto) 4.4 Eos % (Auto) 0.0 Baso % (Auto) 0.1 Neut # (Auto) 15.5 H Lymph # (Auto) 0.9 L Lucas # (Auto) 0.8 Eos # (Auto) 0.0 Baso # (Auto) 0.0 Total Counted 100 Immature Gran % 3.1 Nucleated RBC % 0.0 Immature Gran # 0.56 Segmented Neutrophils 91 H Band Neutrophils 1 Lymphocytes 4 L Monocytes 4 Nucleated RBCs # 0.00 Platelet Estimate Normal Hypochromasia 1+ Ovalocytes Slight Morphology Comment INR PT Patient/Control Mix Circ Anticoag PTT ABG pH 7.440 ABG pCO2 50.0 H ABG pO2 82.2 ABG HCO3 32.0 H ABG Total CO2 29.8 H ABG O2 Saturation 96.4 ABG Base Excess 8.3 H FiO2 35.00 Sodium 143 Potassium 4.0 Chloride 101 Carbon Dioxide 36 H Anion Gap 10.0 BUN 40 H Creatinine 0.40 L GFR Calculation 105 BUN/Creatinine Ratio 100.00 H Glucose 176 H POC Glucose Calculated Osmolality 298.0 Calcium 8.5 Magnesium 2.5 H 03/10/17 03/10/17 05:28 06:15 WBC RBC Hgb Hct MCV MCH MCHC RDW Plt Count MPV Neut % (Auto) Lymph % (Auto) Lucas % (Auto) Eos % (Auto) Baso % (Auto) Neut # (Auto) Lymph # (Auto) Lucas # (Auto) Eos # (Auto) Baso # (Auto) Total Counted Immature Gran % Nucleated RBC % Immature Gran # Segmented Neutrophils Band Neutrophils Lymphocytes Monocytes Nucleated RBCs # Platelet Estimate Hypochromasia Ovalocytes Morphology Comment INR 2.7 PT Patient/Control Mix 30.9 D Circ Anticoag PTT 35.0 ABG pH ABG pCO2 ABG pO2 ABG HCO3 ABG Total CO2 ABG O2 Saturation ABG Base Excess FiO2 Sodium Potassium Chloride Carbon Dioxide Anion Gap BUN Creatinine GFR Calculation BUN/Creatinine Ratio Glucose POC Glucose 190 H Calculated Osmolality Calcium Magnesium Specialty Discharge - Follow Up or Referrals
[2017-03-10] MEDS: LEVALBUTEROL 1.25 MG/3 ML NEB RESP TX SCH ×3 (07:42→23:37)
--- NOTE | 2017-03-10 09:27 | Pulmonology Progress Note ---
Pulmonary - PN: Subj Interval history: Patient had worsening respiratory distress last night and was intubated by Dr. Contreras. At present she is sedated and on the ventilator but her mental status is good when sedation is held. We had wanted to evaluate swallowing but we will have to wait until we wean her off the ventilator. Concerned that she has a neurologic process. ABGs look good this morning. Will reduce settings. She has bilateral infiltrates on x-ray. Will take several days of antibiotics before we would be able to wean. 02/21/2017 ABGs are improved. Chest x-ray is pending. Will start weaning today. Patient with pneumonia and that is likely aspiration. Continuing broad- spectrum antibiotics. Cultures negative thus far from bronchial washings. 02/22/2017 again ABGs look better. Patient starting to do CPAP's. Seems to be responsive during those times when sedation is held. She does have some dementia and apparent aspiration. Bronchial washing cultures have been negative. Continuing empiric antibiotics. Will check mechanics and ABGs on CPAP today to see if we could possibly extubate. 02/23/2017 patient doing well with CPAP. ABGs look good. Chest x-ray still shows some lower lobe infiltrates. Worse on the right than left. Patient is alert calm and nodding to questions. Will check mechanics and ABGs on CPAP. If she does okay which should be able to get her extubated. 02/24/2017 she has done well with T-tube trial this morning. ABGs acceptable. Still has some right lower lobe infiltrate. Will extubate this morning. Mental status seems pretty good hopefully can defend her airway. She does have some dementia. 02/27/2017 patient was off the ventilator for a day but had to be reintubated 2 days ago because she was unable to clear her secretions. She is done well with CPAP since then. Will continue with weaning trial for now. May need to consider tracheostomy. PT/INR is hyperinflated. Holding Coumadin 02/28/2017 patient did prolonged CPAP trials. She is alert and answering questions squeezing fingers on command. Should be able to manage her airway extubated. Will check mechanics and ABGs on CPAP this morning. If she clearly is above excepted levels then we will extubate her. If she does not tolerate that then we would need to go ahead and plan tracheostomy. Her PT/INR is 5.2. Coumadin has been held. She is on medication that potentiated sections however. I will give her a low-dose of vitamin K. She is on that for paroxysmal atrial fibrillation. Normal sinus rhythm at present. 03/01/2017 patient again is doing well with prolonged CPAP trials. However her mechanics are quite poor. For now we will continue with CPAP trials. Will very likely need a tracheostomy if we do not see significant improvement in the next couple of days. Her PT INR remains hyper prolonged. Will repeat AquaMEPHYTON. Agree with evaluation for LTAC placement. 03/02/2017 PT/INR is down to 1.9 today. Will still need a little more fresh frozen plasma and/or vitamin K to prepare for tracheostomy. It appears likely that it will be next week that she gets the tracheostomy. We will continue weaning trials in the meantime. She is tolerating them well but her mechanics indicate that she does not have a strong enough cough to clear her airway if extubated now. Definitely think it would be safer for tracheostomy in order to get her weaned. 03/03/2017 INR is 1.7. Patient is scheduled for tracheostomy either later today or in the morning. We will give 2 more units of fresh frozen plasma. Would like to get INR down to 1.3 or less. She has been given a good bit of vitamin K as well. She is tolerating CPAP. However she has proven that she is not able to defend her airway and her mechanics have not been adequate for extubation. Hopefully tracheostomy will facilitate weaning. She has had problems with aspiration. 03/06/2017 patient had tracheostomy Monday. Making progress with CPAP. Doing brief trach collar. From pulmonary standpoint ready to move to LTAC soon as that can be done. 03/07/2017 patient did trach collar overnight and fatigued. Will increase times on trach collar on a daily basis. Hopefully can get her off the ventilator altogether within a few days and then start working on the tracheostomy. Patient is responsive. There are no new complaints. 03/08/2017 patient did trach collar for prolonged period yesterday and was put back on CPAP overnight. Did not fatigue. She is more alert and calm this morning. Will try to keep on trach collar full-time. If she fatigues we will rest with IMV. 03/09/2017 patient making progress with weaning with longer trach collar times. Still requiring some mechanical ventilation. She is responsive and afebrile. 03/10/2017 patient presently on trach collar and appears comfortable. She has an 8 [place] cuffed tracheostomy. Bleed not ready to do speaking valve until we get a smaller trach. PT/INR is down to 2.7 after fresh frozen plasma and vitamin K. Considering a PEG tube. However with her being on trach collar now may be able to try oral diet in a few days with speech therapy so probably should hold off on PEG tube. Exam (Progress Note) - Constitutional Vitals: Period Temp Pulse Resp BP Sys/Cox Pulse Ox Last 24 Hr 97.4 F-98.7 F 91-120 12-27 94-155/57-99 89-100 Exam: Patient responsive at present. Nods to questions and squeezes fingers on command. Vital signs normal. Pupils react to light. Tracheostomy in place. On trach collar for oxygen. Neck is supple no bruits. Chest reveals few scattered rhonchi equal breath sounds. Heart irregular without murmurs. Abdomen soft nontender no masses. Extremities no clubbing cyanosis or edema. Calves are nontender. Results - Labs CBC & BMP: 03/10/17 05:28 03/10/17 05:28 Lab Results: I have reviewed the past 24 hour labs - Diagnostic Findings Procedure: Chest x-ray: image reviewed by me (Bilateral lower lobe infiltrates for a little better today. Tracheostomy tube in good position.) Assessment and Plan (1) History of atrial fibrillation Status: Chronic Assessment and plan: Patient on chronic anticoagulants. Watch protimes. Rate is controlled 02/21/2017 rate is controlled. 02/22/2017 again rate is controlled. 02/23/2017 rate controlled. 02/27/2017 holding Coumadin. INR 4.6. 02/28/2017 sinus rhythm. INR 5.2. Holding Coumadin. Will give AquaMEPHYTON 5 mg. 03/01/2017 sinus rhythm. Trying to totally reverse Coumadin. This is in anticipation of tracheostomy. Likely will need one by Monday. 03/02/2017 remains in sinus rhythm. She has had 2 doses of vitamin K and had fresh frozen plasma yesterday. If tracheostomy is to be done she would need another round of fresh frozen plasma the day before. 03/03/2017 rate is controlled. 1.7. Getting more fresh frozen plasma today in anticipation of the tracheostomy. 03/06/2017 rate is controlled. INR is 1.2. 03/07/2017 remains in atrial fib. Controlled rate. Cardiology following. 03/08/2017 atrial fibrillation with controlled rate. 03/09/2017 heart rate around 105-110. 03/10/2017 atrial fibrillation with controlled rate around 105 Current Visit: No (2) Congestive heart failure Status: Chronic Assessment and plan: BNP has come down since admission. Watch fluid status. 02/21/2017 clinically congestive heart failure is better. 02/22/2017 heart failure seems to be better 02/23/2017 chest x-ray may be a little wet. Will diurese further. 02/24/2017 chest x-ray still a little wet. Continue with diuresis. 02/27/2017 congestive heart failure improved. 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 03/01/2017 congestive heart failure little better. 03/02/2017 congestive heart failure stable at present. 03/03/2017 heart failure controlled. 03/06/2017 small pleural effusions. Probably needs diuresing a little. 03/07/17 small pleural effusions but probably not active congestive failure. 03/08/2017 responded to diuresis. She needs a little Diamox because of metabolic alkalosis. 03/09/2017 congestive heart failure controlled with medicines. 02/28/2017 she has diuresed fairly well. Current Visit: Yes Qualifiers: Congestive heart failure chronicity: acute on chronic (3) Pneumonia Status: Acute Assessment and plan: On broad-spectrum empiric antibiotics. Check cultures from bronchial washings. That should be out tomorrow. She is E. coli from her urine and it is covered with Merrem. 02/21/2017 chest x-ray is pending. Bronchial wash cultures thus far are showing normal scott. Continuing empiric antibiotics. 02/22/2017 bronchial wash cultures were negative. Continuing empiric antibiotics. X-ray showing improvement 02/23/2017 bibasilar pneumonia. Bronchial wash cultures negative. Continuing antibiotics. 02/24/2017 pneumonia about the same, primarily at the right base. Continuing antibiotics. 02/27/2017 continuing empiric antibiotics. 02/28/2017 continuing empiric antibiotics. Adding Diflucan for oral monilia. Do not think she has monilia as the cause of her pneumonia. 03/01/2017 patient on antibiotics and on Diflucan. Likely these are keeping her pro time from correcting. 03/02/2017 continuing broad-spectrum antibiotics. Patient has very poor cough and would not be able to clear her airways if off the ventilator at present 03/03/2017 has bibasilar pneumonia due to aspiration. Poor cough. Requires tracheostomy to wean. 03/06/2017 chest x-ray still showing infiltrates. Overall much improved. 03/07/2017 continuing empiric antibiotics. 03/08/2017 no fever. Could stop antibiotics at this point. She has been on them for 2 weeks 03/09/2017 again no fever. 03/10/2017 no fever. Antibiotics have been discontinued Current Visit: Yes Qualifiers: Pneumonia type: due to unspecified organism Laterality: right Lung location: lower lobe of lung Qualified Code(s): J18.1 - Lobar pneumonia, unspecified organism (4) Acute respiratory failure Status: Acute Assessment and plan: Patient was struggling especially with upper airway symptoms and required intubation last night. At bronchoscopy earlier in the day yesterday there were no abnormalities in the upper airway. Likely she had some thick secretions that caused this. We will keep these suctioned out. Pneumonia is the primary cause of the respiratory failure. 02/21/17 ABGs look much better. She has a metabolic alkalosis. Will add Diamox for 3 days. 02/22/2017 ABGs improved. Still has a mild metabolic alkalosis. Will check mechanics today to see if extubation is a possibility. 02/23/2017 ABGs look good. Tolerating CPAP. Only concern is far as getting her extubated is that her right lower lobe looks a little worse on x-ray today. Will bronchoscope and clean her out before we do CPAP 02/24/2017 patient extubated this morning. Hopefully she can defend her airway. She has some dementia but is able to respond to questions fairly well. 02/27/2017 patient had to be reintubated. Not able to defend her airway. 02/28/2017 ABGs look good. Her mental status is such that I would expect her to be able to control her airway. Will try again to get her extubated today 03/01/2017 again ABGs look good but mechanics not up to par for extubation yet. She would not be able to defend her airway, just as we saw Monday. 03/02/2017 ABGs look good. She does have a metabolic alkalosis. Will give Diamox for 3 days again. 03/03/2017 ABGs good. Tolerating CPAP. Report cough and inadequate negative inspiratory force. Tracheostomy is planned. Will be long-term weaning, and plans are to go to LTAC next week. 03/06/2017 PCO2 is a little low. Will reduce IMV rate. Continue weaning trial 03/07/2017 making good progress with weaning. Tolerated fairly long trach collar overnight. 03/08/2017 ABGs look good on trach collar. Hopefully we can keep her trach collar home full-time. Then began to downsize tracheostomy in a few days. 03/09/2017 PCO2 down a little bit. Patient comfortable on trach collar. Continue to stretch out times on trach collar 03/10/2017 tolerating trach collar. Can increase times on that. Current Visit: Yes Qualifiers: Respiratory failure complication: hypoxia Qualified Code(s): J96.01 - Acute respiratory failure with hypoxia Specialty Discharge - Follow Up or Referrals
[2017-03-10] MEDS: FLUCONAZOLE 40 MG/ML 35 ML/BOTTLE PO SCH (09:33)
[2017-03-10] MEDS: FUROSEMIDE 40 MG/4 ML VIAL IV SCH (09:34)
[2017-03-10] MEDS: MULTIVITAMIN LIQUID (CENTRUM) 60 ML BOTTLE PO SCH (09:34)
[2017-03-10] MEDS: METOPROLOL TARTRATE 50 MG TABLET PER TUBE SCH ×2 (09:36→20:07)
[2017-03-10] MEDS: AMIODARONE 200 MG TABLET PO SCH ×2 (09:37→20:07)
[2017-03-10] MEDS: PANTOPRAZOLE 40 MG VIAL IV SCH (09:37)
[2017-03-10] MEDS: GABAPENTIN 50 MG/ML 30 ML/BOTTLE NG SCH (12:36)
[2017-03-10] MEDS: HYDROcod/ACETAMIN 7.5-325 MG/15 ML UDCUP PO PRN ×2 (13:38→18:12)
--- NOTE | 2017-03-10 14:40 | Hospitalist Progress Note ---
Assessment and Plan (1) Pneumonia Status: Acute Assessment and plan: The patient continues on trach collar and antibiotics for treatment of pneumonia. The atrial fibrillation is anticoagulated with Coumadin and amiodarone to maintain controlled response. The patient's INR is supratherapeutic today and her Coumadin dose has been held for today and reduced to begin tomorrow. The patient's tracheostomy is postoperative day #6. Dr. Hernandez believes she could go to [facility] when arrangements are complete. Current Visit: Yes Qualifiers: Pneumonia type: due to unspecified organism Laterality: right Lung location: lower lobe of lung Qualified Code(s): J18.1 - Lobar pneumonia, unspecified organism (2) History of atrial fibrillation Status: Chronic Current Visit: No (3) Anticoagulated on Coumadin Status: Chronic Current Visit: No (4) Acute respiratory failure Status: Acute Current Visit: Yes Qualifiers: Respiratory failure complication: hypoxia Qualified Code(s): J96.01 - Acute respiratory failure with hypoxia Hospitalist: Subjective Interval history: The patient is presently breathing with trach collar. The patient was tired yesterday and required ventilation for the majority of the day but feels stronger today. I coordinated care with Dr. Hernandez. I reviewed case management notes. We are attempting to preserve the patient for transfer to [facility]. Exam - Constitutional Vitals: Period Temp Pulse Resp BP Sys/Cox Pulse Ox Last 24 Hr 97.4 F-98.7 F 91-120 13-32 94-155/57-99 94-100 Exam: Constitutional System: Mild distress. No tremulousness. The patient is intubated via tracheostomy. She is breathing comfortably on trach collar at this time Head: Normocephalic, atraumatic. Ears, Nose and Throat System: No evidence of Otitis or Mastoiditis. No epistaxis or discharge. The patient is tolerating tube feeding per NG tube at goal rate. Eyes System: Pupils equal, round, and reactive. Extraocular muscles intact. Neck: Supple, without adenopathy, No jugular venous distention. No thyromegaly , neck mass, or prior surgery apparent. Respiratory System: Chest upper airway congestion to auscultation. Cardiovascular System: Heart with regular rate and rhythm. No murmur. GI System: Abdomen soft, nontender. Normo active bowel sounds present. Musculoskeletal System: limbs with no pedal edema. Full distal pulses. Results - Labs CBC & BMP: 03/10/17 05:28 03/10/17 05:28 Lab Results: I have reviewed the past 24 hour labs Specialty Discharge - Follow Up or Referrals
[2017-03-10] MEDS: DESITIN 4OZ/NYSTATIN 15 GRAM MIXTURE PASTE TOP SCH ×2 (16:01→20:09)
[2017-03-10] MEDS: WARFARIN 3 MG TABLET PO SCH (18:12)
[2017-03-11] MEDS: INSULIN REGULAR 100 UNIT/ML SUBCUT SCH ×4 (00:49→18:39)
[2017-03-11] MEDS: guaiFENesin 200 MG/10 ML UDCUP PO SCH ×4 (03:31→20:15)
[2017-03-11] MEDS: HYDROcod/ACETAMIN 7.5-325 MG/15 ML UDCUP PO PRN ×3 (03:31→23:03)
[2017-03-11 04:26] LABS: ABG Base Excess 7.7 MMOL/L (-2.5-2.5); ABG HCO3 31.4 MMOL/L (20-26); ABG Oxygen Saturation 97.4 % (95-100); ABG PCO2 51.7 MM HG (35-48); ABG PH 7.423 (7.35-7.45); ABG PO2 95.8 MM HG (80-95); ABG TCO2 29.4 MMOL/L (23-27)
[2017-03-11 04:43] LABS: Basophils # 0.1 10*3/uL (0.0-0.2); Basophils % 0.3 % (0.0-0.8); Hematocrit 38.8 VOL% (35.7-47.0); Hemoglobin 12.7 GM/DL (12.0-16.0); Immature Granulocytes % 2.4 %; Immature Granulocytes Absolute 0.54 #; Lymphocytes # 1.6 10*3/uL (1.4-4.0); Lymphocytes % 6.8 % (21.3-54.2); Mean Corpuscular HGB Conc 32.7 GM/DL (32-36); Mean Corpuscular Hemoglobin 30 PG (27-34); Mean Corpuscular Volume 92.4 FL (87-102); Monocytes # 0.8 10*3/uL (0.11-0.8); Monocytes % 3.5 % (1.7-12.7); Neutrophils # 19.8 10*3/uL (1.4-7.4); Platelet Count 128 T/CUMM (130-400); Red Cell Distribution Width 14.6 % (9.3-17.3); White Blood Count 22.7 T/CUMM (4-12)
[2017-03-11 05:15] LABS: Calcium 8.7 MG/DL (8.5-10.1); Magnesium 2.2 MG/DL (1.8-2.4); Osmolality,Calculated 293.3 MOS/KG (273-304); Potassium 4.3 MMOL/L (3.5-5.1)
[2017-03-11 05:25] LABS: INR 2.5
[2017-03-11 05:33] LABS: PT Patient Result 28.6 SECS
[2017-03-11 05:38] LABS: Lymphocytes 7 % (20-55); Metamyelocytes 1 %; Platelet Estimate Decreased; Segmented Neutrophils 90 % (50-85); Total Cells Counted 100
[2017-03-11] MEDS: methylPREDNISolone SOD SUC 40 MG/1 ML VIAL IV SCH ×2 (06:34→18:35)
--- NOTE | 2017-03-11 06:36 | Cardiology Progress Note ---
Cardiology - PN: Subj Interval history: Cardiology note 81-year-old woman status post tracheostomy March 03 for pneumonia and respiratory failure. Also has recurrent atrial fibrillation. She completed 12 hours of trach collar yesterday and 6 more hours trach collar during the night. Telemetry shows atrial fib ventricular rate around 100 Blood pressure 110/70 O2 sat 94% on 40% FiO2 Alert and responsive. Irregular rhythm with systolic murmur as before Decreased breath sounds few rhonchi in the bases Benign abdomen No leg edema Lab data today White count 22.7 hemoglobin 12.7 hematocrit 38.8 Sodium 141 potassium 4.3 chloride 99 CO2 36 BUN 41 creatinine 0.40 glucose 157 INR today 2.5 Impression Status post tracheostomy March 03 Pneumonia Recurrent paroxysmal atrial fibrillation Hypertension Patent coronaries and normal EF by cath October 04, 2009 Chronic anticoagulation Echo February 25, 2017 ejection fraction 60% with mild to moderate MR, 1+ AI, severe TR PA pressure 67 Debility Plan Tube feedings Trach collar trials 40 mg Lasix IV daily Amiodarone 200 mg twice daily Metoprolol 50 mg twice daily Coumadin 3 mg daily Exam (Progress Note) - Constitutional Vitals: Period Temp Pulse Resp BP Sys/Cox Pulse Ox Last 24 Hr 97.2 F-98.4 F 90-124 15-32 98-143/55-106 92-98 Result/EKG - Labs CBC & BMP: 03/11/17 04:12 03/11/17 04:12 Labs: Laboratory Results - last 24 hr 03/10/17 03/10/17 03/11/17 12:11 17:31 00:08 WBC RBC Hgb Hct MCV MCH MCHC RDW Plt Count MPV Neut % (Auto) Lymph % (Auto) Harris % (Auto) Eos % (Auto) Baso % (Auto) Neut # (Auto) Lymph # (Auto) Harris # (Auto) Eos # (Auto) Baso # (Auto) Total Counted Immature Gran % Nucleated RBC % Immature Gran # Segmented Neutrophils Lymphocytes Monocytes Metamyelocytes Nucleated RBCs # Platelet Estimate INR PT Patient/Control Mix ABG pH ABG pCO2 ABG pO2 ABG HCO3 ABG Total CO2 ABG O2 Saturation ABG Base Excess Sodium Potassium Chloride Carbon Dioxide Anion Gap BUN Creatinine GFR Calculation BUN/Creatinine Ratio Glucose POC Glucose 206 H 168 H 184 H Calculated Osmolality Calcium Magnesium 03/11/17 03/11/17 03/11/17 04:00 04:12 04:12 WBC 22.7 H RBC 4.20 Hgb 12.7 Hct 38.8 MCV 92.4 MCH 30 MCHC 32.7 RDW 14.6 Plt Count 128 L MPV 12.0 Neut % (Auto) 87.0 H Lymph % (Auto) 6.8 L Harris % (Auto) 3.5 Eos % (Auto) 0.0 Baso % (Auto) 0.3 Neut # (Auto) 19.8 H Lymph # (Auto) 1.6 Harris # (Auto) 0.8 Eos # (Auto) 0.0 Baso # (Auto) 0.1 Total Counted 100 Immature Gran % 2.4 Nucleated RBC % 0.0 Immature Gran # 0.54 Segmented Neutrophils 90 H Lymphocytes 7 L Monocytes 2 Metamyelocytes 1 Nucleated RBCs # 0.00 Platelet Estimate Decreased INR PT Patient/Control Mix ABG pH 7.423 ABG pCO2 51.7 H ABG pO2 95.8 H ABG HCO3 31.4 H ABG Total CO2 29.4 H ABG O2 Saturation 97.4 ABG Base Excess 7.7 H Sodium 141 Potassium 4.3 Chloride 99 Carbon Dioxide 36 H Anion Gap 10.3 BUN 41 H Creatinine 0.40 L GFR Calculation 107 BUN/Creatinine Ratio 102.00 H Glucose 157 H POC Glucose Calculated Osmolality 293.3 Calcium 8.7 Magnesium 2.2 03/11/17 03/11/17 04:53 05:56 WBC RBC Hgb Hct MCV MCH MCHC RDW Plt Count MPV Neut % (Auto) Lymph % (Auto) Harris % (Auto) Eos % (Auto) Baso % (Auto) Neut # (Auto) Lymph # (Auto) Harris # (Auto) Eos # (Auto) Baso # (Auto) Total Counted Immature Gran % Nucleated RBC % Immature Gran # Segmented Neutrophils Lymphocytes Monocytes Metamyelocytes Nucleated RBCs # Platelet Estimate INR 2.5 PT Patient/Control Mix 28.6 ABG pH ABG pCO2 ABG pO2 ABG HCO3 ABG Total CO2 ABG O2 Saturation ABG Base Excess Sodium Potassium Chloride Carbon Dioxide Anion Gap BUN Creatinine GFR Calculation BUN/Creatinine Ratio Glucose POC Glucose 159 H Calculated Osmolality Calcium Magnesium Specialty Discharge - Follow Up or Referrals
[2017-03-11] MEDS: LEVALBUTEROL 1.25 MG/3 ML NEB RESP TX SCH ×3 (08:18→23:29)
--- NOTE | 2017-03-11 08:37 | XRay Report ---
History: Shortness of breath Date: 03/11/2017 Study: Chest x-ray AP portable Comparison exam: 03/10/2017 The supporting tubes are unchanged. There is continued cardiomegaly. The mediastinal contours are unchanged. There is patchy and hazy pulmonary edema/infiltrate scattered throughout both lungs, more so mid to inferior. These changes are grossly similar. There is probable mild bilateral pleural effusion as before. Respiratory motion artifact. Osseous structures are unchanged. Impression: No gross overall change from the previous study. Respiratory motion artifact PROCEDURE INTERPRETED AT [facility] DEPARTMENT OF RADIOLOGY Final Report Signed by: Dr. Reyna Martins
--- NOTE | 2017-03-11 08:59 | Pulmonology Progress Note ---
Pulmonary - PN: Subj Interval history: This is a 81-year-old female whom I am seeing for Dr. lizeth Hernandez. This patient has had recurrent aspiration pneumonia. She is on CPAP trials. She is requiring antibiotics and other IV meds. She is running out of sites and she will need either a central venous line or PICC line she appears to have been turned down for long-term acute care. She has been on anticoagulants and a PEG tube was not placed but there is a good chance she is going to need one now. We will continue with her weaning trials. She has a trach and her goal is to get to a trach collar full-time. She is also going to need swallowing evaluation. Chest x-ray. Cardiomegaly. Severe kyphosis. Elevated right hemidiaphragm and left hemidiaphragm. There may be a small amount of bibasilar pleural effusion. Infiltrate is another possibility. This is a very difficult to read chest x- ray. ABGs. PH 7.42, PCO2 is 52 PO2 is 96 and bicarb is 31.1. White count remains elevated 22,700. H&H and platelets are stable electrolytes are normal. Creatinine is 0.4 with a BUN of 41. Magnesium is 2.2. INR is 2.5 Bronchial washings grew Qi and albicans. Previous some urine cultures were positive for E. coli on 02/17/2017. Physical exam. Vital signs. See below. Neck symmetrical kyphotic no meningismus. Chest. Loose large airway congestion Heart. Far lateral PMI Abdomen. Rare bowel sounds Extremities. No obvious deep venous thrombophlebitis Psychiatric, neurologic are impossible. Remainder the physical exam is noncontributory Plan. 1. Ventilator weaning protocol 2. Physical therapy protocol 3. Consider PEG 4. No change in order Exam (Progress Note) - Constitutional Vitals: Period Temp Pulse Resp BP Sys/Cox Pulse Ox Last 24 Hr 97.2 F-97.9 F 90-120 15-32 98-151/55-106 92-98 Results - Labs CBC & BMP: 03/11/17 04:12 03/11/17 04:12 Specialty Discharge - Follow Up or Referrals
--- NOTE | 2017-03-11 09:08 | Hospitalist Progress Note ---
Assessment and Plan (1) Hypertension Status: Chronic Current Visit: No Qualifiers: Hypertension type: essential hypertension Qualified Code(s): I10 - Essential (primary) hypertension (2) Debility Status: Chronic Current Visit: Yes (3) Pneumonia Status: Acute Assessment and plan: Broad-spectrum antibiotics. Current Visit: Yes Qualifiers: Pneumonia type: due to unspecified organism Laterality: right Lung location: lower lobe of lung Qualified Code(s): J18.1 - Lobar pneumonia, unspecified organism (4) Acute respiratory failure Status: Chronic Assessment and plan: Continue with ventilation. Trach collar. Doing trach collar trials. Current Visit: Yes Qualifiers: Respiratory failure complication: hypoxia Qualified Code(s): J96.01 - Acute respiratory failure with hypoxia Hospitalist: Subjective Interval history: The patient is resting. She was able to tolerate her trach collar weaning trials. She is awake and will shake her head yes or no questions. No other acute changes at this time. Exam - Constitutional Vitals: Period Temp Pulse Resp BP Sys/Cox Pulse Ox Last 24 Hr 97.2 F-97.9 F 90-120 15-32 98-151/55-106 92-98 - ENT ENT exam: Present: normal exam - Neck Neck exam: Present: other (Trach to) - Respiratory Respiratory exam: Present: clear to auscultation bilaterally - Cardiovascular Cardiovascular exam: Present: irregular rhythm - GI/Abdominal GI/Abdominal exam: Present: normal bowel sounds - Extremities Exam Extremities exam: Present: normal inspection - Neurological Exam Neurological exam: Present: alert - Skin Skin exam: Present: normal color Results - Labs CBC & BMP: 03/11/17 04:12 03/11/17 04:12 Specialty Discharge - Follow Up or Referrals
[2017-03-11] MEDS: MULTIVITAMIN LIQUID (CENTRUM) 60 ML BOTTLE PO SCH (10:10)
[2017-03-11] MEDS: AMIODARONE 200 MG TABLET PO SCH ×2 (10:11→20:17)
[2017-03-11] MEDS: FLUCONAZOLE 40 MG/ML 35 ML/BOTTLE PO SCH (10:11)
[2017-03-11] MEDS: METOPROLOL TARTRATE 50 MG TABLET PER TUBE SCH ×2 (10:11→20:16)
[2017-03-11] MEDS: FUROSEMIDE 40 MG/4 ML VIAL IV SCH (10:13)
[2017-03-11] MEDS: PANTOPRAZOLE 40 MG VIAL IV SCH (10:14)
[2017-03-11] MEDS: DESITIN 4OZ/NYSTATIN 15 GRAM MIXTURE PASTE TOP SCH ×2 (10:14→20:17)
[2017-03-11] MEDS: GABAPENTIN 50 MG/ML 30 ML/BOTTLE NG SCH (17:17)
[2017-03-11] MEDS: WARFARIN 3 MG TABLET PO SCH (17:18)
[2017-03-12] MEDS: INSULIN REGULAR 100 UNIT/ML SUBCUT SCH ×4 (00:27→18:24)
[2017-03-12] MEDS: guaiFENesin 200 MG/10 ML UDCUP PO SCH ×4 (03:00→20:20)
[2017-03-12 04:15] LABS: Basophils % 0.1 % (0.0-0.8); Hematocrit 35.6 VOL% (35.7-47.0); Hemoglobin 11.8 GM/DL (12.0-16.0); Immature Granulocytes % 2.7 %; Lymphocytes # 1.1 10*3/uL (1.4-4.0); Lymphocytes % 5.7 % (21.3-54.2); Mean Corpuscular HGB Conc 33.1 GM/DL (32-36); Mean Corpuscular Hemoglobin 31 PG (27-34); Mean Corpuscular Volume 92.7 FL (87-102); Mean Platelet Volume 11.8 FL (9.6-12.0); Monocytes # 0.5 10*3/uL (0.11-0.8); Monocytes % 2.7 % (1.7-12.7); Neutrophils # 16.3 10*3/uL (1.4-7.4); Neutrophils % 88.8 % (38.7-73.9); Red Blood Count 3.84 MC/CUMM (3.8-5.5); Red Cell Distribution Width 14.6 % (9.3-17.3); White Blood Count 18.4 T/CUMM (4-12)
[2017-03-12 04:18] LABS: Platelet Count 99 T/CUMM (130-400)
[2017-03-12 04:51] LABS: Calcium 8.8 MG/DL (8.5-10.1); Osmolality,Calculated 289.5 MOS/KG (273-304); Potassium 3.9 MMOL/L (3.5-5.1)
[2017-03-12 05:20] LABS: ABG Base Excess 8.4 MMOL/L (-2.5-2.5); ABG HCO3 32.1 MMOL/L (20-26); ABG Oxygen Saturation 93.8 % (95-100); ABG PH 7.423 (7.35-7.45); ABG PO2 68.5 MM HG (80-95); ABG TCO2 30.6 MMOL/L (23-27); Allen Test Positive; Pt O2 Delivery Device Other
[2017-03-12] MEDS: methylPREDNISolone SOD SUC 40 MG/1 ML VIAL IV SCH ×2 (06:02→18:22)
[2017-03-12 06:35] LABS: Hypochromasia 1+; Lymphocytes 5 % (20-55); Ovalocytes Slight; Platelet Estimate Decreased; Segmented Neutrophils 93 % (50-85); Total Cells Counted 100
--- NOTE | 2017-03-12 07:19 | Cardiology Progress Note ---
Cardiology - PN: Subj Interval history: Cardiology note 81-year-old woman status post tracheostomy March 03 for pneumonia and respiratory failure. Also has recurrent atrial fibrillation. She completed 16 hours of trach collar yesterday Telemetry shows atrial fib ventricular rate around 110 Blood pressure 130/90 O2 sat 96% on 40% FiO2. Alert and cooperative. Irregular rhythm with systolic murmur as before decreased breath sounds with basilar rhonchi no wheezing Abdomen nontender No leg edema Lab data today White count 18.4 hemoglobin 11.8 hematocrit 35.6 Sodium 139 potassium 3.9 chloride 99 CO2 37 BUN 41 creatinine 0.30 glucose 158 Impression Status post tracheostomy March 03 Pneumonia Recurrent paroxysmal atrial fibrillation Hypertension Patent coronaries and normal EF by cath September 2009 Chronic anticoagulation Echo February 25, 2017 ejection fraction 60% with mild to moderate MR, 1+ AI, severe TR PA pressure 67 Debility Plan Increase metoprolol 100 mg twice daily Continue amiodarone 200 mg twice daily Trach collar trials tube feedings Coumadin 3 mg daily Pro time/INR a.m. Exam (Progress Note) - Constitutional Vitals: Period Temp Pulse Resp BP Sys/Cox Pulse Ox Last 24 Hr 97.6 F-97.9 F 95-122 15-30 121-159/74-112 40-100 Result/EKG - Labs CBC & BMP: 03/12/17 04:07 03/12/17 04:07 Labs: Laboratory Results - last 24 hr 03/11/17 03/11/17 03/12/17 11:34 17:44 00:17 WBC RBC Hgb Hct MCV MCH MCHC RDW Plt Count MPV Neut % (Auto) Lymph % (Auto) Phelps % (Auto) Eos % (Auto) Baso % (Auto) Neut # (Auto) Lymph # (Auto) Phelps # (Auto) Eos # (Auto) Baso # (Auto) Total Counted Immature Gran % Nucleated RBC % Immature Gran # Segmented Neutrophils Lymphocytes Monocytes Nucleated RBCs # Platelet Estimate Hypochromasia Ovalocytes Morphology Comment ABG pH ABG pCO2 ABG pO2 ABG HCO3 ABG Total CO2 ABG O2 Saturation ABG Base Excess FiO2 Sodium Potassium Chloride Carbon Dioxide Anion Gap BUN Creatinine GFR Calculation BUN/Creatinine Ratio Glucose POC Glucose 184 H 155 H 185 H Calculated Osmolality Calcium 03/12/17 03/12/17 03/12/17 04:07 04:07 05:15 WBC 18.4 H RBC 3.84 Hgb 11.8 L Hct 35.6 L MCV 92.7 MCH 31 MCHC 33.1 RDW 14.6 Plt Count 99 L D MPV 11.8 Neut % (Auto) 88.8 H Lymph % (Auto) 5.7 L Phelps % (Auto) 2.7 Eos % (Auto) 0.0 Baso % (Auto) 0.1 Neut # (Auto) 16.3 H Lymph # (Auto) 1.1 L Phelps # (Auto) 0.5 Eos # (Auto) 0.0 Baso # (Auto) 0.0 Total Counted 100 Immature Gran % 2.7 Nucleated RBC % 0.0 Immature Gran # 0.50 Segmented Neutrophils 93 H Lymphocytes 5 L Monocytes 2 Nucleated RBCs # 0.00 Platelet Estimate Decreased Hypochromasia 1+ Ovalocytes Slight Morphology Comment ABG pH 7.423 ABG pCO2 53.0 H ABG pO2 68.5 L ABG HCO3 32.1 H ABG Total CO2 30.6 H ABG O2 Saturation 93.8 L ABG Base Excess 8.4 H FiO2 60.00 Sodium 139 Potassium 3.9 Chloride 99 Carbon Dioxide 37 H Anion Gap 6.9 BUN 41 H Creatinine 0.30 L GFR Calculation 118 BUN/Creatinine Ratio 136.00 H Glucose 158 H POC Glucose Calculated Osmolality 289.5 Calcium 8.8 03/12/17 05:45 WBC RBC Hgb Hct MCV MCH MCHC RDW Plt Count MPV Neut % (Auto) Lymph % (Auto) Phelps % (Auto) Eos % (Auto) Baso % (Auto) Neut # (Auto) Lymph # (Auto) Phelps # (Auto) Eos # (Auto) Baso # (Auto) Total Counted Immature Gran % Nucleated RBC % Immature Gran # Segmented Neutrophils Lymphocytes Monocytes Nucleated RBCs # Platelet Estimate Hypochromasia Ovalocytes Morphology Comment ABG pH ABG pCO2 ABG pO2 ABG HCO3 ABG Total CO2 ABG O2 Saturation ABG Base Excess FiO2 Sodium Potassium Chloride Carbon Dioxide Anion Gap BUN Creatinine GFR Calculation BUN/Creatinine Ratio Glucose POC Glucose 189 H Calculated Osmolality Calcium Specialty Discharge - Follow Up or Referrals
[2017-03-12] MEDS: LEVALBUTEROL 1.25 MG/3 ML NEB RESP TX SCH ×3 (08:16→23:55)
[2017-03-12] MEDS: METOPROLOL TARTRATE 100 MG TABLET PO SCH ×2 (08:35→20:20)
[2017-03-12] MEDS ORDERED: POTASSIUM CHLORIDE RIDER 100 ML IV ONE (08:35)
[2017-03-12] MEDS: AMIODARONE 200 MG TABLET PO SCH ×2 (08:36→20:21)
[2017-03-12] MEDS: FLUCONAZOLE 40 MG/ML 35 ML/BOTTLE PO SCH (08:36)
[2017-03-12] MEDS: MULTIVITAMIN LIQUID (CENTRUM) 60 ML BOTTLE PO SCH (08:37)
--- NOTE | 2017-03-12 08:37 | Hospitalist Progress Note ---
Assessment and Plan (1) Hypertension Status: Chronic Current Visit: No Qualifiers: Hypertension type: essential hypertension Qualified Code(s): I10 - Essential (primary) hypertension (2) Debility Status: Chronic Current Visit: Yes (3) Pneumonia Status: Acute Assessment and plan: Broad-spectrum antibiotics. Current Visit: Yes Qualifiers: Pneumonia type: due to unspecified organism Laterality: right Lung location: lower lobe of lung Qualified Code(s): J18.1 - Lobar pneumonia, unspecified organism (4) Acute respiratory failure Status: Chronic Assessment and plan: Continue with ventilation. Trach collar. Doing trach collar trials. Current Visit: Yes Qualifiers: Respiratory failure complication: hypoxia Qualified Code(s): J96.01 - Acute respiratory failure with hypoxia Hospitalist: Subjective Interval history: The patient is resting. Has been doing trach collar trials for extensive periods of time. When asked about how she is feeling she shrugs her shoulders. No fevers or chills. Metabolic panel is stable. Exam - Constitutional Vitals: Period Temp Pulse Resp BP Sys/Cox Pulse Ox Last 24 Hr 97.6 F-97.9 F 95-122 15-30 121-159/74-112 90-100 General appearance: normal weight - Head Head exam: Present: normal inspection - Eye Pupils: Present: CHERELLE - ENT ENT exam: Present: normal exam - Neck Neck exam: Present: normal inspection, other (Trach collar in place) - Respiratory Respiratory exam: Present: clear to auscultation bilaterally - Cardiovascular Cardiovascular exam: Present: irregular rhythm, tachycardia - GI/Abdominal GI/Abdominal exam: Present: normal bowel sounds - Extremities Exam Extremities exam: Present: normal inspection - Neurological Exam Neurological exam: Present: alert - Psychiatric Psychiatric exam: Present: normal affect, normal mood, other (Appears more fatigued today.) - Skin Skin exam: Present: normal color, warm Results - Labs CBC & BMP: 03/12/17 04:07 03/12/17 04:07 Specialty Discharge - Follow Up or Referrals
[2017-03-12] MEDS: PANTOPRAZOLE 40 MG VIAL IV SCH (08:38)
[2017-03-12] MEDS: FUROSEMIDE 40 MG/4 ML VIAL IV SCH (08:38)
[2017-03-12] MEDS: HYDROcod/ACETAMIN 7.5-325 MG/15 ML UDCUP PO PRN ×2 (08:39→18:24)
[2017-03-12] MEDS: POTASSIUM CHLORIDE RIDER 20 MEQ in PREMIX 1 EACH IV PRN (08:44)
[2017-03-12] MEDS: DESITIN 4OZ/NYSTATIN 15 GRAM MIXTURE PASTE TOP SCH ×2 (08:59→20:21)
--- NOTE | 2017-03-12 09:43 | XRay Report ---
History: Shortness of breath Date: 03/12/2017 Study: Chest x-ray AP portable Comparison exam: 03/11/2017 The supporting tubes are unchanged. There is continued cardiomegaly. The mediastinal contours are stable. There is continued patchy and hazy edema/infiltrate throughout both lungs. These changes are grossly similar. There is mild to moderate bilateral pleural effusion which is likely unchanged. Osseous structures are similar. Impression: No gross change from the previous study. Continued bilateral pulmonary edema/infiltrate and bilateral pleural effusion as before PROCEDURE INTERPRETED AT [facility] DEPARTMENT OF RADIOLOGY Final Report Signed by: Dr. Reyna Martins
--- NOTE | 2017-03-12 12:34 | Pulmonology Progress Note ---
Pulmonary - PN: Subj Interval history: This is a 81-year-old female whom I am seeing for Dr. lizeth Hernandez. This patient has had recurrent aspiration pneumonia. She is on CPAP trials. She is requiring antibiotics and other IV meds. She is running out of sites and she will need either a central venous line or PICC line she appears to have been turned down for long-term acute care. She has been on anticoagulants and a PEG tube was not placed but there is a good chance she is going to need one now. We will continue with her weaning trials. She has a trach and her goal is to get to a trach collar full-time. She is also going to need swallowing evaluation. Chest x-ray. Cardiomegaly. Severe kyphosis. Elevated right hemidiaphragm and left hemidiaphragm. There may be a small amount of bibasilar pleural effusion. Infiltrate is another possibility. This is a very difficult to read chest x- ray. ABGs. PH 7.42, PCO2 is 52 PO2 is 96 and bicarb is 31.1. White count remains elevated 22,700. H&H and platelets are stable electrolytes are normal. Creatinine is 0.4 with a BUN of 41. Magnesium is 2.2. INR is 2.5 Bronchial washings grew Qi and albicans. Previous some urine cultures were positive for E. coli on 02/17/2017. 03/12/2017. Patient was able to do trach collar for 10-1/2 hours yesterday. Her chest x-ray shows elevation of both hemidiaphragms. She appears to have some pleural effusion on the right. Cardiomegaly is present. Because the patient's body habitus is impossible to obtain a very good film on her despite best efforts of radiology. ABGs on FiO2 of 60% mechanical ventilation shows a pH 7.23, PCO2 of 53, PO2 68.5 and a bicarb 32. Electrolytes are normal. Creatinine is 0.3 with a BUN of 41. White count is dropped 18,400 with 89 segs. H&H 11.8 with 35.6 and platelets have dropped to 99,000. There are no new microbiology reports. Patient's on making steady progress. There were no new problems. Physical exam. Vital signs. See below. Neck symmetrical kyphotic no meningismus. Chest. Loose large airway congestion Heart. Far lateral PMI Abdomen. Rare bowel sounds Extremities. No obvious deep venous thrombophlebitis Psychiatric, neurologic are impossible. Remainder the physical exam is noncontributory Plan. 03/11/2007 1. Ventilator weaning protocol 2. Physical therapy protocol 3. Consider PEG 4. No change in order 03/12/2017. 1. See my note above. 2. Dr. Hernandez will take over tomorrow Exam (Progress Note) - Constitutional Vitals: Period Temp Pulse Resp BP Sys/Cox Pulse Ox Last 24 Hr 97.2 F-97.9 F 95-122 14-30 121-159/74-121 90-100 Results - Labs CBC & BMP: 03/12/17 04:07 03/12/17 04:07 Specialty Discharge - Follow Up or Referrals
[2017-03-12] MEDS: GABAPENTIN 50 MG/ML 30 ML/BOTTLE NG SCH (13:09)
[2017-03-12] MEDS: WARFARIN 3 MG TABLET PO SCH ×2 (16:55→18:23)
[2017-03-13] MEDS: INSULIN REGULAR 100 UNIT/ML SUBCUT SCH ×4 (00:12→18:22)
[2017-03-13] MEDS: guaiFENesin 200 MG/10 ML UDCUP PO SCH ×4 (03:11→21:29)
[2017-03-13 03:57] LABS: Allen Test Positive; Pt O2 Delivery Device Other
[2017-03-13 04:01] LABS: ABG Base Excess 8.7 MMOL/L (-2.5-2.5); ABG HCO3 32.5 MMOL/L (20-26); ABG Oxygen Saturation 97.6 % (95-100); ABG PCO2 53.9 MM HG (35-48); ABG PH 7.421 (7.35-7.45); ABG PO2 95.7 MM HG (80-95); ABG TCO2 30.9 MMOL/L (23-27)
[2017-03-13 05:09] LABS: Basophils % 0.2 % (0.0-0.8); Hematocrit 37.4 VOL% (35.7-47.0); Hemoglobin 12.4 GM/DL (12.0-16.0); Immature Granulocytes % 2.5 %; Immature Granulocytes Absolute 0.49 #; Lymphocytes # 1.2 10*3/uL (1.4-4.0); Mean Corpuscular HGB Conc 33.2 GM/DL (32-36); Mean Corpuscular Hemoglobin 31 PG (27-34); Mean Corpuscular Volume 93.3 FL (87-102); Monocytes # 0.6 10*3/uL (0.11-0.8); Neutrophils # 17.4 10*3/uL (1.4-7.4); Neutrophils % 88.3 % (38.7-73.9); Platelet Count 102 T/CUMM (130-400); Red Blood Count 4.01 MC/CUMM (3.8-5.5); Red Cell Distribution Width 14.5 % (9.3-17.3); White Blood Count 19.7 T/CUMM (4-12)
[2017-03-13 05:34] LABS: INR 4.7
[2017-03-13 05:35] LABS: PT Patient Result 55.5 SECS
[2017-03-13 05:41] LABS: Calcium 8.3 MG/DL (8.5-10.1); Osmolality,Calculated 293.5 MOS/KG (273-304); Potassium 4.4 MMOL/L (3.5-5.1)
[2017-03-13 05:56] LABS: Magnesium 2.2 MG/DL (1.8-2.4); Phosphorous 2.5 MG/DL (2.5-4.9)
[2017-03-13] MEDS: methylPREDNISolone SOD SUC 40 MG/1 ML VIAL IV SCH ×2 (06:09→18:23)
--- NOTE | 2017-03-13 06:58 | Pulmonology Progress Note ---
Pulmonary - PN: Subj Interval history: Patient had worsening respiratory distress last night and was intubated by Dr. Contreras. At present she is sedated and on the ventilator but her mental status is good when sedation is held. We had wanted to evaluate swallowing but we will have to wait until we wean her off the ventilator. Concerned that she has a neurologic process. ABGs look good this morning. Will reduce settings. She has bilateral infiltrates on x-ray. Will take several days of antibiotics before we would be able to wean. 02/21/2017 ABGs are improved. Chest x-ray is pending. Will start weaning today. Patient with pneumonia and that is likely aspiration. Continuing broad- spectrum antibiotics. Cultures negative thus far from bronchial washings. 02/22/2017 again ABGs look better. Patient starting to do CPAP's. Seems to be responsive during those times when sedation is held. She does have some dementia and apparent aspiration. Bronchial washing cultures have been negative. Continuing empiric antibiotics. Will check mechanics and ABGs on CPAP today to see if we could possibly extubate. 02/23/2017 patient doing well with CPAP. ABGs look good. Chest x-ray still shows some lower lobe infiltrates. Worse on the right than left. Patient is alert calm and nodding to questions. Will check mechanics and ABGs on CPAP. If she does okay which should be able to get her extubated. 02/24/2017 she has done well with T-tube trial this morning. ABGs acceptable. Still has some right lower lobe infiltrate. Will extubate this morning. Mental status seems pretty good hopefully can defend her airway. She does have some dementia. 02/27/2017 patient was off the ventilator for a day but had to be reintubated 2 days ago because she was unable to clear her secretions. She is done well with CPAP since then. Will continue with weaning trial for now. May need to consider tracheostomy. PT/INR is hyperinflated. Holding Coumadin 02/28/2017 patient did prolonged CPAP trials. She is alert and answering questions squeezing fingers on command. Should be able to manage her airway extubated. Will check mechanics and ABGs on CPAP this morning. If she clearly is above excepted levels then we will extubate her. If she does not tolerate that then we would need to go ahead and plan tracheostomy. Her PT/INR is 5.2. Coumadin has been held. She is on medication that potentiated sections however. I will give her a low-dose of vitamin K. She is on that for paroxysmal atrial fibrillation. Normal sinus rhythm at present. 03/01/2017 patient again is doing well with prolonged CPAP trials. However her mechanics are quite poor. For now we will continue with CPAP trials. Will very likely need a tracheostomy if we do not see significant improvement in the next couple of days. Her PT INR remains hyper prolonged. Will repeat AquaMEPHYTON. Agree with evaluation for LTAC placement. 03/02/2017 PT/INR is down to 1.9 today. Will still need a little more fresh frozen plasma and/or vitamin K to prepare for tracheostomy. It appears likely that it will be next week that she gets the tracheostomy. We will continue weaning trials in the meantime. She is tolerating them well but her mechanics indicate that she does not have a strong enough cough to clear her airway if extubated now. Definitely think it would be safer for tracheostomy in order to get her weaned. 03/03/2017 INR is 1.7. Patient is scheduled for tracheostomy either later today or in the morning. We will give 2 more units of fresh frozen plasma. Would like to get INR down to 1.3 or less. She has been given a good bit of vitamin K as well. She is tolerating CPAP. However she has proven that she is not able to defend her airway and her mechanics have not been adequate for extubation. Hopefully tracheostomy will facilitate weaning. She has had problems with aspiration. 03/06/2017 patient had tracheostomy Monday. Making progress with CPAP. Doing brief trach collar. From pulmonary standpoint ready to move to LTAC soon as that can be done. 03/07/2017 patient did trach collar overnight and fatigued. Will increase times on trach collar on a daily basis. Hopefully can get her off the ventilator altogether within a few days and then start working on the tracheostomy. Patient is responsive. There are no new complaints. 03/08/2017 patient did trach collar for prolonged period yesterday and was put back on CPAP overnight. Did not fatigue. She is more alert and calm this morning. Will try to keep on trach collar full-time. If she fatigues we will rest with IMV. 03/09/2017 patient making progress with weaning with longer trach collar times. Still requiring some mechanical ventilation. She is responsive and afebrile. 03/10/2017 patient presently on trach collar and appears comfortable. She has an 8 Filipino cuffed tracheostomy. Bleed not ready to do speaking valve until we get a smaller trach. PT/INR is down to 2.7 after fresh frozen plasma and vitamin K. Considering a PEG tube. However with her being on trach collar now may be able to try oral diet in a few days with speech therapy so probably should hold off on PEG tube. 03/13/2017 patient tolerating trach collar full-time the last 24 hours. She has required some mechanical ventilation at night a couple of times. Not able to change out trach tube until she goes about 4 days on trach collar. Mental status is good. Chest x-ray shows slight worsening on the left side. ABGs were acceptable. Increase activity get her up in the chair. Exam (Progress Note) - Constitutional Vitals: Period Temp Pulse Resp BP Sys/Cox Pulse Ox Last 24 Hr 97.2 F-98.2 F 91-122 14-23 117-154/64-121 94-98 Exam: Patient responsive at present. Nods to questions and squeezes fingers on command. Vital signs normal. Pupils react to light. Tracheostomy in place. On trach collar for oxygen. Neck is supple no bruits. Chest reveals few scattered rhonchi equal breath sounds. Heart irregular without murmurs. Abdomen soft nontender no masses. Extremities no clubbing cyanosis or edema. Calves are nontender. Results - Labs CBC & BMP: 03/13/17 04:46 03/13/17 04:46 Lab Results: I have reviewed the past 24 hour labs - Diagnostic Findings Procedure: Chest x-ray: image reviewed by me, pending (Increased infiltrate left lung.) Assessment and Plan (1) History of atrial fibrillation Status: Chronic Assessment and plan: Patient on chronic anticoagulants. Watch protimes. Rate is controlled 02/21/2017 rate is controlled. 02/22/2017 again rate is controlled. 02/23/2017 rate controlled. 02/27/2017 holding Coumadin. INR 4.6. 02/28/2017 sinus rhythm. INR 5.2. Holding Coumadin. Will give AquaMEPHYTON 5 mg. 03/01/2017 sinus rhythm. Trying to totally reverse Coumadin. This is in anticipation of tracheostomy. Likely will need one by Monday. 03/02/2017 remains in sinus rhythm. She has had 2 doses of vitamin K and had fresh frozen plasma yesterday. If tracheostomy is to be done she would need another round of fresh frozen plasma the day before. 03/03/2017 rate is controlled. 1.7. Getting more fresh frozen plasma today in anticipation of the tracheostomy. 03/06/2017 rate is controlled. INR is 1.2. 03/07/2017 remains in atrial fib. Controlled rate. Cardiology following. 03/08/2017 atrial fibrillation with controlled rate. 03/09/2017 heart rate around 105-110. 03/10/2017 atrial fibrillation with controlled rate around 105 03/13/2017 rate is controlled 100-105. Current Visit: No (2) Congestive heart failure Status: Chronic Assessment and plan: BNP has come down since admission. Watch fluid status. 02/21/2017 clinically congestive heart failure is better. 02/22/2017 heart failure seems to be better 02/23/2017 chest x-ray may be a little wet. Will diurese further. 02/24/2017 chest x-ray still a little wet. Continue with diuresis. 02/27/2017 congestive heart failure improved. 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 03/01/2017 congestive heart failure little better. 03/02/2017 congestive heart failure stable at present. 03/03/2017 heart failure controlled. 03/06/2017 small pleural effusions. Probably needs diuresing a little. 03/07/17 small pleural effusions but probably not active congestive failure. 03/08/2017 responded to diuresis. She needs a little Diamox because of metabolic alkalosis. 03/09/2017 congestive heart failure controlled with medicines. 03/10/2017 she has diuresed fairly well. 03/13/2017 congestive heart failure appears controlled. Difficult to tell if she is wet on x-ray however. Current Visit: Yes Qualifiers: Congestive heart failure chronicity: acute on chronic (3) Pneumonia Status: Acute Assessment and plan: On broad-spectrum empiric antibiotics. Check cultures from bronchial washings. That should be out tomorrow. She is E. coli from her urine and it is covered with Merrem. 02/21/2017 chest x-ray is pending. Bronchial wash cultures thus far are showing normal scott. Continuing empiric antibiotics. 02/22/2017 bronchial wash cultures were negative. Continuing empiric antibiotics. X-ray showing improvement 02/23/2017 bibasilar pneumonia. Bronchial wash cultures negative. Continuing antibiotics. 02/24/2017 pneumonia about the same, primarily at the right base. Continuing antibiotics. 02/27/2017 continuing empiric antibiotics. 02/28/2017 continuing empiric antibiotics. Adding Diflucan for oral monilia. Do not think she has monilia as the cause of her pneumonia. 03/01/2017 patient on antibiotics and on Diflucan. Likely these are keeping her pro time from correcting. 03/02/2017 continuing broad-spectrum antibiotics. Patient has very poor cough and would not be able to clear her airways if off the ventilator at present 03/03/2017 has bibasilar pneumonia due to aspiration. Poor cough. Requires tracheostomy to wean. 03/06/2017 chest x-ray still showing infiltrates. Overall much improved. 03/07/2017 continuing empiric antibiotics. 03/08/2017 no fever. Could stop antibiotics at this point. She has been on them for 2 weeks 03/09/2017 again no fever. 03/10/2017 no fever. Antibiotics have been discontinued 03/13/2017 with worsening chest x-ray will resume antibiotics. Start Zosyn. Obtain sputum Current Visit: Yes Qualifiers: Pneumonia type: due to unspecified organism Laterality: right Lung location: lower lobe of lung Qualified Code(s): J18.1 - Lobar pneumonia, unspecified organism (4) Acute respiratory failure Status: Chronic Assessment and plan: Patient was struggling especially with upper airway symptoms and required intubation last night. At bronchoscopy earlier in the day yesterday there were no abnormalities in the upper airway. Likely she had some thick secretions that caused this. We will keep these suctioned out. Pneumonia is the primary cause of the respiratory failure. 02/21/17 ABGs look much better. She has a metabolic alkalosis. Will add Diamox for 3 days. 02/22/2017 ABGs improved. Still has a mild metabolic alkalosis. Will check mechanics today to see if extubation is a possibility. 02/23/2017 ABGs look good. Tolerating CPAP. Only concern is far as getting her extubated is that her right lower lobe looks a little worse on x-ray today. Will bronchoscope and clean her out before we do CPAP 02/24/2017 patient extubated this morning. Hopefully she can defend her airway. She has some dementia but is able to respond to questions fairly well. 02/27/2017 patient had to be reintubated. Not able to defend her airway. 02/28/2017 ABGs look good. Her mental status is such that I would expect her to be able to control her airway. Will try again to get her extubated today 03/01/2017 again ABGs look good but mechanics not up to par for extubation yet. She would not be able to defend her airway, just as we saw Monday. 03/02/2017 ABGs look good. She does have a metabolic alkalosis. Will give Diamox for 3 days again. 03/03/2017 ABGs good. Tolerating CPAP. Report cough and inadequate negative inspiratory force. Tracheostomy is planned. Will be long-term weaning, and plans are to go to LTAC next week. 03/06/2017 PCO2 is a little low. Will reduce IMV rate. Continue weaning trial 03/07/2017 making good progress with weaning. Tolerated fairly long trach collar overnight. 03/08/2017 ABGs look good on trach collar. Hopefully we can keep her trach collar home full-time. Then began to downsize tracheostomy in a few days. 03/09/2017 PCO2 down a little bit. Patient comfortable on trach collar. Continue to stretch out times on trach collar 03/10/2017 tolerating trach collar. Can increase times on that. 03/30/2017 hopefully can get a full-time trach collar in the next few days. Current Visit: Yes Qualifiers: Respiratory failure complication: hypoxia Qualified Code(s): J96.01 - Acute respiratory failure with hypoxia Specialty Discharge - Follow Up or Referrals
[2017-03-13] MEDS ORDERED: PHYTONADIONE 10 MG/1 ML AMP SUBCUT ONE (07:26)
--- NOTE | 2017-03-13 07:35 | XRay Report ---
XR chest 1V portable Indication: Shortness of breath Comparison: AP chest 03/12/2017 Technique: Portable AP chest was performed. Findings: Heart size remains minimally enlarged, stable. Tracheostomy tube and weighted feeding tube remain present. Right side central venous catheter is stable in position. Bilateral pleural effusions are stable. The lung parenchyma demonstrates little change on the right and minimal increase in airspace disease in the perihilar region on the left. Impression: 1. Minimal worsening of airspace disease left mid lung. 2. Stable bilateral pleural effusions. 03/13/2017 7:32 AM PROCEDURE INTERPRETED AT [facility] [place] DEPARTMENT OF RADIOLOGY Final Report Signed by: Dr. Isai Andrade
[2017-03-13] MEDS: LEVALBUTEROL 1.25 MG/3 ML NEB RESP TX SCH ×2 (07:47→15:00)
[2017-03-13] MEDS: PIPERACILLIN/TAZOBACTAM 3,375 MG in SODIUM CHLORIDE 0.9% 100 ML IV SCH ×2 (07:55→14:27)
--- NOTE | 2017-03-13 08:55 | Cardiology Progress Note ---
Assessment and Plan - Time spent with patient Time spent with patient: Less than 30 minutes (1) Paroxysmal atrial fibrillation Status: Acute Assessment and plan: See plan of care listed below. Current Visit: Yes (2) Pneumonia Status: Acute Assessment and plan: See plan of care listed below. Current Visit: Yes Qualifiers: Pneumonia type: due to unspecified organism Laterality: right Lung location: lower lobe of lung Qualified Code(s): J18.1 - Lobar pneumonia, unspecified organism (3) Acute respiratory failure Status: Chronic Assessment and plan: See plan of care listed below. Current Visit: Yes Qualifiers: Respiratory failure complication: hypoxia Qualified Code(s): J96.01 - Acute respiratory failure with hypoxia (4) Anticoagulated on Coumadin Status: Chronic Assessment and plan: See plan of care listed below. Current Visit: No (5) Hypertension Status: Chronic Assessment and plan: See plan of care listed below. Current Visit: No Qualifiers: Hypertension type: essential hypertension Qualified Code(s): I10 - Essential (primary) hypertension (6) Mitral regurgitation Status: Acute Assessment and plan: See plan of care listed below. Current Visit: Yes (7) Aortic insufficiency Status: Acute Assessment and plan: See plan of care listed below. Current Visit: Yes (8) Congestive heart failure Status: Chronic Assessment and plan: See plan of care listed below. Current Visit: Yes Qualifiers: Congestive heart failure chronicity: acute on chronic Cardiology - PN: Subj Interval history: Parks Recreation Director: Dr. Johnston PCP: Dr. Jesús Graham Summary: Ms. Ernandez is a 81 year old female with a history of paroxysmal atrial fibrillation treated with amiodarone. She also has a history of hypertension, mitral stenosis, chronic anticoagulation. Ms. Ernandez was admitted to the hospital on 02/17/17 with pneumonia and CHF. An [employer] was called on 02/19/17 due to respiratory distress and she subsequently required intubation. She has been in normal sinus rhythm throughout admission but went into atrial fibrillation on 03/01/17 and has had rates in the 100s-120s. We were consulted to see her and aid in management of her atrial fibrillation. FEBRUARY 11, 2017: Ms. Ernandez is sitting up in the bedside chair upon exam today. She complains of a headache but denies chest pain or shortness of breath. She has some mild leg edema today with her lower extremities elevated. She is alert and cooperative. Assessment/Plan: 1. Paroxysmal atrial fibrillation - Her metoprolol has been increased to 100mg PO BID. We are continuing her Amiodarone 200mg PO BID. Rates are slightly improved but she continues to have rates in the 100s. Vitamin C is on hold since it will not go down Keofeed tube. 2. Pneumonia - Pulmonology is following. 3. Acute respiratory failure s/p tracheostomy 03/03/17 - Trach collar trials. Pulmonology is following. 4. Chronic anticoagulation - Anticoagulated with Coumadin 3mg po daily. Monitor PT/INR. INR 4.7 today. Coumadin currently on hold. 5. Hypertension - Currently well controlled. Will continue to monitor and adjust accordingly. 6. Mitral Regurgitation - Echocardiogram on 02/25/17 revealed EF 60%, mild to moderate MR, 1+ AI, severe TR, PA pressure 67. 7. Aortic Insufficiency 8. Congestive Heart Failure - BNP was mildly elevated earlier in hospitalization but she appears well compensated at this time. Exam (Progress Note) - Constitutional Vitals: Period Temp Pulse Resp BP Sys/Cox Pulse Ox Last 24 Hr 97.3 F-98.2 F 91-121 14-31 117-154/64-107 94-98 Exam: General: Present: Appears Well, No Apparent Distress. Pleasant and cooperative. HEENT: Present: PERRL, Normocephaly, atraumatic. Mucus Membranes Moist. No jaundice noted. Conjunctiva moist and clear, sclerae anicteric Neck: Present: Supple Neck, Tracheostomy with trach collar in place, No Masses, No Bruit, No tenderness Cardiac: Present: Irregular Rate and Rhythm, Systolic Murmur Lungs: Present: Mild basilar rhonchi, otherwise Clear to auscultation bilaterally. Neuro: Present: Awake, alert, and oriented x3. Moves all extremities well without hemiparesis or paralysis. Grossly Intact. Absent: Resting Tremor, Essential Tremor Abdomen: Present: Soft, Active Bowel Sounds, No Masses, Non-Tender, nondistended. No abdominal bruit or thrill noted. Skin: Present: Clear. Absent: Rash, No skin breakdown. Musculoskeletal: Present: No Fluid Collection, No Pain, Normal Range of Motion Extremities: Present: No Clubbing, No Cyanosis, Upper Extr. Pulses 2+, Lower Extr. Pulses 2+, 1+ pitting edema to BLE. Capillary refill less than 3 seconds. Result/EKG - Labs CBC & BMP: 03/13/17 04:46 03/13/17 04:46 Lab Results: I have reviewed the past 24 hour labs Labs: Laboratory Results - last 24 hr 03/12/17 03/12/17 03/13/17 13:05 18:13 00:02 WBC RBC Hgb Hct MCV MCH MCHC RDW Plt Count MPV Neut % (Auto) Lymph % (Auto) Citrus % (Auto) Eos % (Auto) Baso % (Auto) Neut # (Auto) Lymph # (Auto) [place] # (Auto) Eos # (Auto) Baso # (Auto) Immature Gran % Nucleated RBC % Immature Gran # Nucleated RBCs # INR PT Patient/Control Mix ABG pH ABG pCO2 ABG pO2 ABG HCO3 ABG Total CO2 ABG O2 Saturation ABG Base Excess FiO2 Sodium Potassium Chloride Carbon Dioxide Anion Gap BUN Creatinine GFR Calculation BUN/Creatinine Ratio Glucose POC Glucose 221 H 106 184 H Calculated Osmolality Calcium Phosphorus Magnesium Prealbumin 03/13/17 03/13/17 03/13/17 03:50 04:00 04:46 WBC RBC Hgb Hct MCV MCH MCHC RDW Plt Count MPV Neut % (Auto) Lymph % (Auto) [place] % (Auto) Eos % (Auto) Baso % (Auto) Neut # (Auto) Lymph # (Auto) [place] # (Auto) Eos # (Auto) Baso # (Auto) Immature Gran % Nucleated RBC % Immature Gran # Nucleated RBCs # INR 4.7 PT Patient/Control Mix 55.5 D ABG pH 7.421 ABG pCO2 53.9 H ABG pO2 95.7 H ABG HCO3 32.5 H ABG Total CO2 30.9 H ABG O2 Saturation 97.6 ABG Base Excess 8.7 H FiO2 35.00 Sodium Potassium Chloride Carbon Dioxide Anion Gap BUN Creatinine GFR Calculation BUN/Creatinine Ratio Glucose POC Glucose Calculated Osmolality Calcium Phosphorus 2.5 Magnesium 2.2 Prealbumin 31.0 03/13/17 03/13/17 03/13/17 04:46 04:46 06:02 WBC 19.7 H RBC 4.01 Hgb 12.4 Hct 37.4 MCV 93.3 MCH 31 MCHC 33.2 RDW 14.5 Plt Count 102 L MPV 12.0 Neut % (Auto) 88.3 H Lymph % (Auto) 6.0 L [place] % (Auto) 3.0 Eos % (Auto) 0.0 Baso % (Auto) 0.2 Neut # (Auto) 17.4 H Lymph # (Auto) 1.2 L [place] # (Auto) 0.6 Eos # (Auto) 0.0 Baso # (Auto) 0.0 Immature Gran % 2.5 Nucleated RBC % 0.0 Immature Gran # 0.49 Nucleated RBCs # 0.00 INR PT Patient/Control Mix ABG pH ABG pCO2 ABG pO2 ABG HCO3 ABG Total CO2 ABG O2 Saturation ABG Base Excess FiO2 Sodium 139 Potassium 4.4 Chloride 98 Carbon Dioxide 36 H Anion Gap 9.4 BUN 42 H Creatinine 0.40 L GFR Calculation 107 BUN/Creatinine Ratio 105.00 H Glucose 211 H POC Glucose 168 H Calculated Osmolality 293.5 Calcium 8.3 L Phosphorus Magnesium Prealbumin - EKG EKG results: interpreted by me EKG shows: atrial fibrillation Specialty Discharge - Follow Up or Referrals
--- NOTE | 2017-03-13 09:08 | Hospitalist Progress Note ---
Assessment and Plan (1) Hypertension Status: Chronic Current Visit: No Qualifiers: Hypertension type: essential hypertension Qualified Code(s): I10 - Essential (primary) hypertension (2) Debility Status: Chronic Current Visit: Yes (3) Pneumonia Status: Acute Assessment and plan: Broad-spectrum antibiotics. White count noted to be elevated. Continuing antibiotics. Current Visit: Yes Qualifiers: Pneumonia type: due to unspecified organism Laterality: right Lung location: lower lobe of lung Qualified Code(s): J18.1 - Lobar pneumonia, unspecified organism (4) Acute respiratory failure Status: Chronic Assessment and plan: Continue with ventilation. Trach collar. Doing trach collar trials. Current Visit: Yes Qualifiers: Respiratory failure complication: hypoxia Qualified Code(s): J96.01 - Acute respiratory failure with hypoxia Hospitalist: Subjective Interval history: The patient is sitting up in chair resting comfortably. She does get tired quite frequently. Remains on trach collar trials. At this time making preparations for LTAC transfer. White count noted to be slightly elevated this morning at 19.4. No other changes. Exam - Constitutional Vitals: Period Temp Pulse Resp BP Sys/Cox Pulse Ox Last 24 Hr 97.3 F-98.2 F 91-113 14-31 117-154/64-103 94-98 General appearance: other (Frail) - Eye Eye exam: Present: EOMI - Neck Neck exam: Present: normal inspection, other (Trach collar) - Respiratory Respiratory exam: Present: clear to auscultation bilaterally - Cardiovascular Cardiovascular exam: Present: irregular rhythm - GI/Abdominal GI/Abdominal exam: Present: normal bowel sounds - Extremities Exam Extremities exam: Present: normal inspection - Back Exam Back exam: Present: normal inspection - Neurological Exam Neurological exam: Present: alert, oriented X3 - Psychiatric Psychiatric exam: Present: normal affect - Skin Skin exam: Present: normal color Results - Labs CBC & BMP: 03/13/17 04:46 03/13/17 04:46 Specialty Discharge - Follow Up or Referrals
[2017-03-13] MEDS: MULTIVITAMIN LIQUID (CENTRUM) 60 ML BOTTLE PO SCH (09:55)
[2017-03-13] MEDS: PANTOPRAZOLE 40 MG VIAL IV SCH (09:55)
[2017-03-13] MEDS: FUROSEMIDE 40 MG/4 ML VIAL IV SCH (09:55)
[2017-03-13] MEDS: METOPROLOL TARTRATE 100 MG TABLET PO SCH ×2 (09:56→21:28)
[2017-03-13] MEDS: FLUCONAZOLE 40 MG/ML 35 ML/BOTTLE PO SCH (09:56)
[2017-03-13] MEDS: DESITIN 4OZ/NYSTATIN 15 GRAM MIXTURE PASTE TOP SCH ×2 (09:56→21:29)
[2017-03-13] MEDS: AMIODARONE 200 MG TABLET PO SCH ×2 (09:56→21:29)
[2017-03-13] MEDS: HYDROcod/ACETAMIN 7.5-325 MG/15 ML UDCUP PO PRN ×3 (10:00→19:32)
[2017-03-13] MEDS: GABAPENTIN 50 MG/ML 30 ML/BOTTLE NG SCH (14:25)
[2017-03-13] MEDS: DILTIAZEM 30 MG TABLET PO SCH ×2 (14:26→21:28)
[2017-03-14] MEDS: LEVALBUTEROL 1.25 MG/3 ML NEB RESP TX SCH ×4 (00:19→23:43)
[2017-03-14] MEDS: PIPERACILLIN/TAZOBACTAM 3,375 MG in SODIUM CHLORIDE 0.9% 100 ML IV SCH ×4 (00:30→22:14)
[2017-03-14 03:39] LABS: ABG Base Excess 9.5 MMOL/L (-2.5-2.5); ABG HCO3 33.2 MMOL/L (20-26); ABG Oxygen Saturation 96.4 % (95-100); ABG PCO2 59.1 MM HG (35-48); ABG PO2 86.7 MM HG (80-95); ABG TCO2 32.5 MMOL/L (23-27); Allen Test Positive; Pt O2 Delivery Device Ventilator
[2017-03-14] MEDS: guaiFENesin 200 MG/10 ML UDCUP PO SCH ×4 (05:21→20:19)
[2017-03-14 05:28] LABS: Basophils % 0.2 % (0.0-0.8); Hematocrit 34.8 VOL% (35.7-47.0); Hemoglobin 11.5 GM/DL (12.0-16.0); Immature Granulocytes % 2.3 %; Immature Granulocytes Absolute 0.41 #; Lymphocytes % 5.4 % (21.3-54.2); Mean Corpuscular Hemoglobin 31 PG (27-34); Mean Corpuscular Volume 92.6 FL (87-102); Mean Platelet Volume 12.3 FL (9.6-12.0); Monocytes # 0.6 10*3/uL (0.11-0.8); Monocytes % 3.4 % (1.7-12.7); Neutrophils # 15.8 10*3/uL (1.4-7.4); Neutrophils % 88.7 % (38.7-73.9); Red Blood Count 3.76 MC/CUMM (3.8-5.5); Red Cell Distribution Width 14.8 % (9.3-17.3); White Blood Count 17.8 T/CUMM (4-12)
[2017-03-14 05:30] LABS: Platelet Count 94 T/CUMM (130-400)
[2017-03-14 05:50] LABS: Calcium 8.1 MG/DL (8.5-10.1); Osmolality,Calculated 292.4 MOS/KG (273-304); Potassium 4.1 MMOL/L (3.5-5.1)
[2017-03-14 06:00] LABS: Hypochromasia 1+; Platelet Estimate Decreased
[2017-03-14] MEDS: INSULIN REGULAR 100 UNIT/ML SUBCUT SCH ×5 (06:14→23:37)
[2017-03-14] MEDS: methylPREDNISolone SOD SUC 40 MG/1 ML VIAL IV SCH ×2 (06:43→18:20)
--- NOTE | 2017-03-14 07:01 | XRay Report ---
History ventilator management Comparison with 03/13/2017 Patient is rotated. Support device grossly unchanged including a tracheostomy There remains moderate diffuse hazy bilateral left pulmonary opacities with underlying bilateral pleural effusions. There is been no gross interval change clinically marked differences in technique and positioning Impression: No gross interval change in diffuse bilateral pulmonary opacities PROCEDURE INTERPRETED AT [facility] DEPARTMENT OF RADIOLOGY Final Report Signed by: Dr. Nuria Bergman
--- NOTE | 2017-03-14 07:02 | Pulmonology Progress Note ---
Pulmonary - PN: Subj Interval history: Patient had worsening respiratory distress last night and was intubated by Dr. Contreras. At present she is sedated and on the ventilator but her mental status is good when sedation is held. We had wanted to evaluate swallowing but we will have to wait until we wean her off the ventilator. Concerned that she has a neurologic process. ABGs look good this morning. Will reduce settings. She has bilateral infiltrates on x-ray. Will take several days of antibiotics before we would be able to wean. 02/21/2017 ABGs are improved. Chest x-ray is pending. Will start weaning today. Patient with pneumonia and that is likely aspiration. Continuing broad- spectrum antibiotics. Cultures negative thus far from bronchial washings. 02/22/2017 again ABGs look better. Patient starting to do CPAP's. Seems to be responsive during those times when sedation is held. She does have some dementia and apparent aspiration. Bronchial washing cultures have been negative. Continuing empiric antibiotics. Will check mechanics and ABGs on CPAP today to see if we could possibly extubate. 02/23/2017 patient doing well with CPAP. ABGs look good. Chest x-ray still shows some lower lobe infiltrates. Worse on the right than left. Patient is alert calm and nodding to questions. Will check mechanics and ABGs on CPAP. If she does okay which should be able to get her extubated. 02/24/2017 she has done well with T-tube trial this morning. ABGs acceptable. Still has some right lower lobe infiltrate. Will extubate this morning. Mental status seems pretty good hopefully can defend her airway. She does have some dementia. 02/27/2017 patient was off the ventilator for a day but had to be reintubated 2 days ago because she was unable to clear her secretions. She is done well with CPAP since then. Will continue with weaning trial for now. May need to consider tracheostomy. PT/INR is hyperinflated. Holding Coumadin 02/28/2017 patient did prolonged CPAP trials. She is alert and answering questions squeezing fingers on command. Should be able to manage her airway extubated. Will check mechanics and ABGs on CPAP this morning. If she clearly is above excepted levels then we will extubate her. If she does not tolerate that then we would need to go ahead and plan tracheostomy. Her PT/INR is 5.2. Coumadin has been held. She is on medication that potentiated sections however. I will give her a low-dose of vitamin K. She is on that for paroxysmal atrial fibrillation. Normal sinus rhythm at present. 03/01/2017 patient again is doing well with prolonged CPAP trials. However her mechanics are quite poor. For now we will continue with CPAP trials. Will very likely need a tracheostomy if we do not see significant improvement in the next couple of days. Her PT INR remains hyper prolonged. Will repeat AquaMEPHYTON. Agree with evaluation for LTAC placement. 03/02/2017 PT/INR is down to 1.9 today. Will still need a little more fresh frozen plasma and/or vitamin K to prepare for tracheostomy. It appears likely that it will be next week that she gets the tracheostomy. We will continue weaning trials in the meantime. She is tolerating them well but her mechanics indicate that she does not have a strong enough cough to clear her airway if extubated now. Definitely think it would be safer for tracheostomy in order to get her weaned. 03/03/2017 INR is 1.7. Patient is scheduled for tracheostomy either later today or in the morning. We will give 2 more units of fresh frozen plasma. Would like to get INR down to 1.3 or less. She has been given a good bit of vitamin K as well. She is tolerating CPAP. However she has proven that she is not able to defend her airway and her mechanics have not been adequate for extubation. Hopefully tracheostomy will facilitate weaning. She has had problems with aspiration. 03/06/2017 patient had tracheostomy Monday. Making progress with CPAP. Doing brief trach collar. From pulmonary standpoint ready to move to LTAC soon as that can be done. 03/07/2017 patient did trach collar overnight and fatigued. Will increase times on trach collar on a daily basis. Hopefully can get her off the ventilator altogether within a few days and then start working on the tracheostomy. Patient is responsive. There are no new complaints. 03/08/2017 patient did trach collar for prolonged period yesterday and was put back on CPAP overnight. Did not fatigue. She is more alert and calm this morning. Will try to keep on trach collar full-time. If she fatigues we will rest with IMV. 03/09/2017 patient making progress with weaning with longer trach collar times. Still requiring some mechanical ventilation. She is responsive and afebrile. 03/10/2017 patient presently on trach collar and appears comfortable. She has an 8 Taiwanese cuffed tracheostomy. Bleed not ready to do speaking valve until we get a smaller trach. PT/INR is down to 2.7 after fresh frozen plasma and vitamin K. Considering a PEG tube. However with her being on trach collar now may be able to try oral diet in a few days with speech therapy so probably should hold off on PEG tube. 03/13/2017 patient tolerating trach collar full-time the last 24 hours. She has required some mechanical ventilation at night a couple of times. Not able to change out trach tube until she goes about 4 days on trach collar. Mental status is good. Chest x-ray shows slight worsening on the left side. ABGs were acceptable. Increase activity get her up in the chair. 03/14/17 patient had to be placed back on the ventilator overnight. Chest x-ray still looks a little wet and she has hypercarbia. I will increase her Diamox. Renal function appears stable. It does not appear that she will get off the ventilator altogether in the next few days. It may be worthwhile to look back into going to LTAC. Exam (Progress Note) - Constitutional Vitals: Period Temp Pulse Resp BP Sys/Cox Pulse Ox Last 24 Hr 97.1 F-97.9 F 82-113 14-30 103-147/60-112 91-99 Exam: Patient responsive at present. Nods to questions and squeezes fingers on command. Vital signs normal. Pupils react to light. Tracheostomy in place. On mechanical ventilation at present. Neck is supple no bruits. Chest reveals few scattered rhonchi equal breath sounds. Heart irregular without murmurs. Abdomen soft nontender no masses. Extremities no clubbing cyanosis or edema. Calves are nontender. Results - Labs CBC & BMP: 03/14/17 04:45 03/14/17 04:45 Lab Results: I have reviewed the past 24 hour labs - Diagnostic Findings Procedure: Chest x-ray: image reviewed by me (Modest bilateral pleural effusions and lower lobe infiltrates.) Assessment and Plan (1) History of atrial fibrillation Status: Chronic Assessment and plan: Patient on chronic anticoagulants. Watch protimes. Rate is controlled 02/21/2017 rate is controlled. 02/22/2017 again rate is controlled. 02/23/2017 rate controlled. 02/27/2017 holding Coumadin. INR 4.6. 02/28/2017 sinus rhythm. INR 5.2. Holding Coumadin. Will give AquaMEPHYTON 5 mg. 03/01/2017 sinus rhythm. Trying to totally reverse Coumadin. This is in anticipation of tracheostomy. Likely will need one by Monday. 03/02/2017 remains in sinus rhythm. She has had 2 doses of vitamin K and had fresh frozen plasma yesterday. If tracheostomy is to be done she would need another round of fresh frozen plasma the day before. 03/03/2017 rate is controlled. 1.7. Getting more fresh frozen plasma today in anticipation of the tracheostomy. 03/06/2017 rate is controlled. INR is 1.2. 03/07/2017 remains in atrial fib. Controlled rate. Cardiology following. 03/08/2017 atrial fibrillation with controlled rate. 03/09/2017 heart rate around 105-110. 03/10/2017 atrial fibrillation with controlled rate around 105 03/13/2017 rate is controlled 100-105. 03/14/2017 rate remains controlled. Current Visit: No (2) Congestive heart failure Status: Chronic Assessment and plan: BNP has come down since admission. Watch fluid status. 02/21/2017 clinically congestive heart failure is better. 02/22/2017 heart failure seems to be better 02/23/2017 chest x-ray may be a little wet. Will diurese further. 02/24/2017 chest x-ray still a little wet. Continue with diuresis. 02/27/2017 congestive heart failure improved. 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 03/01/2017 congestive heart failure little better. 03/02/2017 congestive heart failure stable at present. 03/03/2017 heart failure controlled. 03/06/2017 small pleural effusions. Probably needs diuresing a little. 03/07/17 small pleural effusions but probably not active congestive failure. 03/08/2017 responded to diuresis. She needs a little Diamox because of metabolic alkalosis. 03/09/2017 congestive heart failure controlled with medicines. 03/10/2017 she has diuresed fairly well. 03/13/2017 congestive heart failure appears controlled. Difficult to tell if she is wet on x-ray however. 03/14/2017 x-ray looks a little bit wet. Increasing Diamox because of hypercarbia. This may help with diuresis as well. Her weight is a little down. Current Visit: Yes Qualifiers: Congestive heart failure chronicity: acute on chronic (3) Pneumonia Status: Acute Assessment and plan: On broad-spectrum empiric antibiotics. Check cultures from bronchial washings. That should be out tomorrow. She is E. coli from her urine and it is covered with Merrem. 02/21/2017 chest x-ray is pending. Bronchial wash cultures thus far are showing normal scott. Continuing empiric antibiotics. 02/22/2017 bronchial wash cultures were negative. Continuing empiric antibiotics. X-ray showing improvement 02/23/2017 bibasilar pneumonia. Bronchial wash cultures negative. Continuing antibiotics. 02/24/2017 pneumonia about the same, primarily at the right base. Continuing antibiotics. 02/27/2017 continuing empiric antibiotics. 02/28/2017 continuing empiric antibiotics. Adding Diflucan for oral monilia. Do not think she has monilia as the cause of her pneumonia. 03/01/2017 patient on antibiotics and on Diflucan. Likely these are keeping her pro time from correcting. 03/02/2017 continuing broad-spectrum antibiotics. Patient has very poor cough and would not be able to clear her airways if off the ventilator at present 03/03/2017 has bibasilar pneumonia due to aspiration. Poor cough. Requires tracheostomy to wean. 03/06/2017 chest x-ray still showing infiltrates. Overall much improved. 03/07/2017 continuing empiric antibiotics. 03/08/2017 no fever. Could stop antibiotics at this point. She has been on them for 2 weeks 03/09/2017 again no fever. 03/10/2017 no fever. Antibiotics have been discontinued 03/13/2017 with worsening chest x-ray will resume antibiotics. Start Zosyn. Obtain sputum 03/14/2017 continuing Zosyn. Gram stain shows gram-negative rods and increased number of white cells. Current Visit: Yes Qualifiers: Pneumonia type: due to unspecified organism Laterality: right Lung location: lower lobe of lung Qualified Code(s): J18.1 - Lobar pneumonia, unspecified organism (4) Acute respiratory failure Status: Chronic Assessment and plan: Patient was struggling especially with upper airway symptoms and required intubation last night. At bronchoscopy earlier in the day yesterday there were no abnormalities in the upper airway. Likely she had some thick secretions that caused this. We will keep these suctioned out. Pneumonia is the primary cause of the respiratory failure. 02/21/17 ABGs look much better. She has a metabolic alkalosis. Will add Diamox for 3 days. 02/22/2017 ABGs improved. Still has a mild metabolic alkalosis. Will check mechanics today to see if extubation is a possibility. 02/23/2017 ABGs look good. Tolerating CPAP. Only concern is far as getting her extubated is that her right lower lobe looks a little worse on x-ray today. Will bronchoscope and clean her out before we do CPAP 02/24/2017 patient extubated this morning. Hopefully she can defend her airway. She has some dementia but is able to respond to questions fairly well. 02/27/2017 patient had to be reintubated. Not able to defend her airway. 02/28/2017 ABGs look good. Her mental status is such that I would expect her to be able to control her airway. Will try again to get her extubated today 03/01/2017 again ABGs look good but mechanics not up to par for extubation yet. She would not be able to defend her airway, just as we saw Monday. 03/02/2017 ABGs look good. She does have a metabolic alkalosis. Will give Diamox for 3 days again. 03/03/2017 ABGs good. Tolerating CPAP. Report cough and inadequate negative inspiratory force. Tracheostomy is planned. Will be long-term weaning, and plans are to go to LTAC next week. 03/06/2017 PCO2 is a little low. Will reduce IMV rate. Continue weaning trial 03/07/2017 making good progress with weaning. Tolerated fairly long trach collar overnight. 03/08/2017 ABGs look good on trach collar. Hopefully we can keep her trach collar home full-time. Then began to downsize tracheostomy in a few days. 03/09/2017 PCO2 down a little bit. Patient comfortable on trach collar. Continue to stretch out times on trach collar 03/10/2017 tolerating trach collar. Can increase times on that. 03/13/2017 hopefully can get a full-time trach collar in the next few days. 03/14/2017 continues to have elevated PCO2. Continue to try trach collar Current Visit: Yes Qualifiers: Respiratory failure complication: hypoxia Qualified Code(s): J96.01 - Acute respiratory failure with hypoxia Specialty Discharge - Follow Up or Referrals
--- NOTE | 2017-03-14 08:05 | Cardiology Progress Note ---
Assessment and Plan - Time spent with patient Time spent with patient: Less than 30 minutes (1) Paroxysmal atrial fibrillation Status: Acute Assessment and plan: See plan of care listed below. Current Visit: Yes (2) Pneumonia Status: Acute Assessment and plan: See plan of care listed below. Current Visit: Yes Qualifiers: Pneumonia type: due to unspecified organism Laterality: right Lung location: lower lobe of lung Qualified Code(s): J18.1 - Lobar pneumonia, unspecified organism (3) Acute respiratory failure Status: Chronic Assessment and plan: See plan of care listed below. Current Visit: Yes Qualifiers: Respiratory failure complication: hypoxia Qualified Code(s): J96.01 - Acute respiratory failure with hypoxia (4) Anticoagulated on Coumadin Status: Chronic Assessment and plan: See plan of care listed below. Current Visit: No (5) Hypertension Status: Chronic Assessment and plan: See plan of care listed below. Current Visit: No Qualifiers: Hypertension type: essential hypertension Qualified Code(s): I10 - Essential (primary) hypertension (6) Mitral regurgitation Status: Acute Assessment and plan: See plan of care listed below. Current Visit: Yes (7) Aortic insufficiency Status: Acute Assessment and plan: See plan of care listed below. Current Visit: Yes (8) Congestive heart failure Status: Chronic Assessment and plan: See plan of care listed below. Current Visit: Yes Qualifiers: Congestive heart failure chronicity: acute on chronic Cardiology - PN: Subj Interval history: Telecommunications Professional: Dr. Johnston PCP: Dr. Jesús Graham Summary: Ms. Ernandez is a 81 year old female with a history of paroxysmal atrial fibrillation treated with amiodarone. She also has a history of hypertension, mitral stenosis, chronic anticoagulation. Ms. Ernandez was admitted to the hospital on 02/17/17 with pneumonia and CHF. An [employer]IC was called on 02/19/17 due to respiratory distress and she subsequently required intubation. She has been in normal sinus rhythm throughout admission but went into atrial fibrillation on 03/01/17 and has had rates in the 100s-120s. We were consulted to see her and aid in management of her atrial fibrillation. FEBRUARY 11, 2017: Ms. Ernandez is lying in bed on the ventilator upon exam today. She is resting comfortably. Apparently, yesterday afternoon, she had been on trach collar for over 16 hours and became tired and wished to rest on the ventilator. Rates are better controlled, although she continues to have rates >100 frequently. Will further discuss with Dr. Chowdary and await additional recommendations. Blood pressure has been borderline. Assessment/Plan: 1. Paroxysmal atrial fibrillation - Her metoprolol has been increased to 100mg PO BID. We are continuing her Amiodarone 200mg PO BID. Cardizem 30mg PO TID was initiated yesterday due to elevated rates. She is now running between 80-110. Her blood pressure is borderline. 2. Pneumonia - Pulmonology is following. 3. Acute respiratory failure s/p tracheostomy 03/03/17 - She was doing trach collar trials yesterday but during the night she had to be placed back on the ventilator. She would be a good potential candidate for LTAC; however, there have been some issues with her insurance. Case management has been assisting with this. 4. Chronic anticoagulation - Anticoagulated with Coumadin 3mg po daily. Monitor PT/INR. INR 4.7 yesterday - required Vitamin K. INR from today still pending. Coumadin still on hold. Would like to keep INR between 2-3 range. 5. Hypertension - Currently well controlled. Will continue to monitor and adjust accordingly. 6. Mitral Regurgitation - Echocardiogram on 02/25/17 revealed EF 60%, mild to moderate MR, 1+ AI, severe TR, PA pressure 67. 7. Aortic Insufficiency 8. Congestive Heart Failure - BNP was mildly elevated earlier in hospitalization but she appears well compensated at this time. Exam (Progress Note) - Constitutional Vitals: Period Temp Pulse Resp BP Sys/Cox Pulse Ox Last 24 Hr 97.1 F-97.9 F 82-113 14-30 103-147/60-112 91-99 Exam: General appearance: Resting comfortably on ventilator with tracheostomy. Normal weight, no acute distress. - Head Head exam: Present: normal inspection, normocephalic, atraumatic. Absent: hematoma, laceration - Eye Eye exam: Present: EOMI. Absent: conjunctival injection, nystagmus, periorbital swelling, scleral icterus, laceration to eyelids Pupils: Present: PERRL. Absent: constricted, dilated, fixed, irregular, unequal - ENT ENT exam: Present: On mechanical ventilation via tracheostomy, normal external ear exam - Neck Neck exam: Present: normal inspection. Absent: lymphadenopathy, meningismus, tenderness, thyromegaly - Respiratory Respiratory exam: Present: Mechanically ventilated breath sounds. Absent: accessory muscle use - Cardiovascular Cardiovascular exam: Present: Irregular rate and rhythm. Absent: carotid bruit , gallop, JVD, rubs, murmur - GI/Abdominal GI/Abdominal exam: Present: normal bowel sounds, soft. Absent: distended, firm , guarding, hernia, mass, tenderness, rebound. - Extremities Exam Extremities exam: Present: normal inspection, normal capillary refill. Upper extremity pulses 2+. Lower extremity pulses 2+. Absent: calf tenderness, edema - Back Exam Back exam: Present: Unable to examine due to habitus. On mechanical ventilator. - Neurological Exam Neurological exam: Present: Limited due to habitus (on ventilator). Arousable to verbal stimuli. Grossly intact. No resting or essential tremor. - Psychiatric Psychiatric exam: Present: Unable to adequately assess due to patient being sedated and on mechanical ventilation. - Skin Skin exam: Present: normal color, warm, dry, intact. Absent: cyanosis, diaphoretic, rash, urticaria Result/EKG - Labs CBC & BMP: 03/14/17 04:45 03/14/17 04:45 Lab Results: I have reviewed the past 24 hour labs Labs: Laboratory Results - last 24 hr 03/13/17 03/13/17 03/13/17 11:58 17:56 23:23 WBC RBC Hgb Hct MCV MCH MCHC RDW Plt Count MPV Neut % (Auto) Lymph % (Auto) [place] % (Auto) Eos % (Auto) Baso % (Auto) Neut # (Auto) Lymph # (Auto) [place] # (Auto) Eos # (Auto) Baso # (Auto) Immature Gran % Nucleated RBC % Immature Gran # Nucleated RBCs # Platelet Estimate Hypochromasia Morphology Comment ABG pH ABG pCO2 ABG pO2 ABG HCO3 ABG Total CO2 ABG O2 Saturation ABG Base Excess FiO2 Sodium Potassium Chloride Carbon Dioxide Anion Gap BUN Creatinine GFR Calculation BUN/Creatinine Ratio Glucose POC Glucose 233 H 181 H 126 H Calculated Osmolality Calcium 03/14/17 03/14/17 03/14/17 02:50 04:45 04:45 WBC 17.8 H RBC 3.76 L Hgb 11.5 L Hct 34.8 L MCV 92.6 MCH 31 MCHC 33.0 RDW 14.8 Plt Count 94 L MPV 12.3 H Neut % (Auto) 88.7 H Lymph % (Auto) 5.4 L [place] % (Auto) 3.4 Eos % (Auto) 0.0 Baso % (Auto) 0.2 Neut # (Auto) 15.8 H Lymph # (Auto) 1.0 L [place] # (Auto) 0.6 Eos # (Auto) 0.0 Baso # (Auto) 0.0 Immature Gran % 2.3 Nucleated RBC % 0.0 Immature Gran # 0.41 Nucleated RBCs # 0.00 Platelet Estimate Decreased Hypochromasia 1+ Morphology Comment ABG pH 7.400 ABG pCO2 59.1 H ABG pO2 86.7 ABG HCO3 33.2 H ABG Total CO2 32.5 H ABG O2 Saturation 96.4 ABG Base Excess 9.5 H FiO2 35.00 Sodium 140 Potassium 4.1 Chloride 98 Carbon Dioxide 38 H Anion Gap 8.1 BUN 40 H Creatinine 0.40 L GFR Calculation 107 BUN/Creatinine Ratio 100.00 H Glucose 177 H POC Glucose Calculated Osmolality 292.4 Calcium 8.1 L 03/14/17 05:35 WBC RBC Hgb Hct MCV MCH MCHC RDW Plt Count MPV Neut % (Auto) Lymph % (Auto) [place] % (Auto) Eos % (Auto) Baso % (Auto) Neut # (Auto) Lymph # (Auto) [place] # (Auto) Eos # (Auto) Baso # (Auto) Immature Gran % Nucleated RBC % Immature Gran # Nucleated RBCs # Platelet Estimate Hypochromasia Morphology Comment ABG pH ABG pCO2 ABG pO2 ABG HCO3 ABG Total CO2 ABG O2 Saturation ABG Base Excess FiO2 Sodium Potassium Chloride Carbon Dioxide Anion Gap BUN Creatinine GFR Calculation BUN/Creatinine Ratio Glucose POC Glucose 208 H Calculated Osmolality Calcium - EKG EKG results: interpreted by me EKG shows: atrial fibrillation Specialty Discharge - Follow Up or Referrals
[2017-03-14 08:20] LABS: INR 3.8
[2017-03-14 08:24] LABS: PT Patient Result 43.3 SECS
[2017-03-14] MEDS: AMIODARONE 200 MG TABLET PO SCH ×2 (08:58→20:19)
[2017-03-14] MEDS: DILTIAZEM 30 MG TABLET PO SCH ×3 (08:58→20:19)
[2017-03-14] MEDS: PANTOPRAZOLE 40 MG VIAL IV SCH (08:59)
[2017-03-14] MEDS: METOPROLOL TARTRATE 100 MG TABLET PO SCH ×2 (08:59→20:19)
[2017-03-14] MEDS: FUROSEMIDE 40 MG/4 ML VIAL IV SCH (08:59)
[2017-03-14] MEDS: DESITIN 4OZ/NYSTATIN 15 GRAM MIXTURE PASTE TOP SCH ×2 (09:00→20:19)
[2017-03-14] MEDS: HYDROcod/ACETAMIN 7.5-325 MG/15 ML UDCUP PO PRN ×3 (09:12→20:20)
[2017-03-14] MEDS: MULTIVITAMIN LIQUID (CENTRUM) 60 ML BOTTLE PO SCH (09:13)
[2017-03-14] MEDS: FLUCONAZOLE 40 MG/ML 35 ML/BOTTLE PO SCH (09:14)
--- NOTE | 2017-03-14 09:41 | Hospitalist Progress Note ---
Hospitalist: Subjective Interval history: Nursing states that patient was on the vent from 1pm yesterday to 755am this morning. Currently, she is on TC and is so far tolerating it. She nods "yes" to breathing better. Exam - Constitutional Vitals: Period Temp Pulse Resp BP Sys/Cox Pulse Ox Last 24 Hr 97.1 F-97.8 F 82-113 14-29 103-147/60-112 91-99 General appearance: no acute distress, over weight - Head Head exam: Present: normal inspection, normocephalic - Eye Eye exam: Present: EOMI Pupils: Present: CHERELLE - ENT ENT exam: Present: normal exam, other (TC in place; o2 sat: 98% with FIO2: 40%; +NGT) - Neck Neck exam: Absent: tenderness, thyromegaly - Respiratory Respiratory exam: Present: decreased breath sounds (mildly coarse breath sounds on the right; descent air movement) - Cardiovascular Cardiovascular exam: Present: irregular rhythm, tachycardia - GI/Abdominal GI/Abdominal exam: Present: normal bowel sounds, soft. Absent: tenderness - Extremities Exam Extremities exam: Absent: edema - Neurological Exam Neurological exam: Present: alert - Psychiatric Psychiatric exam: Absent: anxious Results - Labs CBC & BMP: 03/14/17 04:45 03/14/17 04:45 - Impressions 1. CHF, stable; being cared for by cardiology; lasix on hold today; chest x-ray shows diffuse hazy bilateral pulmonary opacities and bilateral pleural effusions ; continue to monitor volume status 2. RLL pneumonia: afebrile; leukocytosis slightly improving; on zosyn 3. chronic respiratory failure s/p trac placement; was on vent nearly all day yesterday; now on TC; monitor; appreciate help by pulmonary 4. Alkalosis/hypercarbia: on diamox; monitor 5. chronic a-fib: rate controlled with amio/dilt/lopressor; HOWARD is 3.8 today; so , will continue to hold coumadin; goal INR is 2-3; keep K at least 4 and mag at least 6. deconditioning: would benefit from LTAC; will need to address permanent mode of nutrition:oral vs PEG placement 7. Leukocytosis: improving; monitor 8. Thrombocytopenia: low but stable; continue to monitor Plan: as noted above; continue to wean to TC; may need PEG placement; will need swallow evaluation first Specialty Discharge - Follow Up or Referrals
[2017-03-14] MEDS: GABAPENTIN 50 MG/ML 30 ML/BOTTLE NG SCH (12:03)
[2017-03-15] MEDS: guaiFENesin 200 MG/10 ML UDCUP PO SCH ×4 (03:31→20:49)
[2017-03-15 03:40] LABS: Basophils % 0.1 % (0.0-0.8); Hematocrit 36.3 VOL% (35.7-47.0); Hemoglobin 11.8 GM/DL (12.0-16.0); Immature Granulocytes % 2.2 %; Immature Granulocytes Absolute 0.27 #; Lymphocytes # 0.9 10*3/uL (1.4-4.0); Lymphocytes % 6.9 % (21.3-54.2); Mean Corpuscular HGB Conc 32.5 GM/DL (32-36); Mean Corpuscular Hemoglobin 31 PG (27-34); Mean Corpuscular Volume 94.3 FL (87-102); Mean Platelet Volume 11.8 FL (9.6-12.0); Monocytes # 0.4 10*3/uL (0.11-0.8); Monocytes % 3.2 % (1.7-12.7); Neutrophils # 10.8 10*3/uL (1.4-7.4); Neutrophils % 87.6 % (38.7-73.9); Platelet Count 105 T/CUMM (130-400); Red Blood Count 3.85 MC/CUMM (3.8-5.5); Red Cell Distribution Width 14.8 % (9.3-17.3); White Blood Count 12.4 T/CUMM (4-12)
[2017-03-15 03:49] LABS: INR 3.6
[2017-03-15 03:50] LABS: PT Patient Result 40.9 SECS
[2017-03-15 03:55] LABS: Allen Test Positive
[2017-03-15 03:58] LABS: ABG Base Excess 7.5 MMOL/L (-2.5-2.5); ABG HCO3 31.3 MMOL/L (20-26); ABG Oxygen Saturation 94.7 % (95-100); ABG PCO2 59.7 MM HG (35-48); ABG PH 7.374 (7.35-7.45); ABG PO2 74.6 MM HG (80-95); ABG TCO2 31.1 MMOL/L (23-27)
[2017-03-15 04:07] LABS: Calcium 7.8 MG/DL (8.5-10.1); Magnesium 2.1 MG/DL (1.8-2.4); Osmolality,Calculated 294.4 MOS/KG (273-304); Potassium 3.8 MMOL/L (3.5-5.1)
[2017-03-15] MEDS: HYDROcod/ACETAMIN 7.5-325 MG/15 ML UDCUP PO PRN ×3 (04:14→15:46)
[2017-03-15] MEDS: PIPERACILLIN/TAZOBACTAM 3,375 MG in SODIUM CHLORIDE 0.9% 100 ML IV SCH ×3 (06:14→23:39)
[2017-03-15] MEDS: methylPREDNISolone SOD SUC 40 MG/1 ML VIAL IV SCH ×2 (06:17→18:09)
[2017-03-15] MEDS: INSULIN REGULAR 100 UNIT/ML SUBCUT SCH ×4 (06:17→23:40)
[2017-03-15] MEDS: POTASSIUM CHLORIDE RIDER 20 MEQ in PREMIX 1 EACH IV PRN (06:19)
--- NOTE | 2017-03-15 06:39 | Pulmonology Progress Note ---
Pulmonary - PN: Subj Interval history: Patient had worsening respiratory distress last night and was intubated by Dr. Contreras. At present she is sedated and on the ventilator but her mental status is good when sedation is held. We had wanted to evaluate swallowing but we will have to wait until we wean her off the ventilator. Concerned that she has a neurologic process. ABGs look good this morning. Will reduce settings. She has bilateral infiltrates on x-ray. Will take several days of antibiotics before we would be able to wean. 02/21/2017 ABGs are improved. Chest x-ray is pending. Will start weaning today. Patient with pneumonia and that is likely aspiration. Continuing broad- spectrum antibiotics. Cultures negative thus far from bronchial washings. 02/22/2017 again ABGs look better. Patient starting to do CPAP's. Seems to be responsive during those times when sedation is held. She does have some dementia and apparent aspiration. Bronchial washing cultures have been negative. Continuing empiric antibiotics. Will check mechanics and ABGs on CPAP today to see if we could possibly extubate. 02/23/2017 patient doing well with CPAP. ABGs look good. Chest x-ray still shows some lower lobe infiltrates. Worse on the right than left. Patient is alert calm and nodding to questions. Will check mechanics and ABGs on CPAP. If she does okay which should be able to get her extubated. 02/24/2017 she has done well with T-tube trial this morning. ABGs acceptable. Still has some right lower lobe infiltrate. Will extubate this morning. Mental status seems pretty good hopefully can defend her airway. She does have some dementia. 02/27/2017 patient was off the ventilator for a day but had to be reintubated 2 days ago because she was unable to clear her secretions. She is done well with CPAP since then. Will continue with weaning trial for now. May need to consider tracheostomy. PT/INR is hyperinflated. Holding Coumadin 02/28/2017 patient did prolonged CPAP trials. She is alert and answering questions squeezing fingers on command. Should be able to manage her airway extubated. Will check mechanics and ABGs on CPAP this morning. If she clearly is above excepted levels then we will extubate her. If she does not tolerate that then we would need to go ahead and plan tracheostomy. Her PT/INR is 5.2. Coumadin has been held. She is on medication that potentiated sections however. I will give her a low-dose of vitamin K. She is on that for paroxysmal atrial fibrillation. Normal sinus rhythm at present. 03/01/2017 patient again is doing well with prolonged CPAP trials. However her mechanics are quite poor. For now we will continue with CPAP trials. Will very likely need a tracheostomy if we do not see significant improvement in the next couple of days. Her PT INR remains hyper prolonged. Will repeat AquaMEPHYTON. Agree with evaluation for LTAC placement. 03/02/2017 PT/INR is down to 1.9 today. Will still need a little more fresh frozen plasma and/or vitamin K to prepare for tracheostomy. It appears likely that it will be next week that she gets the tracheostomy. We will continue weaning trials in the meantime. She is tolerating them well but her mechanics indicate that she does not have a strong enough cough to clear her airway if extubated now. Definitely think it would be safer for tracheostomy in order to get her weaned. 03/03/2017 INR is 1.7. Patient is scheduled for tracheostomy either later today or in the morning. We will give 2 more units of fresh frozen plasma. Would like to get INR down to 1.3 or less. She has been given a good bit of vitamin K as well. She is tolerating CPAP. However she has proven that she is not able to defend her airway and her mechanics have not been adequate for extubation. Hopefully tracheostomy will facilitate weaning. She has had problems with aspiration. 03/06/2017 patient had tracheostomy Monday. Making progress with CPAP. Doing brief trach collar. From pulmonary standpoint ready to move to LTAC soon as that can be done. 03/07/2017 patient did trach collar overnight and fatigued. Will increase times on trach collar on a daily basis. Hopefully can get her off the ventilator altogether within a few days and then start working on the tracheostomy. Patient is responsive. There are no new complaints. 03/08/2017 patient did trach collar for prolonged period yesterday and was put back on CPAP overnight. Did not fatigue. She is more alert and calm this morning. Will try to keep on trach collar full-time. If she fatigues we will rest with IMV. 03/09/2017 patient making progress with weaning with longer trach collar times. Still requiring some mechanical ventilation. She is responsive and afebrile. 03/10/2017 patient presently on trach collar and appears comfortable. She has an 8 [place] cuffed tracheostomy. Bleed not ready to do speaking valve until we get a smaller trach. PT/INR is down to 2.7 after fresh frozen plasma and vitamin K. Considering a PEG tube. However with her being on trach collar now may be able to try oral diet in a few days with speech therapy so probably should hold off on PEG tube. 03/13/2017 patient tolerating trach collar full-time the last 24 hours. She has required some mechanical ventilation at night a couple of times. Not able to change out trach tube until she goes about 4 days on trach collar. Mental status is good. Chest x-ray shows slight worsening on the left side. ABGs were acceptable. Increase activity get her up in the chair. 03/14/17 patient had to be placed back on the ventilator overnight. Chest x-ray still looks a little wet and she has hypercarbia. I will increase her Diamox. Renal function appears stable. It does not appear that she will get off the ventilator altogether in the next few days. It may be worthwhile to look back into going to LTAC. 03/15/2017 patient has been on trach collar overnight and looks comfortable. Her chest x-ray still shows a lot of pulmonary infiltrates and some pleural effusions. Urine output has been good. Renal function intact. Patient is fairly alert and calm. Will try speaking valve. Need to wait a few days before we downsize her trach to a cuff less 6 Slovak straight. Exam (Progress Note) - Constitutional Vitals: Period Temp Pulse Resp BP Sys/Cox Pulse Ox Last 24 Hr 97 F-97.8 F 73-110 11-22 90-125/53-81 90-100 Exam: Patient responsive at present. Nods to questions and squeezes fingers on command. Vital signs normal. Pupils react to light. Tracheostomy in place. On trach collar 40% at present. Neck is supple no bruits. Chest reveals few scattered rhonchi equal breath sounds. Heart irregular without murmurs. Abdomen soft nontender no masses. Extremities no clubbing cyanosis or edema. Calves are nontender. Results - Labs CBC & BMP: 03/15/17 03:31 03/15/17 03:31 Lab Results: I have reviewed the past 24 hour labs - Diagnostic Findings Procedure: Chest x-ray: image reviewed by me (Bilateral infiltrates primarily lower lobe. X-ray is somewhat distorted difficult to tell about tracheostomy but it appears to be intraluminal.) Assessment and Plan (1) History of atrial fibrillation Status: Chronic Assessment and plan: Patient on chronic anticoagulants. Watch protimes. Rate is controlled 02/21/2017 rate is controlled. 02/22/2017 again rate is controlled. 02/23/2017 rate controlled. 02/27/2017 holding Coumadin. INR 4.6. 02/28/2017 sinus rhythm. INR 5.2. Holding Coumadin. Will give AquaMEPHYTON 5 mg. 03/01/2017 sinus rhythm. Trying to totally reverse Coumadin. This is in anticipation of tracheostomy. Likely will need one by Monday. 03/02/2017 remains in sinus rhythm. She has had 2 doses of vitamin K and had fresh frozen plasma yesterday. If tracheostomy is to be done she would need another round of fresh frozen plasma the day before. 03/03/2017 rate is controlled. 1.7. Getting more fresh frozen plasma today in anticipation of the tracheostomy. 03/06/2017 rate is controlled. INR is 1.2. 03/07/2017 remains in atrial fib. Controlled rate. Cardiology following. 03/08/2017 atrial fibrillation with controlled rate. 03/09/2017 heart rate around 105-110. 03/10/2017 atrial fibrillation with controlled rate around 105 03/13/2017 rate is controlled 100-105. 03/14/2017 rate remains controlled. 03/15/2017 heart rate around 100-105 with atrial fib. Current Visit: No (2) Congestive heart failure Status: Chronic Assessment and plan: BNP has come down since admission. Watch fluid status. 02/21/2017 clinically congestive heart failure is better. 02/22/2017 heart failure seems to be better 02/23/2017 chest x-ray may be a little wet. Will diurese further. 02/24/2017 chest x-ray still a little wet. Continue with diuresis. 02/27/2017 congestive heart failure improved. 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 03/01/2017 congestive heart failure little better. 03/02/2017 congestive heart failure stable at present. 03/03/2017 heart failure controlled. 03/06/2017 small pleural effusions. Probably needs diuresing a little. 03/07/17 small pleural effusions but probably not active congestive failure. 03/08/2017 responded to diuresis. She needs a little Diamox because of metabolic alkalosis. 03/09/2017 congestive heart failure controlled with medicines. 03/10/2017 she has diuresed fairly well. 03/13/2017 congestive heart failure appears controlled. Difficult to tell if she is wet on x-ray however. 03/14/2017 x-ray looks a little bit wet. Increasing Diamox because of hypercarbia. This may help with diuresis as well. Her weight is a little down. 03/15/2017 we have continued to diurese her. Also getting Diamox because of metabolic alkalosis. PCO2 is in the 50s. Watch closely. Current Visit: Yes Qualifiers: Congestive heart failure chronicity: acute on chronic (3) Pneumonia Status: Acute Assessment and plan: On broad-spectrum empiric antibiotics. Check cultures from bronchial washings. That should be out tomorrow. She is E. coli from her urine and it is covered with Merrem. 02/21/2017 chest x-ray is pending. Bronchial wash cultures thus far are showing normal scott. Continuing empiric antibiotics. 02/22/2017 bronchial wash cultures were negative. Continuing empiric antibiotics. X-ray showing improvement 02/23/2017 bibasilar pneumonia. Bronchial wash cultures negative. Continuing antibiotics. 02/24/2017 pneumonia about the same, primarily at the right base. Continuing antibiotics. 02/27/2017 continuing empiric antibiotics. 02/28/2017 continuing empiric antibiotics. Adding Diflucan for oral monilia. Do not think she has monilia as the cause of her pneumonia. 03/01/2017 patient on antibiotics and on Diflucan. Likely these are keeping her pro time from correcting. 03/02/2017 continuing broad-spectrum antibiotics. Patient has very poor cough and would not be able to clear her airways if off the ventilator at present 03/03/2017 has bibasilar pneumonia due to aspiration. Poor cough. Requires tracheostomy to wean. 03/06/2017 chest x-ray still showing infiltrates. Overall much improved. 03/07/2017 continuing empiric antibiotics. 03/08/2017 no fever. Could stop antibiotics at this point. She has been on them for 2 weeks 03/09/2017 again no fever. 03/10/2017 no fever. Antibiotics have been discontinued 03/13/2017 with worsening chest x-ray will resume antibiotics. Start Zosyn. Obtain sputum 03/14/2017 continuing Zosyn. Gram stain shows gram-negative rods and increased number of white cells. 03/15/2017 continuing antibiotics. Cultures pending. Appears to be a gram- negative pneumonia Current Visit: Yes Qualifiers: Pneumonia type: due to unspecified organism Laterality: right Lung location: lower lobe of lung Qualified Code(s): J18.1 - Lobar pneumonia, unspecified organism (4) Acute respiratory failure Status: Chronic Assessment and plan: Patient was struggling especially with upper airway symptoms and required intubation last night. At bronchoscopy earlier in the day yesterday there were no abnormalities in the upper airway. Likely she had some thick secretions that caused this. We will keep these suctioned out. Pneumonia is the primary cause of the respiratory failure. 02/21/17 ABGs look much better. She has a metabolic alkalosis. Will add Diamox for 3 days. 02/22/2017 ABGs improved. Still has a mild metabolic alkalosis. Will check mechanics today to see if extubation is a possibility. 02/23/2017 ABGs look good. Tolerating CPAP. Only concern is far as getting her extubated is that her right lower lobe looks a little worse on x-ray today. Will bronchoscope and clean her out before we do CPAP 02/24/2017 patient extubated this morning. Hopefully she can defend her airway. She has some dementia but is able to respond to questions fairly well. 02/27/2017 patient had to be reintubated. Not able to defend her airway. 02/28/2017 ABGs look good. Her mental status is such that I would expect her to be able to control her airway. Will try again to get her extubated today 03/01/2017 again ABGs look good but mechanics not up to par for extubation yet. She would not be able to defend her airway, just as we saw Monday. 03/02/2017 ABGs look good. She does have a metabolic alkalosis. Will give Diamox for 3 days again. 03/03/2017 ABGs good. Tolerating CPAP. Report cough and inadequate negative inspiratory force. Tracheostomy is planned. Will be long-term weaning, and plans are to go to LTAC next week. 03/06/2017 PCO2 is a little low. Will reduce IMV rate. Continue weaning trial 03/07/2017 making good progress with weaning. Tolerated fairly long trach collar overnight. 03/08/2017 ABGs look good on trach collar. Hopefully we can keep her trach collar home full-time. Then began to downsize tracheostomy in a few days. 03/09/2017 PCO2 down a little bit. Patient comfortable on trach collar. Continue to stretch out times on trach collar 03/10/2017 tolerating trach collar. Can increase times on that. 03/13/2017 hopefully can get a full-time trach collar in the next few days. 03/14/2017 continues to have elevated PCO2. Continue to try trach collar 03/15/2017 tolerating trach collar but has elevated PCO2. Watch for fatigue. Current Visit: Yes Qualifiers: Respiratory failure complication: hypoxia Qualified Code(s): J96.01 - Acute respiratory failure with hypoxia Specialty Discharge - Follow Up or Referrals
--- NOTE | 2017-03-15 06:41 | XRay Report ---
XR chest 1V portable Indication: Intubation/ventilator. Comparison: Chest x-ray 03/14/2017 Technique: Portable AP chest was performed. Findings: Tracheostomy tube has probably changed little in position since comparison study. It appears that the tube placement May BE superficial and that the termination of the tube appears to be horizontally oriented on the image. Multiple tubes and medical support devices otherwise are stable. The lungs demonstrate little change from comparison of bilateral parenchymal opacities in the mid to lower chest. Heart size is stable. Bones and soft tissues demonstrate no significant interval change. Impression: 1. Little change in the chest is suggested. 2. Tracheostomy tube position suggests that the tube may be somewhat retracted as the tip lies in the horizontal position. 03/15/2017 6:37 AM PROCEDURE INTERPRETED AT [facility] DEPARTMENT OF RADIOLOGY Final Report Signed by: Dr. Isai Andrade
[2017-03-15] MEDS: LEVALBUTEROL 1.25 MG/3 ML NEB RESP TX SCH ×3 (07:25→23:00)
--- NOTE | 2017-03-15 07:48 | Cardiology Progress Note ---
Assessment and Plan - Time spent with patient Time spent with patient: Less than 30 minutes (1) Paroxysmal atrial fibrillation Status: Acute Assessment and plan: See plan of care listed below. Current Visit: Yes (2) Pneumonia Status: Acute Assessment and plan: See plan of care listed below. Current Visit: Yes Qualifiers: Pneumonia type: due to unspecified organism Laterality: right Lung location: lower lobe of lung Qualified Code(s): J18.1 - Lobar pneumonia, unspecified organism (3) Acute respiratory failure Status: Chronic Assessment and plan: See plan of care listed below. Current Visit: Yes Qualifiers: Respiratory failure complication: hypoxia Qualified Code(s): J96.01 - Acute respiratory failure with hypoxia (4) Anticoagulated on Coumadin Status: Chronic Assessment and plan: See plan of care listed below. Current Visit: No (5) Hypertension Status: Chronic Assessment and plan: See plan of care listed below. Current Visit: No Qualifiers: Hypertension type: essential hypertension Qualified Code(s): I10 - Essential (primary) hypertension (6) Mitral regurgitation Status: Acute Assessment and plan: See plan of care listed below. Current Visit: Yes (7) Aortic insufficiency Status: Acute Assessment and plan: See plan of care listed below. Current Visit: Yes (8) Congestive heart failure Status: Chronic Assessment and plan: See plan of care listed below. Current Visit: Yes Qualifiers: Congestive heart failure chronicity: acute on chronic Cardiology - PN: Subj Interval history: Business Professor: Dr. Johnston PCP: Dr. Jesús Graham Summary: Ms. Ernandez is a 81 year old female with a history of paroxysmal atrial fibrillation treated with amiodarone. She also has a history of hypertension, mitral stenosis, chronic anticoagulation. Ms. Ernandez was admitted to the hospital on 02/17/17 with pneumonia and CHF. An [employer] was called on 02/19/17 due to respiratory distress and she subsequently required intubation. She has been in normal sinus rhythm throughout admission but went into atrial fibrillation on 03/01/17 and has had rates in the 100s-120s. We were consulted to see her and aid in management of her atrial fibrillation. FEBRUARY 11, 2017: Ms. Ernandez is lying in bed on trach collar upon exam today. She is resting comfortably and following commands. She answers questions appropriately with a nod or shake of her head and denies shortness of breath. Rates are better controlled with rates consistently <100. Will further discuss with Dr. Chowdary and await additional recommendations. Blood pressure has been borderline but well controlled. Assessment/Plan: 1. Paroxysmal atrial fibrillation - Her metoprolol has been increased to 100mg PO BID. We are continuing her Amiodarone 200mg PO BID. Cardizem 30mg PO TID was initiated due to elevated rates. She is now running between 70-100. Her blood pressure is borderline. 2. Pneumonia - Pulmonology is following. 3. Acute respiratory failure s/p tracheostomy 03/03/17 - She is tolerating lengthy trach collar trials but tires easily. She would be a good potential candidate for LTAC; however, there have been some issues with her insurance. Case management has been assisting with this. 4. Chronic anticoagulation - Anticoagulated with Coumadin 3mg po daily. Monitor PT/INR. INR 3.6 today. Coumadin still on hold. Would like to keep INR between 2- 3 range. 5. Hypertension - Currently well controlled. Will continue to monitor and adjust accordingly. 6. Mitral Regurgitation - Echocardiogram on 02/25/17 revealed EF 60%, mild to moderate MR, 1+ AI, severe TR, PA pressure 67. 7. Aortic Insufficiency 8. Congestive Heart Failure - BNP was mildly elevated earlier in hospitalization but she appears well compensated at this time. Exam (Progress Note) - Constitutional Vitals: Period Temp Pulse Resp BP Sys/Cox Pulse Ox Last 24 Hr 97 F-97.6 F 73-105 11-22 90-125/53-81 90-100 Exam: General: Present: Appears Well, No Apparent Distress. Pleasant and cooperative. HEENT: Present: PERRL, Normocephaly, atraumatic. Mucus Membranes Moist. No jaundice noted. Conjunctiva moist and clear, sclerae anicteric Neck: Present: Supple Neck, Tracheostomy with trach collar in place, No Masses, No Bruit, No tenderness Cardiac: Present: Irregular Rate and Rhythm, Systolic Murmur Lungs: Present: Mild basilar rhonchi, otherwise Clear to auscultation bilaterally. Neuro: Present: Awake, alert, and oriented x3. Moves all extremities well without hemiparesis or paralysis. Grossly Intact. Absent: Resting Tremor, Essential Tremor Abdomen: Present: Soft, Active Bowel Sounds, No Masses, Non-Tender, nondistended. No abdominal bruit or thrill noted. Skin: Present: Clear. Absent: Rash, No skin breakdown. Musculoskeletal: Present: No Fluid Collection, No Pain, Normal Range of Motion Extremities: Present: No Clubbing, No Cyanosis, Upper Extr. Pulses 2+, Lower Extr. Pulses 2+, 1+ pitting edema to BLE. Capillary refill less than 3 seconds. Result/EKG - Labs CBC & BMP: 03/15/17 03:31 03/15/17 03:31 Lab Results: I have reviewed the past 24 hour labs Labs: Laboratory Results - last 24 hr 03/14/17 03/14/17 03/14/17 07:59 11:45 18:08 WBC RBC Hgb Hct MCV MCH MCHC RDW Plt Count MPV Neut % (Auto) Lymph % (Auto) [place] % (Auto) Eos % (Auto) Baso % (Auto) Neut # (Auto) Lymph # (Auto) [place] # (Auto) Eos # (Auto) Baso # (Auto) Immature Gran % Nucleated RBC % Immature Gran # Nucleated RBCs # INR 3.8 PT Patient/Control Mix 43.3 D ABG pH ABG pCO2 ABG pO2 ABG HCO3 ABG Total CO2 ABG O2 Saturation ABG Base Excess FiO2 Sodium Potassium Chloride Carbon Dioxide Anion Gap BUN Creatinine GFR Calculation BUN/Creatinine Ratio Glucose POC Glucose 206 H 122 H Calculated Osmolality Calcium Magnesium 03/14/17 03/15/17 03/15/17 23:16 03:31 03:31 WBC 12.4 H D RBC 3.85 Hgb 11.8 L Hct 36.3 MCV 94.3 MCH 31 MCHC 32.5 RDW 14.8 Plt Count 105 L MPV 11.8 Neut % (Auto) 87.6 H Lymph % (Auto) 6.9 L [place] % (Auto) 3.2 Eos % (Auto) 0.0 Baso % (Auto) 0.1 Neut # (Auto) 10.8 H Lymph # (Auto) 0.9 L [place] # (Auto) 0.4 Eos # (Auto) 0.0 Baso # (Auto) 0.0 Immature Gran % 2.2 Nucleated RBC % 0.0 Immature Gran # 0.27 Nucleated RBCs # 0.00 INR 3.6 PT Patient/Control Mix 40.9 ABG pH ABG pCO2 ABG pO2 ABG HCO3 ABG Total CO2 ABG O2 Saturation ABG Base Excess FiO2 Sodium Potassium Chloride Carbon Dioxide Anion Gap BUN Creatinine GFR Calculation BUN/Creatinine Ratio Glucose POC Glucose 160 H Calculated Osmolality Calcium Magnesium 03/15/17 03/15/17 03/15/17 03:31 03:40 05:40 WBC RBC Hgb Hct MCV MCH MCHC RDW Plt Count MPV Neut % (Auto) Lymph % (Auto) [place] % (Auto) Eos % (Auto) Baso % (Auto) Neut # (Auto) Lymph # (Auto) [place] # (Auto) Eos # (Auto) Baso # (Auto) Immature Gran % Nucleated RBC % Immature Gran # Nucleated RBCs # INR PT Patient/Control Mix ABG pH 7.374 ABG pCO2 59.7 H ABG pO2 74.6 L ABG HCO3 31.3 H ABG Total CO2 31.1 H ABG O2 Saturation 94.7 L ABG Base Excess 7.5 H FiO2 40.00 Sodium 140 Potassium 3.8 Chloride 98 Carbon Dioxide 37 H Anion Gap 8.8 BUN 41 H Creatinine 0.40 L GFR Calculation 106 BUN/Creatinine Ratio 102.00 H Glucose 201 H POC Glucose 170 H Calculated Osmolality 294.4 Calcium 7.8 L Magnesium 2.1 - EKG EKG results: interpreted by me EKG shows: atrial fibrillation Specialty Discharge - Follow Up or Referrals
[2017-03-15] MEDS: METOPROLOL TARTRATE 100 MG TABLET PO SCH ×2 (08:55→20:48)
[2017-03-15] MEDS: AMIODARONE 200 MG TABLET PO SCH (08:55)
[2017-03-15] MEDS: DILTIAZEM 30 MG TABLET PO SCH ×3 (08:55→20:49)
[2017-03-15] MEDS: PANTOPRAZOLE 40 MG VIAL IV SCH (08:56)
[2017-03-15] MEDS: FLUCONAZOLE 40 MG/ML 35 ML/BOTTLE PO SCH (08:56)
[2017-03-15] MEDS: DESITIN 4OZ/NYSTATIN 15 GRAM MIXTURE PASTE TOP SCH ×2 (08:57→20:58)
--- NOTE | 2017-03-15 11:36 | Hospitalist Progress Note ---
Assessment and Plan - Time spent with patient Time spent with patient: Less than 30 minutes (1) Congestive heart failure Status: Chronic Assessment and plan: Stable at present, patient seems to be normovolemic, chest x-ray today shows bilateral parenchymal opacities in the mid to lower chest, little change from yesterday. Current Visit: Yes Qualifiers: Congestive heart failure chronicity: acute on chronic (2) Pneumonia Status: Acute Assessment and plan: Patient remains afebrile, leukocytosis improving, WBC 12, currently on Zosyn Current Visit: Yes Qualifiers: Pneumonia type: due to unspecified organism Laterality: right Lung location: lower lobe of lung Qualified Code(s): J18.1 - Lobar pneumonia, unspecified organism (3) Paroxysmal atrial fibrillation Status: Acute Assessment and plan: Stable, currently rate controlled, cardiology following, INR 3.6 today, continue to hold Coumadin Current Visit: Yes (4) Respiratory failure Status: Acute Assessment and plan: Patient stable on trach collar, continue to monitor, followed by pulmonology, appreciate their assistance. Waiting on patient's insurance company for LTAC placement. Current Visit: Yes (5) Leukocytosis Status: Acute Assessment and plan: Improved, WBC 12 today down from 18 yesterday. Current Visit: Yes Hospitalist: Subjective Interval history: Patient lying comfortably in bed, in no acute distress and no acute events overnight. Pulmonology following, continues to be on trach collar, will try speaking valve today. Patient cannot speak, but communicates through nodding that she is not in pain and is not short of breath and has not had any chest pain. She continues feedings through orogastric tube. Patient remains afebrile. Exam - Constitutional Vitals: Period Temp Pulse Resp BP Sys/Cox Pulse Ox Last 24 Hr 97 F-97.6 F 73-94 11-23 90-125/61-90 90-100 General appearance: no acute distress, over weight - Head Head exam: Present: normocephalic - Eye Pupils: Present: CHERELLE - Respiratory Respiratory exam: Present: clear to auscultation bilaterally, rhonchi (scattered ) - Cardiovascular Cardiovascular exam: Present: regular rate and rhythm - GI/Abdominal GI/Abdominal exam: Present: normal bowel sounds, soft - Extremities Exam Extremities exam: Present: edema - Neurological Exam Neurological exam: Present: alert - Psychiatric Psychiatric exam: Present: normal affect - Skin Skin exam: Present: normal color, warm Results - Labs CBC & BMP: 03/15/17 03:31 03/15/17 03:31 Specialty Discharge - Follow Up or Referrals
[2017-03-15] MEDS: GABAPENTIN 50 MG/ML 30 ML/BOTTLE NG SCH ×2 (15:27→16:04)
[2017-03-15] MEDS: MULTIVITAMIN LIQUID (CENTRUM) 60 ML BOTTLE PO SCH (15:28)
[2017-03-16] MEDS: guaiFENesin 200 MG/10 ML UDCUP PO SCH ×4 (02:22→21:51)
[2017-03-16 02:58] LABS: Hematocrit 36.2 VOL% (35.7-47.0); Hemoglobin 11.8 GM/DL (12.0-16.0); Immature Granulocytes Absolute 0.22 #; Lymphocytes # 0.8 10*3/uL (1.4-4.0); Lymphocytes % 10.8 % (21.3-54.2); Mean Corpuscular HGB Conc 32.6 GM/DL (32-36); Mean Corpuscular Hemoglobin 31 PG (27-34); Mean Platelet Volume 11.5 FL (9.6-12.0); Monocytes # 0.4 10*3/uL (0.11-0.8); Monocytes % 5.9 % (1.7-12.7); NRBC # 0.03 10*3/uL; Neutrophils # 5.8 10*3/uL (1.4-7.4); Neutrophils % 80.3 % (38.7-73.9); Red Blood Count 3.85 MC/CUMM (3.8-5.5); Red Cell Distribution Width 15.1 % (9.3-17.3); White Blood Count 7.2 T/CUMM (4-12)
[2017-03-16 03:01] LABS: Platelet Count 107 T/CUMM (130-400)
[2017-03-16 03:41] LABS: Calcium 8.5 MG/DL (8.5-10.1); Magnesium 2.1 MG/DL (1.8-2.4); Osmolality,Calculated 287.5 MOS/KG (273-304); Potassium 3.8 MMOL/L (3.5-5.1)
[2017-03-16 03:42] LABS: Ovalocytes 1+; Platelet Estimate Adequate
[2017-03-16 04:04] LABS: ABG Base Excess 8.3 MMOL/L (-2.5-2.5); ABG HCO3 34.9 MMOL/L (20-26); ABG Oxygen Saturation 97.6 % (95-100); ABG PCO2 57.5 MM HG (35-48); ABG PH 7.401 (7.35-7.45); ABG PO2 104.1 MM HG (80-95); ABG TCO2 36.7 MMOL/L (23-27); Allen Test Positive
[2017-03-16 04:12] LABS: Magnesium 2.1 MG/DL (1.8-2.4); Phosphorous 2.8 MG/DL (2.5-4.9); Prealbumin 29.5 MG/DL (20-40)
[2017-03-16] MEDS: HYDROcod/ACETAMIN 7.5-325 MG/15 ML UDCUP PO PRN ×2 (05:04→23:32)
--- NOTE | 2017-03-16 06:00 | XRay Report ---
XR chest 1V portable Indication: Ventilator Comparison: Chest x-ray 03/15/2017 Technique: Portable AP chest was performed. Findings: Multiple tubes and medical support devices appear stable. Cardiomegaly is stable. Hazy opacities in the lung bases as well as somewhat more focal air space disease in the perihilar regions perhaps somewhat more pronounced on the left has changed little since comparison. Bones and soft tissues are stable. Impression: 1. No adverse interval change in the chest 03/16/2017 5:57 AM PROCEDURE INTERPRETED AT [facility] DEPARTMENT OF RADIOLOGY Final Report Signed by: Dr. Isai Andrade
[2017-03-16] MEDS: methylPREDNISolone SOD SUC 40 MG/1 ML VIAL IV SCH ×2 (06:08→18:31)
[2017-03-16] MEDS: INSULIN REGULAR 100 UNIT/ML SUBCUT SCH ×3 (06:10→18:27)
[2017-03-16] MEDS: PIPERACILLIN/TAZOBACTAM 3,375 MG in SODIUM CHLORIDE 0.9% 100 ML IV SCH ×3 (06:11→23:32)
[2017-03-16] MEDS ORDERED: LIDOCAINE 1% 20 ML VIAL MISC INJ ONE (06:16)
[2017-03-16] MEDS ORDERED: MIDAZOLAM 2 MG/2 ML VIAL IV ONE (06:16)
--- NOTE | 2017-03-16 06:20 | Pulmonology Progress Note ---
Pulmonary - PN: Subj Interval history: Patient had worsening respiratory distress last night and was intubated by Dr. Contreras. At present she is sedated and on the ventilator but her mental status is good when sedation is held. We had wanted to evaluate swallowing but we will have to wait until we wean her off the ventilator. Concerned that she has a neurologic process. ABGs look good this morning. Will reduce settings. She has bilateral infiltrates on x-ray. Will take several days of antibiotics before we would be able to wean. 02/21/2017 ABGs are improved. Chest x-ray is pending. Will start weaning today. Patient with pneumonia and that is likely aspiration. Continuing broad- spectrum antibiotics. Cultures negative thus far from bronchial washings. 02/22/2017 again ABGs look better. Patient starting to do CPAP's. Seems to be responsive during those times when sedation is held. She does have some dementia and apparent aspiration. Bronchial washing cultures have been negative. Continuing empiric antibiotics. Will check mechanics and ABGs on CPAP today to see if we could possibly extubate. 02/23/2017 patient doing well with CPAP. ABGs look good. Chest x-ray still shows some lower lobe infiltrates. Worse on the right than left. Patient is alert calm and nodding to questions. Will check mechanics and ABGs on CPAP. If she does okay which should be able to get her extubated. 02/24/2017 she has done well with T-tube trial this morning. ABGs acceptable. Still has some right lower lobe infiltrate. Will extubate this morning. Mental status seems pretty good hopefully can defend her airway. She does have some dementia. 02/27/2017 patient was off the ventilator for a day but had to be reintubated 2 days ago because she was unable to clear her secretions. She is done well with CPAP since then. Will continue with weaning trial for now. May need to consider tracheostomy. PT/INR is hyperinflated. Holding Coumadin 02/28/2017 patient did prolonged CPAP trials. She is alert and answering questions squeezing fingers on command. Should be able to manage her airway extubated. Will check mechanics and ABGs on CPAP this morning. If she clearly is above excepted levels then we will extubate her. If she does not tolerate that then we would need to go ahead and plan tracheostomy. Her PT/INR is 5.2. Coumadin has been held. She is on medication that potentiated sections however. I will give her a low-dose of vitamin K. She is on that for paroxysmal atrial fibrillation. Normal sinus rhythm at present. 03/01/2017 patient again is doing well with prolonged CPAP trials. However her mechanics are quite poor. For now we will continue with CPAP trials. Will very likely need a tracheostomy if we do not see significant improvement in the next couple of days. Her PT INR remains hyper prolonged. Will repeat AquaMEPHYTON. Agree with evaluation for LTAC placement. 03/02/2017 PT/INR is down to 1.9 today. Will still need a little more fresh frozen plasma and/or vitamin K to prepare for tracheostomy. It appears likely that it will be next week that she gets the tracheostomy. We will continue weaning trials in the meantime. She is tolerating them well but her mechanics indicate that she does not have a strong enough cough to clear her airway if extubated now. Definitely think it would be safer for tracheostomy in order to get her weaned. 03/03/2017 INR is 1.7. Patient is scheduled for tracheostomy either later today or in the morning. We will give 2 more units of fresh frozen plasma. Would like to get INR down to 1.3 or less. She has been given a good bit of vitamin K as well. She is tolerating CPAP. However she has proven that she is not able to defend her airway and her mechanics have not been adequate for extubation. Hopefully tracheostomy will facilitate weaning. She has had problems with aspiration. 03/06/2017 patient had tracheostomy Monday. Making progress with CPAP. Doing brief trach collar. From pulmonary standpoint ready to move to LTAC soon as that can be done. 03/07/2017 patient did trach collar overnight and fatigued. Will increase times on trach collar on a daily basis. Hopefully can get her off the ventilator altogether within a few days and then start working on the tracheostomy. Patient is responsive. There are no new complaints. 03/08/2017 patient did trach collar for prolonged period yesterday and was put back on CPAP overnight. Did not fatigue. She is more alert and calm this morning. Will try to keep on trach collar full-time. If she fatigues we will rest with IMV. 03/09/2017 patient making progress with weaning with longer trach collar times. Still requiring some mechanical ventilation. She is responsive and afebrile. 03/10/2017 patient presently on trach collar and appears comfortable. She has an 8 [place] cuffed tracheostomy. Bleed not ready to do speaking valve until we get a smaller trach. PT/INR is down to 2.7 after fresh frozen plasma and vitamin K. Considering a PEG tube. However with her being on trach collar now may be able to try oral diet in a few days with speech therapy so probably should hold off on PEG tube. 03/13/2017 patient tolerating trach collar full-time the last 24 hours. She has required some mechanical ventilation at night a couple of times. Not able to change out trach tube until she goes about 4 days on trach collar. Mental status is good. Chest x-ray shows slight worsening on the left side. ABGs were acceptable. Increase activity get her up in the chair. 03/14/17 patient had to be placed back on the ventilator overnight. Chest x-ray still looks a little wet and she has hypercarbia. I will increase her Diamox. Renal function appears stable. It does not appear that she will get off the ventilator altogether in the next few days. It may be worthwhile to look back into going to LTAC. 03/15/2017 patient has been on trach collar overnight and looks comfortable. Her chest x-ray still shows a lot of pulmonary infiltrates and some pleural effusions. Urine output has been good. Renal function intact. Patient is fairly alert and calm. Will try speaking valve. Need to wait a few days before we downsize her trach to a cuff less 6 Gu[place]ian straight. 03/16/2017 continues to do well with trach collar. However chest x-ray still showing fairly extensive infiltrates and her sputum is pretty thick. She has been on trach collar now for 48 hours. I will bronchoscope her this morning clean her airways. If she is doing well tomorrow we will downsize her tracheostomy. Exam (Progress Note) - Constitutional Vitals: Period Temp Pulse Resp BP Sys/Cox Pulse Ox Last 24 Hr 97.0 F-98.6 F 64-94 11-30 95-125/45-90 92-98 Exam: Patient responsive at present. Nods to questions and squeezes fingers on command. Vital signs normal. Pupils react to light. Tracheostomy in place. On trach collar 40% at present. Neck is supple no bruits. Chest reveals few scattered rhonchi equal breath sounds. Heart irregular without murmurs. Abdomen soft nontender no masses. Extremities no clubbing cyanosis or edema. Calves are nontender. Little change from yesterday. Results - Labs CBC & BMP: 03/16/17 02:50 03/16/17 02:50 Lab Results: I have reviewed the past 24 hour labs - Diagnostic Findings Procedure: Chest x-ray: image reviewed by me (Bilateral lower lobe infiltrates about the same. Tracheostomy in good position) Assessment and Plan (1) History of atrial fibrillation Status: Chronic Assessment and plan: Patient on chronic anticoagulants. Watch protimes. Rate is controlled 02/21/2017 rate is controlled. 02/22/2017 again rate is controlled. 02/23/2017 rate controlled. 02/27/2017 holding Coumadin. INR 4.6. 02/28/2017 sinus rhythm. INR 5.2. Holding Coumadin. Will give AquaMEPHYTON 5 mg. 03/01/2017 sinus rhythm. Trying to totally reverse Coumadin. This is in anticipation of tracheostomy. Likely will need one by Monday. 03/02/2017 remains in sinus rhythm. She has had 2 doses of vitamin K and had fresh frozen plasma yesterday. If tracheostomy is to be done she would need another round of fresh frozen plasma the day before. 03/03/2017 rate is controlled. 1.7. Getting more fresh frozen plasma today in anticipation of the tracheostomy. 03/06/2017 rate is controlled. INR is 1.2. 03/07/2017 remains in atrial fib. Controlled rate. Cardiology following. 03/08/2017 atrial fibrillation with controlled rate. 03/09/2017 heart rate around 105-110. 03/10/2017 atrial fibrillation with controlled rate around 105 03/13/2017 rate is controlled 100-105. 03/14/2017 rate remains controlled. 03/15/2017 heart rate around 100-105 with atrial fib. 03/16/2017 rate controlled. Pulse now around 70. Current Visit: No (2) Congestive heart failure Status: Chronic Assessment and plan: BNP has come down since admission. Watch fluid status. 02/21/2017 clinically congestive heart failure is better. 02/22/2017 heart failure seems to be better 02/23/2017 chest x-ray may be a little wet. Will diurese further. 02/24/2017 chest x-ray still a little wet. Continue with diuresis. 02/27/2017 congestive heart failure improved. 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 03/01/2017 congestive heart failure little better. 03/02/2017 congestive heart failure stable at present. 03/03/2017 heart failure controlled. 03/06/2017 small pleural effusions. Probably needs diuresing a little. 03/07/17 small pleural effusions but probably not active congestive failure. 03/08/2017 responded to diuresis. She needs a little Diamox because of metabolic alkalosis. 03/09/2017 congestive heart failure controlled with medicines. 03/10/2017 she has diuresed fairly well. 03/13/2017 congestive heart failure appears controlled. Difficult to tell if she is wet on x-ray however. 03/14/2017 x-ray looks a little bit wet. Increasing Diamox because of hypercarbia. This may help with diuresis as well. Her weight is a little down. 03/15/2017 we have continued to diurese her. Also getting Diamox because of metabolic alkalosis. PCO2 is in the 50s. Watch closely. 03/16/2017 we have diuresed her a little better. Weight is down. Current Visit: Yes Qualifiers: Congestive heart failure chronicity: acute on chronic (3) Pneumonia Status: Acute Assessment and plan: On broad-spectrum empiric antibiotics. Check cultures from bronchial washings. That should be out tomorrow. She is E. coli from her urine and it is covered with Merrem. 02/21/2017 chest x-ray is pending. Bronchial wash cultures thus far are showing normal scott. Continuing empiric antibiotics. 02/22/2017 bronchial wash cultures were negative. Continuing empiric antibiotics. X-ray showing improvement 02/23/2017 bibasilar pneumonia. Bronchial wash cultures negative. Continuing antibiotics. 02/24/2017 pneumonia about the same, primarily at the right base. Continuing antibiotics. 02/27/2017 continuing empiric antibiotics. 02/28/2017 continuing empiric antibiotics. Adding Diflucan for oral monilia. Do not think she has monilia as the cause of her pneumonia. 03/01/2017 patient on antibiotics and on Diflucan. Likely these are keeping her pro time from correcting. 03/02/2017 continuing broad-spectrum antibiotics. Patient has very poor cough and would not be able to clear her airways if off the ventilator at present 03/03/2017 has bibasilar pneumonia due to aspiration. Poor cough. Requires tracheostomy to wean. 03/06/2017 chest x-ray still showing infiltrates. Overall much improved. 03/07/2017 continuing empiric antibiotics. 03/08/2017 no fever. Could stop antibiotics at this point. She has been on them for 2 weeks 03/09/2017 again no fever. 03/10/2017 no fever. Antibiotics have been discontinued 03/13/2017 with worsening chest x-ray will resume antibiotics. Start Zosyn. Obtain sputum 03/14/2017 continuing Zosyn. Gram stain shows gram-negative rods and increased number of white cells. 03/15/2017 continuing antibiotics. Cultures pending. Appears to be a gram- negative pneumonia 03/16/2017 continuing Zosyn. We will bronchoscope her and remove secretions and reculture. Current Visit: Yes Qualifiers: Pneumonia type: due to unspecified organism Laterality: right Lung location: lower lobe of lung Qualified Code(s): J18.1 - Lobar pneumonia, unspecified organism (4) Acute respiratory failure Status: Chronic Assessment and plan: Patient was struggling especially with upper airway symptoms and required intubation last night. At bronchoscopy earlier in the day yesterday there were no abnormalities in the upper airway. Likely she had some thick secretions that caused this. We will keep these suctioned out. Pneumonia is the primary cause of the respiratory failure. 02/21/17 ABGs look much better. She has a metabolic alkalosis. Will add Diamox for 3 days. 02/22/2017 ABGs improved. Still has a mild metabolic alkalosis. Will check mechanics today to see if extubation is a possibility. 02/23/2017 ABGs look good. Tolerating CPAP. Only concern is far as getting her extubated is that her right lower lobe looks a little worse on x-ray today. Will bronchoscope and clean her out before we do CPAP 02/24/2017 patient extubated this morning. Hopefully she can defend her airway. She has some dementia but is able to respond to questions fairly well. 02/27/2017 patient had to be reintubated. Not able to defend her airway. 02/28/2017 ABGs look good. Her mental status is such that I would expect her to be able to control her airway. Will try again to get her extubated today 03/01/2017 again ABGs look good but mechanics not up to par for extubation yet. She would not be able to defend her airway, just as we saw Monday. 03/02/2017 ABGs look good. She does have a metabolic alkalosis. Will give Diamox for 3 days again. 03/03/2017 ABGs good. Tolerating CPAP. Report cough and inadequate negative inspiratory force. Tracheostomy is planned. Will be long-term weaning, and plans are to go to LTAC next week. 03/06/2017 PCO2 is a little low. Will reduce IMV rate. Continue weaning trial 03/07/2017 making good progress with weaning. Tolerated fairly long trach collar overnight. 03/08/2017 ABGs look good on trach collar. Hopefully we can keep her trach collar home full-time. Then began to downsize tracheostomy in a few days. 03/09/2017 PCO2 down a little bit. Patient comfortable on trach collar. Continue to stretch out times on trach collar 03/10/2017 tolerating trach collar. Can increase times on that. 03/13/2017 hopefully can get a full-time trach collar in the next few days. 03/14/2017 continues to have elevated PCO2. Continue to try trach collar 03/15/2017 tolerating trach collar but has elevated PCO2. Watch for fatigue. 03/16/2017 continues on trach collar now for 48 hours. Hopefully can downsize the tracheostomy tomorrow. Plan bronchoscopy today to clear airways. Continuing with Diamox for metabolic alkalosis. PCO2 is still elevated in the mid 50s. Current Visit: Yes Qualifiers: Respiratory failure complication: hypoxia Qualified Code(s): J96.01 - Acute respiratory failure with hypoxia Specialty Discharge - Follow Up or Referrals
--- NOTE | 2017-03-16 07:03 | Operative Note ---
Date of procedure: 03/16/17 (Fiberoptic bronchoscopy) Pre-op diagnosis: Pneumonia atelectasis retained secretions Post-op diagnosis: same Procedure: After an appropriate timeout to be sure we were dealing with Yesy Ernandez, the patient was given 1 mg of Versed intravenously. Fiberoptic bronchoscope was introduced via the tracheostomy tube. The tip of the tracheostomy tube is in good position. The radha was sharp. There were retained secretions on both sides which were mucopurulent and some bloody secretions. There were no endobronchial lesions seen. Using saline irrigation both sides were lavaged. Bronchial washings were sent for cultures. After removing all of the visible secretions the bronchoscope was removed and the patient remained in the CCU on trach collar oxygen in stable condition. Anesthesia: conscious sedation Surgeon / Physician: Don Hernandez Estimated blood loss: none Specimens: other (Bronchial washings for cultures) Condition: stable Disposition: ICU (Actually in CCU now) Results - Labs CBC & BMP: 03/16/17 02:50 03/16/17 02:50 Discharge Plan - Discharge Medications New Furosemide Inj [Lasix Inj] 20 mg IM BID DIURETIC vial Continue Magnesium 250 mg PO BEDTIME Gabapentin Cap/Tab [Neurontin Cap/Tab] 300 mg PO 1200 Metoprolol Succinate 12.5 mg PO 1200 Amiodarone Tab [Cordarone Tab] 200 mg PO QAM Multivitamin [Multivitamins] 1 each PO QAM Warfarin [Coumadin] 2.5 mg PO DAILY Potassium Chloride 8 meq PO 1200 Ferrous Sulfate 325 mg PO QAM Calcium Carbonate/Vitamin D3 [Calcium 600 + Vit D Tablet] 1 each PO 1700 Ascorbic Acid [Vitamin C] 500 mg PO BEDTIME Hydrocodone/Acetaminophen [Hydrocodon-Acetaminoph 7.5-325] 1 tablet PO Q4-6H PRN PRN Reason: Pain Discontinued Lisinopril [Zestril] 20 mg PO QAM Meloxicam [Meloxicam] 7.5 mg PO QAM - Follow Up or Referral - Forms/Instructions Instructions: Tracheostomy Care (DC), Tracheotomy (DC)
--- NOTE | 2017-03-16 07:19 | Hospitalist Progress Note ---
Assessment and Plan (1) Hypertension Status: Chronic Current Visit: No Qualifiers: Hypertension type: essential hypertension Qualified Code(s): I10 - Essential (primary) hypertension (2) Debility Status: Chronic Current Visit: Yes (3) Pneumonia Status: Acute Assessment and plan: Broad-spectrum antibiotics. White blood cell count is normal. No fevers. Continuing antibiotics. Follow chest x-ray shows still shows patchy infiltrates. Current Visit: Yes Qualifiers: Pneumonia type: due to unspecified organism Laterality: right Lung location: lower lobe of lung Qualified Code(s): J18.1 - Lobar pneumonia, unspecified organism (4) Acute respiratory failure Status: Chronic Assessment and plan: Trach collar. Doing trach collar trials. Current Visit: Yes Qualifiers: Respiratory failure complication: hypoxia Qualified Code(s): J96.01 - Acute respiratory failure with hypoxia Hospitalist: Subjective Interval history: This patient with a history of respiratory failure has had multiple intubations and is now has a trach collar and has continued to wean down to trach collar trials. She has been on trach collar for the past 48 hours and continues to do acceptable. This morning she had a bronchoscope done and tolerated the procedure. She has been able to sit up in the chair a few hours at a time. She does have an NG tube and is tolerating her tube feeds. She has been doing ice chips. Will get a further swallowing eval today she has been hemodynamically stable. Continuing with discharge planning. Exam - Constitutional Vitals: Period Temp Pulse Resp BP Sys/Cox Pulse Ox Last 24 Hr 97.0 F-98.6 F 64-94 11-30 95-140/45-90 92-98 General appearance: normal weight - Head Head exam: Present: normal inspection - ENT ENT exam: Present: normal exam - Neck Neck exam: Present: normal inspection - Respiratory Respiratory exam: Present: clear to auscultation bilaterally (Status post bronchoscopy) - Cardiovascular Cardiovascular exam: Present: irregular rhythm - GI/Abdominal GI/Abdominal exam: Present: normal bowel sounds - Extremities Exam Extremities exam: Present: normal inspection - Neurological Exam Neurological exam: Present: alert Results - Labs CBC & BMP: 03/16/17 02:50 03/16/17 02:50 Specialty Discharge - Follow Up or Referrals
[2017-03-16] MEDS: LEVALBUTEROL 1.25 MG/3 ML NEB RESP TX SCH ×3 (07:22→23:42)
--- NOTE | 2017-03-16 07:42 | Cardiology Progress Note ---
Assessment and Plan - Time spent with patient Time spent with patient: Less than 30 minutes (1) Paroxysmal atrial fibrillation Status: Acute Assessment and plan: See plan of care listed below. Current Visit: Yes (2) Pneumonia Status: Acute Assessment and plan: See plan of care listed below. Current Visit: Yes Qualifiers: Pneumonia type: due to unspecified organism Laterality: right Lung location: lower lobe of lung Qualified Code(s): J18.1 - Lobar pneumonia, unspecified organism (3) Acute respiratory failure Status: Chronic Assessment and plan: See plan of care listed below. Current Visit: Yes Qualifiers: Respiratory failure complication: hypoxia Qualified Code(s): J96.01 - Acute respiratory failure with hypoxia (4) Anticoagulated on Coumadin Status: Chronic Assessment and plan: See plan of care listed below. Current Visit: No (5) Hypertension Status: Chronic Assessment and plan: See plan of care listed below. Current Visit: No Qualifiers: Hypertension type: essential hypertension Qualified Code(s): I10 - Essential (primary) hypertension (6) Mitral regurgitation Status: Acute Assessment and plan: See plan of care listed below. Current Visit: Yes (7) Aortic insufficiency Status: Acute Assessment and plan: See plan of care listed below. Current Visit: Yes (8) Congestive heart failure Status: Chronic Assessment and plan: See plan of care listed below. Current Visit: Yes Qualifiers: Congestive heart failure chronicity: acute on chronic Cardiology - PN: Subj Interval history: Pipeline Construction Inspector: Dr. Johnston PCP: Dr. Jesús Graham Summary: Ms. Ernandez is a 81 year old female with a history of paroxysmal atrial fibrillation treated with amiodarone. She also has a history of hypertension, mitral stenosis, chronic anticoagulation. Ms. Ernandez was admitted to the hospital on 02/17/17 with pneumonia and CHF. An CRIMINAL LAWYER was called on 02/19/17 due to respiratory distress and she subsequently required intubation. She has been in normal sinus rhythm throughout admission but went into atrial fibrillation on 03/01/17 and has had rates in the 100s-120s. We were consulted to see her and aid in management of her atrial fibrillation. FEBRUARY 14, 2017: Ms. Ernandez is lying in bed on trach collar upon exam today. She is resting comfortably and following commands. She answers questions appropriately with a nod or shake of her head and denies shortness of breath. Rates are better controlled with rates consistently <100. We are trying to titrate down on her amiodarone. Her Cardizem was increased to 60mg PO TID. She underwent bronchoscopy this morning with Dr. Hernandez. Assessment/Plan: 1. Paroxysmal atrial fibrillation - Her metoprolol has been increased to 100mg PO BID. LVEF was preserved. She has severe biatrial enlargement and pulmonary hypertension. We decreased her amiodarone to 20mmg PO Daily and increased cardizem to 60mg PO TID. Plan to cut back amiodarone in 1 week. 2. Pneumonia - Pulmonology is following. 3. Acute respiratory failure s/p tracheostomy 03/03/17 - She is tolerating lengthy trach collar trials but tires easily. She would be a good potential candidate for LTAC; however, there have been some issues with her insurance. Case management has been assisting with this. 4. Chronic anticoagulation - Anticoagulated with Coumadin 3mg po daily. Monitor PT/INR. INR 3.6 yesterday. Coumadin still on hold. Would like to keep INR between 2-3 range. 5. Hypertension - Currently well controlled with one elevated reading of 140/88 this morning. Will continue to monitor and adjust accordingly. 6. Mitral Regurgitation - Echocardiogram on 02/25/17 revealed EF 60%, mild to moderate MR, 1+ AI, severe TR, PA pressure 67. 7. Aortic Insufficiency 8. Congestive Heart Failure - BNP was mildly elevated earlier in hospitalization. We resumed Lasix 40mg IV daily. Exam (Progress Note) - Constitutional Vitals: Period Temp Pulse Resp BP Sys/Cox Pulse Ox Last 24 Hr 96.9 F-98.6 F 64-90 14-30 95-140/45-90 87-98 Exam: General: Present: Appears Well, No Apparent Distress. Pleasant and cooperative. HEENT: Present: PERRL, Normocephaly, atraumatic. Mucus Membranes Moist. No jaundice noted. Conjunctiva moist and clear, sclerae anicteric Neck: Present: Supple Neck, Tracheostomy with trach collar in place, No Masses, No Bruit, No tenderness Cardiac: Present: Irregular Rate and Rhythm, Systolic Murmur Lungs: Present: Clear to auscultation bilaterally. Neuro: Present: Awake, alert, and oriented x3. Moves all extremities well without hemiparesis or paralysis. Grossly Intact. Absent: Resting Tremor, Essential Tremor Abdomen: Present: Soft, Active Bowel Sounds, No Masses, Non-Tender, nondistended. No abdominal bruit or thrill noted. Skin: Present: Clear. Absent: Rash, No skin breakdown. Musculoskeletal: Present: No Fluid Collection, No Pain, Normal Range of Motion Extremities: Present: No Clubbing, No Cyanosis, Upper Extr. Pulses 2+, Lower Extr. Pulses 2+, 1+ pitting edema to BLE. Capillary refill less than 3 seconds. Result/EKG - Labs CBC & BMP: 03/16/17 02:50 03/16/17 02:50 Lab Results: I have reviewed the past 24 hour labs Labs: Laboratory Results - last 24 hr 03/15/17 03/15/17 03/15/17 11:28 17:30 23:27 WBC RBC Hgb Hct MCV MCH MCHC RDW Plt Count MPV Neut % (Auto) Lymph % (Auto) Valley % (Auto) Eos % (Auto) Baso % (Auto) Neut # (Auto) Lymph # (Auto) Valley # (Auto) Eos # (Auto) Baso # (Auto) Immature Gran % Nucleated RBC % Immature Gran # Nucleated RBCs # Platelet Estimate Anisocytosis Ovalocytes ABG pH ABG pCO2 ABG pO2 ABG HCO3 ABG Total CO2 ABG O2 Saturation ABG Base Excess FiO2 Sodium Potassium Chloride Carbon Dioxide Anion Gap BUN Creatinine GFR Calculation BUN/Creatinine Ratio Glucose POC Glucose 221 H 226 H 203 H Calculated Osmolality Calcium Phosphorus Magnesium Prealbumin 03/16/17 03/16/17 03/16/17 02:50 02:50 02:50 WBC 7.2 D RBC 3.85 Hgb 11.8 L Hct 36.2 MCV 94.0 MCH 31 MCHC 32.6 RDW 15.1 Plt Count 107 L MPV 11.5 Neut % (Auto) 80.3 H Lymph % (Auto) 10.8 L Valley % (Auto) 5.9 Eos % (Auto) 0.0 Baso % (Auto) 0.0 Neut # (Auto) 5.8 Lymph # (Auto) 0.8 L Valley # (Auto) 0.4 Eos # (Auto) 0.0 Baso # (Auto) 0.0 Immature Gran % 3.0 Nucleated RBC % 0.4 Immature Gran # 0.22 Nucleated RBCs # 0.03 Platelet Estimate Adequate Anisocytosis Ovalocytes 1+ ABG pH ABG pCO2 ABG pO2 ABG HCO3 ABG Total CO2 ABG O2 Saturation ABG Base Excess FiO2 Sodium 139 Potassium 3.8 Chloride 99 Carbon Dioxide 37 H Anion Gap 6.8 BUN 37 H Creatinine 0.30 L GFR Calculation 117 BUN/Creatinine Ratio 123.00 H Glucose 130 H POC Glucose Calculated Osmolality 287.5 Calcium 8.5 Phosphorus 2.8 Magnesium 2.1 2.1 Prealbumin 29.5 03/16/17 03/16/17 04:00 05:45 WBC RBC Hgb Hct MCV MCH MCHC RDW Plt Count MPV Neut % (Auto) Lymph % (Auto) Valley % (Auto) Eos % (Auto) Baso % (Auto) Neut # (Auto) Lymph # (Auto) Valley # (Auto) Eos # (Auto) Baso # (Auto) Immature Gran % Nucleated RBC % Immature Gran # Nucleated RBCs # Platelet Estimate Anisocytosis Ovalocytes ABG pH 7.401 ABG pCO2 57.5 H ABG pO2 104.1 H ABG HCO3 34.9 H ABG Total CO2 36.7 H ABG O2 Saturation 97.6 ABG Base Excess 8.3 H FiO2 40.00 Sodium Potassium Chloride Carbon Dioxide Anion Gap BUN Creatinine GFR Calculation BUN/Creatinine Ratio Glucose POC Glucose 178 H Calculated Osmolality Calcium Phosphorus Magnesium Prealbumin - EKG EKG results: interpreted by me EKG shows: atrial fibrillation Specialty Discharge - Follow Up or Referrals
[2017-03-16] MEDS: DILTIAZEM 30 MG TABLET PO SCH ×3 (09:15→21:51)
[2017-03-16] MEDS: AMIODARONE 200 MG TABLET PO SCH (09:16)
[2017-03-16] MEDS: METOPROLOL TARTRATE 100 MG TABLET PO SCH ×2 (09:16→21:45)
[2017-03-16] MEDS: FUROSEMIDE 40 MG/4 ML VIAL IV SCH (09:16)
[2017-03-16] MEDS: MULTIVITAMIN LIQUID (CENTRUM) 60 ML BOTTLE PO SCH (09:16)
[2017-03-16] MEDS: FLUCONAZOLE 40 MG/ML 35 ML/BOTTLE PO SCH (09:16)
[2017-03-16] MEDS: PANTOPRAZOLE 40 MG VIAL IV SCH (09:29)
[2017-03-16] MEDS: GABAPENTIN 50 MG/ML 30 ML/BOTTLE NG SCH (12:53)
[2017-03-16] MEDS: DESITIN 4OZ/NYSTATIN 15 GRAM MIXTURE PASTE TOP SCH ×2 (16:06→21:51)
[2017-03-16] MEDS: ENOXAPARIN 30 MG/0.3 ML SYRINGE SUBCUT SCH (21:51)
[2017-03-17] MEDS: INSULIN REGULAR 100 UNIT/ML SUBCUT SCH ×4 (00:27→18:12)
[2017-03-17] MEDS: guaiFENesin 200 MG/10 ML UDCUP PO SCH ×4 (02:37→22:24)
[2017-03-17 03:37] LABS: ABG Base Excess 8.3 MMOL/L (-2.5-2.5); ABG HCO3 34.8 MMOL/L (20-26); ABG Oxygen Saturation 95.9 % (95-100); ABG PCO2 57.5 MM HG (35-48); ABG PO2 81.3 MM HG (80-95); ABG TCO2 36.6 MMOL/L (23-27); Allen Test Positive; Pt O2 Delivery Device Other
[2017-03-17 05:23] LABS: Hematocrit 35.1 VOL% (35.7-47.0); Hemoglobin 11.7 GM/DL (12.0-16.0); Immature Granulocytes % 2.5 %; Immature Granulocytes Absolute 0.15 #; Lymphocytes # 0.6 10*3/uL (1.4-4.0); Lymphocytes % 10.6 % (21.3-54.2); Mean Corpuscular HGB Conc 33.3 GM/DL (32-36); Mean Corpuscular Hemoglobin 31 PG (27-34); Mean Corpuscular Volume 92.1 FL (87-102); Monocytes # 0.4 10*3/uL (0.11-0.8); Monocytes % 6.8 % (1.7-12.7); NRBC # 0.02 10*3/uL; Neutrophils # 4.7 10*3/uL (1.4-7.4); Neutrophils % 80.1 % (38.7-73.9); Platelet Count 108 T/CUMM (130-400); Red Blood Count 3.81 MC/CUMM (3.8-5.5); Red Cell Distribution Width 15.2 % (9.3-17.3); White Blood Count 5.9 T/CUMM (4-12)
[2017-03-17] MEDS: methylPREDNISolone SOD SUC 40 MG/1 ML VIAL IV SCH ×2 (06:00→18:14)
[2017-03-17] MEDS: PIPERACILLIN/TAZOBACTAM 3,375 MG in SODIUM CHLORIDE 0.9% 100 ML IV SCH (06:01)
[2017-03-17 06:07] LABS: INR 2.6
[2017-03-17 06:12] LABS: PT Patient Result 28.8 SECS
[2017-03-17 06:14] LABS: Band Neutrophils 2 % (0-10); Lymphocytes 18 % (20-55); Platelet Estimate Adequate; Segmented Neutrophils 76 % (50-85); Total Cells Counted 100
[2017-03-17 06:15] LABS: Calcium 8.2 MG/DL (8.5-10.1); Osmolality,Calculated 288.7 MOS/KG (273-304); Potassium 3.6 MMOL/L (3.5-5.1)
--- NOTE | 2017-03-17 06:44 | XRay Report ---
XR chest 1V portable Indication: Respiratory failure Comparison: Chest x-ray 03/16/2017 Technique: Portable AP chest was performed. Findings: Improved inspiration is noted on today's study. Elevation left hemidiaphragm is suggested. Bibasilar parenchymal opacities remain present. Enlargement of the right pulmonary artery suggested left pulmonary artery is not well-visualized. Heart size is minimally enlarged. Multiple tubes and medical support devices appear stable. Bones and soft tissues demonstrate no significant interval change. Impression: 1. Overall little change in the chest is suggested. Small bilateral pleural effusions are suggested. Parenchymal opacities most noticeable in the mid to lower chest remain present with differential considerations including atelectasis, infection, and edema. 03/17/2017 6:40 AM PROCEDURE INTERPRETED AT [facility] DEPARTMENT OF RADIOLOGY Final Report Signed by: Dr. Isai Andrade
--- NOTE | 2017-03-17 07:09 | Pulmonology Progress Note ---
Pulmonary - PN: Subj Interval history: Patient had worsening respiratory distress last night and was intubated by Dr. Contreras. At present she is sedated and on the ventilator but her mental status is good when sedation is held. We had wanted to evaluate swallowing but we will have to wait until we wean her off the ventilator. Concerned that she has a neurologic process. ABGs look good this morning. Will reduce settings. She has bilateral infiltrates on x-ray. Will take several days of antibiotics before we would be able to wean. 02/21/2017 ABGs are improved. Chest x-ray is pending. Will start weaning today. Patient with pneumonia and that is likely aspiration. Continuing broad- spectrum antibiotics. Cultures negative thus far from bronchial washings. 02/22/2017 again ABGs look better. Patient starting to do CPAP's. Seems to be responsive during those times when sedation is held. She does have some dementia and apparent aspiration. Bronchial washing cultures have been negative. Continuing empiric antibiotics. Will check mechanics and ABGs on CPAP today to see if we could possibly extubate. 02/23/2017 patient doing well with CPAP. ABGs look good. Chest x-ray still shows some lower lobe infiltrates. Worse on the right than left. Patient is alert calm and nodding to questions. Will check mechanics and ABGs on CPAP. If she does okay which should be able to get her extubated. 02/24/2017 she has done well with T-tube trial this morning. ABGs acceptable. Still has some right lower lobe infiltrate. Will extubate this morning. Mental status seems pretty good hopefully can defend her airway. She does have some dementia. 02/27/2017 patient was off the ventilator for a day but had to be reintubated 2 days ago because she was unable to clear her secretions. She is done well with CPAP since then. Will continue with weaning trial for now. May need to consider tracheostomy. PT/INR is hyperinflated. Holding Coumadin 02/28/2017 patient did prolonged CPAP trials. She is alert and answering questions squeezing fingers on command. Should be able to manage her airway extubated. Will check mechanics and ABGs on CPAP this morning. If she clearly is above excepted levels then we will extubate her. If she does not tolerate that then we would need to go ahead and plan tracheostomy. Her PT/INR is 5.2. Coumadin has been held. She is on medication that potentiated sections however. I will give her a low-dose of vitamin K. She is on that for paroxysmal atrial fibrillation. Normal sinus rhythm at present. 03/01/2017 patient again is doing well with prolonged CPAP trials. However her mechanics are quite poor. For now we will continue with CPAP trials. Will very likely need a tracheostomy if we do not see significant improvement in the next couple of days. Her PT INR remains hyper prolonged. Will repeat AquaMEPHYTON. Agree with evaluation for LTAC placement. 03/02/2017 PT/INR is down to 1.9 today. Will still need a little more fresh frozen plasma and/or vitamin K to prepare for tracheostomy. It appears likely that it will be next week that she gets the tracheostomy. We will continue weaning trials in the meantime. She is tolerating them well but her mechanics indicate that she does not have a strong enough cough to clear her airway if extubated now. Definitely think it would be safer for tracheostomy in order to get her weaned. 03/03/2017 INR is 1.7. Patient is scheduled for tracheostomy either later today or in the morning. We will give 2 more units of fresh frozen plasma. Would like to get INR down to 1.3 or less. She has been given a good bit of vitamin K as well. She is tolerating CPAP. However she has proven that she is not able to defend her airway and her mechanics have not been adequate for extubation. Hopefully tracheostomy will facilitate weaning. She has had problems with aspiration. 03/06/2017 patient had tracheostomy Monday. Making progress with CPAP. Doing brief trach collar. From pulmonary standpoint ready to move to LTAC soon as that can be done. 03/07/2017 patient did trach collar overnight and fatigued. Will increase times on trach collar on a daily basis. Hopefully can get her off the ventilator altogether within a few days and then start working on the tracheostomy. Patient is responsive. There are no new complaints. 03/08/2017 patient did trach collar for prolonged period yesterday and was put back on CPAP overnight. Did not fatigue. She is more alert and calm this morning. Will try to keep on trach collar full-time. If she fatigues we will rest with IMV. 03/09/2017 patient making progress with weaning with longer trach collar times. Still requiring some mechanical ventilation. She is responsive and afebrile. 03/10/2017 patient presently on trach collar and appears comfortable. She has an 8 Malaysian cuffed tracheostomy. Bleed not ready to do speaking valve until we get a smaller trach. PT/INR is down to 2.7 after fresh frozen plasma and vitamin K. Considering a PEG tube. However with her being on trach collar now may be able to try oral diet in a few days with speech therapy so probably should hold off on PEG tube. 03/13/2017 patient tolerating trach collar full-time the last 24 hours. She has required some mechanical ventilation at night a couple of times. Not able to change out trach tube until she goes about 4 days on trach collar. Mental status is good. Chest x-ray shows slight worsening on the left side. ABGs were acceptable. Increase activity get her up in the chair. 03/14/17 patient had to be placed back on the ventilator overnight. Chest x-ray still looks a little wet and she has hypercarbia. I will increase her Diamox. Renal function appears stable. It does not appear that she will get off the ventilator altogether in the next few days. It may be worthwhile to look back into going to LTAC. 03/15/2017 patient has been on trach collar overnight and looks comfortable. Her chest x-ray still shows a lot of pulmonary infiltrates and some pleural effusions. Urine output has been good. Renal function intact. Patient is fairly alert and calm. Will try speaking valve. Need to wait a few days before we downsize her trach to a cuff less 6 Malaysian straight. 03/16/2017 continues to do well with trach collar. However chest x-ray still showing fairly extensive infiltrates and her sputum is pretty thick. She has been on trach collar now for 48 hours. I will bronchoscope her this morning clean her airways. If she is doing well tomorrow we will downsize her tracheostomy. 03/17/2017 patient tolerating trach collar however she is a bit tachypneic and her O2 saturation 93% range. Were not able to downsize tracheostomy as yet. Still may require mechanical ventilation at night. Last bronchial washings are growing stenotrophomonas maltophilia. Will change antibiotics from Zosyn to Fortaz and Levaquin. Tolerating NG feedings. Chest x-ray still shows bilateral infiltrates fairly extensively Exam (Progress Note) - Constitutional Vitals: Period Temp Pulse Resp BP Sys/Cox Pulse Ox Last 24 Hr 97.2 F-97.8 F 64-94 17- 106-140/61-94 71-98 Exam: Patient responsive at present. Nods to questions and squeezes fingers on command. Vital signs normal except respiratory rate in the mid 20s. Pupils react to light. Tracheostomy in place. On trach collar 40% at present. Neck is supple no bruits. Chest reveals few scattered rhonchi equal breath sounds. Heart irregular without murmurs. Abdomen soft nontender no masses. Extremities no clubbing cyanosis or edema. Calves are nontender. Results - Labs CBC & BMP: 03/17/17 04:00 03/17/17 04:10 Lab Results: I have reviewed the past 24 hour labs - Diagnostic Findings Procedure: Chest x-ray: image reviewed by me (Bilateral lower lobe infiltrates. Elevation of left hemidiaphragm. Tracheostomy in appropriate location.) Assessment and Plan (1) History of atrial fibrillation Status: Chronic Assessment and plan: Patient on chronic anticoagulants. Watch protimes. Rate is controlled 02/21/2017 rate is controlled. 02/22/2017 again rate is controlled. 02/23/2017 rate controlled. 02/27/2017 holding Coumadin. INR 4.6. 02/28/2017 sinus rhythm. INR 5.2. Holding Coumadin. Will give AquaMEPHYTON 5 mg. 03/01/2017 sinus rhythm. Trying to totally reverse Coumadin. This is in anticipation of tracheostomy. Likely will need one by Monday. 03/02/2017 remains in sinus rhythm. She has had 2 doses of vitamin K and had fresh frozen plasma yesterday. If tracheostomy is to be done she would need another round of fresh frozen plasma the day before. 03/03/2017 rate is controlled. 1.7. Getting more fresh frozen plasma today in anticipation of the tracheostomy. 03/06/2017 rate is controlled. INR is 1.2. 03/07/2017 remains in atrial fib. Controlled rate. Cardiology following. 03/08/2017 atrial fibrillation with controlled rate. 03/09/2017 heart rate around 105-110. 03/10/2017 atrial fibrillation with controlled rate around 105 03/13/2017 rate is controlled 100-105. 03/14/2017 rate remains controlled. 03/15/2017 heart rate around 100-105 with atrial fib. 03/16/2017 rate controlled. Pulse now around 70. 03/17/2017 chronic A. fib rate controlled Current Visit: No (2) Congestive heart failure Status: Chronic Assessment and plan: BNP has come down since admission. Watch fluid status. 02/21/2017 clinically congestive heart failure is better. 02/22/2017 heart failure seems to be better 02/23/2017 chest x-ray may be a little wet. Will diurese further. 02/24/2017 chest x-ray still a little wet. Continue with diuresis. 02/27/2017 congestive heart failure improved. 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 03/01/2017 congestive heart failure little better. 03/02/2017 congestive heart failure stable at present. 03/03/2017 heart failure controlled. 03/06/2017 small pleural effusions. Probably needs diuresing a little. 03/07/17 small pleural effusions but probably not active congestive failure. 03/08/2017 responded to diuresis. She needs a little Diamox because of metabolic alkalosis. 03/09/2017 congestive heart failure controlled with medicines. 03/10/2017 she has diuresed fairly well. 03/13/2017 congestive heart failure appears controlled. Difficult to tell if she is wet on x-ray however. 03/14/2017 x-ray looks a little bit wet. Increasing Diamox because of hypercarbia. This may help with diuresis as well. Her weight is a little down. 03/15/2017 we have continued to diurese her. Also getting Diamox because of metabolic alkalosis. PCO2 is in the 50s. Watch closely. 03/16/2017 we have diuresed her a little better. Weight is down. 03/17/2017 has mitral regurgitation, diastolic dysfunction of left ventricle, and pulmonary hypertension. Renal function is intact. Probably appropriate fluid status. Current Visit: Yes Qualifiers: Congestive heart failure chronicity: acute on chronic (3) Pneumonia Status: Acute Assessment and plan: On broad-spectrum empiric antibiotics. Check cultures from bronchial washings. That should be out tomorrow. She is E. coli from her urine and it is covered with Merrem. 02/21/2017 chest x-ray is pending. Bronchial wash cultures thus far are showing normal scott. Continuing empiric antibiotics. 02/22/2017 bronchial wash cultures were negative. Continuing empiric antibiotics. X-ray showing improvement 02/23/2017 bibasilar pneumonia. Bronchial wash cultures negative. Continuing antibiotics. 02/24/2017 pneumonia about the same, primarily at the right base. Continuing antibiotics. 02/27/2017 continuing empiric antibiotics. 02/28/2017 continuing empiric antibiotics. Adding Diflucan for oral monilia. Do not think she has monilia as the cause of her pneumonia. 03/01/2017 patient on antibiotics and on Diflucan. Likely these are keeping her pro time from correcting. 03/02/2017 continuing broad-spectrum antibiotics. Patient has very poor cough and would not be able to clear her airways if off the ventilator at present 03/03/2017 has bibasilar pneumonia due to aspiration. Poor cough. Requires tracheostomy to wean. 03/06/2017 chest x-ray still showing infiltrates. Overall much improved. 03/07/2017 continuing empiric antibiotics. 03/08/2017 no fever. Could stop antibiotics at this point. She has been on them for 2 weeks 03/09/2017 again no fever. 03/10/2017 no fever. Antibiotics have been discontinued 03/13/2017 with worsening chest x-ray will resume antibiotics. Start Zosyn. Obtain sputum 03/14/2017 continuing Zosyn. Gram stain shows gram-negative rods and increased number of white cells. 03/15/2017 continuing antibiotics. Cultures pending. Appears to be a gram- negative pneumonia 03/16/2017 continuing Zosyn. We will bronchoscope her and remove secretions and reculture. 03/17/2017 Stenotrophomonas maltophilia has grown from last bronchial wash. Changed antibiotics to cover. Using double coverage as we would with a Pseudomonas at this point. If she has any rhythm problems with the Levaquin would stop it and just keep on Fortaz. Current Visit: Yes Qualifiers: Pneumonia type: due to unspecified organism Laterality: right Lung location: lower lobe of lung Qualified Code(s): J18.1 - Lobar pneumonia, unspecified organism (4) Acute respiratory failure Status: Chronic Assessment and plan: Patient was struggling especially with upper airway symptoms and required intubation last night. At bronchoscopy earlier in the day yesterday there were no abnormalities in the upper airway. Likely she had some thick secretions that caused this. We will keep these suctioned out. Pneumonia is the primary cause of the respiratory failure. 02/21/17 ABGs look much better. She has a metabolic alkalosis. Will add Diamox for 3 days. 02/22/2017 ABGs improved. Still has a mild metabolic alkalosis. Will check mechanics today to see if extubation is a possibility. 02/23/2017 ABGs look good. Tolerating CPAP. Only concern is far as getting her extubated is that her right lower lobe looks a little worse on x-ray today. Will bronchoscope and clean her out before we do CPAP 02/24/2017 patient extubated this morning. Hopefully she can defend her airway. She has some dementia but is able to respond to questions fairly well. 02/27/2017 patient had to be reintubated. Not able to defend her airway. 02/28/2017 ABGs look good. Her mental status is such that I would expect her to be able to control her airway. Will try again to get her extubated today 03/01/2017 again ABGs look good but mechanics not up to par for extubation yet. She would not be able to defend her airway, just as we saw Monday. 03/02/2017 ABGs look good. She does have a metabolic alkalosis. Will give Diamox for 3 days again. 03/03/2017 ABGs good. Tolerating CPAP. Report cough and inadequate negative inspiratory force. Tracheostomy is planned. Will be long-term weaning, and plans are to go to LTAC next week. 03/06/2017 PCO2 is a little low. Will reduce IMV rate. Continue weaning trial 03/07/2017 making good progress with weaning. Tolerated fairly long trach collar overnight. 03/08/2017 ABGs look good on trach collar. Hopefully we can keep her trach collar home full-time. Then began to downsize tracheostomy in a few days. 03/09/2017 PCO2 down a little bit. Patient comfortable on trach collar. Continue to stretch out times on trach collar 03/10/2017 tolerating trach collar. Can increase times on that. 03/13/2017 hopefully can get a full-time trach collar in the next few days. 03/14/2017 continues to have elevated PCO2. Continue to try trach collar 03/15/2017 tolerating trach collar but has elevated PCO2. Watch for fatigue. 03/16/2017 continues on trach collar now for 48 hours. Hopefully can downsize the tracheostomy tomorrow. Plan bronchoscopy today to clear airways. Continuing with Diamox for metabolic alkalosis. PCO2 is still elevated in the mid 50s. 03/17/2017 tolerating trach collar. Still a bit tachypneic. I do not think we can downsize the tracheostomy as yet. She may yet require some rest on the ventilator at night. Perhaps we can downsize her trach on Monday. Her PCO2 is in the upper 50s. Normal pH. She is getting some Diamox to try to correct the metabolic alkalosis. Current Visit: Yes Qualifiers: Respiratory failure complication: hypoxia Qualified Code(s): J96.01 - Acute respiratory failure with hypoxia Specialty Discharge - Follow Up or Referrals
[2017-03-17] MEDS: LEVALBUTEROL 1.25 MG/3 ML NEB RESP TX SCH ×3 (07:12→22:57)
[2017-03-17] MEDS: LEVOFLOXACIN INJ 500 MG in PREMIX 1 EACH IV SCH (07:42)
--- NOTE | 2017-03-17 09:32 | Cardiology Progress Note ---
Assessment and Plan (1) Aortic insufficiency Status: Acute Assessment and plan: 81-year-old female, admitted with CHF and respiratory insufficiency, now status post tracheostomy. Paroxysmal atrial fibrillation, preserved ejection fraction with restrictive filling, moderate MR, with no significant mitral stenosis and recent echo, severe pulmonary hypertension. -AF. HR trend improved. Cont amio 200 mg qd, metoprolol 100 mg bid, cardizem 60 mg tid. LVEF was preserved. She has severe biatrial enlargement and phtn. -Continue anticoagulation with Coumadin. INR now back to therapeutic range. Follow daily, she is still getting tube feeds -Cont Lasix 40 mg iv qd. 1+ edema. Current Visit: Yes (2) Mitral regurgitation Status: Acute Current Visit: Yes (3) Paroxysmal atrial fibrillation Status: Acute Current Visit: Yes (4) Pneumonia Status: Acute Current Visit: Yes Qualifiers: Pneumonia type: due to unspecified organism Laterality: right Lung location: lower lobe of lung Qualified Code(s): J18.1 - Lobar pneumonia, unspecified organism (5) Respirator dependence Status: Acute Current Visit: Yes (6) Congestive heart failure Status: Chronic Current Visit: Yes Qualifiers: Congestive heart failure chronicity: acute on chronic (7) Debility Status: Chronic Current Visit: Yes (8) Anticoagulated on Coumadin Status: Chronic Current Visit: No (9) Hypertension Status: Chronic Current Visit: No Qualifiers: Hypertension type: essential hypertension Qualified Code(s): I10 - Essential (primary) hypertension Cardiology - PN: Subj Interval history: She is comfortable. Vitals are stable, I's and O's closely even, she is more hypoxic. Atrial fibrillation, rate well controlled. INR 2.6 today. 1+ edema. Exam (Progress Note) - Constitutional Vitals: Period Temp Pulse Resp BP Sys/Cox Pulse Ox Last 24 Hr 97.2 F-97.8 F 64-94 17-32 106-137/61-93 71-98 General appearance: normal weight, over weight - Head Head exam: Present: normal inspection, normocephalic - Eye Eye exam: Absent: conjunctival injection, scleral icterus Pupils: Absent: dilated - ENT ENT exam: Present: normal external ear exam, other (trach) - Respiratory Respiratory exam: Present: decreased breath sounds. Absent: wheezes - Cardiovascular Cardiovascular exam: Present: irregular rhythm, systolic murmur - GI/Abdominal GI/Abdominal exam: Present: normal bowel sounds. Absent: distended - Extremities Exam Extremities exam: Present: normal inspection, normal capillary refill, edema (1+ ) - Neurological Exam Neurological exam: Present: alert - Psychiatric Psychiatric exam: Present: normal affect, normal mood - Skin Skin exam: Present: normal color, warm. Absent: cyanosis Result/EKG - Labs CBC & BMP: 03/17/17 04:00 03/17/17 04:10 Lab Results: I have reviewed the past 24 hour labs Labs: Laboratory Results - last 24 hr 03/16/17 03/16/17 03/17/17 11:39 17:44 00:16 WBC RBC Hgb Hct MCV MCH MCHC RDW Plt Count MPV Neut % (Auto) Lymph % (Auto) Sutter % (Auto) Eos % (Auto) Baso % (Auto) Neut # (Auto) Lymph # (Auto) Sutter # (Auto) Eos # (Auto) Baso # (Auto) Total Counted Immature Gran % Nucleated RBC % Immature Gran # Segmented Neutrophils Band Neutrophils Lymphocytes Monocytes Nucleated RBCs # Platelet Estimate Pappenheimer Bodies INR PT Patient/Control Mix ABG pH ABG pCO2 ABG pO2 ABG HCO3 ABG Total CO2 ABG O2 Saturation ABG Base Excess FiO2 Sodium Potassium Chloride Carbon Dioxide Anion Gap BUN Creatinine GFR Calculation BUN/Creatinine Ratio Glucose POC Glucose 272 H 233 H 238 H Calculated Osmolality Calcium Magnesium 03/17/17 03/17/17 03/17/17 03:30 04:00 04:00 WBC 5.9 RBC 3.81 Hgb 11.7 L Hct 35.1 L MCV 92.1 MCH 31 MCHC 33.3 RDW 15.2 Plt Count 108 L MPV 12.0 Neut % (Auto) 80.1 H Lymph % (Auto) 10.6 L Sutter % (Auto) 6.8 Eos % (Auto) 0.0 Baso % (Auto) 0.0 Neut # (Auto) 4.7 Lymph # (Auto) 0.6 L Sutter # (Auto) 0.4 Eos # (Auto) 0.0 Baso # (Auto) 0.0 Total Counted 100 Immature Gran % 2.5 Nucleated RBC % 0.3 Immature Gran # 0.15 Segmented Neutrophils 76 Band Neutrophils 2 Lymphocytes 18 L Monocytes 4 Nucleated RBCs # 0.02 Platelet Estimate Adequate Pappenheimer Bodies Housing Officer INR 2.6 PT Patient/Control Mix 28.8 D ABG pH 7.400 ABG pCO2 57.5 H ABG pO2 81.3 ABG HCO3 34.8 H ABG Total CO2 36.6 H ABG O2 Saturation 95.9 ABG Base Excess 8.3 H FiO2 40.00 Sodium Potassium Chloride Carbon Dioxide Anion Gap BUN Creatinine GFR Calculation BUN/Creatinine Ratio Glucose POC Glucose Calculated Osmolality Calcium Magnesium 03/17/17 03/17/17 04:10 05:20 WBC RBC Hgb Hct MCV MCH MCHC RDW Plt Count MPV Neut % (Auto) Lymph % (Auto) Sutter % (Auto) Eos % (Auto) Baso % (Auto) Neut # (Auto) Lymph # (Auto) Sutter # (Auto) Eos # (Auto) Baso # (Auto) Total Counted Immature Gran % Nucleated RBC % Immature Gran # Segmented Neutrophils Band Neutrophils Lymphocytes Monocytes Nucleated RBCs # Platelet Estimate Pappenheimer Bodies INR PT Patient/Control Mix ABG pH ABG pCO2 ABG pO2 ABG HCO3 ABG Total CO2 ABG O2 Saturation ABG Base Excess FiO2 Sodium 138 Potassium 3.6 Chloride 96 L Carbon Dioxide 37 H Anion Gap 8.6 BUN 39 H Creatinine 0.30 L GFR Calculation 119 BUN/Creatinine Ratio 130.00 H Glucose 184 H POC Glucose 193 H Calculated Osmolality 288.7 Calcium 8.2 L Magnesium 2.0 - EKG EKG results: interpreted by me Specialty Discharge - Follow Up or Referrals
--- NOTE | 2017-03-17 09:46 | Gastrointestinal Consult Note ---
<Lizzie Lentz - Last Filed: 03/17/17 09:40> Assessment and Plan (1) Dysphagia Status: Acute Assessment and plan: 03/17-protracted hospital stay for respiratory distress with associated pneumonia/ CHF. Remains on trach collar with ventilation at night. ST evaluation on yesterday with recommendations of n.p.o. due to secretions/food noted around trach collar. Currently on NG tube feedings tolerating well. Coumadin on hold with an elevated INR 2.6. After discussion with family, will plan for tentative PEG placement, if they wish to proceed, next week after INR has corrected and patient remains stable. Plan an addendum to follow Dr. Pisano. Current Visit: Yes History of Present Illness Chief complaint: Inability to eat/PEG placement History of present illness: Ms. Ernandez is a 81 year old female who was admitted to the hospital on 02/17 with increased shortness of breath. Patient has a prior history of atrial fibrillation, on Coumadin, hypertension, mitral regurgitation, CHF. She was found on admission to have pneumonia and exacerbation of her CHF. 2 days later patient went into respiratory distress and required intubation. Since this time she has been difficult to wean and underwent tracheostomy placement as well. At present time patient is on trach collar during the day and required ventilatory support at night. She has been receiving NG tube feedings and tolerating this well. She underwent an ST evaluation with bedside swallow with recommendations of n.p.o. status due to food and liquid noted to come out around trach site with p.o. intake. She has no known prior history of abdominal surgeries in the past other than hysterectomy. Her Coumadin is noted to hold since March 10 and receiving Lovenox injections at this time. INR today noted at 2.6. BUN/creatinine ratio is elevated at 130. Abdomen is soft, nontender. Patient is able to answer simple questions with yes or no. Home Medications Medication Instructions Recorded Confirmed Type Amiodarone Tab [Cordarone Tab] 200 mg PO QAM 10/31/15 02/17/17 History Gabapentin Cap/Tab [Neurontin 300 mg PO 1200 10/31/15 02/17/17 History Cap/Tab] Magnesium 250 mg PO BEDTIME 10/31/15 02/17/17 History Metoprolol Succinate 12.5 mg PO 1200 10/31/15 02/17/17 History Multivitamin [Multivitamins] 1 each PO QAM 10/31/15 02/17/17 History Ascorbic Acid [Vitamin C] 500 mg PO BEDTIME 02/17/17 02/17/17 History Calcium Carbonate/Vitamin D3 1 each PO 1700 02/17/17 02/17/17 History [Calcium 600 + Vit D Tablet] Ferrous Sulfate 325 mg PO QAM 02/17/17 02/17/17 History Furosemide Inj [Lasix Inj] 20 mg IM BID DIURETIC vial 02/17/17 Rx Hydrocodone/Acetaminophen 1 tablet PO Q4-6H PRN 02/17/17 02/17/17 History [Hydrocodon-Acetaminoph 7.5-325] Potassium Chloride 8 meq PO 1200 02/17/17 02/17/17 History Warfarin [Coumadin] 2.5 mg PO DAILY 02/17/17 02/17/17 History Allergies Allergy/AdvReac Type Severity Reaction Status Date / Time sulfamethoxazole Allergy RASH Verified 11/02/15 10:04 [From Bactrim] trimethoprim [From Bactrim] Allergy RASH Verified 11/02/15 10:04 Medical,Surgical,& Family Hx - Medical History Cardio: History of: CHF, Hypertension Neurology: History of: TIA Endocrine: No history of: Diabetes Mellitus (NIDDM), Thyroid Disorder Respiratory: No history of: Pulmonary Embolism Gastrointestinal: History of: GERD Musculoskeletal: History of: Back/Neck Problems - Surgical History Reproductive Surgeries: Surgical HX of;: Hysterectomy - Family History Family History: Reports;: Family Diabetes, Family Heart Disease, Family Hypertension - Social History Smoking Status: Never smoker Frequency of Alcohol Use: None Type of Drug Use: None ROS unobtainable: other (Due to tracheostomy) Exam - Constitutional Vitals: Period Temp Pulse Resp BP Sys/Cox Pulse Ox Last 24 Hr 97.2 F-97.8 F 64-94 17-32 106-137/61-93 71-98 General appearance: no acute distress, over weight - Head Head exam: Present: normal inspection, normocephalic - Eye Eye exam: Present: other (Lids and conjunctive are unremarkable). Absent: scleral icterus - ENT ENT exam: Present: normal exam, normal oropharynx - Neck Neck exam: Present: normal inspection - Respiratory Respiratory exam: Present: clear to auscultation bilaterally. Absent: rales, rhonchi, wheezes - Cardiovascular Cardiovascular exam: Present: regular rate and rhythm. Absent: diastolic murmur , JVD, systolic murmur - GI/Abdominal GI/Abdominal exam: Present: normal bowel sounds, soft. Absent: ascites, distended, mass, organomegaly, tenderness - Extremities Exam Extremities exam: Present: normal inspection, full ROM - Back Exam Back exam: Present: normal inspection - Neurological Exam Neurological exam: Present: alert, oriented X3 - Psychiatric Psychiatric exam: Present: normal affect, normal mood - Skin Skin exam: Present: normal color, warm, dry Results - Labs CBC & BMP: 03/17/17 04:00 03/17/17 04:10 Lab Results: I have reviewed the past 24 hour labs Specialty Discharge - Follow Up or Referrals <Richard Pisano - Last Filed: 03/17/17 11:38> History of Present Illness History of present illness: Ms. Ernandez is a 81 year old female Exam - Constitutional Vitals: Period Temp Pulse Resp BP Sys/Cox Pulse Ox Last 24 Hr 97.2 F-97.8 F 64-94 17-32 106-152/61-94 71-98 Results - Labs CBC & BMP: 03/17/17 04:00 03/17/17 04:10
[2017-03-17] MEDS: MULTIVITAMIN LIQUID (CENTRUM) 60 ML BOTTLE PO SCH (10:02)
[2017-03-17] MEDS: FLUCONAZOLE 40 MG/ML 35 ML/BOTTLE PO SCH (10:02)
[2017-03-17] MEDS: PANTOPRAZOLE 40 MG VIAL IV SCH (10:03)
[2017-03-17] MEDS: DILTIAZEM 30 MG TABLET PO SCH ×3 (10:04→22:25)
[2017-03-17] MEDS: FUROSEMIDE 40 MG/4 ML VIAL IV SCH (10:04)
[2017-03-17] MEDS: METOPROLOL TARTRATE 100 MG TABLET PO SCH ×2 (10:05→22:26)
[2017-03-17] MEDS: DESITIN 4OZ/NYSTATIN 15 GRAM MIXTURE PASTE TOP SCH ×2 (10:05→22:28)
[2017-03-17] MEDS: AMIODARONE 200 MG TABLET PO SCH (10:05)
[2017-03-17] MEDS: HYDROcod/ACETAMIN 7.5-325 MG/15 ML UDCUP PO PRN (10:31)
--- NOTE | 2017-03-17 11:47 | Hospitalist Progress Note ---
Assessment and Plan (1) Hypertension Status: Chronic Current Visit: No Qualifiers: Hypertension type: essential hypertension Qualified Code(s): I10 - Essential (primary) hypertension (2) Debility Status: Chronic Current Visit: Yes (3) Pneumonia Status: Acute Assessment and plan: Broad-spectrum antibiotics. White blood cell count is normal. No fevers. Continuing antibiotics. Current Visit: Yes Qualifiers: Pneumonia type: due to unspecified organism Laterality: right Lung location: lower lobe of lung Qualified Code(s): J18.1 - Lobar pneumonia, unspecified organism (4) Acute respiratory failure Status: Chronic Assessment and plan: Trach collar. Doing trach collar trials. The patient will need long-term trach collar and ventilator management as she still tires out with trials. Current Visit: Yes Qualifiers: Respiratory failure complication: hypoxia Qualified Code(s): J96.01 - Acute respiratory failure with hypoxia Hospitalist: Subjective Interval history: The patient's condition is about the same. She is tolerating trach collar's but does get tired at times. She did have a swallowing evaluation done on yesterday for which she is still not able to protect her airway. She remains on NG tube feedings. Family members have decided on a PEG tube which is scheduled for next week. No other acute changes. Her Coumadin is on hold. Exam - Constitutional Vitals: Period Temp Pulse Resp BP Sys/Cox Pulse Ox Last 24 Hr 97.2 F-97.8 F 64-94 17-32 106-152/61-94 71-98 General appearance: normal weight - Head Head exam: Present: normal inspection - Neck Neck exam: Present: other (Trach collar in place) - Respiratory Respiratory exam: Present: clear to auscultation bilaterally - Cardiovascular Cardiovascular exam: Present: irregular rhythm - GI/Abdominal GI/Abdominal exam: Present: normal bowel sounds - Extremities Exam Extremities exam: Present: normal inspection - Neurological Exam Neurological exam: Present: alert - Psychiatric Psychiatric exam: Present: normal affect - Skin Skin exam: Present: normal color Results - Labs CBC & BMP: 03/17/17 04:00 03/17/17 04:10 Specialty Discharge - Follow Up or Referrals
[2017-03-17] MEDS ORDERED: PHYTONADIONE 10 MG/1 ML AMP SUBCUT ONE (13:13)
[2017-03-17] MEDS: GABAPENTIN 50 MG/ML 30 ML/BOTTLE NG SCH (13:17)
[2017-03-17] MEDS: ENOXAPARIN 30 MG/0.3 ML SYRINGE SUBCUT SCH (22:26)
[2017-03-18] MEDS: INSULIN REGULAR 100 UNIT/ML SUBCUT SCH ×5 (00:45→23:44)
[2017-03-18] MEDS: guaiFENesin 200 MG/10 ML UDCUP PO SCH ×4 (03:29→20:03)
[2017-03-18 04:23] LABS: Basophils % 0.4 % (0.0-0.8); Hematocrit 34.9 VOL% (35.7-47.0); Hemoglobin 11.5 GM/DL (12.0-16.0); Immature Granulocytes % 4.9 %; Immature Granulocytes Absolute 0.24 #; Lymphocytes # 0.8 10*3/uL (1.4-4.0); Lymphocytes % 15.3 % (21.3-54.2); Mean Corpuscular Hemoglobin 30 PG (27-34); Mean Corpuscular Volume 92.3 FL (87-102); Mean Platelet Volume 11.9 FL (9.6-12.0); Monocytes # 0.4 10*3/uL (0.11-0.8); NRBC # 0.02 10*3/uL; Neutrophils # 3.5 10*3/uL (1.4-7.4); Neutrophils % 70.4 % (38.7-73.9); Platelet Count 112 T/CUMM (130-400); Red Blood Count 3.78 MC/CUMM (3.8-5.5); Red Cell Distribution Width 15.3 % (9.3-17.3); White Blood Count 4.9 T/CUMM (4-12)
[2017-03-18 04:41] LABS: INR 2.4
[2017-03-18 04:48] LABS: PT Patient Result 26.4 SECS
[2017-03-18 04:55] LABS: Calcium 8.2 MG/DL (8.5-10.1); Magnesium 1.9 MG/DL (1.8-2.4); Osmolality,Calculated 287.7 MOS/KG (273-304); Potassium 3.7 MMOL/L (3.5-5.1)
[2017-03-18] MEDS: HYDROcod/ACETAMIN 7.5-325 MG/15 ML UDCUP PO PRN ×2 (05:02→20:11)
[2017-03-18 05:03] LABS: Anisocytosis 1+; Platelet Estimate Adequate
[2017-03-18] MEDS: POTASSIUM CHLORIDE RIDER 20 MEQ in PREMIX 1 EACH IV PRN (05:34)
[2017-03-18] MEDS: methylPREDNISolone SOD SUC 40 MG/1 ML VIAL IV SCH ×2 (06:23→18:20)
[2017-03-18] MEDS: LEVALBUTEROL 1.25 MG/3 ML NEB RESP TX SCH ×3 (07:03→23:27)
--- NOTE | 2017-03-18 07:29 | Pulmonology Progress Note ---
Pulmonary - PN: Subj Interval history: Patient with no acute events overnight. Sleeping this morning but awakens easily. On SIMV on the vent Exam (Progress Note) - Constitutional Vitals: Period Temp Pulse Resp BP Sys/Cox Pulse Ox Last 24 Hr 96.8 F-97.3 F 65-94 16-29 111-152/60-94 86-96 General appearance: no acute distress - Head Head exam: Present: normal inspection - Respiratory Respiratory exam: Absent: accessory muscle use, stridor, wheezes - Cardiovascular Cardiovascular exam: Present: irregular rhythm Results - Labs CBC & BMP: 03/18/17 04:05 03/18/17 04:00 Lab Results: I have reviewed the past 24 hour labs Assessment and Plan (1) Pneumonia Status: Acute Assessment and plan: Patient with Steno on previous bronch, other resp culture still pending. Trach in place, doing ok on the vent, continue to wean as tolerated Current Visit: Yes Qualifiers: Pneumonia type: due to unspecified organism Laterality: right Lung location: lower lobe of lung Qualified Code(s): J18.1 - Lobar pneumonia, unspecified organism Specialty Discharge - Follow Up or Referrals
[2017-03-18] MEDS: LEVOFLOXACIN INJ 500 MG in PREMIX 1 EACH IV SCH (07:35)
--- NOTE | 2017-03-18 08:11 | Cardiology Progress Note ---
Assessment and Plan (1) Aortic insufficiency Status: Acute Assessment and plan: 81-year-old female, admitted with CHF and respiratory insufficiency, now status post tracheostomy. Paroxysmal atrial fibrillation, preserved ejection fraction with restrictive filling, moderate MR, with no significant mitral stenosis and recent echo, severe pulmonary hypertension. -AF. Most paroxysmal before, now persistent. HR now well controlled. Cont amio 200 mg qd, metoprolol 100 mg bid, cardizem 60 mg tid. LVEF was preserved. She has severe biatrial enlargement and phtn. If remains stable in A. fib, we may switch to rate control only and discontinue amiodarone. -PEG tube is planned for Monday. Hold Coumadin for now, INR was therapeutic, may reverse with vitamin K, if needed for the procedure. -Cont Lasix 40 mg iv qd. Persistent 1+ edema. Current Visit: Yes (2) Mitral regurgitation Status: Acute Current Visit: Yes (3) Paroxysmal atrial fibrillation Status: Acute Current Visit: Yes (4) Pneumonia Status: Acute Current Visit: Yes Qualifiers: Pneumonia type: due to unspecified organism Laterality: right Lung location: lower lobe of lung Qualified Code(s): J18.1 - Lobar pneumonia, unspecified organism (5) Respirator dependence Status: Acute Current Visit: Yes (6) Congestive heart failure Status: Chronic Current Visit: Yes Qualifiers: Congestive heart failure chronicity: acute on chronic (7) Debility Status: Chronic Current Visit: Yes (8) Anticoagulated on Coumadin Status: Chronic Current Visit: No (9) Hypertension Status: Chronic Current Visit: No Qualifiers: Hypertension type: essential hypertension Qualified Code(s): I10 - Essential (primary) hypertension Cardiology - PN: Subj Interval history: She is stable with tracheostomy. Still, with mild lower extremity edema. Vitals are stable heart rate is well controlled and A. fib Exam (Progress Note) - Constitutional Vitals: Period Temp Pulse Resp BP Sys/Cox Pulse Ox Last 24 Hr 96.8 F-97.3 F 65-94 16-29 111-152/60-94 86-96 General appearance: no acute distress, over weight - Head Head exam: Present: normal inspection, normocephalic - Eye Eye exam: Absent: conjunctival injection, scleral icterus Pupils: Absent: dilated - ENT ENT exam: Present: normal external ear exam - Neck Neck exam: Present: normal inspection, other (Tracheostomy) - Respiratory Respiratory exam: Present: decreased breath sounds - Cardiovascular Cardiovascular exam: Present: irregular rhythm, systolic murmur. Absent: JVD - GI/Abdominal GI/Abdominal exam: Present: normal bowel sounds, other (Tender). Absent: distended - Extremities Exam Extremities exam: Present: normal inspection, normal capillary refill, edema (1+ ) - Neurological Exam Neurological exam: Present: alert - Psychiatric Psychiatric exam: Present: normal affect, normal mood - Skin Skin exam: Present: normal color, warm. Absent: cyanosis Result/EKG - Labs CBC & BMP: 03/18/17 04:05 03/18/17 04:00 Lab Results: I have reviewed the past 24 hour labs Labs: Laboratory Results - last 24 hr 03/17/17 03/17/17 03/17/17 11:42 17:34 23:34 WBC RBC Hgb Hct MCV MCH MCHC RDW Plt Count MPV Neut % (Auto) Lymph % (Auto) [place] % (Auto) Eos % (Auto) Baso % (Auto) Neut # (Auto) Lymph # (Auto) [place] # (Auto) Eos # (Auto) Baso # (Auto) Immature Gran % Nucleated RBC % Immature Gran # Nucleated RBCs # Platelet Estimate Anisocytosis INR PT Patient/Control Mix Sodium Potassium Chloride Carbon Dioxide Anion Gap BUN Creatinine GFR Calculation BUN/Creatinine Ratio Glucose POC Glucose 232 H 215 H 192 H Calculated Osmolality Calcium Magnesium 03/18/17 03/18/17 03/18/17 00:08 04:00 04:05 WBC 4.9 RBC 3.78 L Hgb 11.5 L Hct 34.9 L MCV 92.3 MCH 30 MCHC 33.0 RDW 15.3 Plt Count 112 L MPV 11.9 Neut % (Auto) 70.4 Lymph % (Auto) 15.3 L [place] % (Auto) 9.0 Eos % (Auto) 0.0 Baso % (Auto) 0.4 Neut # (Auto) 3.5 Lymph # (Auto) 0.8 L [place] # (Auto) 0.4 Eos # (Auto) 0.0 Baso # (Auto) 0.0 Immature Gran % 4.9 Nucleated RBC % 0.4 Immature Gran # 0.24 Nucleated RBCs # 0.02 Platelet Estimate Adequate Anisocytosis 1+ INR PT Patient/Control Mix Sodium 138 Potassium 3.7 Chloride 98 Carbon Dioxide 37 H Anion Gap 6.7 BUN 33 H Creatinine 0.20 L GFR Calculation 136 BUN/Creatinine Ratio 165.00 H Glucose 199 H POC Glucose 183 H Calculated Osmolality 287.7 Calcium 8.2 L Magnesium 1.9 03/18/17 03/18/17 04:05 05:19 WBC RBC Hgb Hct MCV MCH MCHC RDW Plt Count MPV Neut % (Auto) Lymph % (Auto) [place] % (Auto) Eos % (Auto) Baso % (Auto) Neut # (Auto) Lymph # (Auto) [place] # (Auto) Eos # (Auto) Baso # (Auto) Immature Gran % Nucleated RBC % Immature Gran # Nucleated RBCs # Platelet Estimate Anisocytosis INR 2.4 PT Patient/Control Mix 26.4 Sodium Potassium Chloride Carbon Dioxide Anion Gap BUN Creatinine GFR Calculation BUN/Creatinine Ratio Glucose POC Glucose 224 H Calculated Osmolality Calcium Magnesium - EKG EKG results: interpreted by me Specialty Discharge - Follow Up or Referrals
[2017-03-18] MEDS ORDERED: SODIUM CHLORIDE 0.9% 250 ML IV PRN (09:29)
[2017-03-18] MEDS: FLUCONAZOLE 40 MG/ML 35 ML/BOTTLE PO SCH (09:36)
[2017-03-18] MEDS: PANTOPRAZOLE 40 MG VIAL IV SCH (09:36)
[2017-03-18] MEDS: MULTIVITAMIN LIQUID (CENTRUM) 60 ML BOTTLE PO SCH (09:36)
[2017-03-18] MEDS: METOPROLOL TARTRATE 100 MG TABLET PO SCH ×2 (09:37→20:03)
[2017-03-18] MEDS: DILTIAZEM 30 MG TABLET PO SCH ×3 (09:37→20:03)
[2017-03-18] MEDS: AMIODARONE 200 MG TABLET PO SCH (09:37)
[2017-03-18] MEDS: FUROSEMIDE 40 MG/4 ML VIAL IV SCH (09:37)
[2017-03-18] MEDS: DESITIN 4OZ/NYSTATIN 15 GRAM MIXTURE PASTE TOP SCH ×2 (09:38→20:14)
[2017-03-18] MEDS ORDERED: PHYTONADIONE 10 MG/1 ML AMP SUBCUT ONE (10:00)
[2017-03-18] MEDS: GABAPENTIN 50 MG/ML 30 ML/BOTTLE NG SCH (12:02)
--- NOTE | 2017-03-18 13:52 | Hospitalist Progress Note ---
Assessment and Plan (1) Pneumonia Status: Acute Assessment and plan: The patient continues on trach collar and antibiotics for treatment of pneumonia. The atrial fibrillation is anticoagulated with Coumadin and amiodarone to maintain controlled response. The patient was given vitamin K yesterday and Coumadin was held INR still supratherapeutic. We will give additional vitamin K today and 2 units fresh frozen plasma. I coordinate care with the patient's family at the bedside and answered their questions. The family gave consent for transfusion. Current Visit: Yes Qualifiers: Pneumonia type: due to unspecified organism Laterality: right Lung location: lower lobe of lung Qualified Code(s): J18.1 - Lobar pneumonia, unspecified organism (2) History of atrial fibrillation Status: Chronic Current Visit: No (3) Anticoagulated on Coumadin Status: Chronic Current Visit: No (4) Acute respiratory failure Status: Chronic Current Visit: Yes Qualifiers: Respiratory failure complication: hypoxia Qualified Code(s): J96.01 - Acute respiratory failure with hypoxia Hospitalist: Subjective Interval history: The patient is tolerating tube feeding via nasogastric feeding tube. We are making plans for PEG tube earlier this next week. We are trying to reverse the patient's Coumadin anticoagulation. Exam - Constitutional Vitals: Period Temp Pulse Resp BP Sys/Cox Pulse Ox Last 24 Hr 96.4 F-97.3 F 65-95 16-29 106-149/60-94 86-96 Exam: Constitutional System: Mild distress. No tremulousness. The patient is intubated via tracheostomy. She is breathing comfortably on trach collar at this time Head: Normocephalic, atraumatic. Ears, Nose and Throat System: No evidence of Otitis or Mastoiditis. No epistaxis or discharge. The patient is tolerating tube feeding per NG tube at goal rate. Eyes System: Pupils equal, round, and reactive. Extraocular muscles intact. Neck: Supple, without adenopathy, No jugular venous distention. No thyromegaly , neck mass, or prior surgery apparent. Respiratory System: Chest upper airway congestion to auscultation. Cardiovascular System: Heart with regular rate and rhythm. No murmur. GI System: Abdomen soft, nontender. Normo active bowel sounds present. Musculoskeletal System: limbs with no pedal edema. Full distal pulses. Results - Labs CBC & BMP: 03/18/17 04:05 07/08/17 04:00 Lab Results: I have reviewed the past 24 hour labs Specialty Discharge - Follow Up or Referrals
[2017-03-18] MEDS: ENOXAPARIN 30 MG/0.3 ML SYRINGE SUBCUT SCH (20:03)
[2017-03-19] MEDS: guaiFENesin 200 MG/10 ML UDCUP PO SCH ×4 (04:28→20:27)
[2017-03-19] MEDS: INSULIN REGULAR 100 UNIT/ML SUBCUT SCH ×4 (06:27→23:53)
[2017-03-19] MEDS: methylPREDNISolone SOD SUC 40 MG/1 ML VIAL IV SCH ×2 (06:28→10:00)
[2017-03-19 06:40] LABS: Basophils % 0.3 % (0.0-0.8); Hemoglobin 10.5 GM/DL (12.0-16.0); Immature Granulocytes % 6.3 %; Immature Granulocytes Absolute 0.23 #; Lymphocytes # 0.6 10*3/uL (1.4-4.0); Lymphocytes % 16.6 % (21.3-54.2); Mean Corpuscular HGB Conc 32.8 GM/DL (32-36); Mean Corpuscular Hemoglobin 31 PG (27-34); Mean Corpuscular Volume 93.3 FL (87-102); Monocytes # 0.4 10*3/uL (0.11-0.8); Monocytes % 9.5 % (1.7-12.7); NRBC # 0.03 10*3/uL; Neutrophils # 2.5 10*3/uL (1.4-7.4); Neutrophils % 67.3 % (38.7-73.9); Platelet Count 111 T/CUMM (130-400); Red Blood Count 3.43 MC/CUMM (3.8-5.5); Red Cell Distribution Width 15.6 % (9.3-17.3); White Blood Count 3.7 T/CUMM (4-12)
[2017-03-19 06:47] LABS: INR 1.3; PT Patient Result 13.9 SECS
[2017-03-19] MEDS: LEVALBUTEROL 1.25 MG/3 ML NEB RESP TX SCH ×3 (06:56→23:25)
[2017-03-19 07:12] LABS: Calcium 8.3 MG/DL (8.5-10.1); Osmolality,Calculated 285.7 MOS/KG (273-304); Potassium 4.2 MMOL/L (3.5-5.1)
[2017-03-19 07:39] LABS: Band Neutrophils 6 % (0-10); Hypochromasia 2+; Lymphocytes 13 % (20-55); Microcytosis 1+; Myelocytes 2 %; Platelet Estimate Decreased; Segmented Neutrophils 73 % (50-85); Total Cells Counted 100
--- NOTE | 2017-03-19 08:16 | Pulmonology Progress Note ---
Pulmonary - PN: Subj Interval history: No acute events overnight. Patients bronch wash came back with Stenotrophonmonas , Otherwise nothing new Exam (Progress Note) - Constitutional Vitals: Period Temp Pulse Resp BP Sys/Cox Pulse Ox Last 24 Hr 96.8 F-97.7 F 64-95 12-28 97-139/50-92 91-99 General appearance: no acute distress Results - Labs CBC & BMP: 03/19/17 04:00 03/19/17 05:13 Lab Results: I have reviewed the past 24 hour labs Assessment and Plan (1) Pneumonia Status: Acute Assessment and plan: Steno confirmed on latest bronch, switching to Bactrim for better coverage. Continue to wean vent as tolerated Current Visit: Yes Qualifiers: Pneumonia type: due to unspecified organism Laterality: right Lung location: lower lobe of lung Qualified Code(s): J18.1 - Lobar pneumonia, unspecified organism Specialty Discharge - Follow Up or Referrals
--- NOTE | 2017-03-19 09:01 | Cardiology Progress Note ---
Assessment and Plan (1) Aortic insufficiency Status: Acute Assessment and plan: 81-year-old female, admitted with CHF and respiratory insufficiency, now status post tracheostomy. Paroxysmal atrial fibrillation, preserved ejection fraction with restrictive filling, moderate MR, with no significant mitral stenosis and recent echo, severe pulmonary hypertension. -AF. Most paroxysmal before, now persistent. HR now well controlled. Cont amio 200 mg qd, metoprolol 100 mg bid, cardizem 60 mg tid. LVEF was preserved. She has severe biatrial enlargement and phtn. If remains stable in A. fib, we may switch to rate control only and discontinue amiodarone. -PEG tube is planned for Monday. Hold Coumadin for now, INR now subtherapeutic , being bridged by Lovenox. -Cont diuresis with Lasix, now only has trace edema. Current Visit: Yes (2) Mitral regurgitation Status: Acute Current Visit: Yes (3) Paroxysmal atrial fibrillation Status: Acute Current Visit: Yes (4) Pneumonia Status: Acute Current Visit: Yes Qualifiers: Pneumonia type: due to unspecified organism Laterality: right Lung location: lower lobe of lung Qualified Code(s): J18.1 - Lobar pneumonia, unspecified organism (5) Respirator dependence Status: Acute Current Visit: Yes (6) Congestive heart failure Status: Chronic Current Visit: Yes Qualifiers: Congestive heart failure chronicity: acute on chronic (7) Debility Status: Chronic Current Visit: Yes (8) Anticoagulated on Coumadin Status: Chronic Current Visit: No (9) Hypertension Status: Chronic Current Visit: No Qualifiers: Hypertension type: essential hypertension Qualified Code(s): I10 - Essential (primary) hypertension Cardiology - PN: Subj Interval history: She is quite lethargic right now. The blood pressure, heart rate remained well controlled, she is in A. fib. Coumadin on hold, INR subtherapeutic, being bridged with Lovenox. PEG tube is planned for tomorrow. Exam (Progress Note) - Constitutional Vitals: Period Temp Pulse Resp BP Sys/Cox Pulse Ox Last 24 Hr 96.8 F-97.7 F 64-95 12-28 97-139/50-92 91-99 General appearance: normal weight, over weight - Head Head exam: Present: normal inspection, normocephalic - Eye Eye exam: Absent: conjunctival injection, periorbital swelling, laceration to eyelids - ENT ENT exam: Present: normal external ear exam, other (Tracheostomy) - Neck Neck exam: Present: normal inspection - Respiratory Respiratory exam: Present: decreased breath sounds. Absent: rhonchi, wheezes - Cardiovascular Cardiovascular exam: Present: irregular rhythm, systolic murmur - GI/Abdominal GI/Abdominal exam: Present: hypoactive bowel sounds. Absent: distended - Extremities Exam Extremities exam: Present: normal inspection, normal capillary refill, edema (1+ ) - Neurological Exam Neurological exam: Present: altered - Skin Skin exam: Present: normal color, warm, pallor Result/EKG - Labs CBC & BMP: 03/19/17 04:00 03/19/17 05:13 Lab Results: I have reviewed the past 24 hour labs Labs: Laboratory Results - last 24 hr 03/18/17 03/18/17 03/18/17 11:45 18:04 23:26 WBC RBC Hgb Hct MCV MCH MCHC RDW Plt Count MPV Neut % (Auto) Lymph % (Auto) [place] % (Auto) Eos % (Auto) Baso % (Auto) Neut # (Auto) Lymph # (Auto) [place] # (Auto) Eos # (Auto) Baso # (Auto) Total Counted Immature Gran % Nucleated RBC % Immature Gran # Segmented Neutrophils Band Neutrophils Lymphocytes Monocytes Myelocytes Nucleated RBCs # Platelet Estimate Hypochromasia Microcytosis INR PT Patient/Control Mix Sodium Potassium Chloride Carbon Dioxide Anion Gap BUN Creatinine GFR Calculation BUN/Creatinine Ratio Glucose POC Glucose 213 H 223 H 216 H Calculated Osmolality Calcium Magnesium 03/19/17 03/19/17 03/19/17 04:00 04:00 05:13 WBC 3.7 L RBC 3.43 L Hgb 10.5 L Hct 32.0 L MCV 93.3 MCH 31 MCHC 32.8 RDW 15.6 Plt Count 111 L MPV 12.0 Neut % (Auto) 67.3 Lymph % (Auto) 16.6 L [place] % (Auto) 9.5 Eos % (Auto) 0.0 Baso % (Auto) 0.3 Neut # (Auto) 2.5 Lymph # (Auto) 0.6 L [place] # (Auto) 0.4 Eos # (Auto) 0.0 Baso # (Auto) 0.0 Total Counted 100 Immature Gran % 6.3 Nucleated RBC % 0.8 Immature Gran # 0.23 Segmented Neutrophils 73 Band Neutrophils 6 Lymphocytes 13 L Monocytes 6 Myelocytes 2 Nucleated RBCs # 0.03 Platelet Estimate Decreased Hypochromasia 2+ Microcytosis 1+ INR 1.3 PT Patient/Control Mix 13.9 D Sodium 138 Potassium 4.2 Chloride 97 L Carbon Dioxide 38 H Anion Gap 7.2 BUN 29 H Creatinine 0.20 L GFR Calculation 136 BUN/Creatinine Ratio 145.00 H Glucose 182 H POC Glucose Calculated Osmolality 285.7 Calcium 8.3 L Magnesium 2.0 03/19/17 05:45 WBC RBC Hgb Hct MCV MCH MCHC RDW Plt Count MPV Neut % (Auto) Lymph % (Auto) [place] % (Auto) Eos % (Auto) Baso % (Auto) Neut # (Auto) Lymph # (Auto) [place] # (Auto) Eos # (Auto) Baso # (Auto) Total Counted Immature Gran % Nucleated RBC % Immature Gran # Segmented Neutrophils Band Neutrophils Lymphocytes Monocytes Myelocytes Nucleated RBCs # Platelet Estimate Hypochromasia Microcytosis INR PT Patient/Control Mix Sodium Potassium Chloride Carbon Dioxide Anion Gap BUN Creatinine GFR Calculation BUN/Creatinine Ratio Glucose POC Glucose 199 H Calculated Osmolality Calcium Magnesium - EKG EKG results: interpreted by me Specialty Discharge - Follow Up or Referrals
[2017-03-19] MEDS: PANTOPRAZOLE 40 MG VIAL IV SCH (10:05)
[2017-03-19] MEDS: FUROSEMIDE 40 MG/4 ML VIAL IV SCH (10:10)
[2017-03-19] MEDS: ENOXAPARIN 80 MG/0.8 ML SYRINGE SUBCUT SCH ×2 (10:11→19:40)
[2017-03-19] MEDS: DILTIAZEM 30 MG TABLET PO SCH ×3 (10:12→20:28)
[2017-03-19] MEDS: FLUCONAZOLE 40 MG/ML 35 ML/BOTTLE PO SCH (10:14)
[2017-03-19] MEDS: AMIODARONE 200 MG TABLET PO SCH (10:14)
[2017-03-19] MEDS: MULTIVITAMIN LIQUID (CENTRUM) 60 ML BOTTLE PO SCH (10:14)
[2017-03-19] MEDS: DESITIN 4OZ/NYSTATIN 15 GRAM MIXTURE PASTE TOP SCH ×2 (10:15→20:27)
[2017-03-19] MEDS: METOPROLOL TARTRATE 100 MG TABLET PO SCH ×2 (10:15→20:27)
[2017-03-19] MEDS: SULFAMETH/TRIMETH INJ 200 MG in DEXTROSE 5% 250 ML IV SCH ×3 (10:18→19:50)
[2017-03-19] MEDS: HYDROcod/ACETAMIN 7.5-325 MG/15 ML UDCUP PO PRN ×2 (11:36→16:12)
[2017-03-19] MEDS: GABAPENTIN 50 MG/ML 30 ML/BOTTLE NG SCH (11:40)
--- NOTE | 2017-03-19 13:13 | Hospitalist Progress Note ---
Assessment and Plan (1) Pneumonia Status: Acute Assessment and plan: The patient continues on trach collar and antibiotics for treatment of pneumonia. The atrial fibrillation is anticoagulated with Coumadin and amiodarone to maintain controlled response. The patient was given vitamin K yesterday as well as fresh frozen plasma; INR is now low enough to have surgery. The patient will be ready for PEG tube tomorrow. Current Visit: Yes Qualifiers: Pneumonia type: due to unspecified organism Laterality: right Lung location: lower lobe of lung Qualified Code(s): J18.1 - Lobar pneumonia, unspecified organism (2) History of atrial fibrillation Status: Chronic Current Visit: No (3) Anticoagulated on Coumadin Status: Chronic Current Visit: No (4) Acute respiratory failure Status: Chronic Current Visit: Yes Qualifiers: Respiratory failure complication: hypoxia Qualified Code(s): J96.01 - Acute respiratory failure with hypoxia Hospitalist: Subjective Interval history: The patient has respiratory failure and is anticoagulated due to atrial fibrillation. I discontinued Coumadin yesterday, gave vitamin K, and fresh frozen plasma. INR is now 1.3 and Lovenox has been started. The patient will be prepared for PEG tube placement tomorrow. Exam - Constitutional Vitals: Period Temp Pulse Resp BP Sys/Cox Pulse Ox Last 24 Hr 97 F-97.7 F 64-105 12-28 102-139/50-92 92-99 Exam: Constitutional System: Mild distress. No tremulousness. The patient is intubated via tracheostomy. She is breathing comfortably on trach collar at this time Head: Normocephalic, atraumatic. Ears, Nose and Throat System: No evidence of Otitis or Mastoiditis. No epistaxis or discharge. The patient is tolerating tube feeding per NG tube at goal rate. Eyes System: Pupils equal, round, and reactive. Extraocular muscles intact. Neck: Supple, without adenopathy, No jugular venous distention. No thyromegaly , neck mass, or prior surgery apparent. Respiratory System: Chest upper airway congestion to auscultation. Cardiovascular System: Heart with regular rate and rhythm. No murmur. GI System: Abdomen soft, nontender. Normo active bowel sounds present. Musculoskeletal System: limbs with no pedal edema. Full distal pulses. Results - Labs CBC & BMP: 03/19/17 04:00 03/19/17 05:13 Lab Results: I have reviewed the past 24 hour labs Specialty Discharge - Follow Up or Referrals
[2017-03-19] MEDS: ENOXAPARIN 30 MG/0.3 ML SYRINGE SUBCUT SCH (21:42)
[2017-03-20] MEDS: SULFAMETH/TRIMETH INJ 200 MG in DEXTROSE 5% 250 ML IV SCH ×2 (01:30→07:59)
[2017-03-20] MEDS: guaiFENesin 200 MG/10 ML UDCUP PO SCH ×4 (03:30→21:05)
[2017-03-20 05:18] LABS: Basophils % 0.2 % (0.0-0.8); Hematocrit 32.6 VOL% (35.7-47.0); Hemoglobin 10.7 GM/DL (12.0-16.0); Immature Granulocytes % 7.7 %; Immature Granulocytes Absolute 0.31 #; Lymphocytes # 0.8 10*3/uL (1.4-4.0); Lymphocytes % 18.5 % (21.3-54.2); Mean Corpuscular HGB Conc 32.8 GM/DL (32-36); Mean Corpuscular Hemoglobin 31 PG (27-34); Mean Corpuscular Volume 92.9 FL (87-102); Mean Platelet Volume 11.5 FL (9.6-12.0); Monocytes # 0.4 10*3/uL (0.11-0.8); Monocytes % 10.9 % (1.7-12.7); NRBC # 0.07 10*3/uL; Neutrophils # 2.5 10*3/uL (1.4-7.4); Neutrophils % 62.7 % (38.7-73.9); Platelet Count 100 T/CUMM (130-400); Red Blood Count 3.51 MC/CUMM (3.8-5.5); Red Cell Distribution Width 15.9 % (9.3-17.3); White Blood Count 4.1 T/CUMM (4-12)
[2017-03-20 05:27] LABS: INR 1.1; PT Patient Result 12.2 SECS
[2017-03-20 05:53] LABS: Calcium 8.1 MG/DL (8.5-10.1); Magnesium 2.1 MG/DL (1.8-2.4); Osmolality,Calculated 275.2 MOS/KG (273-304); Potassium 4.6 MMOL/L (3.5-5.1)
[2017-03-20 06:04] LABS: Prealbumin 27.5 MG/DL (20-40)
[2017-03-20 06:07] LABS: Hypochromasia 1+; Nucleated Red Blood Cells 5 (0-5)
[2017-03-20 06:08] LABS: Basophilic Stippling Slight; Platelet Estimate Decreased
[2017-03-20 06:09] LABS: Microcytosis 1+
[2017-03-20] MEDS: INSULIN REGULAR 100 UNIT/ML SUBCUT SCH ×3 (07:04→17:53)
[2017-03-20] MEDS: LEVALBUTEROL 1.25 MG/3 ML NEB RESP TX SCH ×2 (07:12→15:10)
--- NOTE | 2017-03-20 07:46 | Pulmonology Progress Note ---
Pulmonary - PN: Subj Interval history: Patient had worsening respiratory distress last night and was intubated by Dr. Contreras. At present she is sedated and on the ventilator but her mental status is good when sedation is held. We had wanted to evaluate swallowing but we will have to wait until we wean her off the ventilator. Concerned that she has a neurologic process. ABGs look good this morning. Will reduce settings. She has bilateral infiltrates on x-ray. Will take several days of antibiotics before we would be able to wean. 02/21/2017 ABGs are improved. Chest x-ray is pending. Will start weaning today. Patient with pneumonia and that is likely aspiration. Continuing broad- spectrum antibiotics. Cultures negative thus far from bronchial washings. 02/22/2017 again ABGs look better. Patient starting to do CPAP's. Seems to be responsive during those times when sedation is held. She does have some dementia and apparent aspiration. Bronchial washing cultures have been negative. Continuing empiric antibiotics. Will check mechanics and ABGs on CPAP today to see if we could possibly extubate. 02/23/2017 patient doing well with CPAP. ABGs look good. Chest x-ray still shows some lower lobe infiltrates. Worse on the right than left. Patient is alert calm and nodding to questions. Will check mechanics and ABGs on CPAP. If she does okay which should be able to get her extubated. 02/24/2017 she has done well with T-tube trial this morning. ABGs acceptable. Still has some right lower lobe infiltrate. Will extubate this morning. Mental status seems pretty good hopefully can defend her airway. She does have some dementia. 02/27/2017 patient was off the ventilator for a day but had to be reintubated 2 days ago because she was unable to clear her secretions. She is done well with CPAP since then. Will continue with weaning trial for now. May need to consider tracheostomy. PT/INR is hyperinflated. Holding Coumadin 02/28/2017 patient did prolonged CPAP trials. She is alert and answering questions squeezing fingers on command. Should be able to manage her airway extubated. Will check mechanics and ABGs on CPAP this morning. If she clearly is above excepted levels then we will extubate her. If she does not tolerate that then we would need to go ahead and plan tracheostomy. Her PT/INR is 5.2. Coumadin has been held. She is on medication that potentiated sections however. I will give her a low-dose of vitamin K. She is on that for paroxysmal atrial fibrillation. Normal sinus rhythm at present. 03/01/2017 patient again is doing well with prolonged CPAP trials. However her mechanics are quite poor. For now we will continue with CPAP trials. Will very likely need a tracheostomy if we do not see significant improvement in the next couple of days. Her PT INR remains hyper prolonged. Will repeat AquaMEPHYTON. Agree with evaluation for LTAC placement. 03/02/2017 PT/INR is down to 1.9 today. Will still need a little more fresh frozen plasma and/or vitamin K to prepare for tracheostomy. It appears likely that it will be next week that she gets the tracheostomy. We will continue weaning trials in the meantime. She is tolerating them well but her mechanics indicate that she does not have a strong enough cough to clear her airway if extubated now. Definitely think it would be safer for tracheostomy in order to get her weaned. 03/03/2017 INR is 1.7. Patient is scheduled for tracheostomy either later today or in the morning. We will give 2 more units of fresh frozen plasma. Would like to get INR down to 1.3 or less. She has been given a good bit of vitamin K as well. She is tolerating CPAP. However she has proven that she is not able to defend her airway and her mechanics have not been adequate for extubation. Hopefully tracheostomy will facilitate weaning. She has had problems with aspiration. 03/06/2017 patient had tracheostomy Monday. Making progress with CPAP. Doing brief trach collar. From pulmonary standpoint ready to move to LTAC soon as that can be done. 03/07/2017 patient did trach collar overnight and fatigued. Will increase times on trach collar on a daily basis. Hopefully can get her off the ventilator altogether within a few days and then start working on the tracheostomy. Patient is responsive. There are no new complaints. 03/08/2017 patient did trach collar for prolonged period yesterday and was put back on CPAP overnight. Did not fatigue. She is more alert and calm this morning. Will try to keep on trach collar full-time. If she fatigues we will rest with IMV. 03/09/2017 patient making progress with weaning with longer trach collar times. Still requiring some mechanical ventilation. She is responsive and afebrile. 03/10/2017 patient presently on trach collar and appears comfortable. She has an 8 [place] cuffed tracheostomy. Bleed not ready to do speaking valve until we get a smaller trach. PT/INR is down to 2.7 after fresh frozen plasma and vitamin K. Considering a PEG tube. However with her being on trach collar now may be able to try oral diet in a few days with speech therapy so probably should hold off on PEG tube. 03/13/2017 patient tolerating trach collar full-time the last 24 hours. She has required some mechanical ventilation at night a couple of times. Not able to change out trach tube until she goes about 4 days on trach collar. Mental status is good. Chest x-ray shows slight worsening on the left side. ABGs were acceptable. Increase activity get her up in the chair. 03/14/17 patient had to be placed back on the ventilator overnight. Chest x-ray still looks a little wet and she has hypercarbia. I will increase her Diamox. Renal function appears stable. It does not appear that she will get off the ventilator altogether in the next few days. It may be worthwhile to look back into going to LTAC. 03/15/2017 patient has been on trach collar overnight and looks comfortable. Her chest x-ray still shows a lot of pulmonary infiltrates and some pleural effusions. Urine output has been good. Renal function intact. Patient is fairly alert and calm. Will try speaking valve. Need to wait a few days before we downsize her trach to a cuff less 6 [place] straight. 03/16/2017 continues to do well with trach collar. However chest x-ray still showing fairly extensive infiltrates and her sputum is pretty thick. She has been on trach collar now for 48 hours. I will bronchoscope her this morning clean her airways. If she is doing well tomorrow we will downsize her tracheostomy. 03/17/2017 patient tolerating trach collar however she is a bit tachypneic and her O2 saturation 93% range. Were not able to downsize tracheostomy as yet. Still may require mechanical ventilation at night. Last bronchial washings are growing stenotrophomonas maltophilia. Will change antibiotics from Zosyn to Fortaz and Levaquin. Tolerating NG feedings. Chest x-ray still shows bilateral infiltrates fairly extensively 03/20/2017 patient requiring mechanical ventilation from time to time. Continuing antibiotics for stenotrophomonas. I note she was changed from the Fortaz and Levaquin to Bactrim. She has a history of allergy to Bactrim. Will adjust. Exam (Progress Note) - Constitutional Vitals: Period Temp Pulse Resp BP Sys/Cox Pulse Ox Last 24 Hr 97.5 F-98.1 F 61-105 8-30 89-160/51-86 90-100 Exam: Patient responsive at present. Nods to questions and squeezes fingers on command. Vital signs normal except respiratory rate in the mid 20s. Pupils react to light. Tracheostomy in place. On IMV rate at present. Neck is supple no bruits. Chest reveals few scattered rhonchi equal breath sounds. Heart irregular without murmurs. Abdomen soft nontender no masses. Extremities no clubbing cyanosis or edema. Calves are nontender. Results - Labs CBC & BMP: 03/20/17 04:13 03/20/17 04:13 Lab Results: I have reviewed the past 24 hour labs Assessment and Plan (1) History of atrial fibrillation Status: Chronic Assessment and plan: Patient on chronic anticoagulants. Watch protimes. Rate is controlled 02/21/2017 rate is controlled. 02/22/2017 again rate is controlled. 02/23/2017 rate controlled. 02/27/2017 holding Coumadin. INR 4.6. 02/28/2017 sinus rhythm. INR 5.2. Holding Coumadin. Will give AquaMEPHYTON 5 mg. 03/01/2017 sinus rhythm. Trying to totally reverse Coumadin. This is in anticipation of tracheostomy. Likely will need one by Monday. 03/02/2017 remains in sinus rhythm. She has had 2 doses of vitamin K and had fresh frozen plasma yesterday. If tracheostomy is to be done she would need another round of fresh frozen plasma the day before. 03/03/2017 rate is controlled. 1.7. Getting more fresh frozen plasma today in anticipation of the tracheostomy. 03/06/2017 rate is controlled. INR is 1.2. 03/07/2017 remains in atrial fib. Controlled rate. Cardiology following. 03/08/2017 atrial fibrillation with controlled rate. 03/09/2017 heart rate around 105-110. 03/10/2017 atrial fibrillation with controlled rate around 105 03/13/2017 rate is controlled 100-105. 03/14/2017 rate remains controlled. 03/15/2017 heart rate around 100-105 with atrial fib. 03/16/2017 rate controlled. Pulse now around 70. 03/17/2017 chronic A. fib rate controlled 03/20/17 atrial fibrillation controlled Current Visit: No (2) Congestive heart failure Status: Chronic Assessment and plan: BNP has come down since admission. Watch fluid status. 02/21/2017 clinically congestive heart failure is better. 02/22/2017 heart failure seems to be better 02/23/2017 chest x-ray may be a little wet. Will diurese further. 02/24/2017 chest x-ray still a little wet. Continue with diuresis. 02/27/2017 congestive heart failure improved. 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 03/01/2017 congestive heart failure little better. 03/02/2017 congestive heart failure stable at present. 03/03/2017 heart failure controlled. 03/06/2017 small pleural effusions. Probably needs diuresing a little. 03/07/17 small pleural effusions but probably not active congestive failure. 03/08/2017 responded to diuresis. She needs a little Diamox because of metabolic alkalosis. 03/09/2017 congestive heart failure controlled with medicines. 03/10/2017 she has diuresed fairly well. 03/13/2017 congestive heart failure appears controlled. Difficult to tell if she is wet on x-ray however. 03/14/2017 x-ray looks a little bit wet. Increasing Diamox because of hypercarbia. This may help with diuresis as well. Her weight is a little down. 03/15/2017 we have continued to diurese her. Also getting Diamox because of metabolic alkalosis. PCO2 is in the 50s. Watch closely. 03/16/2017 we have diuresed her a little better. Weight is down. 03/17/2017 has mitral regurgitation, diastolic dysfunction of left ventricle, and pulmonary hypertension. Renal function is intact. Probably appropriate fluid status. 03/20/17 does appear that she is ahead on fluid. Current Visit: Yes Qualifiers: Congestive heart failure chronicity: acute on chronic (3) Pneumonia Status: Acute Assessment and plan: On broad-spectrum empiric antibiotics. Check cultures from bronchial washings. That should be out tomorrow. She is E. coli from her urine and it is covered with Merrem. 02/21/2017 chest x-ray is pending. Bronchial wash cultures thus far are showing normal scott. Continuing empiric antibiotics. 02/22/2017 bronchial wash cultures were negative. Continuing empiric antibiotics. X-ray showing improvement 02/23/2017 bibasilar pneumonia. Bronchial wash cultures negative. Continuing antibiotics. 02/24/2017 pneumonia about the same, primarily at the right base. Continuing antibiotics. 02/27/2017 continuing empiric antibiotics. 02/28/2017 continuing empiric antibiotics. Adding Diflucan for oral monilia. Do not think she has monilia as the cause of her pneumonia. 03/01/2017 patient on antibiotics and on Diflucan. Likely these are keeping her pro time from correcting. 03/02/2017 continuing broad-spectrum antibiotics. Patient has very poor cough and would not be able to clear her airways if off the ventilator at present 03/03/2017 has bibasilar pneumonia due to aspiration. Poor cough. Requires tracheostomy to wean. 03/06/2017 chest x-ray still showing infiltrates. Overall much improved. 03/07/2017 continuing empiric antibiotics. 03/08/2017 no fever. Could stop antibiotics at this point. She has been on them for 2 weeks 03/09/2017 again no fever. 03/10/2017 no fever. Antibiotics have been discontinued 03/13/2017 with worsening chest x-ray will resume antibiotics. Start Zosyn. Obtain sputum 03/14/2017 continuing Zosyn. Gram stain shows gram-negative rods and increased number of white cells. 03/15/2017 continuing antibiotics. Cultures pending. Appears to be a gram- negative pneumonia 03/16/2017 continuing Zosyn. We will bronchoscope her and remove secretions and reculture. 03/17/2017 Stenotrophomonas maltophilia has grown from last bronchial wash. Changed antibiotics to cover. Using double coverage as we would with a Pseudomonas at this point. If she has any rhythm problems with the Levaquin would stop it and just keep on Fortaz. 03/20/17 stenotrophomonas growing from bronchial washings. Her antibiotics were changed from Fortaz and Levaquin to Bactrim yesterday. Will change back. Listed as allergic to Bactrim. Current Visit: Yes Qualifiers: Pneumonia type: due to unspecified organism Laterality: right Lung location: lower lobe of lung Qualified Code(s): J18.1 - Lobar pneumonia, unspecified organism (4) Acute respiratory failure Status: Chronic Assessment and plan: Patient was struggling especially with upper airway symptoms and required intubation last night. At bronchoscopy earlier in the day yesterday there were no abnormalities in the upper airway. Likely she had some thick secretions that caused this. We will keep these suctioned out. Pneumonia is the primary cause of the respiratory failure. 02/21/17 ABGs look much better. She has a metabolic alkalosis. Will add Diamox for 3 days. 02/22/2017 ABGs improved. Still has a mild metabolic alkalosis. Will check mechanics today to see if extubation is a possibility. 02/23/2017 ABGs look good. Tolerating CPAP. Only concern is far as getting her extubated is that her right lower lobe looks a little worse on x-ray today. Will bronchoscope and clean her out before we do CPAP 02/24/2017 patient extubated this morning. Hopefully she can defend her airway. She has some dementia but is able to respond to questions fairly well. 02/27/2017 patient had to be reintubated. Not able to defend her airway. 02/28/2017 ABGs look good. Her mental status is such that I would expect her to be able to control her airway. Will try again to get her extubated today 03/01/2017 again ABGs look good but mechanics not up to par for extubation yet. She would not be able to defend her airway, just as we saw Monday. 03/02/2017 ABGs look good. She does have a metabolic alkalosis. Will give Diamox for 3 days again. 03/03/2017 ABGs good. Tolerating CPAP. Report cough and inadequate negative inspiratory force. Tracheostomy is planned. Will be long-term weaning, and plans are to go to LTAC next week. 03/06/2017 PCO2 is a little low. Will reduce IMV rate. Continue weaning trial 03/07/2017 making good progress with weaning. Tolerated fairly long trach collar overnight. 03/08/2017 ABGs look good on trach collar. Hopefully we can keep her trach collar home full-time. Then began to downsize tracheostomy in a few days. 03/09/2017 PCO2 down a little bit. Patient comfortable on trach collar. Continue to stretch out times on trach collar 03/10/2017 tolerating trach collar. Can increase times on that. 03/13/2017 hopefully can get a full-time trach collar in the next few days. 03/14/2017 continues to have elevated PCO2. Continue to try trach collar 03/15/2017 tolerating trach collar but has elevated PCO2. Watch for fatigue. 03/16/2017 continues on trach collar now for 48 hours. Hopefully can downsize the tracheostomy tomorrow. Plan bronchoscopy today to clear airways. Continuing with Diamox for metabolic alkalosis. PCO2 is still elevated in the mid 50s. 03/17/2017 tolerating trach collar. Still a bit tachypneic. I do not think we can downsize the tracheostomy as yet. She may yet require some rest on the ventilator at night. Perhaps we can downsize her trach on Monday. Her PCO2 is in the upper 50s. Normal pH. She is getting some Diamox to try to correct the metabolic alkalosis. 03/20/17 chest x-ray pending. Resume trach collar today. Current Visit: Yes Qualifiers: Respiratory failure complication: hypoxia Qualified Code(s): J96.01 - Acute respiratory failure with hypoxia Specialty Discharge - Follow Up or Referrals
--- NOTE | 2017-03-20 08:04 | XRay Report ---
Exam: XR chest 1V portable Indication: Ventilator, tracheostomy Comparison study: 03/17/2017 radiograph Findings: Right-sided central line and esophagogastric tube are in similar positions. Tracheostomy tube appears similar positions as compared to prior. Low lung volumes with multifocal perihilar and basilar interstitial airspace opacities appear slightly increased from prior. There is no pneumothorax. Cardiac silhouette remains enlarged, similar prior. Osseous structures are stable. Impression: Stable position of support tubes and lines. No pneumothorax. Cardiomegaly with worsening of perihilar and basilar interstitial airspace opacities suggesting pulmonary edema changes and/or multifocal infectious/inflammatory infiltrates with small pleural effusions. PROCEDURE INTERPRETED AT [facility] DEPARTMENT OF RADIOLOGY Final Report Signed by: Ciro Rivera
[2017-03-20 08:22] LABS: Band Neutrophils 1 % (0-10); Lymphocytes 18 % (20-55); Promyelocytes 1 %; Segmented Neutrophils 68 % (50-85); Total Cells Counted 100
--- NOTE | 2017-03-20 08:29 | Cardiology Progress Note ---
Assessment and Plan - Time spent with patient Time spent with patient: Less than 30 minutes (1) Paroxysmal atrial fibrillation Status: Acute Assessment and plan: See plan of care listed below. Current Visit: Yes (2) Pneumonia Status: Acute Assessment and plan: See plan of care listed below. Current Visit: Yes Qualifiers: Pneumonia type: due to unspecified organism Laterality: right Lung location: lower lobe of lung Qualified Code(s): J18.1 - Lobar pneumonia, unspecified organism (3) Acute respiratory failure Status: Chronic Assessment and plan: See plan of care listed below. Current Visit: Yes Qualifiers: Respiratory failure complication: hypoxia Qualified Code(s): J96.01 - Acute respiratory failure with hypoxia (4) Anticoagulated on Coumadin Status: Chronic Assessment and plan: See plan of care listed below. Current Visit: No (5) Hypertension Status: Chronic Assessment and plan: See plan of care listed below. Current Visit: No Qualifiers: Hypertension type: essential hypertension Qualified Code(s): I10 - Essential (primary) hypertension (6) Mitral regurgitation Status: Acute Assessment and plan: See plan of care listed below. Current Visit: Yes (7) Aortic insufficiency Status: Acute Assessment and plan: See plan of care listed below. Current Visit: Yes (8) Congestive heart failure Status: Chronic Assessment and plan: See plan of care listed below. Current Visit: Yes Qualifiers: Congestive heart failure chronicity: acute on chronic Cardiology - PN: Subj Interval history: Metal Wire Technician: Dr. Johnston PCP: Dr. Jesús Graham Summary: Ms. Ernandez is a 81 year old female with a history of paroxysmal atrial fibrillation treated with amiodarone. She also has a history of hypertension, mitral stenosis, chronic anticoagulation. Ms. Ernandez was admitted to the hospital on 02/17/17 with pneumonia and CHF. An ASSOCIATE PROFESSOR OF ENGLISH was called on 02/19/17 due to respiratory distress and she subsequently required intubation. She has been in normal sinus rhythm throughout admission but went into atrial fibrillation on 03/01/17 and has had rates in the 100s-120s. We were consulted to see her and aid in management of her atrial fibrillation. MARCH 20, 2017: Ms. Ernandez is lying in bed on the ventilator upon exam this morning. She is NPO for PEG tube placement today. She has had difficulty weaning from the ventilator. She can tolerate trach collar trials, but eventually tires and requires being placed back on the ventilator. Assessment/Plan: 1. Paroxysmal atrial fibrillation - Mostly paroxysmal before, now persistent. LVEF was preserved. She has severe biatrial enlargement and pulmonary hypertension. We have been weaning her off of amiodarone. She has remained in stable A Fib. Will switch to rate control only and d/c her amiodarone. Will continue to monitor response to therapy. Continue Metoprolol 100mg PO BID, Cardizem 60mg PO TID. 2. Pneumonia - Pulmonology is following. 3. Acute respiratory failure s/p tracheostomy 03/03/17 - She is tolerating lengthy trach collar trials but tires easily. She would be a good potential candidate for LTAC; however, there have been some issues with her insurance. Case management has been assisting with this. 4. Chronic anticoagulation - Anticoagulated with Coumadin 3mg po daily. Monitor PT/INR. She is NPO for PEG tube placement today, being bridged with Lovenox. Goal INR between 2-3. 5. Hypertension - Currently well controlled. Will continue to monitor and adjust accordingly. 6. Mitral Regurgitation - Echocardiogram on 02/25/17 revealed EF 60%, mild to moderate MR, 1+ AI, severe TR, PA pressure 67. 7. Aortic Insufficiency 8. Congestive Heart Failure - BNP was mildly elevated earlier in hospitalization. We resumed Lasix 40mg IV daily, she continues to have some pleural effusions via CXR. Exam (Progress Note) - Constitutional Vitals: Period Temp Pulse Resp BP Sys/Cox Pulse Ox Last 24 Hr 97.5 F-98.1 F 61-105 8-30 90-160/51-86 90-100 Exam: General appearance: Resting comfortably on ventilator with tracheostomy. Normal weight, no acute distress. - Head Head exam: Present: normal inspection, normocephalic, atraumatic. Absent: hematoma, laceration - Eye Eye exam: Present: EOMI. Absent: conjunctival injection, nystagmus, periorbital swelling, scleral icterus, laceration to eyelids Pupils: Present: PERRL. Absent: constricted, dilated, fixed, irregular, unequal - ENT ENT exam: Present: On mechanical ventilation via tracheostomy, normal external ear exam - Neck Neck exam: Present: normal inspection. Absent: lymphadenopathy, meningismus, tenderness, thyromegaly - Respiratory Respiratory exam: Present: Mechanically ventilated breath sounds. Absent: accessory muscle use - Cardiovascular Cardiovascular exam: Present: Irregular rate and rhythm. Absent: carotid bruit , gallop, JVD, rubs, murmur - GI/Abdominal GI/Abdominal exam: Present: normal bowel sounds, soft. Absent: distended, firm , guarding, hernia, mass, tenderness, rebound. - Extremities Exam Extremities exam: Present: normal inspection, normal capillary refill. Upper extremity pulses 2+. Lower extremity pulses 2+. Absent: calf tenderness, edema - Back Exam Back exam: Present: Unable to examine due to habitus. On mechanical ventilator. - Neurological Exam Neurological exam: Present: Limited due to habitus (on ventilator). Arousable to verbal stimuli. Grossly intact. No resting or essential tremor. - Psychiatric Psychiatric exam: Present: Unable to adequately assess due to patient being sedated and on mechanical ventilation. - Skin Skin exam: Present: normal color, warm, dry, intact. Absent: cyanosis, diaphoretic, rash, urticaria Result/EKG - Labs CBC & BMP: 03/20/17 04:13 03/20/17 04:13 Lab Results: I have reviewed the past 24 hour labs Labs: Laboratory Results - last 24 hr 03/19/17 03/19/17 03/19/17 11:16 18:11 23:45 WBC RBC Hgb Hct MCV MCH MCHC RDW Plt Count MPV Neut % (Auto) Lymph % (Auto) Darke % (Auto) Eos % (Auto) Baso % (Auto) Neut # (Auto) Lymph # (Auto) Darke # (Auto) Eos # (Auto) Baso # (Auto) Immature Gran % Nucleated RBC % Immature Gran # Nucleated RBCs Nucleated RBCs # Platelet Estimate Hypochromasia Basophilic Stippling Microcytosis INR PT Patient/Control Mix Sodium Potassium Chloride Carbon Dioxide Anion Gap BUN Creatinine GFR Calculation BUN/Creatinine Ratio Glucose POC Glucose 261 H 321 H 247 H Calculated Osmolality Calcium Phosphorus Magnesium Prealbumin 03/20/17 03/20/17 03/20/17 04:13 04:13 04:13 WBC 4.1 RBC 3.51 L Hgb 10.7 L Hct 32.6 L MCV 92.9 MCH 31 MCHC 32.8 RDW 15.9 Plt Count 100 L MPV 11.5 Neut % (Auto) 62.7 Lymph % (Auto) 18.5 L Darke % (Auto) 10.9 Eos % (Auto) 0.0 Baso % (Auto) 0.2 Neut # (Auto) 2.5 Lymph # (Auto) 0.8 L Darke # (Auto) 0.4 Eos # (Auto) 0.0 Baso # (Auto) 0.0 Immature Gran % 7.7 Nucleated RBC % 1.7 Immature Gran # 0.31 Nucleated RBCs 5 Nucleated RBCs # 0.07 Platelet Estimate Decreased Hypochromasia 1+ Basophilic Stippling Slight Microcytosis 1+ INR 1.1 PT Patient/Control Mix 12.2 Sodium 134 L Potassium 4.6 Chloride 92 L Carbon Dioxide 38 H Anion Gap 8.6 BUN 27 H Creatinine 0.20 L GFR Calculation 136 BUN/Creatinine Ratio 135.00 H Glucose 150 H POC Glucose Calculated Osmolality 275.2 Calcium 8.1 L Phosphorus Magnesium 2.1 Prealbumin 03/20/17 03/20/17 04:13 05:03 WBC RBC Hgb Hct MCV MCH MCHC RDW Plt Count MPV Neut % (Auto) Lymph % (Auto) Darke % (Auto) Eos % (Auto) Baso % (Auto) Neut # (Auto) Lymph # (Auto) Darke # (Auto) Eos # (Auto) Baso # (Auto) Immature Gran % Nucleated RBC % Immature Gran # Nucleated RBCs Nucleated RBCs # Platelet Estimate Hypochromasia Basophilic Stippling Microcytosis INR PT Patient/Control Mix Sodium Potassium Chloride Carbon Dioxide Anion Gap BUN Creatinine GFR Calculation BUN/Creatinine Ratio Glucose POC Glucose 161 H Calculated Osmolality Calcium Phosphorus 2.0 L Magnesium Prealbumin 27.5 - EKG EKG results: interpreted by me EKG shows: atrial fibrillation Specialty Discharge - Follow Up or Referrals
[2017-03-20] MEDS: LEVOFLOXACIN INJ 500 MG in PREMIX 1 EACH IV SCH (09:25)
[2017-03-20] MEDS: methylPREDNISolone SOD SUC 40 MG/1 ML VIAL IV SCH (09:25)
[2017-03-20] MEDS: FUROSEMIDE 40 MG/4 ML VIAL IV SCH (09:26)
[2017-03-20] MEDS: PANTOPRAZOLE 40 MG VIAL IV SCH (09:26)
[2017-03-20] MEDS: metOLazone 2.5 MG TABLET PO SCH (09:26)
[2017-03-20] MEDS: DILTIAZEM 30 MG TABLET PO SCH ×3 (09:27→21:05)
[2017-03-20] MEDS: METOPROLOL TARTRATE 100 MG TABLET PO SCH ×2 (09:27→21:06)
[2017-03-20] MEDS: DESITIN 4OZ/NYSTATIN 15 GRAM MIXTURE PASTE TOP SCH ×2 (09:28→21:07)
[2017-03-20] MEDS: FLUCONAZOLE 40 MG/ML 35 ML/BOTTLE PO SCH (11:46)
[2017-03-20] MEDS: MULTIVITAMIN LIQUID (CENTRUM) 60 ML BOTTLE PO SCH (11:46)
[2017-03-20] MEDS ORDERED: LIDOCAINE 2% 5 ML VIAL ONE (12:55)
[2017-03-20] MEDS ORDERED: ETOMIDATE 20 MG/10 ML VIAL IV ONE (12:55)
[2017-03-20] MEDS ORDERED: PHENYLEPHRINE 1 MG/10 ML SYRINGE IV ONE (12:55)
[2017-03-20] MEDS ORDERED: PROPOFOL 200 MG/20 ML VIAL IV ONE (12:55)
--- NOTE | 2017-03-20 13:10 | Anesthesia Post-Op ---
Anesthesia Post OP - Post Ansesthetic Evaluation Patient seen in post op: Yes Resp: within normal limits CV: within normal limits Mental: within normal limits Temp: within normal limits Wuta-Hz-Rrysreftf: within normal limits Nausea and Vomiting: within normal limits Pain: within normal limits
[2017-03-20] MEDS: GABAPENTIN 50 MG/ML 30 ML/BOTTLE NG SCH (14:00)
--- NOTE | 2017-03-20 14:31 | Hospitalist Progress Note ---
Assessment and Plan (1) Pneumonia Status: Acute Assessment and plan: The patient continues on trach collar and antibiotics for treatment of pneumonia. The atrial fibrillation is anticoagulated with Coumadin and amiodarone to maintain controlled response. INR is 1.02. The patient will have PEG tube placement today. Current Visit: Yes Qualifiers: Pneumonia type: due to unspecified organism Laterality: right Lung location: lower lobe of lung Qualified Code(s): J18.1 - Lobar pneumonia, unspecified organism (2) History of atrial fibrillation Status: Chronic Current Visit: No (3) Anticoagulated on Coumadin Status: Chronic Current Visit: No (4) Acute respiratory failure Status: Chronic Current Visit: Yes Qualifiers: Respiratory failure complication: hypoxia Qualified Code(s): J96.01 - Acute respiratory failure with hypoxia Hospitalist: Subjective Interval history: The patient was prepared for PEG tube placement today. INR has normalized. The patient's last dose of Lovenox was 9 PM last night and tube feedings were held after midnight. Exam - Constitutional Vitals: Period Temp Pulse Resp BP Sys/Cox Pulse Ox Last 24 Hr 96.3 F-98.1 F 61-94 8-31 86-145/43-84 90-100 Exam: Constitutional System: Mild distress. No tremulousness. The patient is intubated via tracheostomy. She is breathing comfortably on trach collar at this time Head: Normocephalic, atraumatic. Ears, Nose and Throat System: No evidence of Otitis or Mastoiditis. No epistaxis or discharge. The patient is tolerating tube feeding per NG tube at goal rate. Eyes System: Pupils equal, round, and reactive. Extraocular muscles intact. Neck: Supple, without adenopathy, No jugular venous distention. No thyromegaly , neck mass, or prior surgery apparent. Respiratory System: Chest upper airway congestion to auscultation. Cardiovascular System: Heart with regular rate and rhythm. No murmur. GI System: Abdomen soft, nontender. Normo active bowel sounds present. Musculoskeletal System: limbs with no pedal edema. Full distal pulses. Results - Labs CBC & BMP: 03/20/17 04:13 03/20/17 04:13 Lab Results: I have reviewed the past 24 hour labs Specialty Discharge - Follow Up or Referrals
[2017-03-20] MEDS ORDERED: SODIUM CHLORIDE 0.9% 250 ML IV ONE (17:00)
--- NOTE | 2017-03-20 17:58 | Operative Note ---
Date of procedure: 03/20/17 Pre-op diagnosis: Malnutrition for PEG placement Procedure: EGD with percutaneous endoscopic gastrostomy tube placement. 81-year-old female on ventilator with a trach collar with progressive difficulty with malnutrition now for PEG tube placement. Informed consent was obtained from patient's family. She was sedated with MAC anesthesia. Patient placed in supine position head of bed elevated 30. The Olympus flexible video upper endoscope was inserted into the oral cavity advanced under direct vision the proximal esophagus. Findings: Esophagus-normal proximal mid esophageal mucosa distal esophagus normal no significant esophagitis varices or Walker's was identified. Stomach-normal insufflation normal mucosa to direct and retroflexed views of the body fundus cardia and antrum the stomach. Pylorus-normal Duodenum-normal for the bulb duodenum to the third portion of duodenum. Scope was withdrawn back in the stomach and appropriate area was transilluminated in the anterior abdominal wall and finger localized. This area was prepped and draped in sterile fashion. Local anesthesia with lidocaine subcutaneously was accomplished and finder needle was inserted into the stomach and endoscopically visualized. Subsequently fine needle was removed a small scalpel incision was made through the skin approximately 1/2 cm. Through this an 18-gauge catheter was inserted into the gastric cavity a guidewire was passed grasped with polypectomy snare brought out via the mouth. Using standard pull traction technique a 20 Portuguese Mahesh Ponsky style PEG tube was pulled in position without difficulty. Patient our procedure well she is discharged back to the ICU staff in good condition. Postop diagnosis 1. Successful placement of PEG tube. Utilize routine post PEG orders. Anesthesia: MAC Surgeon / Physician: Richard Pisano Estimated blood loss: none Specimens: none sent Condition: stable Disposition: no change Results - Labs CBC & BMP: 03/20/17 04:13 03/20/17 04:13 Discharge Plan - Discharge Medications New Furosemide Inj [Lasix Inj] 20 mg IM BID DIURETIC vial Continue Magnesium 250 mg PO BEDTIME Gabapentin Cap/Tab [Neurontin Cap/Tab] 300 mg PO 1200 Metoprolol Succinate 12.5 mg PO 1200 Amiodarone Tab [Cordarone Tab] 200 mg PO QAM Multivitamin [Multivitamins] 1 each PO QAM Warfarin [Coumadin] 2.5 mg PO DAILY Potassium Chloride 8 meq PO 1200 Ferrous Sulfate 325 mg PO QAM Calcium Carbonate/Vitamin D3 [Calcium 600 + Vit D Tablet] 1 each PO 1700 Ascorbic Acid [Vitamin C] 500 mg PO BEDTIME Hydrocodone/Acetaminophen [Hydrocodon-Acetaminoph 7.5-325] 1 tablet PO Q4-6H PRN PRN Reason: Pain Discontinued Lisinopril [Zestril] 20 mg PO QAM Meloxicam [Meloxicam] 7.5 mg PO QAM - Follow Up or Referral - Forms/Instructions Instructions: Tracheostomy Care (DC), Tracheotomy (DC)
[2017-03-20] MEDS: HYDROcod/ACETAMIN 7.5-325 MG/15 ML UDCUP PO PRN (21:06)
[2017-03-20] MEDS ORDERED: SODIUM CHLORIDE 0.9% 1,000 ML IV ONE (22:12)
[2017-03-20] MEDS: ENOXAPARIN 30 MG/0.3 ML SYRINGE SUBCUT SCH (22:16)
[2017-03-21] MEDS: LEVALBUTEROL 1.25 MG/3 ML NEB RESP TX SCH ×3 (01:22→14:35)
[2017-03-21] MEDS: INSULIN REGULAR 100 UNIT/ML SUBCUT SCH ×3 (01:49→11:30)
[2017-03-21] MEDS: guaiFENesin 200 MG/10 ML UDCUP PO SCH ×3 (02:23→15:23)
--- NOTE | 2017-03-21 07:23 | Pulmonology Progress Note ---
Pulmonary - PN: Subj Interval history: Patient had worsening respiratory distress last night and was intubated by Dr. Contreras. At present she is sedated and on the ventilator but her mental status is good when sedation is held. We had wanted to evaluate swallowing but we will have to wait until we wean her off the ventilator. Concerned that she has a neurologic process. ABGs look good this morning. Will reduce settings. She has bilateral infiltrates on x-ray. Will take several days of antibiotics before we would be able to wean. 02/21/2017 ABGs are improved. Chest x-ray is pending. Will start weaning today. Patient with pneumonia and that is likely aspiration. Continuing broad- spectrum antibiotics. Cultures negative thus far from bronchial washings. 02/22/2017 again ABGs look better. Patient starting to do CPAP's. Seems to be responsive during those times when sedation is held. She does have some dementia and apparent aspiration. Bronchial washing cultures have been negative. Continuing empiric antibiotics. Will check mechanics and ABGs on CPAP today to see if we could possibly extubate. 02/23/2017 patient doing well with CPAP. ABGs look good. Chest x-ray still shows some lower lobe infiltrates. Worse on the right than left. Patient is alert calm and nodding to questions. Will check mechanics and ABGs on CPAP. If she does okay which should be able to get her extubated. 02/24/2017 she has done well with T-tube trial this morning. ABGs acceptable. Still has some right lower lobe infiltrate. Will extubate this morning. Mental status seems pretty good hopefully can defend her airway. She does have some dementia. 02/27/2017 patient was off the ventilator for a day but had to be reintubated 2 days ago because she was unable to clear her secretions. She is done well with CPAP since then. Will continue with weaning trial for now. May need to consider tracheostomy. PT/INR is hyperinflated. Holding Coumadin 02/28/2017 patient did prolonged CPAP trials. She is alert and answering questions squeezing fingers on command. Should be able to manage her airway extubated. Will check mechanics and ABGs on CPAP this morning. If she clearly is above excepted levels then we will extubate her. If she does not tolerate that then we would need to go ahead and plan tracheostomy. Her PT/INR is 5.2. Coumadin has been held. She is on medication that potentiated sections however. I will give her a low-dose of vitamin K. She is on that for paroxysmal atrial fibrillation. Normal sinus rhythm at present. 03/01/2017 patient again is doing well with prolonged CPAP trials. However her mechanics are quite poor. For now we will continue with CPAP trials. Will very likely need a tracheostomy if we do not see significant improvement in the next couple of days. Her PT INR remains hyper prolonged. Will repeat AquaMEPHYTON. Agree with evaluation for LTAC placement. 03/02/2017 PT/INR is down to 1.9 today. Will still need a little more fresh frozen plasma and/or vitamin K to prepare for tracheostomy. It appears likely that it will be next week that she gets the tracheostomy. We will continue weaning trials in the meantime. She is tolerating them well but her mechanics indicate that she does not have a strong enough cough to clear her airway if extubated now. Definitely think it would be safer for tracheostomy in order to get her weaned. 03/03/2017 INR is 1.7. Patient is scheduled for tracheostomy either later today or in the morning. We will give 2 more units of fresh frozen plasma. Would like to get INR down to 1.3 or less. She has been given a good bit of vitamin K as well. She is tolerating CPAP. However she has proven that she is not able to defend her airway and her mechanics have not been adequate for extubation. Hopefully tracheostomy will facilitate weaning. She has had problems with aspiration. 03/06/2017 patient had tracheostomy Monday. Making progress with CPAP. Doing brief trach collar. From pulmonary standpoint ready to move to LTAC soon as that can be done. 03/07/2017 patient did trach collar overnight and fatigued. Will increase times on trach collar on a daily basis. Hopefully can get her off the ventilator altogether within a few days and then start working on the tracheostomy. Patient is responsive. There are no new complaints. 03/08/2017 patient did trach collar for prolonged period yesterday and was put back on CPAP overnight. Did not fatigue. She is more alert and calm this morning. Will try to keep on trach collar full-time. If she fatigues we will rest with IMV. 03/09/2017 patient making progress with weaning with longer trach collar times. Still requiring some mechanical ventilation. She is responsive and afebrile. 03/10/2017 patient presently on trach collar and appears comfortable. She has an 8 [place] cuffed tracheostomy. Bleed not ready to do speaking valve until we get a smaller trach. PT/INR is down to 2.7 after fresh frozen plasma and vitamin K. Considering a PEG tube. However with her being on trach collar now may be able to try oral diet in a few days with speech therapy so probably should hold off on PEG tube. 03/13/2017 patient tolerating trach collar full-time the last 24 hours. She has required some mechanical ventilation at night a couple of times. Not able to change out trach tube until she goes about 4 days on trach collar. Mental status is good. Chest x-ray shows slight worsening on the left side. ABGs were acceptable. Increase activity get her up in the chair. 03/14/17 patient had to be placed back on the ventilator overnight. Chest x-ray still looks a little wet and she has hypercarbia. I will increase her Diamox. Renal function appears stable. It does not appear that she will get off the ventilator altogether in the next few days. It may be worthwhile to look back into going to LTAC. 03/15/2017 patient has been on trach collar overnight and looks comfortable. Her chest x-ray still shows a lot of pulmonary infiltrates and some pleural effusions. Urine output has been good. Renal function intact. Patient is fairly alert and calm. Will try speaking valve. Need to wait a few days before we downsize her trach to a cuff less 6 [place] straight. 03/16/2017 continues to do well with trach collar. However chest x-ray still showing fairly extensive infiltrates and her sputum is pretty thick. She has been on trach collar now for 48 hours. I will bronchoscope her this morning clean her airways. If she is doing well tomorrow we will downsize her tracheostomy. 03/17/2017 patient tolerating trach collar however she is a bit tachypneic and her O2 saturation 93% range. Were not able to downsize tracheostomy as yet. Still may require mechanical ventilation at night. Last bronchial washings are growing stenotrophomonas maltophilia. Will change antibiotics from Zosyn to Fortaz and Levaquin. Tolerating NG feedings. Chest x-ray still shows bilateral infiltrates fairly extensively 03/20/2017 patient requiring mechanical ventilation from time to time. Continuing antibiotics for stenotrophomonas. I note she was changed from the Fortaz and Levaquin to Bactrim. She has a history of allergy to Bactrim. Will adjust. 03/21/2017 patient did 4 hours of CPAP yesterday. She had a PEG tube placed yesterday. Will resume weaning trials today. Agree with need for transfer to LTAC. This is going to take a while. Exam (Progress Note) - Constitutional Vitals: Period Temp Pulse Resp BP Sys/Cox Pulse Ox Last 24 Hr 96.3 F-97.6 F 62-105 8-31 74-120/43-71 91-100 Exam: Patient responsive at present. Nods to questions and squeezes fingers on command. Vital signs normal except respiratory rate in the mid 20s. Pupils react to light. Tracheostomy in place. On IMV rate at present. Neck is supple no bruits. Chest reveals few scattered rhonchi equal breath sounds. Heart irregular without murmurs. Abdomen soft nontender no masses. PEG tube in place. Extremities no clubbing cyanosis or edema. Calves are nontender. Results - Labs CBC & BMP: 03/20/17 04:13 03/21/17 04:09 Lab Results: I have reviewed the past 24 hour labs - Diagnostic Findings Procedure: Chest x-ray: image reviewed by me (Chest x-ray a little better. Less bibasilar infiltrates.) Assessment and Plan (1) History of atrial fibrillation Status: Chronic Assessment and plan: Patient on chronic anticoagulants. Watch protimes. Rate is controlled 02/21/2017 rate is controlled. 02/22/2017 again rate is controlled. 02/23/2017 rate controlled. 02/27/2017 holding Coumadin. INR 4.6. 02/28/2017 sinus rhythm. INR 5.2. Holding Coumadin. Will give AquaMEPHYTON 5 mg. 03/01/2017 sinus rhythm. Trying to totally reverse Coumadin. This is in anticipation of tracheostomy. Likely will need one by Monday. 03/02/2017 remains in sinus rhythm. She has had 2 doses of vitamin K and had fresh frozen plasma yesterday. If tracheostomy is to be done she would need another round of fresh frozen plasma the day before. 03/03/2017 rate is controlled. 1.7. Getting more fresh frozen plasma today in anticipation of the tracheostomy. 03/06/2017 rate is controlled. INR is 1.2. 03/07/2017 remains in atrial fib. Controlled rate. Cardiology following. 03/08/2017 atrial fibrillation with controlled rate. 03/09/2017 heart rate around 105-110. 03/10/2017 atrial fibrillation with controlled rate around 105 03/13/2017 rate is controlled 100-105. 03/14/2017 rate remains controlled. 03/15/2017 heart rate around 100-105 with atrial fib. 03/16/2017 rate controlled. Pulse now around 70. 03/17/2017 chronic A. fib rate controlled 03/20/17 atrial fibrillation controlled 03/21/2017 rate controlled. Current Visit: No (2) Congestive heart failure Status: Chronic Assessment and plan: BNP has come down since admission. Watch fluid status. 02/21/2017 clinically congestive heart failure is better. 02/22/2017 heart failure seems to be better 02/23/2017 chest x-ray may be a little wet. Will diurese further. 02/24/2017 chest x-ray still a little wet. Continue with diuresis. 02/27/2017 congestive heart failure improved. 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 03/01/2017 congestive heart failure little better. 03/02/2017 congestive heart failure stable at present. 03/03/2017 heart failure controlled. 03/06/2017 small pleural effusions. Probably needs diuresing a little. 03/07/17 small pleural effusions but probably not active congestive failure. 03/08/2017 responded to diuresis. She needs a little Diamox because of metabolic alkalosis. 03/09/2017 congestive heart failure controlled with medicines. 03/10/2017 she has diuresed fairly well. 03/13/2017 congestive heart failure appears controlled. Difficult to tell if she is wet on x-ray however. 03/14/2017 x-ray looks a little bit wet. Increasing Diamox because of hypercarbia. This may help with diuresis as well. Her weight is a little down. 03/15/2017 we have continued to diurese her. Also getting Diamox because of metabolic alkalosis. PCO2 is in the 50s. Watch closely. 03/16/2017 we have diuresed her a little better. Weight is down. 03/17/2017 has mitral regurgitation, diastolic dysfunction of left ventricle, and pulmonary hypertension. Renal function is intact. Probably appropriate fluid status. 03/20/17 does appear that she is ahead on fluid. 03/21/2017 chest x-ray a little bit less wet. Current Visit: Yes Qualifiers: Congestive heart failure chronicity: acute on chronic (3) Pneumonia Status: Acute Assessment and plan: On broad-spectrum empiric antibiotics. Check cultures from bronchial washings. That should be out tomorrow. She is E. coli from her urine and it is covered with Merrem. 02/21/2017 chest x-ray is pending. Bronchial wash cultures thus far are showing normal scott. Continuing empiric antibiotics. 02/22/2017 bronchial wash cultures were negative. Continuing empiric antibiotics. X-ray showing improvement 02/23/2017 bibasilar pneumonia. Bronchial wash cultures negative. Continuing antibiotics. 02/24/2017 pneumonia about the same, primarily at the right base. Continuing antibiotics. 02/27/2017 continuing empiric antibiotics. 02/28/2017 continuing empiric antibiotics. Adding Diflucan for oral monilia. Do not think she has monilia as the cause of her pneumonia. 03/01/2017 patient on antibiotics and on Diflucan. Likely these are keeping her pro time from correcting. 03/02/2017 continuing broad-spectrum antibiotics. Patient has very poor cough and would not be able to clear her airways if off the ventilator at present 03/03/2017 has bibasilar pneumonia due to aspiration. Poor cough. Requires tracheostomy to wean. 03/06/2017 chest x-ray still showing infiltrates. Overall much improved. 03/07/2017 continuing empiric antibiotics. 03/08/2017 no fever. Could stop antibiotics at this point. She has been on them for 2 weeks 03/09/2017 again no fever. 03/10/2017 no fever. Antibiotics have been discontinued 03/13/2017 with worsening chest x-ray will resume antibiotics. Start Zosyn. Obtain sputum 03/14/2017 continuing Zosyn. Gram stain shows gram-negative rods and increased number of white cells. 03/15/2017 continuing antibiotics. Cultures pending. Appears to be a gram- negative pneumonia 03/16/2017 continuing Zosyn. We will bronchoscope her and remove secretions and reculture. 03/17/2017 Stenotrophomonas maltophilia has grown from last bronchial wash. Changed antibiotics to cover. Using double coverage as we would with a Pseudomonas at this point. If she has any rhythm problems with the Levaquin would stop it and just keep on Fortaz. 03/20/17 stenotrophomonas growing from bronchial washings. Her antibiotics were changed from Fortaz and Levaquin to Bactrim yesterday. Will change back. Listed as allergic to Bactrim. 03/21/2017 patient is on Fortaz and Levaquin again. Bactrim has been stopped. Current Visit: Yes Qualifiers: Pneumonia type: due to unspecified organism Laterality: right Lung location: lower lobe of lung Qualified Code(s): J18.1 - Lobar pneumonia, unspecified organism (4) Acute respiratory failure Status: Chronic Assessment and plan: Patient was struggling especially with upper airway symptoms and required intubation last night. At bronchoscopy earlier in the day yesterday there were no abnormalities in the upper airway. Likely she had some thick secretions that caused this. We will keep these suctioned out. Pneumonia is the primary cause of the respiratory failure. 02/21/17 ABGs look much better. She has a metabolic alkalosis. Will add Diamox for 3 days. 02/22/2017 ABGs improved. Still has a mild metabolic alkalosis. Will check mechanics today to see if extubation is a possibility. 02/23/2017 ABGs look good. Tolerating CPAP. Only concern is far as getting her extubated is that her right lower lobe looks a little worse on x-ray today. Will bronchoscope and clean her out before we do CPAP 02/24/2017 patient extubated this morning. Hopefully she can defend her airway. She has some dementia but is able to respond to questions fairly well. 02/27/2017 patient had to be reintubated. Not able to defend her airway. 02/28/2017 ABGs look good. Her mental status is such that I would expect her to be able to control her airway. Will try again to get her extubated today 03/01/2017 again ABGs look good but mechanics not up to par for extubation yet. She would not be able to defend her airway, just as we saw Monday. 03/02/2017 ABGs look good. She does have a metabolic alkalosis. Will give Diamox for 3 days again. 03/03/2017 ABGs good. Tolerating CPAP. Report cough and inadequate negative inspiratory force. Tracheostomy is planned. Will be long-term weaning, and plans are to go to LTAC next week. 03/06/2017 PCO2 is a little low. Will reduce IMV rate. Continue weaning trial 03/07/2017 making good progress with weaning. Tolerated fairly long trach collar overnight. 03/08/2017 ABGs look good on trach collar. Hopefully we can keep her trach collar home full-time. Then began to downsize tracheostomy in a few days. 03/09/2017 PCO2 down a little bit. Patient comfortable on trach collar. Continue to stretch out times on trach collar 03/10/2017 tolerating trach collar. Can increase times on that. 03/13/2017 hopefully can get a full-time trach collar in the next few days. 03/14/2017 continues to have elevated PCO2. Continue to try trach collar 03/15/2017 tolerating trach collar but has elevated PCO2. Watch for fatigue. 03/16/2017 continues on trach collar now for 48 hours. Hopefully can downsize the tracheostomy tomorrow. Plan bronchoscopy today to clear airways. Continuing with Diamox for metabolic alkalosis. PCO2 is still elevated in the mid 50s. 03/17/2017 tolerating trach collar. Still a bit tachypneic. I do not think we can downsize the tracheostomy as yet. She may yet require some rest on the ventilator at night. Perhaps we can downsize her trach on Monday. Her PCO2 is in the upper 50s. Normal pH. She is getting some Diamox to try to correct the metabolic alkalosis. 03/20/17 chest x-ray pending. Resume trach collar today. 03/21/2017 ABGs pending. Continuing with CPAP trials. Current Visit: Yes Qualifiers: Respiratory failure complication: hypoxia Qualified Code(s): J96.01 - Acute respiratory failure with hypoxia Specialty Discharge - Follow Up or Referrals
--- NOTE | 2017-03-21 07:23 | XRay Report ---
Exam: XR chest 1V portable Indication: Shortness of breath Comparison study: 03/20/2017 radiograph Findings: Cardiac silhouette is mildly enlarged, similar prior. Tracheostomy tube is in similar position. The esophagogastric tube has been removed. Right-sided central line is in similar position. Critics silhouette is enlarged, similar prior. There are patchy perihilar and basilar interstitial opacities and blunting of the costophrenic angles which is slightly improved from the prior study. There is no pneumothorax identified. Impression: Slight improved aeration within the lung bases with residual perihilar and basilar opacities may represent atelectasis and trace pleural effusions. Esophagogastric tube has been removed. PROCEDURE INTERPRETED AT [facility] DEPARTMENT OF RADIOLOGY Final Report Signed by: Ciro Rivera
[2017-03-21] MEDS ORDERED: ONDANSETRON 4 MG/2 ML VIAL IV PRN (07:26)
--- NOTE | 2017-03-21 08:13 | Cardiology Progress Note ---
<Lilibeth Ryan E - Last Filed: 03/21/17 08:33> Assessment and Plan - Time spent with patient Time spent with patient: Less than 30 minutes (1) Paroxysmal atrial fibrillation Status: Acute Assessment and plan: See plan of care listed below. Current Visit: Yes (2) Pneumonia Status: Acute Assessment and plan: See plan of care listed below. Current Visit: Yes Qualifiers: Pneumonia type: due to unspecified organism Laterality: right Lung location: lower lobe of lung Qualified Code(s): J18.1 - Lobar pneumonia, unspecified organism (3) Acute respiratory failure Status: Chronic Assessment and plan: See plan of care listed below. Current Visit: Yes Qualifiers: Respiratory failure complication: hypoxia Qualified Code(s): J96.01 - Acute respiratory failure with hypoxia (4) Anticoagulated on Coumadin Status: Chronic Assessment and plan: See plan of care listed below. Current Visit: No (5) Hypertension Status: Chronic Assessment and plan: See plan of care listed below. Current Visit: No Qualifiers: Hypertension type: essential hypertension Qualified Code(s): I10 - Essential (primary) hypertension (6) Mitral regurgitation Status: Acute Assessment and plan: See plan of care listed below. Current Visit: Yes (7) Aortic insufficiency Status: Acute Assessment and plan: See plan of care listed below. Current Visit: Yes (8) Congestive heart failure Status: Chronic Assessment and plan: See plan of care listed below. Current Visit: Yes Qualifiers: Congestive heart failure chronicity: acute on chronic Cardiology - PN: Subj Interval history: [facility] Assistant Director: Dr. Johnston PCP: Dr. Jesús Graham Summary: Ms. Ernandez is a 81 year old female with a history of paroxysmal atrial fibrillation treated with amiodarone. She also has a history of hypertension, mitral stenosis, chronic anticoagulation. Ms. Ernandez was admitted to the hospital on 02/17/17 with pneumonia and CHF. An COACH BUILDER was called on 02/19/17 due to respiratory distress and she subsequently required intubation. She has been in normal sinus rhythm throughout admission but went into atrial fibrillation on 03/01/17 and has had rates in the 100s-120s. We were consulted to see her and aid in management of her atrial fibrillation. MARCH 20, 2017: Ms. Ernandez is lying in bed on the ventilator upon exam this morning. She had PEG tube placed on 03/20/17. She has had difficulty weaning from the ventilator. She can tolerate trach collar trials, but eventually tires and requires being placed back on the ventilator. We have been following her PAF. Her rates have been slightly more elevated in the past 12 hours. If she continues to have rates >100, we'll increase her cardizem to 90mg PO TID. Assessment/Plan: 1. Paroxysmal atrial fibrillation - Mostly paroxysmal before, now persistent. LVEF was preserved. She has severe biatrial enlargement and pulmonary hypertension. We have weaned her off of amiodarone. She has remained in stable A Fib. Rates have been slightly more elevated in the past 12 hours in the 90s- 100s. Will continue to monitor response to therapy. Continue Metoprolol 100mg PO BID, Cardizem 60mg PO TID. 2. Pneumonia - Pulmonology is following. 3. Acute respiratory failure s/p tracheostomy 03/03/17 - She is tolerating lengthy trach collar trials but tires easily. She would be a good potential candidate for LTAC; however, there have been some issues with her insurance. Case management has been assisting with this. 4. Chronic anticoagulation - She is usually anticoagulated with Coumadin 3mg po daily. Monitor PT/INR. Coumadin was on hold due to PEG tube placement and she was being bridged with lovenox. INR was 1.1 yesterday. Goal INR between 2-3. If no further procedures are planned, would recommend resuming Coumadin. Will further discuss with Dr. Johnston and await additional recommendations. 5. Hypertension - Currently well controlled. Will continue to monitor and adjust accordingly. 6. Mitral Regurgitation - Echocardiogram on 02/25/17 revealed EF 60%, mild to moderate MR, 1+ AI, severe TR, PA pressure 67. 7. Aortic Insufficiency 8. Congestive Heart Failure - BNP was mildly elevated earlier in hospitalization. We resumed Lasix 40mg IV daily, she continues to have trace pleural effusions via CXR. Exam (Progress Note) - Constitutional Vitals: Period Temp Pulse Resp BP Sys/Cox Pulse Ox Last 24 Hr 96.3 F-97.6 F 62-105 8-31 74-129/43-85 91-100 Exam: General appearance: Resting comfortably on ventilator with tracheostomy. Normal weight, no acute distress. - Head Head exam: Present: normal inspection, normocephalic, atraumatic. Absent: hematoma, laceration - Eye Eye exam: Present: EOMI. Absent: conjunctival injection, nystagmus, periorbital swelling, scleral icterus, laceration to eyelids Pupils: Present: PERRL. Absent: constricted, dilated, fixed, irregular, unequal - ENT ENT exam: Present: On mechanical ventilation via tracheostomy, normal external ear exam - Neck Neck exam: Present: normal inspection. Absent: lymphadenopathy, meningismus, tenderness, thyromegaly - Respiratory Respiratory exam: Present: Mechanically ventilated breath sounds. Absent: accessory muscle use - Cardiovascular Cardiovascular exam: Present: Irregular rate and rhythm. Absent: carotid bruit , gallop, JVD, rubs, murmur - GI/Abdominal GI/Abdominal exam: Present: normal bowel sounds, soft. Absent: distended, firm , guarding, hernia, mass, tenderness, rebound. - Extremities Exam Extremities exam: Present: normal inspection, normal capillary refill. Upper extremity pulses 2+. Lower extremity pulses 2+. Absent: calf tenderness, edema - Back Exam Back exam: Present: Unable to examine due to habitus. On mechanical ventilator. - Neurological Exam Neurological exam: Present: Limited due to habitus (on ventilator). Arousable to verbal stimuli. Nods appropriately to questions. Follows commands. Grossly intact. No resting or essential tremor. - Psychiatric Psychiatric exam: Present: Unable to adequately assess due to patient being sedated and on mechanical ventilation. - Skin Skin exam: Present: normal color, warm, dry, intact. Absent: cyanosis, diaphoretic, rash, urticaria Result/EKG - Labs CBC & BMP: 03/20/17 04:13 03/21/17 04:09 Lab Results: I have reviewed the past 24 hour labs Labs: Laboratory Results - last 24 hr 03/20/17 03/20/17 03/20/17 04:13 11:53 17:53 Total Counted 100 Segmented Neutrophils 68 Band Neutrophils 1 Lymphocytes 18 L Monocytes 12 Promyelocytes 1 Potassium POC Glucose 123 H 151 H 03/20/17 03/21/17 03/21/17 23:23 04:09 05:21 Total Counted Segmented Neutrophils Band Neutrophils Lymphocytes Monocytes Promyelocytes Potassium 4.2 POC Glucose 157 H 133 H - EKG EKG results: interpreted by me EKG shows: atrial fibrillation Quality Measures - VTE Contraindication to Pharmacological VTE Prophylaxis: High Risk of Bleeding Specialty Discharge - Follow Up or Referrals <Jacob Johnston - Last Filed: 03/21/17 13:44> Cardiology - PN: Subj Interval history: This patient is being transferred to [facility] for further care. She is clinically stable from a cardiac standpoint. She is just in need of continued recovery related to her ventilator status. Exam (Progress Note) - Constitutional Vitals: Period Temp Pulse Resp BP Sys/Cox Pulse Ox Last 24 Hr 96.5 F-97.6 F 72-106 8-30 74-129/43-85 91-100 Result/EKG - Labs CBC & BMP: 03/21/17 08:25 03/21/17 08:25 Labs: Laboratory Results - last 24 hr 03/20/17 03/20/17 03/21/17 17:53 23:23 04:09 WBC RBC Hgb Hct MCV MCH MCHC RDW Plt Count MPV Neut % (Auto) Lymph % (Auto) [place] % (Auto) Eos % (Auto) Baso % (Auto) Neut # (Auto) Lymph # (Auto) [place] # (Auto) Eos # (Auto) Baso # (Auto) Total Counted Immature Gran % Nucleated RBC % Immature Gran # Segmented Neutrophils Band Neutrophils Lymphocytes Monocytes Promyelocytes Nucleated RBCs Nucleated RBCs # Platelet Estimate Hypochromasia Microcytosis ABG pH ABG pCO2 ABG pO2 ABG HCO3 ABG Total CO2 ABG O2 Saturation ABG Base Excess Sodium Potassium 4.2 Chloride Carbon Dioxide Anion Gap BUN Creatinine GFR Calculation BUN/Creatinine Ratio Glucose POC Glucose 151 H 157 H Calculated Osmolality Calcium Magnesium 03/21/17 03/21/17 03/21/17 05:21 08:10 08:25 WBC 3.3 L RBC 3.40 L Hgb 10.5 L Hct 31.4 L MCV 92.4 MCH 31 MCHC 33.4 RDW 16.6 Plt Count 105 L MPV 11.5 Neut % (Auto) 55.9 Lymph % (Auto) 24.9 [place] % (Auto) 10.5 Eos % (Auto) 0.0 Baso % (Auto) 0.6 Neut # (Auto) 1.9 Lymph # (Auto) 0.8 L [place] # (Auto) 0.4 Eos # (Auto) 0.0 Baso # (Auto) 0.0 Total Counted 100 Immature Gran % 8.1 Nucleated RBC % 2.4 Immature Gran # 0.27 Segmented Neutrophils 63 Band Neutrophils 1 Lymphocytes 23 Monocytes 12 Promyelocytes 1 Nucleated RBCs 1 Nucleated RBCs # 0.08 Platelet Estimate Decreased Hypochromasia 2+ Microcytosis 1+ ABG pH 7.434 ABG pCO2 54.3 H ABG pO2 69.0 L ABG HCO3 33.9 H ABG Total CO2 32.8 H ABG O2 Saturation 93.9 L ABG Base Excess 10.3 H Sodium Potassium Chloride Carbon Dioxide Anion Gap BUN Creatinine GFR Calculation BUN/Creatinine Ratio Glucose POC Glucose 133 H Calculated Osmolality Calcium Magnesium 03/21/17 03/21/17 08:25 11:21 WBC RBC Hgb Hct MCV MCH MCHC RDW Plt Count MPV Neut % (Auto) Lymph % (Auto) [place] % (Auto) Eos % (Auto) Baso % (Auto) Neut # (Auto) Lymph # (Auto) [place] # (Auto) Eos # (Auto) Baso # (Auto) Total Counted Immature Gran % Nucleated RBC % Immature Gran # Segmented Neutrophils Band Neutrophils Lymphocytes Monocytes Promyelocytes Nucleated RBCs Nucleated RBCs # Platelet Estimate Hypochromasia Microcytosis ABG pH ABG pCO2 ABG pO2 ABG HCO3 ABG Total CO2 ABG O2 Saturation ABG Base Excess Sodium 138 Potassium 4.2 Chloride 96 L Carbon Dioxide 38 H Anion Gap 8.2 BUN 23 H Creatinine 0.30 L GFR Calculation 119 BUN/Creatinine Ratio 76.00 H Glucose 116 H POC Glucose 174 H Calculated Osmolality 279.7 Calcium 8.6 Magnesium 2.0
[2017-03-21 08:14] LABS: ABG Base Excess 10.3 MMOL/L (-2.5-2.5); ABG HCO3 33.9 MMOL/L (20-26); ABG Oxygen Saturation 93.9 % (95-100); ABG PCO2 54.3 MM HG (35-48); ABG PH 7.434 (7.35-7.45); ABG TCO2 32.8 MMOL/L (23-27)
[2017-03-21 08:43] LABS: Basophils % 0.6 % (0.0-0.8); Hematocrit 31.4 VOL% (35.7-47.0); Hemoglobin 10.5 GM/DL (12.0-16.0); Immature Granulocytes % 8.1 %; Immature Granulocytes Absolute 0.27 #; Lymphocytes # 0.8 10*3/uL (1.4-4.0); Lymphocytes % 24.9 % (21.3-54.2); Mean Corpuscular HGB Conc 33.4 GM/DL (32-36); Mean Corpuscular Hemoglobin 31 PG (27-34); Mean Corpuscular Volume 92.4 FL (87-102); Mean Platelet Volume 11.5 FL (9.6-12.0); Monocytes # 0.4 10*3/uL (0.11-0.8); Monocytes % 10.5 % (1.7-12.7); NRBC # 0.08 10*3/uL; Neutrophils # 1.9 10*3/uL (1.4-7.4); Neutrophils % 55.9 % (38.7-73.9); Platelet Count 105 T/CUMM (130-400); Red Cell Distribution Width 16.6 % (9.3-17.3); White Blood Count 3.3 T/CUMM (4-12)
[2017-03-21 09:04] LABS: Calcium 8.6 MG/DL (8.5-10.1); Osmolality,Calculated 279.7 MOS/KG (273-304); Potassium 4.2 MMOL/L (3.5-5.1)
[2017-03-21 09:28] LABS: Band Neutrophils 1 % (0-10); Lymphocytes 23 % (20-55); Microcytosis 1+; Nucleated Red Blood Cells 1 (0-5); Promyelocytes 1 %; Segmented Neutrophils 63 % (50-85); Total Cells Counted 100
[2017-03-21] MEDS: metOLazone 2.5 MG TABLET PO SCH (09:28)
[2017-03-21] MEDS: PANTOPRAZOLE 40 MG VIAL IV SCH (09:28)
[2017-03-21] MEDS: DILTIAZEM 30 MG TABLET PO SCH ×2 (09:28→15:23)
[2017-03-21 09:29] LABS: Hypochromasia 2+; Platelet Estimate Decreased
[2017-03-21] MEDS: FUROSEMIDE 40 MG/4 ML VIAL IV SCH (09:29)
[2017-03-21] MEDS: methylPREDNISolone SOD SUC 40 MG/1 ML VIAL IV SCH (09:29)
[2017-03-21] MEDS: LEVOFLOXACIN INJ 500 MG in PREMIX 1 EACH IV SCH (09:30)
[2017-03-21] MEDS: DESITIN 4OZ/NYSTATIN 15 GRAM MIXTURE PASTE TOP SCH (09:47)
[2017-03-21] MEDS: MULTIVITAMIN LIQUID (CENTRUM) 60 ML BOTTLE PO SCH (09:47)
--- NOTE | 2017-03-21 09:54 | Gastrointestinal Progress Note ---
Assessment and Plan (1) Dysphagia Status: Acute Assessment and plan: 03/21-post PEG placement on yesterday. Tolerated well. Tolerating tube feedings well at this time. Plan an addendum to follow by Dr. Pisano. 03/17-protracted hospital stay for respiratory distress with associated pneumonia/ CHF. Remains on trach collar with ventilation at night. ST evaluation on yesterday with recommendations of n.p.o. due to secretions/food noted around trach collar. Currently on NG tube feedings tolerating well. Coumadin on hold with an elevated INR 2.6. After discussion with family, will plan for tentative PEG placement, if they wish to proceed, next week after INR has corrected and patient remains stable. Plan an addendum to follow Dr. Pisano. Current Visit: Yes Gastroenterology - PN: Subj Interval history: CC: PEG tube placement Pt is seen, with eyes open, and will follow limited commands. She is post PEG placement on yesterday and tolerated this well. She is noted to have a moderate amount of dried blood on dressing however nursing staff states this was initially after the PEG placed yesterday and has not had any fresh blood since this time. Abdomen is soft, nontender. Hgb is stable at 10.5. Pt is tolerating her tube feedings that have already been initiated this morning as well. ROS: Denies SOB or chest pain Exam (Progress Note) - Constitutional Vitals: Period Temp Pulse Resp BP Sys/Cox Pulse Ox Last 24 Hr 96.3 F-97.6 F 62-105 8-30 74-129/43-85 91-100 General appearance: normal weight, no acute distress - Head Head exam: Present: normal inspection, normocephalic - Eye Eye exam: Present: other (Lids and conjunctive are unremarkable). Absent: scleral icterus - ENT ENT exam: Present: normal exam, normal oropharynx - Neck Neck exam: Present: normal inspection - Respiratory Respiratory exam: Present: clear to auscultation bilaterally. Absent: rales, rhonchi, wheezes - Cardiovascular Cardiovascular exam: Present: regular rate and rhythm. Absent: diastolic murmur , JVD, systolic murmur - GI/Abdominal GI/Abdominal exam: Present: normal bowel sounds, soft. Absent: ascites, distended, mass, organomegaly, tenderness - Extremities Exam Extremities exam: Present: normal inspection, full ROM - Back Exam Back exam: Present: normal inspection - Neurological Exam Neurological exam: Present: alert, altered - Psychiatric Psychiatric exam: Present: normal affect, normal mood - Skin Skin exam: Present: normal color, warm, dry Results - Labs CBC & BMP: 03/21/17 08:25 03/21/17 08:25 Lab Results: I have reviewed the past 24 hour labs Specialty Discharge - Follow Up or Referrals
[2017-03-21] MEDS: METOPROLOL TARTRATE 100 MG TABLET PO SCH (10:19)
--- NOTE | 2017-03-21 10:30 | Discharge Summary ---
Hospital Course - Hospital Course Hospital Course: The patient was admitted to the hospital with pneumonia and COPD. The patient had acute respiratory failure and required mechanical ventilation. The patient' s hospital stay was complicated by atrial fibrillation. The patient required amiodarone and Coumadin for treatment. The patient was unable to wean from the ventilator and tracheostomy was initiated. The patient has healed the tracheostomy and is making slow progress towards weaning. PEG tube was placed yesterday. The patient has been approved for LTAC and is stable for transfer today. On the date of discharge, chest is generally clear and heart has controlled atrial fibrillation. Extremities without edema. 37 minutes were required for coordination of care and discharge planning. MIPS: The patient is a smoker prior to hospitalization. I spent 4 minutes encouraging the patient not to start smoking again once she is off the ventilator. - Time spent with patient Time with patient DS: Greater than 30 minutes Diagnosis - Discharge Diagnosis (1) Pneumonia Status: Resolved (2) History of atrial fibrillation Status: Chronic (3) Anticoagulated on Coumadin Status: Chronic (4) Acute respiratory failure Status: Acute Specialty Discharge - Follow Up or Referrals Discharge Plan - Discharge Data Disposition: Disch/Xfer to [facility] Condition at Discharge: Stable Discharge Diet: other (Tube feeding per PEG) Activity: as per physical therapy - Discharge Medications New RX: Furosemide Inj [Lasix Inj] 20 mg IM BID DIURETIC vial Continue RX: Magnesium 250 mg PO BEDTIME RX: Gabapentin Cap/Tab [Neurontin Cap/Tab] 300 mg PO 1200 RX: Metoprolol Succinate 12.5 mg PO 1200 RX: Amiodarone Tab [Cordarone Tab] 200 mg PO QAM RX: Multivitamin [Multivitamins] 1 each PO QAM RX: Warfarin [Coumadin] 2.5 mg PO DAILY RX: Potassium Chloride 8 meq PO 1200 RX: Ferrous Sulfate 325 mg PO QAM RX: Calcium Carbonate/Vitamin D3 [Calcium 600 + Vit D Tablet] 1 each PO 1700 RX: Ascorbic Acid [Vitamin C] 500 mg PO BEDTIME RX: Hydrocodone/Acetaminophen [Hydrocodon-Acetaminoph 7.5-325] 1 tablet PO Q4 -6H PRN PRN Reason: Pain Discontinued RX: Lisinopril [Zestril] 20 mg PO QAM Meloxicam [Meloxicam] 7.5 mg PO QAM - Follow Up or Referral - Forms/Instructions Instructions: Tracheostomy Care (DC), Tracheotomy (DC) Exam - Constitutional Vitals: Period Temp Pulse Resp BP Sys/Cox Pulse Ox Last 24 Hr 96.3 F-97.6 F 62-106 8-30 74-129/43-85 91-100 Discharge Results Procedures and tests throughout hospitalization: Pending Orders 03/20/17 06:07 MRSA Surveillence, Inf Control Routine 03/22/17 04:00 XR chest 1V portable IN AM XR chest 1V portable IN AM Arterial Blood Gas IN AM BMP w/ Mg [Basic Metabolic Panel w/Mg] IN AM Comp Blood Count Auto Diff IN AM PTINR [Prothrombin Time INR] IN AM 03/23/17 04:00 XR chest 1V portable IN AM Arterial Blood Gas IN AM BMP w/ Mg [Basic Metabolic Panel w/Mg] IN AM Comp Blood Count Auto Diff IN AM Magnesium MOTH PTINR [Prothrombin Time INR] IN AM Phosphorous MOTH Prealbumin MOTH 03/24/17 04:00 Arterial Blood Gas IN AM BMP w/ Mg [Basic Metabolic Panel w/Mg] IN AM Comp Blood Count Auto Diff IN AM 03/27/17 04:00 Magnesium MOTH Phosphorous MOTH Prealbumin MOTH Labs on day of discharge: Labs from last 24 hours 03/21/17 03/21/17 03/21/17 08:25 08:25 08:10 WBC 3.3 L RBC 3.40 L Hgb 10.5 L Hct 31.4 L MCV 92.4 MCH 31 MCHC 33.4 RDW 16.6 Plt Count 105 L MPV 11.5 Neut % (Auto) 55.9 Lymph % (Auto) 24.9 [place] % (Auto) 10.5 Eos % (Auto) 0.0 Baso % (Auto) 0.6 Neut # (Auto) 1.9 Lymph # (Auto) 0.8 L [place] # (Auto) 0.4 Eos # (Auto) 0.0 Baso # (Auto) 0.0 Total Counted 100 Immature Gran % 8.1 Nucleated RBC % 2.4 Immature Gran # 0.27 Segmented Neutrophils 63 Band Neutrophils 1 Lymphocytes 23 Monocytes 12 Promyelocytes 1 Nucleated RBCs 1 Nucleated RBCs # 0.08 Platelet Estimate Decreased Hypochromasia 2+ Microcytosis 1+ ABG pH 7.434 ABG pCO2 54.3 H ABG pO2 69.0 L ABG HCO3 33.9 H ABG Total CO2 32.8 H ABG O2 Saturation 93.9 L ABG Base Excess 10.3 H Sodium 138 Potassium 4.2 Chloride 96 L Carbon Dioxide 38 H Anion Gap 8.2 BUN 23 H Creatinine 0.30 L GFR Calculation 119 BUN/Creatinine Ratio 76.00 H Glucose 116 H POC Glucose Calculated Osmolality 279.7 Calcium 8.6 Magnesium 2.0 03/21/17 03/21/17 03/20/17 05:21 04:09 23:23 WBC RBC Hgb Hct MCV MCH MCHC RDW Plt Count MPV Neut % (Auto) Lymph % (Auto) [place] % (Auto) Eos % (Auto) Baso % (Auto) Neut # (Auto) Lymph # (Auto) [place] # (Auto) Eos # (Auto) Baso # (Auto) Total Counted Immature Gran % Nucleated RBC % Immature Gran # Segmented Neutrophils Band Neutrophils Lymphocytes Monocytes Promyelocytes Nucleated RBCs Nucleated RBCs # Platelet Estimate Hypochromasia Microcytosis ABG pH ABG pCO2 ABG pO2 ABG HCO3 ABG Total CO2 ABG O2 Saturation ABG Base Excess Sodium Potassium 4.2 Chloride Carbon Dioxide Anion Gap BUN Creatinine GFR Calculation BUN/Creatinine Ratio Glucose POC Glucose 133 H 157 H Calculated Osmolality Calcium Magnesium 03/20/17 03/20/17 17:53 11:53 WBC RBC Hgb Hct MCV MCH MCHC RDW Plt Count MPV Neut % (Auto) Lymph % (Auto) [place] % (Auto) Eos % (Auto) Baso % (Auto) Neut # (Auto) Lymph # (Auto) [place] # (Auto) Eos # (Auto) Baso # (Auto) Total Counted Immature Gran % Nucleated RBC % Immature Gran # Segmented Neutrophils Band Neutrophils Lymphocytes Monocytes Promyelocytes Nucleated RBCs Nucleated RBCs # Platelet Estimate Hypochromasia Microcytosis ABG pH ABG pCO2 ABG pO2 ABG HCO3 ABG Total CO2 ABG O2 Saturation ABG Base Excess Sodium Potassium Chloride Carbon Dioxide Anion Gap BUN Creatinine GFR Calculation BUN/Creatinine Ratio Glucose POC Glucose 151 H 123 H Calculated Osmolality Calcium Magnesium DS: Provider Date of admission: 02/17/17 10:28 Primary care physician: Jesús Graham MD Attending physician on admission: Keren Gracia MD Consults: 02/17/17 15:50 Consult to Occupational Therapy [CONS] Routine Reason for Occupational Therapy: Evaluate and Treat Consult to Physical Therapy [CONS] Routine Reason for Physical Therapy: Evaluate and Treat 02/19/17 08:54 Consult to Physician [CONS] Routine Comment: aspiration Consulting Provider: Don Hernandez When should Consulting Provider be notified: Now Person Notified: dr hernandez Date Notified: 02/19/17 Time Notified: 08:54 Consult Notification Comment: notified of consult 02/23/17 13:33 Consult to Dietitian [CONS] Routine Reason for Dietitian: TF-Initiate/Manage 02/26/17 08:56 Consult to Physical Therapy [CONS] Routine Reason for Physical Therapy: Evaluate and Treat Consult Comment: per Early Progressive Mobility protocol 02/27/17 08:05 Consult to Physical Therapy [CONS] Routine Reason for Physical Therapy: Evaluate and Treat 02/27/17 15:25 Consult to Case Mgmt/Social Srvs [CONS] Routine Reason for Case Mgmt/Social Srvs: LTAC Consult Comment: PT EXTUBATED, THEN RE-INTUBATED OVER W/E, MEDICARE-[employer] INS. 03/01/17 12:42 Consult to Physician [CONS] Routine Comment: possible trach for resp failure Consulting Provider: Arie Garcia Consulting Provider Notified: Yes Consult to Specialist Group: ENT Person Notified: LAURA Date Notified: 03/01/17 Time Notified: 14:00 03/02/17 11:14 Consult to Physical Therapy [CONS] Routine Reason for Physical Therapy: Other 03/02/17 15:46 Consult to Physician [CONS] Routine Comment: Afib with RVR Consulting Provider: Cardiology - [facility] Consulting Provider Notified: Yes Consult to Specialist Group: Cardiology Person Notified: CALVIN Date Notified: 03/03/17 Time Notified: 09:25 Consult Notification Comment: ALREADY SEEN PT ON 03/02/17 03/02/17 20:50 Consult to Physical Therapy [CONS] Routine Reason for Physical Therapy: Weakness 03/12/17 20:31 Consult to Physical Therapy [CONS] Routine Reason for Physical Therapy: Evaluate and Treat 03/15/17 14:42 Consult to Occupational Therapy [CONS] Routine Reason for Occupational Therapy: Evaluate and Treat 03/16/17 16:08 Consult to Physician [CONS] Routine Comment: peg tube placement Consulting Provider: Richard Pisano Consulting Provider Notified: No When should Consulting Provider be notified: In am Consult to Specialist Group: Gastroenterology When should Consulting Provider be notified: In am Person Notified: cliff @ clinic Date Notified: 03/17/17 Time Notified: 09:30 03/20/17 17:58 Consult to Dietitian [CONS] Routine Reason for Dietitian: TF-Initiate/Manage Consult Comment: Tube feeding recommendations Discharging clinician: Franklin Trujillo MD
[2017-03-21] MEDS ORDERED: METOPROLOL TARTRATE 100 MG TABLET PO SCH (11:00)
[2017-03-21] MEDS: GABAPENTIN 50 MG/ML 30 ML/BOTTLE NG SCH (13:11)
[2017-03-21 15:50] VITALS: BP 113/67
--- NOTE | 2017-03-23 13:49 | Physician Query Form ---
CLICK EDIT DOCUMENT TO SELECT QUERY ANSWER --> OK --> SIGN Emilee Duque RN Clinical Cryptoanalysis Teacher W) [phone] (f) [phone] [email or web address] PROVIDERS: Make your selection(s) from the choices in EACH section by typing an "x" and enter comments in the comment section. Please use your independent medical judgment in providing your response. This request does not imply that any particular answer is desired or expected. CLINICAL INDICATORS: (Providers should not edit this section) Based on documentation of "Using saline irrigation both sides were lavaged. Bronchial washings were sent for cultures." Based on the above, could you clarify the location and type biopsy, if done? If lavage completed, was it: ( ) Bronchoalveolar Lavage TYPE BIOPSY: ( ) No biopsy ( ) Transbronchial needle aspiration ( ) Cell or tissue sample ( x) Fluid sample ( ) Other, please specify ( ) Clinically unable to determine BRONCHIAL: (x ) Bilateral Bronchi, all lobes ( ) Left Main Bronchus ( ) Left Upper Lobe Bronchus ( ) Left Lower Lobe Bronchus ( ) Right Main Bronchus ( ) Right Upper Lobe Bronchus ( ) Right Middle Lobe Bronchus ( ) Right Lower Lobe Bronchus ( ) Bronchial Lingula LUNG: ( ) Bilateral Lungs, all lobes ( ) Left Lung, all lobes ( ) Left Upper Lobe Lung ( ) Left Lower Lobe Lung ( ) Right Lung, all lobes ( ) Right Upper Lobe Lung ( ) Right Middle Lobe Lung ( ) Right Lower Lobe Lung ( ) Lung Lingula ( ) Other, please specify: ( ) Clinically unable to determine COMMENTS: PLEASE ALSO DOCUMENT RESPONSE IN PROGRESS NOTES AND/OR DISCHARGE SUMMARY Use of terms such as suspected, likely, or probable (associated with a specific diagnosis that is being evaluated, monitored, or treated as if it exists) are acceptable and can be restated in the discharge summary if not ruled out. MTDD
== END 2017-03-21 15:45 | DRG 4 ==
LOC: EDUNIT# → EDBD → N.ED 08:33 → SUATTDRO 10:28 → N.EDINP 10:28 → N.TELEN 11:10 → N.ICU 02-19 08:36 → N.CC 03-15 14:43
PROVIDERS: ADMIT Pediatrics; ATTEND Internal Medicine
PROC: EGDWPEG (ICD-10-PCS; 2017-03-20 09:35)